=== PATIENT | male | born 1955 | race Hispanic/Latino ===

== ENCOUNTER 2017-06-03 21:32 | Inpatient (IN) | payer MEDICARE, MEDICAID ==
--- NOTE | 2017-06-03 21:44 | ED PDOC ---
Arrival/HPI - General Chief Complaint: Shortness Of Breath Time Seen by Provider: 06/03/17 21:34 Historian: Patient - History of Present Illness Narrative History of Present Illness (Text): 06/03/17 21:43 Curtis Gaitan is a 62 year old male, whose past medical history includes diabetes, CAD, CHF, depression, bilateral AKA, and peripheral vascular disease, who presents to the Emergency department sent from [facility] for shortness of breath tonight. Patient denies any chest pain, abdominal pain, nausea, vomiting, or any other complaints. Symptom Onset: Gradual Symptom Course: Unchanged Activities at Onset: Rest, Light Context: Home Past Medical History - Provider Review Nursing Documentation Reviewed: Yes - Infectious Disease Hx of Infectious Diseases: None - Cardiac Hx Congestive Heart Failure: Yes - Pulmonary Hx Pneumonia: Yes Hx Tuberculosis: No - Neurological HX Cerebrovascular Accident: No Hx Seizures: No - HEENT Hx HEENT Disorder: No - Renal Hx Renal Disorder: No - Endocrine/Metabolic Hx Diabetes Mellitus Type 1: Yes - Hematological/Oncological Hx Cancer: No - Integumentary Hx Dermatological Disorder: No - Musculoskeletal/Rheumatological Other/Comment: Rheumatoid arthritis - Gastrointestinal Hx Gastroesophageal Reflux: Yes - Genitourinary/Gynecological Hx Prostate Problems: Yes - Psychiatric Hx Depression: Yes Hx Substance Use: No - Surgical History Other/Comment: Bilateral AKA - Anesthesia Hx Anesthesia: No Hx Anesthesia Reactions: No Hx Malignant Hyperthermia: No Family/Social History - Physician Review Nursing Documentation Reviewed: Yes Family/Social History: Unknown Family HX Smoking Status: Smoker Currrent Status Unknown Hx Alcohol Use: No Hx Substance Use: No Allergies/Home Meds Allergies/Adverse Reactions: Allergies No Known Allergies Allergy (Verified 10/17/16 19:27) Review of Systems - Physician Review All systems were reviewed & negative as marked: Yes - Review of Systems Respiratory: SOB Cardiovascular: Normal. absent: Chest Pain Gastrointestinal: Normal. absent: Abdominal Pain, Diarrhea, Nausea, Vomiting Genitourinary Male: Normal Musculoskeletal: Normal. absent: Back Pain, Neck Pain Neurological: Normal. absent: Headache, Dizziness Physical Exam Vital Signs Reviewed: Yes Vital Signs Temp Pulse Resp BP Pulse Ox 06/04/17 00:25 100 F H 106 H 14 125/68 98 06/04/17 00:20 100 F H 106 H 17 108/67 06/03/17 23:30 105 H 06/03/17 23:20 113 H 14 128/57 L 94 L 06/03/17 23:11 102.2 F H 06/03/17 22:15 102.2 F H 107 H 32 H 106/63 87 L Temperature: Febrile Blood Pressure: Normal Pulse: Regular Respiratory Rate: Normal Appearance: Positive for: Non-Toxic Pain Distress: None Mental Status: Positive for: other (Drowsy but arousable) - Systems Exam Head: Present: Atraumatic, Normocephalic Pupils: Present: PERRL Extroacular Muscles: Present: EOMI Conjunctiva: Present: Normal Mouth: Present: Moist Mucous Membranes Neck: Present: Normal Range of Motion Respiratory/Chest: Present: Good Air Exchange, Rhonchi. No: Respiratory Distress, Accessory Muscle Use Cardiovascular: Present: Regular Rate and Rhythm, Normal S1, S2. No: Murmurs Abdomen: Present: Normal Bowel Sounds. No: Tenderness, Distention, Peritoneal Signs Back: Present: Normal Inspection Upper Extremity: Present: Normal Inspection. No: Cyanosis, Edema Lower Extremity: Present: Normal Inspection (Bilateral AKA). No: Edema Neurological: Present: GCS=15, CN II-XII Intact, Speech Normal Skin: Present: Warm, Dry, Normal Color. No: Rashes Psychiatric: Present: Other (Drowst but arousable) Medical Decision Making ED Course and Treatment: 06/03/17 21:44 Impression: 62 year old male complaining of shortness of breath. Differential Diagnosis included but are not limited to: pneumonia vs. sepsis vs. congestive heart failure vs. ACS Plan: -- EKG -- Chest X-ray -- Labs, BNP, troponin, VBG, blood cultures -- UA, urine cultures -- IV fluids -- Duoneb -- Reassess and disposition Prior Visits: Notes and results from previous visits were reviewed. Progress Notes: Reviewed EKG, accelerated junctional rhythm at [address] bpm[address] Non-specific ST/T changes. Unchanged from EKG on 10/28/2016. 06/03/17 22:15 Reviewed radiology, Chest X-ray shows: The cardiomediastinal silhouette is enlarged, unchanged. An AICD is identified projecting over the left anterior chest wall with a single lead projecting into the atrium and ventricle. Increased markings are identified within the superior segment of the right lower lobe, suggesting consolidation. The remainder of the lungs are otherwise clear. No subdiaphragmatic free air or pneumothorax. The trachea is midline. IMPRESSION: Consolidation within the superior segment of the right lower lobe, as detailed above. Persistent cardiomegaly. 06/03/17 22:39 Pt febrile, lactate:2.8. Code Sepsis called. 06/03/17 23:10 Troponin:2.[address] Lockwood, who is aware and agrees to evaluate pt for ICU admission. 06/03/17 23:[address] Ramirez, covering for Dr. Quevedo, who is aware and agrees with plan. Requests Dr. Gill, Dr. Watkins, and Dr. Pittman on consult. 06/03/17 23:[address] Lockwood, present in Emergency department to evaluate pt. States pt can be admitted to ICU. Pt will be admitted to the ICU for pneumonia, sepsis, and NSTEMI. - Critical Care Critical Care Minutes: 30 minutes - Lab Interpretations Lab Results: 06/03/17 22:00 06/03/17 22:00 Lab Results 06/03/17 22:22: pCO2 33 L, pO2 48.0 L, HCO3 21.4, ABG pH 7.42, ABG Total CO2 22.4, ABG O2 Saturation 89.2 L, ABG Base Excess -2.5 L, ABG Potassium 3.7, Sodium 147.0, Chloride 91.0 L, Glucose 197 H, Lactate 2.1, FiO2 100.0, Inspiratory BiPAP 12, Arterial Blood Potassium 3.7 06/03/17 22:00: Sodium 133, Chloride 96, Potassium 3.7, Carbon Dioxide 22, Anion Gap 19, BUN 45 H, Creatinine 1.8 H, Est GFR ( Amer) 46, Est GFR ( Non-Af Amer) 38, Random Glucose 190 H, Calcium 8.7, Phosphorus 3.4, Magnesium 1.9, Total Bilirubin 1.7 H, AST 39, ALT 27, Alkaline Phosphatase 68, Troponin I 2.20 H* D, NT-Pro-B Natriuret Pep 5480 H, Total Protein 7.0, Albumin 3.8, Globulin 3.2, Albumin/Globulin Ratio 1.2 06/03/17 22:00: pO2 38, VBG pH 7.38, VBG pCO2 43.0, VBG HCO3 25.4, VBG Total CO2 26.7, VBG O2 Sat (Calc) 76.5 H, VBG Base Excess 0.1, VBG Potassium 3.6, Sodium 133.0, Chloride 98.0, Glucose 203 H, Lactate 2.8 H, FiO2 21.0, Venous Blood Potassium 3.6 06/03/17 22:00: PT 18.3 H, INR 1.69 H, APTT 35.7 H 06/03/17 22:00: WBC 4.5, RBC 3.96, Hgb 11.3 L, Hct 32.8 L, MCV 82.8, MCH 28.5, MCHC 34.5, RDW 15.9 H, Plt Count 229, MPV 9.1, Neutrophils % (Manual) 57, Band Neutrophils % 28 H*, Lymphocytes % (Manual) 5 L, Monocytes % (Manual) 6, Metamyelocytes % 1, Myelocytes % 3, Platelet Evaluation Normal I have reviewed the lab results: Yes - RAD Interpretation Radiology Orders: 06/03/17 21:45 CHEST PORTABLE [RAD] Stat Associate Genetics Professor: Radiologist - EKG Interpretation Interpreted by ED Physician: Yes Type: 12 lead EKG - Medication Orders Current Medication Orders: Albuterol/Ipratropium (Duoneb 3 Mg/0.5 Mg (3 Ml) Ud) 3 ml [facility] [id number] [facility] Aspirin (Aspirin Supp) 300 mg RC DAILY [facility] Atorvastatin Calcium (Lipitor) 80 mg PO DIN [facility] Sodium Chloride (Sodium Chloride 0.9%) 1,000 mls @ 150 mls/hr IV .Q6H40M [facility] Last Admin: 06/03/17 22:19 Dose: 150 mls/hr Heparin Sodium/Dextrose (Heparin 25,000 Units/250ml In D5w) 25,000 units in 250 mls @ 11.975 mls/hr IV .[id number] U[facility]IEL; 12 UNITS/KG/HR PRN Reason: Protocol Vancomycin HCl (Vancomycin 500mg In Ns) 500 mg in 100 mls @ 200 mls/hr IVPB Q12 U[facility] PRN Reason: Protocol Piperacillin Sod/Tazobactam Sod (Zosyn 2.25 Gm In 0.9% 100 Ml) 2.25 gm in 100 mls @ 100 mls/hr IVPB Q6 [facility] PRN Reason: Protocol Stop: 06/04/17 12:59 Ondansetron HCl (Zofran Inj) 4 mg IVP Q6H PRN PRN Reason: Nausea/Vomiting Pantoprazole Sodium (Protonix Inj) 40 mg IVP DAILY U[facility] Discontinued Medications Acetaminophen (Tylenol 650 Mg Supp) 650 mg RC STAT STA Stop: 06/03/17 22:36 Last Admin: 06/03/17 23:11 Dose: 650 mg Albuterol/Ipratropium (Duoneb 3 Mg/0.5 Mg (3 Ml) Ud) 3 ml IH ONCE STA Stop: 06/03/17 21:48 Last Admin: 06/03/17 22:19 Dose: 3 ml Aspirin (Aspirin Supp) 300 mg RC STAT STA Stop: 06/04/17 00:17 Aspirin (Aspirin Chewable) 81 mg PO DAILY U[facility] Heparin Sodium (Porcine) (Heparin) 7,000 units 70 units/kg (7000 units) IV ONCE ONE PRN Reason: Protocol Stop: 06/04/17 00:00 Levofloxacin/Dextrose (Levaquin 750mg) 750 mg in 150 mls @ 100 mls/hr IVPB STAT STA Stop: 06/04/17 00:11 Cefepime HCl (Maxipime 2gm) 2 gm in 100 mls @ 100 mls/hr IVPB STAT STA PRN Reason: Protocol Stop: 06/03/17 23:41 Last Admin: 06/03/17 23:11 Dose: 100 mls/hr Sodium Chloride (Sodium Chloride 0.9%) 500 mls @ 500 mls/hr IV .Q1H STA Stop: 06/03/17 23:46 Last Admin: 06/03/17 23:11 Dose: 500 mls/hr - Scribe Statement The provider has reviewed the documentation as recorded by the Mary Canela Provider Attestation: All medical record entries made by the Mary were at my direction and personally dictated by me. I have reviewed the chart and agree that the record accurately reflects my personal performance of the history, physical exam, medical decision making, and the department course for this patient. I have also personally directed, reviewed, and agree with the discharge instructions and disposition. Disposition/Present on Arrival - Present on Arrival Any Indicators Present on Arrival: No History of DVT/PE: No History of Uncontrolled Diabetes: No Urinary Catheter: No History of Decub. Ulcer: No History Surgical Site Infection Following: None - Disposition Have Diagnosis and Disposition been Completed?: Yes Diagnosis: Sepsis, Pneumonia, NSTEMI (non-ST elevated myocardial infarction) Disposition: HOSPITALIZED Disposition Time: 23:31 Patient Plan: Admission Patient Problems: Current Active Problems Problem Status Onset NSTEMI (non-ST elevated myocardial infarction) Acute Pneumonia Acute Sepsis Acute Condition: GUARDED
[2017-06-03] MEDS ORDERED: Albuterol-Ipratrop 3 mg / 0.5 (3 ml) UD IH STA (21:47)
[2017-06-03] MEDS: Sodium Chloride 0.9% 1,000 ML IV SCH (22:19)
[2017-06-03 22:26] LABS: ARTERIAL BLOOD GAS HCO3 21.4 mmol/L (21-28); ARTERIAL BLOOD GAS O2 SAT 89.2 % (95-98); ARTERIAL BLOOD GAS PCO2 33 mm/Hg (35-45); ARTERIAL BLOOD GAS PH 7.42 (7.35-7.45); ARTERIAL BLOOD GAS TCO2 22.4 mmol.L (22-28)
--- NOTE | 2017-06-03 22:28 | RAD ---
EXAM: XR Chest, 1 View CLINICAL HISTORY: 62 years old, male; Signs and symptoms; Shortness of breath; Additional info: Sepsis patient TECHNIQUE: Frontal view of the chest. COMPARISON: CR - CHEST PORTABLE 10/31/2016 4:58:34 AM FINDINGS: The cardiomediastinal silhouette is enlarged, unchanged. An AICD is identified projecting over the left anterior chest wall with a single lead projecting into the atrium and ventricle. Increased markings are identified within the superior segment of the right lower lobe, suggesting consolidation. The remainder of the lungs are otherwise clear. No subdiaphragmatic free air or pneumothorax. The trachea is midline. IMPRESSION: Consolidation within the superior segment of the right lower lobe, as detailed above. Persistent cardiomegaly.
[2017-06-03 22:32] LABS: HEMOGLOBIN 11.3 gm/dL (14.0-18.0); MEAN CELL VOLUME 82.8 fL (80.0-105.0); MEAN CORPUSCULAR HEMOGLOBIN 28.5 pg (25.0-35.0); MEAN CORPUSCULAR HGB CONC 34.5 g/dl (31.0-37.0); MEAN PLATELET VOLUME 9.1 fl (7.0-11.0); PLATELET COUNT 229 10^3/uL (120.0-450.0); RBC 3.96 10^6/uL (3.5-6.1); RED CELL DISTRIBUTION WIDTH 15.9 % (11.5-14.5); WHITE BLOOD COUNT 4.5 10^3/ul (4.5-11.0)
[2017-06-03 22:34] LABS: VENOUS BLOOD GAS BASE EXCESS 0.1 mmol/L (0.0-2.0); VENOUS BLOOD GAS PO2 38 mm/Hg (30-55); VENOUS BLOOD PH 7.38 (7.32-7.43)
[2017-06-03 22:41] LABS: INR 1.69 (0.93-1.08); PARTIAL THROMBOPLASTIN TIME 35.7 Seconds (23.7-30.8); PROTHROMBIN TIME 18.3 Seconds (9.9-11.8)
[2017-06-03] MEDS ORDERED: Cefepime IV 2 gm in NS 2 GM/100 ML BAG IVPB STA (22:42)
[2017-06-03] MEDS ORDERED: levoFLOXacin 750 mg in D5W 750 MG/150 ML BAG IVPB STA (22:42)
[2017-06-03 22:45] LABS: ALB/GLOB RATIO 1.2 (1.1-1.8); ALBUMIN 3.8 g/dL (3.0-4.8); CALCIUM 8.7 mg/dL (8.4-10.5); MAGNESIUM 1.9 mg/dL (1.7-2.2)
[2017-06-03] MEDS ORDERED: Sodium Chloride 0.9% 500 ML IV STA (22:47)
[2017-06-03 23:03] LABS: TROPONIN I 2.2 ng/mL
[2017-06-03 23:20] LABS: NEUTROPHIL 57 % (50.0-70.0)
[2017-06-03 23:22] LABS: BAND 28 % (0-2); LYMPHOCYTE 5 % (22.0-35.0); METAMYELOCYTE 1 %; MONOCYTE 6 % (1.0-6.0); MYELOCYTE 3 %
[2017-06-03 23:23] LABS: PLATELET ESTIMATE NORMAL (NORMAL)
[2017-06-03] MEDS ORDERED: Heparin 25,000units in D5W 25,000 UNITS/250 ML BAG IV SCH (23:45)
--- NOTE | 2017-06-04 00:29 | CP.PCM.CON ---
<Justin Flores - Last Filed: 06/04/17 00:51> History of Present Illness - History of Present Illness History of Present Illness: CC: SOB and AMS Patient is a 62 year old male with a PMHx of diabetes, CAD, CHF, COPD, depression, peripheral vascular disease who, as per ED chart, was ricardo in from a long term for evaluation of SOB. Patient seen and examined at bedside. He is wearing his BiPAP mask and is mentally altered. He is alert but does not respond to verbal stimuli and does not answer questions appropriately. No friends or family are at bedside. HPI limited to prior records and ED chart. ROS cannot be attained at this time due to patient's AMS. PMhx: diabetes, CAD, CHF, COPD, depression, peripheral vascular disease based on previous records PSHx: bilateral AKA based on previous records Social Hx: cannot be attained at this time due to AMS Family Hx: cannot be attained at this time due to AMS Meds: no list provided from long term Review of Systems - Review of Systems Systems not reviewed;Unavailable: Altered Mental Status Review of Systems: ROS cannot be attained at this time due to AMS. Past Patient History - Infectious Disease Hx of Infectious Diseases: None - Past Social History Smoking Status: Smoker Currrent Status Unknown - CARDIAC Hx Congestive Heart Failure: Yes - PULMONARY Hx Pneumonia: Yes Hx Tuberculosis: No - NEUROLOGICAL HX Cerebrovascular Accident: No Hx Seizures: No - HEENT Hx HEENT Problems: No - RENAL Hx Chronic Kidney Disease: No - ENDOCRINE/METABOLIC Hx Diabetes Mellitus Type 1: Yes - HEMATOLOGICAL/ONCOLOGICAL Hx Cancer: No - INTEGUMENTARY Hx Dermatological Problems: No - MUSCULOSKELETAL/RHEUMATOLOGICAL Other/Comment: Rheumatoid arthritis - GASTROINTESTINAL Hx Gastroesophageal Reflux: Yes - GENITOURINARY/GYNECOLOGICAL Hx Prostate Problems: Yes - PSYCHIATRIC Hx Depression: Yes Hx Substance Use: No - SURGICAL HISTORY Other/Comment: Bilateral AKA - ANESTHESIA Hx Anesthesia: No Hx Anesthesia Reactions: No Hx Malignant Hyperthermia: No Meds Allergies/Adverse Reactions: Allergies Allergy/AdvReac Type Severity Reaction Status Date / Time No Known Allergies Allergy Verified 10/17/16 19:27 - Medications Medications: Current Medications Albuterol/Ipratropium (Duoneb 3 Mg/0.5 Mg (3 Ml) Ud) 3 ml IH [id number] [facility] Aspirin (Aspirin Supp) 300 mg RC DAILY [facility] Atorvastatin Calcium (Lipitor) 80 mg PO DIN [facility] Sodium Chloride (Sodium Chloride 0.9%) 1,000 mls @ 150 mls/hr IV .Q6H40M [facility] Last Admin: 06/03/17 22:19 Dose: 150 mls/hr Heparin Sodium/Dextrose (Heparin 25,000 Units/250ml In D5w) 25,000 units in 250 mls @ 11.975 mls/hr IV .[id number] UZIEL; 12 UNITS/KG/HR PRN Reason: Protocol Vancomycin HCl (Vancomycin 500mg In Ns) 500 mg in 100 mls @ 200 mls/hr IVPB Q12 [facility] PRN Reason: Protocol Piperacillin Sod/Tazobactam Sod (Zosyn 2.25 Gm In 0.9% 100 Ml) 2.25 gm in 100 mls @ 100 mls/hr IVPB Q6 [facility] PRN Reason: Protocol Stop: 06/04/17 12:59 Ondansetron HCl (Zofran Inj) 4 mg IVP Q6H PRN PRN Reason: Nausea/Vomiting Pantoprazole Sodium (Protonix Inj) 40 mg IVP DAILY [facility] Physical Exam - Constitutional Appears: No Acute Distress, Confused - Head Exam Head Exam: NORMAL INSPECTION - Eye Exam Eye Exam: Normal appearance, PERRL - ENT Exam ENT Exam: Mucous Membranes Moist - Neck Exam Neck exam: Positive for: Normal Inspection - Respiratory Exam Additional comments: right upper lobe crackles diminished breath sounds bilateral lower lobes - Cardiovascular Exam Cardiovascular Exam: Tachycardia, +S1, +S2 - GI/Abdominal Exam GI & Abdominal Exam: Soft. absent: Rebound, Rigid, Tenderness - Extremities Exam Additional comments: bilateral AKA - Neurological Exam Neurological exam: Altered Additional comments: patient is awake but altered. he does not respond to verbal stimuli, does not answer questions appropriately, and does not move extremities past midline - Skin Additional comments: left shoulder mole Results - Vital Signs Recent Vital Signs: Last Vital Signs Temp 100 F H 06/04/17 00:20 Pulse 106 H 06/04/17 00:20 Resp 17 06/04/17 00:20 BP 108/67 06/04/17 00:20 Pulse Ox 94 L 06/03/17 23:20 - Labs Result Diagrams: 06/03/17 22:00 06/03/17 22:00 Assessment & Plan - Assessment and Plan (Free Text) Assessment: Patient is a 62 year old male with a PMHx of diabetes, CAD, CHF, COPD, depression, peripheral vascular disease who presents to the ED for evaluation and treatment of SOB. 1. Pneumonia; Hypoxemic Respiratory Distress; Hx of COPD - CXR reviewed- shows new consolidation of the upper portion of the right lower lobe - vancomycin - zosyn - CXR in AM - ABG in AM - procalcitonin - BiPAP - duonebs - supplemental oxygen - pulmonology consult 2. Sepsis, details- source pneumonia, rule out UTI - no IVF at this time due to exacerbation of CHF - blood culture - urine culture - UA - Lactate - vancomycin - zosyn - procalcitonin - infectious disease consult 3. Positive Troponins; details- ACS vs demand ischemia - trend troponins - trend EKGs - start heparin drip empirically as this patient has ACS pending CT of head shows no acute intracranial bleed - aspirin - statin - no Beta bg at this time as patient is septic, keep patient normotensive - Lipid panel 4. Acute CHF Exacerbation - strict I and O - daily weights - head of bed greater than 30 degrees - ECHO - Cardiology consult 5. ONEAL - likely due to intravascular depletion, pre-renal in nature - monitor closely via CMP 6. Coagulopathy - unclear if patient is on anticoagulation at home - monitor via PT/INR - ammonia level as patient is altered 7. Diabetes - A1C - Accu checks ACHS - Insulin sliding scale 8. Anemia - Iron, TIBC, ferritin, B12, Folate - monitor closely via CBC 9. Ppx - protonix - heparin Patient seen, evaluated, and discussed with attending, Dr. Lockwood. <Mandie FINNEY,Cristino - Last Filed: 06/04/17 06:40> Meds - Medications Medications: Current Medications Albuterol/Ipratropium (Duoneb 3 Mg/0.5 Mg (3 Ml) Ud) 3 ml IH [id number] [facility] Last Admin: 06/04/17 03:56 Dose: 3 ml Aspirin (Aspirin Supp) 300 mg RC DAILY [facility] Atorvastatin Calcium (Lipitor) 80 mg PO DIN [facility] Sodium Chloride (Sodium Chloride 0.9%) 1,000 mls @ 150 mls/hr IV .Q6H40M [facility] Last Admin: 06/04/17 01:40 Dose: 150 mls/hr Heparin Sodium/Dextrose (Heparin 25,000 Units/250ml In D5w) 25,000 units in 250 mls @ 11.975 mls/hr IV .[id number] U[facility]IEL; 12 UNITS/KG/HR PRN Reason: Protocol Last Admin: 06/04/17 01:41 Dose: 12 units/kg/hr, 11.975 mls/hr Vancomycin HCl (Vancomycin 500mg In Ns) 500 mg in 100 mls @ 200 mls/hr IVPB Q12 [facility] PRN Reason: Protocol Last Admin: 06/04/17 02:41 Dose: 200 mls/hr Piperacillin Sod/Tazobactam Sod (Zosyn 2.25 Gm In 0.9% 100 Ml) 2.25 gm in 100 mls @ 100 mls/hr IVPB Q6 [facility] PRN Reason: Protocol Stop: 06/04/17 12:59 Last Admin: 06/04/17 05:59 Dose: 100 mls/hr Ondansetron HCl (Zofran Inj) 4 mg IVP Q6H PRN PRN Reason: Nausea/Vomiting Pantoprazole Sodium (Protonix Inj) 40 mg IVP DAILY [facility] Results - Vital Signs Recent Vital Signs: Last Vital Signs Temp 100.2 F H 06/04/17 01:25 Pulse 98 H 06/04/17 05:00 Resp 30 H 06/04/17 05:00 BP 138/69 06/04/17 05:00 Pulse Ox 95 06/04/17 05:00 - Labs Result Diagrams: 06/03/17 22:00 06/03/17 22:00 Labs: Laboratory Results - last 24 hr 06/04/17 06/04/17 01:40 05:20 pCO2 35 pO2 86 H 73.0 L HCO3 20.2 L ABG pH 7.37 ABG Total CO2 21.3 L ABG O2 Saturation 97.9 ABG O2 Content 13.3 L ABG Base Excess -4.5 L ABG Hemoglobin 9.9 L ABG Carboxyhemoglobin 1.7 H POC ABG HHb (Measured) 2.0 ABG Methemoglobin 1.0 ABG O2 Capacity 13.6 L VBG pH 7.30 L VBG pCO2 49.0 VBG HCO3 24.1 VBG Total CO2 25.6 VBG O2 Sat (Calc) 97.9 H VBG Base Excess -2.6 L VBG Potassium 3.5 L Hgb O2 Saturation 95.3 Sodium 132.0 Chloride 101.0 Glucose 227 H Lactate 2.0 FiO2 21.0 100.0 Venous Blood Potassium 3.5 L Attending/Attestation - Attestation I have personally seen and examined this patient.: Yes I have fully participated in the care of the patient.: Yes I have reviewed all pertinent clinical information: Yes Notes (Text): -I agree with the above H&P completed by the resident physician with the following additions and/or changes: The patient is a 62 year old long term resident with a history of IDDM, HTN, CAD, CHF, COPD, PVD and bilateral AKA, who is being admitted to the ICU with sepsis due to RUL pneumonia, hypoxic respiratory distress (likely due to PNA and acute CHF), elevated troponin (demand ischemia vs NSTEMI), ONEAL (likely due to intravascular depletion) and AMS (presumably due to sepsis). Fortunately, his BP has remained within normal range since arrival. He will be placed on Bipap therapy overnight. Also, empiric IV Vanco/Zosyn. In addition, given the patient's extensive history of cardiovascular disease, empiric therapeutic Heparin drip will be started for treatment of possible NSTEMI (at least until he 's evaluated by cardiology later this morning)(the patient has no contraindications to anticoagulation). ID, pulmonary and cardiology consults have all been placed. a 2D-echo has been ordered as well as serial trop's/EKG, procalcitonin level, repeat ABG and a UA. CT-head done in the ED was negative for acute bleed.
--- NOTE | 2017-06-04 00:55 | CT ---
EXAM: CT Head Without Intravenous Contrast CLINICAL HISTORY: 62 years old, male; Screening exam; Additional info: Rule out bleed TECHNIQUE: Axial computed tomography images of the head/brain without intravenous contrast. This CT exam was performed using one or more of the following dose reduction techniques: automated exposure control, adjustment of the mA and/or kV according to patient size, and/or use of iterative reconstruction technique. COMPARISON: CT - HEAD W/O CONTRAST 10/28/2016 11:54:23 AM FINDINGS: Brain: No acute intracranial hemorrhage. Age-appropriate periventricular white matter disease. No edema. Ventricles: Age-appropriate ventriculomegaly. Bones: No acute displaced fracture. A heterogeneous appearance of bone marrow is detected, similar to previous examination. Sinuses: Partial opacification of the right maxillary sinus is identified. Mucoperiosteal thickening within the bilateral ethmoid sinuses is also noted. Mastoid air cells: Unremarkable as visualized. No mastoid effusion. IMPRESSION: No acute intracranial hemorrhage, or suspicious mass effect. Inflammatory sinus disease.
[2017-06-04] MEDS: Albuterol-Ipratrop 3 mg / 0.5 (3 ml) UD IH SCH ×7 (01:24→23:51)
[2017-06-04] MEDS: Sodium Chloride 0.9% 1,000 ML IV SCH (01:40)
[2017-06-04 02:10] LABS: VENOUS BLOOD GAS BASE EXCESS -2.6 mmol/L (0.0-2.0); VENOUS BLOOD GAS PO2 86 mm/Hg (30-55)
[2017-06-04] MEDS: Vancomycin 500mg in NS 500 MG/100 ML BAG IVPB SCH ×2 (02:41→09:32)
[2017-06-04 04:24] VITALS: BMI 27.3
--- NOTE | 2017-06-04 04:40 | PCM.SEPTIC ---
<Justin Flores - Last Filed: 06/04/17 04:41> Sepsis Progress Note - Reassessment Type Date of Evaluation: 06/04/17 Time of Evaluation: 04:30 Reassessment Type: Non-invasive reassessment - Non Invasive Reassessment Were the most recent vital sign reviewed: Yes Vital Sign (Latest): Temp Pulse Resp BP Pulse Ox 100.2 F H 98 H 27 H 132/61 100 06/04/17 01:25 06/04/17 03:00 06/04/17 03:00 06/04/17 03:00 06/04/17 03:00 Cardiovascular: Yes: Other Respiratory: Yes: Other (on bipap) Capillary Refill: Normal (Less than 2 sec) (upper extremities as patient has bilateral aka) Skin: Warm <Cristino Lockwood MD - Last Filed: 06/04/17 06:41> Sepsis Progress Note - Non Invasive Reassessment Vital Sign (Latest): Temp Pulse Resp BP Pulse Ox 100.2 F H 98 H 30 H 138/69 95 06/04/17 01:25 06/04/17 05:00 06/04/17 05:00 06/04/17 05:00 06/04/17 05:00 Attending/Attestation - Attestation I have personally seen and examined this patient.: Yes I have fully participated in the care of the patient.: Yes I have reviewed all pertinent clinical information, including history, physical exam and plan: Yes Notes (Text): 06/04/17 06:41 -I agree with the above sepsis note completed by the resident physician.
[2017-06-04 05:34] LABS: ARTERIAL BLOOD GAS HCO3 20.2 mmol/L (21-28); ARTERIAL BLOOD GAS HEMOGLOBIN 9.9 g/dL (11.7-17.4); ARTERIAL BLOOD GAS O2 CAPACITY 13.6 mL/dl (16-24); ARTERIAL BLOOD GAS O2 CONTENT 13.3 ML/dl (15-23); ARTERIAL BLOOD GAS O2 SAT 97.9 % (95-98); ARTERIAL BLOOD GAS PCO2 35 mm/Hg (35-45); ARTERIAL BLOOD GAS PH 7.37 (7.35-7.45); ARTERIAL BLOOD GAS TCO2 21.3 mmol.L (22-28)
[2017-06-04] MEDS: Piperacillin/Tazobact 2.25gm 2.25 GM/100 ML BAG IVPB SCH ×2 (05:59→12:55)
[2017-06-04 07:05] LABS: HEMOGLOBIN 9.6 gm/dL (14.0-18.0); MEAN CELL VOLUME 82.9 fL (80.0-105.0); MEAN CORPUSCULAR HEMOGLOBIN 27.7 pg (25.0-35.0); MEAN CORPUSCULAR HGB CONC 33.4 g/dl (31.0-37.0); MEAN PLATELET VOLUME 9.3 fl (7.0-11.0); PLATELET COUNT 193 10^3/uL (120.0-450.0); RBC 3.46 10^6/uL (3.5-6.1); WHITE BLOOD COUNT 5.9 10^3/ul (4.5-11.0)
[2017-06-04 07:25] LABS: ALBUMIN 3.6 g/dL (3.0-4.8); ALT/SGPT 39 U/L (7-56); AST/SGOT 56 U/L (15-59); BLOOD UREA NITROGEN 44 mg/dL (7-21); CALCIUM 8.1 mg/dL (8.4-10.5); GFR AFRICAN-AMERICAN > 60; GFR NON-AFRICAN AMERICAN 51; HDL CHOLESTEROL 20 mg/dL (29-60); MAGNESIUM 1.9 mg/dL (1.7-2.2)
[2017-06-04 07:36] LABS: LDL CHOLESTEROL 52 mg/dL (0-129)
[2017-06-04 07:59] LABS: % IRON SATURATION 4 % (20-55); IRON 13 ug/dL (45-180); TOTAL IRON BINDING CAPACITY 314 ug/dL (261-462)
[2017-06-04 08:01] LABS: TROPONIN I 2.26 ng/mL
[2017-06-04 08:56] LABS: LYMPHOCYTE 2 % (22.0-35.0); NEUTROPHIL 78 % (50.0-70.0)
[2017-06-04 08:57] LABS: BAND 16 % (0-2); METAMYELOCYTE 1 %; MONOCYTE 3 % (1.0-6.0); PLATELET ESTIMATE NORMAL (NORMAL)
[2017-06-04 10:00] LABS: CK MB% 0.4 % (2.5-3.0)
--- NOTE | 2017-06-04 10:54 | RAD ---
HISTORY: evaluate PNA and Congestion COMPARISON: 06/03/2017 FINDINGS: LUNGS: Patchy infiltrate in the right upper lobe and right lower lobe suspicious for pneumonia. Mild vascular congestion PLEURA: No significant pleural effusion identified, no pneumothorax apparent. CARDIOVASCULAR: Normal. OSSEOUS STRUCTURES: No significant abnormalities. VISUALIZED UPPER ABDOMEN: Normal. OTHER FINDINGS: None. IMPRESSION: Increasing infiltrate in the right upper lobe. No change in right lower lobe infiltrate.
[2017-06-04] MEDS ORDERED: Propofol 10 mg/ml Inj (20 ML) IVP ONE ×3 (11:05→12:21)
--- NOTE | 2017-06-04 11:05 | CARD ---
APPROVED REPORT EKG Measurement Heart [id number] <Conclusion> Sinus rhythm with first egree AV Block Low voltage QRS Nonspecific T wave abnormality Prolonged QT Abnormal ECG
--- NOTE | 2017-06-04 11:10 | CARD ---
APPROVED REPORT EKG Measurement Heart [id number] <Conclusion> Sinus rhythm with first egree AV Block Low voltage QRS Nonspecific ST and T wave abnormality Abnormal ECG
[2017-06-04] MEDS ORDERED: Propofol 10 mg/ml Inj (20 ML) ONE (11:11)
[2017-06-04] MEDS: Dexmedetomidine HCl 4mcg/ml 400 MCG/100 ML BOTTLE IV PRN ×3 (11:30→22:15)
--- NOTE | 2017-06-04 12:13 | RAD ---
HISTORY: s/p intubation, OG tube COMPARISON: Earlier same day FINDINGS: LUNGS: Increasing infiltrate in the left upper lobe PLEURA: No significant pleural effusion identified, no pneumothorax apparent. CARDIOVASCULAR: Normal. OSSEOUS STRUCTURES: No significant abnormalities. VISUALIZED UPPER ABDOMEN: Normal. OTHER FINDINGS: The nasogastric tube is in satisfactory position. Endotracheal tube in satisfactory position IMPRESSION: Endotracheal and nasogastric tubes in satisfactory position
[2017-06-04] MEDS: DOBUTamine 500mg/250ml D5W 500 MG/250 ML BAG IV PRN (12:27)
[2017-06-04] MEDS: Insulin Reg-HIGH-Coverage SC SCH ×3 (12:55→21:50)
[2017-06-04 13:08] LABS: ARTERIAL BLOOD GAS HCO3 21.5 mmol/L (21-28); ARTERIAL BLOOD GAS HEMOGLOBIN 9.2 g/dL (11.7-17.4); ARTERIAL BLOOD GAS O2 CAPACITY 12.6 mL/dl (16-24); ARTERIAL BLOOD GAS O2 CONTENT 11.6 ML/dl (15-23); ARTERIAL BLOOD GAS O2 SAT 91.8 % (95-98); ARTERIAL BLOOD GAS PCO2 38 mm/Hg (35-45); ARTERIAL BLOOD GAS PH 7.36 (7.35-7.45); ARTERIAL BLOOD GAS TCO2 22.7 mmol.L (22-28)
[2017-06-04 13:25] LABS: FOLATE 16.7 ng/mL
[2017-06-04] MEDS: Meropenem 1g/NS 100mL IVPB 1 GM/100 ML PIGGYBACK IVPB SCH (14:08)
[2017-06-04 14:13] LABS: ARTERIAL BLOOD GAS HCO3 23.5 mmol/L (21-28); ARTERIAL BLOOD GAS O2 CAPACITY 15.1 mL/dl (16-24); ARTERIAL BLOOD GAS O2 CONTENT 14.8 ML/dl (15-23); ARTERIAL BLOOD GAS O2 SAT 98.3 % (95-98); ARTERIAL BLOOD GAS PCO2 37 mm/Hg (35-45); ARTERIAL BLOOD GAS PH 7.41 (7.35-7.45); ARTERIAL BLOOD GAS TCO2 24.6 mmol.L (22-28)
--- NOTE | 2017-06-04 14:20 | CON ---
DATE: 06/04/2017 REASON FOR CONSULTATION: Pneumonia. REFERRING PHYSICIAN: Adria Quevedo DO HISTORY OF PRESENT ILLNESS: History is obtained via extensive discussion with the ICU nurse. I have also reviewed the chart at length. The patient is not an adequate historian at the present time. The patient is a chronically ill 62-year-old male, with past medical history significant for diabetes mellitus, coronary artery disease, congestive heart failure, peripheral vascular disease, status post bilateral above the knee amputations, who [facility] for progressive shortness of breath. The night nurse also notes a minimal cough with no sputum production. There is no history of chest pain, coughing up of blood, or chest pain - made worse with deep respirations. The patient did present with high fevers to the emergency room. No history of chills or infectious exposure. No history of night sweats, weight loss, or appetite change prior to the above events. No history of syncope or diaphoresis. No history of recent travel or trauma. ALLERGIES: NO KNOWN ALLERGIES. HOME MEDICATIONS: Include Norvasc, MiraLax, Protonix, heparin, Colace, and Tylenol. FAMILY HISTORY: No inheritable diseases. SOCIAL HISTORY: Positive for tobacco and negative for alcohol. REVIEW OF SYSTEMS: No history of nausea, vomiting, or diarrhea. No acute urinary symptoms. No new musculoskeletal complaints. Rest of the review of systems is noncontributory. PHYSICAL EXAMINATION: GENERAL: The patient is lethargic, but arousable. He is moderately short of breath, but in no acute distress. He is currently on BiPAP. VITAL SIGNS: Temperature is 100.2, pulse is 98, respirations are approximately 28, and blood pressure is 138/69. Oxygen saturation on BiPAP with 100% oxygen - 95%. HEENT: Normocephalic and atraumatic. NECK: No JVD. CARDIOVASCULAR: Systolic ejection murmur at the lower left sternal border. Questionable S3 gallop. LUNGS: Crackles at both bases. minimal bilateral rhonchi. No wheezing. GASTROINTESTINAL: Abdomen is soft, nontender, and nondistended. Bowel sounds are positive. EXTREMITIES: The patient is status post bilateral [id number] amputations. SKIN: No acute rash. NEUROLOGIC: Limited at the present time. PERTINENT LABORATORY DATA: Two chest x-rays have been done and reviewed. The first chest x-ray-- done yesterday-- shows a small infiltrate at the right base. There is another film done this morning. No official results are on the chart. In my opinion, this x-ray again shows the right lower lobe infiltrate. However, there appears to be mild increase in pulmonary vascular congestive changes in addition. Complete metabolic profile: BUN of 45, creatinine of 1.8, glucose of 190, and bilirubin 1.7. Troponin is 2.20 and B-type natriuretic peptide 5480. Rest of the metabolic profile is within normal limits. Arterial blood gas was done on BiPAP with 100% oxygen. Results are: pH of 7.37, pCO2 of 35, and pO2 of 73. INR is 1.69. CBC: White count of 4.5, hemoglobin was 11.3, hematocrit of 32.8, and platelets of 229. IMPRESSION: 1. Right lower lobe pneumonia. 2. Sepsis syndrome. 3. Acute myocardial infarction. 4. Possible congestive heart failure. 5. Renal insufficiency. 6. Severe peripheral vascular disease. PLAN: Again, I did discuss the case with the ICU nurse at length. I have also reviewed the chart at length. The patient presents to [facility] - transferred from the [facility] - with progressive shortness of breath. As above, the night nurse also notes a minimal cough. There are no other pulmonary symptoms reported. I did review both of the chest x-rays - as above. The chest x-rays both showed a right lower lobe infiltrate consistent with pneumonia. However, on the second chest x-ray, there appears to be an increase in the pulmonary vascular congestive changes. Pancultures have been ordered and be analyzed when feasible. The patient has been started on antibiotic therapy. Infectious Disease evaluation with Dr. Watkins has been ordered. I did review the arterial blood gas. There is a significant alveolar - arterial gradient noted. I have also reviewed the complete metabolic profile. A significant rise in the troponin, as well as the B-type natriuretic peptide are noted. Cardiology consultation with Dr. Gill has been ordered. The patient is critically ill at this point in time. His overall prognosis is very guarded. I will discuss above with the entire ICU team in the next few moments. I will also discuss the above with Dr. Quevedo later this morning. Thank you very much for this pulmonary consultation. Tom Pittman MD JOSE
[2017-06-04 14:22] LABS: CK-MB 4.4 ng/mL (0.0-3.6)
[2017-06-04 14:30] LABS: TROPONIN I 2.5 ng/mL
[2017-06-04] MEDS ORDERED: Acetaminophen 650mg/20.3ml solution UD PO PRN (14:38)
--- NOTE | 2017-06-04 14:58 | CP.PCM.PN ---
<MAGGIE PAT - Last Filed: 06/04/17 15:01> Subjective - Date & Time of Evaluation Date of Evaluation: 06/04/17 Time of Evaluation: 12:30 - Subjective Subjective: Maggie Pat, PGY1, ICU Progress Note: Pt seen and examined at bedside. Pt admitted overnight for hypoxemic respiratory failure 2/2 likely HAP, CHF exacerbation, also found to have NSTEMI. This AM, pt on bipap 12/6 R20, [id number], ABG shows pO2 73, pt tachypneic , O2 saturation dropping and tachycardic HR 122, intubated patient. Pt doing well on volume control, ROS limited. Objective - Vital Signs/Intake and Output Vital Signs (last 24 hours): Temp Pulse Resp BP Pulse Ox 101.7 F H 110 H 28 H 136/75 98 06/04/17 14:15 06/04/17 14:15 06/04/17 13:36 06/04/17 14:15 06/04/17 14:15 Intake and Output: 06/04/17 06/04/17 06:59 18:59 Intake Total 1110 57.4 Balance 1110 57.4 - Medications Medications: Current Medications Acetaminophen (Tylenol 650mg/20.3ml Solution Ud) 650 mg PO Q6H PRN PRN Reason: Temperature Albuterol/Ipratropium (Duoneb 3 Mg/0.5 Mg (3 Ml) Ud) 3 ml IH [id number] [facility] Last Admin: 06/04/17 11:03 Dose: 3 ml Aspirin (Aspirin Supp) 300 mg RC DAILY [facility] Last Admin: 06/04/17 09:33 Dose: 300 mg Atorvastatin Calcium (Lipitor) 80 mg PO DIN [facility] Clopidogrel Bisulfate (Plavix) 75 mg PO DAILY [facility] Heparin Sodium/Dextrose (Heparin 25,000 Units/250ml In D5w) 25,000 units in 250 mls @ 11.975 mls/hr IV .[id number] [facility]; 12 UNITS/KG/HR PRN Reason: Protocol Last Admin: 06/04/17 01:41 Dose: 12 units/kg/hr, 11.975 mls/hr Dobutamine HCl/Dextrose (Dobutamine/Dextrose 5% 500mg/250ml) 500 mg in 250 mls @ 13.336 mls/hr IV .[id number] PRN; Protocol; 5 MCG/KG/MIN PRN Reason: TITRATE PER PROTOCOL Last Admin: 06/04/17 12:27 Dose: 13.336 mls/hr Dexmedetomidine HCl (Precedex 4 Mcg/Ml (100 Ml)) 400 mcg in 100 mls @ 4.445 mls /hr IV .[id number] PRN; Protocol; 0.2 MCG/KG/HR PRN Reason: Sedation Last Titration: 06/04/17 13:16 Dose: 1 mcg/kg/hr, 22.226 mls/hr Doxycycline Hyclate 100 mg/ (Sodium Chloride) 100 mls @ 100 mls/hr IVPB Q12 [facility] PRN Reason: Protocol Stop: 06/13/17 13:39 Last Admin: 06/04/17 14:08 Dose: 100 mls/hr Meropenem 1g/NS 100mL IVPB (Meropenem 1g/Ns 100ml Ivpb) 1 gm in 100 mls @ 100 mls/hr IVPB Q12 [facility] PRN Reason: Protocol Stop: 08/09/17 13:40 Last Admin: 06/04/17 14:08 Dose: 100 mls/hr Insulin Human Regular (Humulin R High) 0 units SC ACHS [facility] PRN Reason: Protocol Last Admin: 06/04/17 12:55 Dose: 4 units Ondansetron HCl (Zofran Inj) 4 mg IVP Q6H PRN PRN Reason: Nausea/Vomiting Pantoprazole Sodium (Protonix Inj) 40 mg IVP DAILY [facility] Last Admin: 06/04/17 09:33 Dose: 40 mg - Labs Labs: 06/04/17 05:40 06/04/17 06:40 PT 18.3 Seconds (9.9-11.8) H 06/03/17 22:00 INR 1.69 (0.93-1.08) H 06/03/17 22:00 APTT 54.0 Seconds (23.7-30.8) H 06/04/17 08:20 - Constitutional Appears: No Acute Distress - Head Exam Head Exam: ATRAUMATIC, NORMOCEPHALIC - Eye Exam Eye Exam: PERRL - ENT Exam ENT Exam: Mucous Membranes Moist - Respiratory Exam Respiratory Exam: Decreased Breath Sounds - Cardiovascular Exam Cardiovascular Exam: Tachycardia, +S1, +S2 Additional comments: pVCs - GI/Abdominal Exam GI & Abdominal Exam: Soft, Normal Bowel Sounds. absent: Distended, Tenderness - Extremities Exam Additional comments: Bilateral BKA - Neurological Exam Neurological Exam: Awake - Skin Skin Exam: Dry, Warm Assessment and Plan - Assessment and Plan (Free Text) Assessment: 62M with PMH CHF, CAD, COPD, admitted to ICU for acute hypoxemic respiratory failure 2/2 likely HAP pneumonia, CHF exacerbation, also found to have elevated troponins and ONEAL. Plan: Neuro : AMS 2/2 likely sepsis 2/2 likely HAP and CHF exacerbation. Pt intubated. Sedated on precedex @ 1. Cont to monitor. CV: BP 80-110s/40-60s, Hx of CAD and CHF, On Dobutamine to increase CO. Trops elevated 2.2->2.26->2.50, Pt given ASA, Plavix, Statin. On heparin drip. Cardio (Dr. Gill) on board; scheduled for cardiac cath tomorrow. F/u Echo. Maintain MAP>65. Cont to monitor. Pulm: Intubated on Volume control, PEEP 6, RR 22, TV 400, 100$ FiO2. Maintain sat>90%. Continue with HOB elevation> 35 degrees, aspiration precautions. Continue with protected lung ventilation strategies with TV of 6 ml/kg of IBW, plateau pressure less than 35, head of bed elevation above 35 degrees, bronchodilators, keep oxygenation above 90%, pulm toileting Recent ABG shows improved hypoxemia, and acidosis. will cont to monitor. CXR shows RLL consolidation. f/u chest CT. GI: NPO. Continue with Protonix. will obtain abd/pelvis CT to r/o any infection/ pathology. Renal /fluids/Electrolytes: ONEAL. BUN/Cr 44/1.4. Baseline Cr 0.6. hypokalemic 3.5, replaced. UO 4oo ml since this AM, s/p 80mg Lasix and 500c NS bolus in ED. maintain euvolemia, monitor UO. Continue to monitor. ID: T 100.2, no leukocytosis. Continue with Doxy and Merrem for HAP coverage. F/u ID recs. Bandemia 20 on admission, lactate 2.8->2.1 today. Endo: BS 194-200's. Continue with ISS. Maintain euglycemia. Heme: Hgb 9.6. Plts 193. Stable. Cont to monitor. DVT ppx - hep drip GI ppx - Protonix discussed and seen with attending, Dr Uribe, and team. Maggie Pat, PGY1 <Rony FINNEY,Sylvain H - Last Filed: 06/04/17 16:46> Objective - Vital Signs/Intake and Output Vital Signs (last 24 hours): Temp Pulse Resp BP Pulse Ox 101.5 F H 106 H 24 133/73 96 06/04/17 15:45 06/04/17 15:45 06/04/17 15:15 06/04/17 15:45 06/04/17 15:45 Intake and Output: 06/04/17 06/04/17 06:59 18:59 Intake Total 1110 57.4 Balance 1110 57.4 - Medications Medications: Current Medications Acetaminophen (Tylenol 650mg/20.3ml Solution Ud) 650 mg PO Q6H PRN PRN Reason: Temperature Last Admin: 06/04/17 15:15 Dose: 650 mg Albuterol/Ipratropium (Duoneb 3 Mg/0.5 Mg (3 Ml) Ud) 3 ml IH [id number] [facility] Last Admin: 06/04/17 15:28 Dose: 3 ml Aspirin (Aspirin Supp) 300 mg RC DAILY [facility] Last Admin: 06/04/17 09:33 Dose: 300 mg Atorvastatin Calcium (Lipitor) 80 mg PO DIN [facility] Clopidogrel Bisulfate (Plavix) 75 mg PO DAILY [facility] Heparin Sodium/Dextrose (Heparin 25,000 Units/250ml In D5w) 25,000 units in 250 mls @ 11.975 mls/hr IV .[id number] [facility]; 12 UNITS/KG/HR PRN Reason: Protocol Last Admin: 06/04/17 01:41 Dose: 12 units/kg/hr, 11.975 mls/hr Dobutamine HCl/Dextrose (Dobutamine/Dextrose 5% 500mg/250ml) 500 mg in 250 mls @ 13.336 mls/hr IV .[id number] PRN; Protocol; 5 MCG/KG/MIN PRN Reason: TITRATE PER PROTOCOL Last Admin: 06/04/17 12:27 Dose: 13.336 mls/hr Dexmedetomidine HCl (Precedex 4 Mcg/Ml (100 Ml)) 400 mcg in 100 mls @ 4.445 mls /hr IV .[id number] PRN; Protocol; 0.2 MCG/KG/HR PRN Reason: Sedation Last Titration: 06/04/17 13:16 Dose: 1 mcg/kg/hr, 22.226 mls/hr Doxycycline Hyclate 100 mg/ (Sodium Chloride) 100 mls @ 100 mls/hr IVPB Q12 [facility] PRN Reason: Protocol Stop: 06/13/17 13:39 Last Admin: 06/04/17 14:08 Dose: 100 mls/hr Meropenem 1g/NS 100mL IVPB (Meropenem 1g/Ns 100ml Ivpb) 1 gm in 100 mls @ 100 mls/hr IVPB Q12 [facility] PRN Reason: Protocol Stop: 08/09/17 13:40 Last Admin: 06/04/17 14:08 Dose: 100 mls/hr Insulin Human Regular (Humulin R High) 0 units SC ACHS [facility] PRN Reason: Protocol Last Admin: 06/04/17 12:55 Dose: 4 units Ondansetron HCl (Zofran Inj) 4 mg IVP Q6H PRN PRN Reason: Nausea/Vomiting Pantoprazole Sodium (Protonix Inj) 40 mg IVP DAILY [facility] Last Admin: 06/04/17 09:33 Dose: 40 mg - Labs Labs: 06/04/17 05:40 06/04/17 06:40 PT 18.3 Seconds (9.9-11.8) H 06/03/17 22:00 INR 1.69 (0.93-1.08) H 06/03/17 22:00 APTT 54.0 Seconds (23.7-30.8) H 06/04/17 08:20 Attending/Attestation - Attestation I have personally seen and examined this patient.: Yes I have fully participated in the care of the patient.: Yes I have reviewed all pertinent clinical information, including history, physical exam and plan: Yes Notes (Text): 06/04/17 16:42 62 y/o M w/ Hypoxemic respiratory failure Increased PVC, elevated Troponins in the setting of Low EF and . Risk Risk NSTEMI, cardiology following planning to cardiac cath in a.m Continue w/ Heparin drip, asprin, plavix, statin. AC/VC on 100% PEEP 6 to keep pao2> 60. PH> 7.3 lasix 80mg given w/ 800 cc urine output. ECHO done LLL atelectasis post intubation . CT abd/ pelvis CT chest done . Pending read. Poor prognosis cc time 72 min
--- NOTE | 2017-06-04 15:24 | HP ---
HISTORY OF PRESENT ILLNESS: I know Curtis very well from custodial for few years. He is a 62-year old white male, who came to emergency room, being sent from the nursing room from shortness of breath, not feeling well, no chest pain at the time, no abdominal pain, nausea, vomiting, or any other complaints. PAST MEDICAL HISTORY: He has a past medical history of diabetics, coronary artery disease, CHF, depression, bilateral AKA, peripheral vascular disease, congestive heart failure, pneumonia in the past, diabetes, rheumatoid arthritis, GERD, BPH, depression, peripheral vascular disease leading to bilateral AKA, hypertension, diabetes in her family. SOCIAL HISTORY: He is a smoker, still smokes daily. No alcohol, no substance abuse. ALLERGIES: NO KNOWN DRUG ALLERGIES. MEDICATION: He takes Colace, Miralax, Norvasc, Protonix and Tylenol at the nursing room. REVIEW OF SYSTEM: He is now in the intensive care unit. He is on BIPAP, he is talking to me, he is breathing and talking to me though BIPAP. Fairly comfortable. Sating at 96%. He is fluid overloaded and there is a possibility of intubation hoping not to. No changes in vision or hearing. No chest pain, no shortness of breath, no abdominal pain. PHYSICAL EXAMINATION VITAL SIGNS: His temperature of 100; pulse 106 respiratory rate 32, one time it is down to 14; 128/57 blood pressure; 87% O2 saturation up to 98%. HEENT: Head is atraumatic and normocephalic. Throat is dry. NECK: Supple. Extraocular muscles are intact. HEART: Regular rate. Normal S1 and S2. LUNGS: Decreased breath sounds bilaterally. No rhonchi or rales. No wheezes. Poor inspiration. ABDOMEN: Soft and nontender. Positive bowel sounds, morbidly obese. EXTREMITIES: Bilateral AKA. At this time, it is little bit swollen, diuresed, given Lasix 80 mg. NEUROLOGIC: GCS is 15. Cranial nerves II through XII grossly intact. SKIN: Warm and dry. LYMPHATICS: Tyroid is midline. No appreciated palpable lymphadenopathy. LABORATORY DATA: He had some blood test. He has 134 sodium and potassium 3.5, we will replace potassium. BUN is 44, creatinine 1.4, GFR is 51, sugar is 234. Should be on insulin coverage. Iron is low at 13. Ammonia is 23, total creatine kinase Troponin is 2.26 elevated. Total protein 7. White count is 5.9, hemoglobin 9.6, hematocrit is 28.7, platelets 193. He had a chest x-ray and a head CT, which showed no intracranial hemorrhage or suspicious masses. Chest x-ray showed consolidation, which appeared segmental right lower lobe and persistent cardiomegaly. He will have consults with pulmonary and cardio and infections disease. He will be on IV antibiotics. I will watch him very closely. He might need to go for catheterization once we get pulmonary filtration underway and we will watch him in the intensive care unit. He is here for multiple issues of pneumonia, NSTEMI, CHF, shortness of breath with bilateral AKA and diabetes history. Adria Quevedo DO MTDVinh
--- NOTE | 2017-06-04 15:31 | CT ---
PROCEDURE: CT Chest, Abdomen and Pelvis without intravenous contrast HISTORY: wbc COMPARISON: 10/28/2016 TECHNIQUE: Radiation dose: Total exam DLP = 1936 mGy-cm. This CT exam was performed using one or more of the following dose reduction techniques: Automated exposure control, adjustment of the mA and/or kV according to patient size, and/or use of iterative reconstruction technique. FINDINGS: CT CHEST WITHOUT CONTRAST: LUNGS: Bilateral lower lobe consolidation is seen with air bronchograms suspicious for pneumonia. Infiltrates are also seen in the upper lobes posteriorly. There is a small effusion on the left. . MEDIASTINUM: Unremarkable. Normal caliber aorta and pulmonary arterial trunk. Normal size heart. LYMPH NODES: Unremarkable. PLEURA: Unremarkable. No pneumothorax. No pleural fluid. BONES: Unremarkable. OTHER FINDINGS: None. CT ABDOMEN AND PELVIS: LIVER: Unremarkable. No gross lesion or ductal dilatation. GALLBLADDER AND BILE DUCTS: Small stones in the gallbladder PANCREAS: Unremarkable. No gross lesion or ductal dilatation. SPLEEN: Unremarkable. ADRENALS: Unremarkable. No mass. KIDNEYS AND URETERS: Unremarkable. No hydronephrosis. No solid mass. There is some chronic perinephric stranding VASCULATURE: Unremarkable. No aortic aneurysm. BOWEL: Unremarkable. No obstruction. No gross mural thickening. The nasogastric tube is present. APPENDIX: Normal appendix. PERITONEUM: Unremarkable. No free fluid. No free air. LYMPH NODES: Unremarkable. No enlarged lymph nodes. BLADDER: A Braun catheter decompresses the bladder. REPRODUCTIVE: Unremarkable. BONES: No acute fracture. OTHER FINDINGS: None. IMPRESSION: Consolidation in both lower lobes and posterior upper lobes consistent with pneumonia. No acute intra-abdominal findings.
[2017-06-04 16:54] LABS: URINE BILIRUBIN NEGATIVE (NEGATIVE); URINE BLOOD MODERATE (NEGATIVE); URINE GLUCOSE (UA) NEGATIVE (NEGATIVE); URINE LEUKOCYTE ESTERASE NEGATIVE Leu/uL (NEGATIVE); URINE NITRATE NEGATIVE (NEGATIVE); URINE PROTEIN 30 mg/dL (<30 mg/dL); URINE UROBILINOGEN 0.2 E.U./dL (<1 E.U./dL)
[2017-06-04 17:05] LABS: URINE APPEARANCE CLEAR (CLEAR)
[2017-06-04 17:08] LABS: URINE AMORPHOUS SEDIMENT TRACE; URINE BACTERIA TRACE (NEG); URINE RBC 15 - 20 /hpf (0-2)
[2017-06-04] MEDS ORDERED: Acetaminophen 160 mg/5 ml UD PO SCH (18:00)
[2017-06-04] MEDS: Acetaminophen 650mg/20.3ml solution UD PO PRN (18:59)
--- NOTE | 2017-06-04 20:49 | CARD ---
APPROVED REPORT EKG Measurement Heart [id number] <Conclusion> Atrial fibrillation with rapid ventricular response with premature ventricular or aberrantly conducted complexes Low voltage QRS Abnormal ECG
[2017-06-04] MEDS: Heparin 25,000units in D5W/250 ML BAG IV SCH (22:04)
[2017-06-04 22:07] LABS: TROPONIN I 2.59 ng/mL
[2017-06-04 22:09] LABS: CK-MB 2.7 ng/mL (0.0-3.6)
--- NOTE | 2017-06-04 22:30 | CON ---
DATE: 06/04/2017 The patient was seen earlier this morning in the ICU on bed 7. CHIEF COMPLAINT: Fever of 102 x1-day duration. HISTORY OF PRESENT ILLNESS: This is a 62-year-old male, [facility] patient with diabetes mellitus, coronary artery disease, hypertension, congestive heart failure, depression, healthcare-associated pneumonia, peripheral vascular disease, history of group B Streptococcus pneumoniae in the past, who had a bilateral above the knee amputation, and who is admitted now with temperature of 102, and was seen in the emergency room. The patient was transferred to the unit and infectious disease consultation requested. The patient is somewhat lethargic. He is responsive, but slow to respond. He denies fever, shortness of breath. No chest pain. There is no abdominal pain. No diarrhea or constipation. No bright red blood per rectum. No melena. PAST MEDICAL HISTORY: Significant for diabetes mellitus, coronary artery disease, hypertension, congestive heart failure, depression, healthcare-associated pneumonia with group B Strep, and peripheral vascular disease. PAST SURGICAL HISTORY: Significant for bilateral above the knee amputation. ALLERGIES: THE PATIENT HAS NO KNOWN ALLERGIES TO ANY ANTIBIOTICS. MEDICATIONS: Include Norvasc, Protonix, and Tylenol. PHYSICAL EXAMINATION: GENERAL: The patient is in bed. VITAL SIGNS: Temperature of 102, blood pressure is 102/60. It was down to 76/40 with respiratory rate of 28, heart rate of 88 and it was up to 112. HEENT: Unremarkable. NECK: Supple. LUNGS: Decreased breath sounds. HEART: Normal S1 and S2. ABDOMEN: Soft, nontender. No organomegaly. No rebound. No guarding. No masses. LABORATORY DATA: Reveals the patient's white count is 4.5, hemoglobin of 11, platelets of 229, there is 28%bandemia, coagulation is noted and chemistries reveal the patient has a BUN of 44, creatinine of 1.4 with lactic acid of 2.0. Hemoglobin A1c is 10. Troponin is 2.26 with a second troponin of 2.20 and the LFTs are normal and renal function; creatinine is 1.8 yesterday. Prior to that, the patient's creatinine October of 2016 was 0.6 and cultures are pending. Chest x-ray shows positive left upper lobe infiltrate. EKG shows nonspecific changes. ASSESSMENT AND PLAN: This is a 62-year-old male [facility] patient with diabetes mellitus, coronary artery disease, hypertension, congestive heart failure, depression, group B Strep, healthcare-associated pneumonia, peripheral vascular disease, admitted now with fever of 102, respiratory rate of 32, heart rate of 106 with hypotension with severe sepsis with 28% bandemia with left upper lobe healthcare-associated pneumonia, possible Gram positive cocci versus Gram-negative karthik pneumonia with acute kidney injury with change of creatinine from 0.6 to 1.8 and rhabdomyolysis in a patient with non-ST elevation myocardial infarction. We will treat the patient with doxycycline and meropenem; ACS protocol for treatment of non-ST elevation myocardial infarction. We will order a procalcitonin, urine for Legionella antigen, blood cultures, urine cultures, and sputum cultures, and we will make further recommendations upon availability of initial cultures and EKG does show nonspecific ST changes and a QTc of 457. We will follow closely with you. Live Watkins MD
[2017-06-05] MEDS: Dexmedetomidine HCl 4mcg/ml 400 MCG/100 ML BOTTLE IV PRN ×6 (02:49→23:38)
[2017-06-05] MEDS: Albuterol-Ipratrop 3 mg / 0.5 (3 ml) UD IH SCH ×6 (03:19→23:40)
[2017-06-05] MEDS: Acetaminophen 650mg/20.3ml solution UD PO PRN ×2 (05:34→10:25)
[2017-06-05 05:49] LABS: HEMOGLOBIN 9.8 gm/dL (14.0-18.0); MEAN CELL VOLUME 82.6 fL (80.0-105.0); MEAN CORPUSCULAR HEMOGLOBIN 27.9 pg (25.0-35.0); MEAN CORPUSCULAR HGB CONC 33.8 g/dl (31.0-37.0); PLATELET COUNT 189 10^3/uL (120.0-450.0); RBC 3.51 10^6/uL (3.5-6.1); RED CELL DISTRIBUTION WIDTH 16.1 % (11.5-14.5); WHITE BLOOD COUNT 7.2 10^3/ul (4.5-11.0)
[2017-06-05 05:54] LABS: INR 1.28 (0.93-1.08); PARTIAL THROMBOPLASTIN TIME 48.1 Seconds (23.7-30.8); PROTHROMBIN TIME 13.8 Seconds (9.9-11.8)
[2017-06-05 06:12] LABS: BLOOD UREA NITROGEN 37 mg/dL (7-21); CALCIUM 8.1 mg/dL (8.4-10.5); GFR AFRICAN-AMERICAN > 60; GFR NON-AFRICAN AMERICAN > 60
[2017-06-05 06:20] LABS: ARTERIAL BLOOD GAS HEMOGLOBIN 9.9 g/dL (11.7-17.4); ARTERIAL BLOOD GAS O2 CAPACITY 13.5 mL/dl (16-24); ARTERIAL BLOOD GAS O2 CONTENT 13.2 ML/dl (15-23); ARTERIAL BLOOD GAS O2 SAT 97.6 % (95-98); ARTERIAL BLOOD GAS PCO2 32 mm/Hg (35-45)
[2017-06-05 06:41] LABS: NEUTROPHIL 74 % (50.0-70.0)
[2017-06-05 06:42] LABS: BAND 15 % (0-2); LYMPHOCYTE 5 % (22.0-35.0); MONOCYTE 6 % (1.0-6.0); PLATELET ESTIMATE NORMAL (NORMAL)
--- NOTE | 2017-06-05 07:51 | PN ---
DATE: 06/05/2017(625am--715am) SUBJECTIVE: The patient is currently on the ventilator. He is sedated. PHYSICAL EXAMINATION: VITAL SIGNS: Temperature is 102.7, pulse is 109, respirations 22/22, blood pressure is 122/73. HEENT: Normocephalic and atraumatic. NECK: No JVD. CARDIOVASCULAR: Systolic ejection murmur at the lower left sternal border. Questionable S3 gallop. LUNGS: Decreased breath sounds with crackles at the bases. minimal bilateral rhonchi. No wheezing. EXTREMITIES: The patient is status post bilateral maenc-ilf-kynu amputations. GASTROINTESTINAL: Abdomen is soft, nontender, and nondistended. Bowel sounds are positive. SKIN: No acute rash. NEUROLOGIC: Limited at the present time. PERTINENT LABORATORY DATA: CAT scan of the chest, abdomen and pelvis was done yesterday and reviewed. There are bilateral lower lobe consolidations - with air bronchograms - most consistent with pneumonia. There is also an infiltrate in the right upper lobe posteriorly. Chest x-ray was also done this morning and reviewed. There are no official results on the chart. There are bilateral pulmonary infiltrates noted, with probable underlying mild pulmonary edema. Arterial blood gas was done on assist control 22, Tidal volume 400, FiO2 100%. Results are: pH of 7.50, pCO2 of 32, and pO2 of 66. Peak troponin over the past 24 hours - 2.59. IMPRESSION: 1. Respiratory failure. 2. Multilobar pneumonia. 3. Sepsis syndrome. 4. Acute myocardial infarction. 5. Possible congestive heart failure. 6. Renal insufficiency. 7. Severe peripheral vascular disease. PLAN: I did discuss the case with the ICU nurse at length. Apparently, late morning yesterday, the patient was intubated for progressive respiratory distress. He is currently on the ventilator and sedated. I did review the chest x-ray as above. I have also reviewed the CAT scan of the chest. The chest x-ray and CAT scan both reveal multilobar pneumonia. Again, there is probably some underlying pulmonary edema in addition. I have also reviewed the arterial blood gas. A mixed disturbance is present with a significant increase in the alveolar - arterial gradient. Rise in troponin is also noted over the past 24 hours. I would continue with the cardiology evaluation and treatment as per Dr. Gill. The patient remains critically ill with overall very guarded prognosis. I will discuss the above with the entire ICU team the next few moments. I will also discuss the above with Dr. Portillo later this morning. Tom Pittman MD MTDVinh
[2017-06-05] MEDS: Insulin Reg-HIGH-Coverage SC SCH ×4 (07:53→22:26)
--- NOTE | 2017-06-05 08:30 | CON ---
CARDIOLOGY CONSULTATION DATE OF CONSULTATION: 06/04/2017 HISTORY OF PRESENT ILLNESS: The patient is a 61-year-old male who presents with dyspnea from the [facility]. The patient's past medical history includes history of congestive heart failure, documented cardiomyopathy, CAD, diabetes mellitus, and hypertension. He suffers from peripheral vascular disease and is status post amputations of the lower extremities. The patient's past medical history also includes a history of depression. Currently, the patient is in the ICU on a VentiMask. The patient is lethargic with mild dyspnea. REVIEW OF SYSTEMS: Unobtainable. PHYSICAL EXAMINATION: VITAL SIGNS: Reveal blood pressure of 145/60, the heart rate is 100, sinus tachycardia. NECK: Negative JVD. LUNGS: Decreased breath sounds bilaterally. HEART: Reveals S1, S2. EXTREMITIES: Status post amputations. DIAGNOSTIC STUDIES: EKG shows nonspecific ST-T changes. The troponin is 2.26, glucose 234 with a BUN and creatinine of 44 and 1.4, hemoglobin is 9.6. Preliminary echo reading reveals an ejection fraction of 25%. IMPRESSION: 1. Pulmonary edema. 2. Dilated cardiomyopathy. 3. Diabetes mellitus. 4. History of hypertension. 5. History of depression. 6. Status post amputation in the past. 7. Possible pneumonia. PLAN: Given these findings, Lasix has been ordered. We will begin intravenous dobutamine. The patient's elevated troponin likely represents a NSTEMI. Once the patient's respiratory status is more stabilized as well as his sepsis is controlled, we will consider cardiac catheterization. Ross Gill MD
--- NOTE | 2017-06-05 08:34 | PQF CHF ---
This form is a permanent part of the medical record Dr. Quevedo, Please specify type and severity of CHF present in this patient. Clarification of your documentation is requested to better reflect the severity of illness and intensity of treatment of your patient. Indicators present [] Diagnosis of CHF and/or history of CHF [] BNP > 200 [] Imaging Finding of Pulmonary Edema /Pleural Effusions [] Fluid/Volume Overload [] Pitting edema [] Ejection Fraction < 40% (Indicative of Systolic Heart Failure) [] Ejection Fraction > 40% (Indicative of Diastolic Heart Failure) [] Dyspnea / Orthopenea / Paroxysmal Nocturnal Dyspnea [] Other: Location in the medical record that reflects the above clinical findings: [] Treatment Provided: [] PHYSICIAN'S RESPONSE please see cardiology consult for infor Based on your medical judgment of the clinical indicators outlined above, are you treating this patient for a known or suspected: [] Acute CHF [] Systolic [] Diastolic [] Combined [] Chronic CHF [] Systolic [] Diastolic [] Combined [] Acute on Chronic CHF []Systolic [] Diastolic [] Combined [] CHF due hypertension [] Acute systolic []Chronic systolic [] Acute/ chronic systolic [] Other, please indicate: [] [] If Unable to Determine, please check the box, sign and date. Present On Admission (POA) Indicator: [] Present at the time of admission [] Not present at the time of admission [] Clinically Undetermined In responding to this query, please exercise your independent professional judgment. The fact that a question is asked does not imply that any particular answer is desired or expected. Thank you for your clarification on this documentation. If you have any questions please call:[ ] * Thank you, [ ]Suzanne James [facility] #[id number] policewoman JOSE
--- NOTE | 2017-06-05 08:54 | CP.PCM.PN ---
<MAGGIE PAT - Last Filed: 06/05/17 12:37> Subjective - Date & Time of Evaluation Date of Evaluation: 06/05/17 Time of Evaluation: 08:51 - Subjective Subjective: ICU PGY1 Progress note: Pt seen and examined at bedside. Pt had persistent fevers Tmax 102.7, overnight , despite 2 doses of Tylenol. No other acute events. Pt intubated, sedated on precedex, responds to voice, follows commands. Objective - Vital Signs/Intake and Output Vital Signs (last 24 hours): Temp Pulse Resp BP Pulse Ox 102.7 F H 101 H 31 H 143/80 100 06/05/17 07:39 06/05/17 07:00 06/05/17 07:27 06/05/17 07:00 06/05/17 07:27 Intake and Output: 06/05/17 06/05/17 06:59 18:59 Intake Total 2594 50 Output Total 1800 Balance 794 50 - Medications Medications: Current Medications Acetaminophen (Tylenol 650mg/20.3ml Solution Ud) 650 mg PO Q4H PRN PRN Reason: Temperature Last Admin: 06/05/17 05:34 Dose: 650 mg Albuterol/Ipratropium (Duoneb 3 Mg/0.5 Mg (3 Ml) Ud) 3 ml IH [id number] [facility] Last Admin: 06/05/17 07:17 Dose: 3 ml Aspirin (Aspirin Supp) 300 mg RC DAILY [facility] Last Admin: 06/04/17 09:33 Dose: 300 mg Atorvastatin Calcium (Lipitor) 80 mg PO DIN [facility] Last Admin: 06/04/17 18:42 Dose: 80 mg Clopidogrel Bisulfate (Plavix) 75 mg PO DAILY [facility] Dobutamine HCl/Dextrose (Dobutamine/Dextrose 5% 500mg/250ml) 500 mg in 250 mls @ 13.336 mls/hr IV .[id number] PRN; Protocol; 5 MCG/KG/MIN PRN Reason: TITRATE PER PROTOCOL Last Admin: 06/04/17 12:27 Dose: 13.336 mls/hr Dexmedetomidine HCl (Precedex 4 Mcg/Ml (100 Ml)) 400 mcg in 100 mls @ 4.445 mls /hr IV .[id number] PRN; Protocol; 0.2 MCG/KG/HR PRN Reason: Sedation Last Admin: 06/05/17 02:49 Dose: 1 mcg/kg/hr, 22.226 mls/hr Doxycycline Hyclate 100 mg/ (Sodium Chloride) 100 mls @ 100 mls/hr IVPB Q12 [facility] PRN Reason: Protocol Stop: 06/13/17 13:39 Last Admin: 06/04/17 21:23 Dose: 100 mls/hr Meropenem 1g/NS 100mL IVPB (Meropenem 1g/Ns 100ml Ivpb) 1 gm in 100 mls @ 100 mls/hr IVPB Q12 [facility] PRN Reason: Protocol Stop: 08/09/17 13:40 Last Admin: 06/04/17 14:08 Dose: 100 mls/hr Heparin Sodium/Dextrose (Heparin 25,000 Units/250ml In D5w) 25,000 units in 250 mls @ 10.631 mls/hr IV .[id number] [facility]; 12 UNITS/KG/HR PRN Reason: Protocol Last Titration: 06/05/17 07:31 Dose: 16 units/kg/hr, 14.175 mls/hr Insulin Human Regular (Humulin R High) 0 units SC ACHS [facility] PRN Reason: Protocol Last Admin: 06/05/17 07:53 Dose: 4 units Metoprolol Tartrate (Lopressor) 12.5 mg PO BID [facility] Last Admin: 06/04/17 18:42 Dose: 12.5 mg Ondansetron HCl (Zofran Inj) 4 mg IVP Q6H PRN PRN Reason: Nausea/Vomiting Pantoprazole Sodium (Protonix Inj) 40 mg IVP DAILY [facility] Last Admin: 06/04/17 09:33 Dose: 40 mg - Labs Labs: 06/05/17 05:02 06/05/17 05:02 PT 13.8 Seconds (9.9-11.8) H 06/05/17 05:02 INR 1.28 (0.93-1.08) H 06/05/17 05:02 APTT 48.1 Seconds (23.7-30.8) H 06/05/17 05:02 - Constitutional Appears: No Acute Distress - Head Exam Head Exam: ATRAUMATIC, NORMOCEPHALIC - Eye Exam Eye Exam: PERRL - Respiratory Exam Additional comments: Coarse breath sounds throughout. - Cardiovascular Exam Cardiovascular Exam: Tachycardia, +S1, +S2 - GI/Abdominal Exam GI & Abdominal Exam: Soft, Normal Bowel Sounds. absent: Distended, Tenderness - Neurological Exam Additional comments: intubated, sedated, GCS9t, opens eyes, follows commands. - Skin Skin Exam: Warm Assessment and Plan - Assessment and Plan (Free Text) Assessment: 62M with PMH CHF, CAD, COPD, admitted to ICU for acute hypoxemic respiratory failure 2/2 likely HAP pneumonia, CHF exacerbation, also found to have elevated troponins and ONEAL. Pt febrile, has bandemia, ONEAL improving, on volume control, maxed on 100%FiO2, ABG this AM notable for hypoxemia pO2 66, likley mixed, will repeat. UO 1000 ml overnight. Pt still on dobutamine drip @5, heparin drip, and sedated on precedex. Elevated trops, high risk NSTEMI, cardiac cath cancelled this AM patient febrile. Closely monitor. Plan: Neuro : AMS 2/2 likely sepsis 2/2 likely HAP and CHF exacerbation.\ GCS 9t today, follows commands. Pt intubated. Sedated on precedex @ 1. Cont to monitor. CV: BP 140s/80-90s. Hx of CAD and CHF, On Dobutamine to increase CO. Trops elevated 2.2->2.26->2.50, Pt given ASA, Plavix, Statin. On heparin drip. Cardio (Dr. Gill) on board; cardiac cath cancelled this AM febrile, will f.u once pt condition stable. F/u Echo reading. Maintain MAP>65. Cont to monitor. Pulm: Intubated on Volume control, PEEP 6, RR 18, TV 400, 100% FiO2. Maintain sat>90%. Continue with HOB elevation> 35 degrees, aspiration precautions. Continue with protected lung ventilation strategies with TV of 6 ml/kg of IBW, plateau pressure less than 35, head of bed elevation above 35 degrees, bronchodilators, keep oxygenation above 90%, pulm toileting ABG shows improved hypoxemia, likely mixed, will repeat. cont to monitor. CXR shows RLL consolidation. chest CT shows b/l LLL PNA and posterior RUL PNA. GI: NPO. Continue with Protonix. abd/pelvis CT w/o contrast shows no intrabdominal pathology. May obtain Abd/pelvis CT w contrast tomorrow if no improvement, to r/ o any infection/pathology. Renal /fluids/Electrolytes: ONEAL. improving Cr 1.4->1. Baseline Cr 0.6. hypokalemic 3.5, resolved. UO 1000 ml overnight, s/p 80mg Lasix and 500c NS bolus in ED. maintain euvolemia, monitor UO. Continue to monitor. ID: T 102.7, no leukocytosis. Continue with Doxy and Merrem D2 for HAP coverage. F/ u ID recs. Started Linezolid. Bandemia 20 on admission, 15 today. lactate 2.8->2.1. Received 1 dose of Vanco in ED. Blood cultures NTD, Tracheal asp pending. Endo: Continue with ISS. Maintain euglycemia. Heme: Stable. Cont to monitor. DVT ppx - hep drip GI ppx - Protonix discussed and seen with PGY2 and attending, Dr Uribe. Maggie Pat, PGY1 <Rony FINNEY,[facility] - Last Filed: 06/05/17 15:42> Objective - Vital Signs/Intake and Output Vital Signs (last 24 hours): Temp Pulse Resp BP Pulse Ox 102.0 F H 101 H 31 H 151/90 H 94 L 06/05/17 11:28 06/05/17 12:00 06/05/17 07:27 06/05/17 12:00 06/05/17 12:00 Intake and Output: 06/05/17 06/05/17 06:59 18:59 Intake Total 2594 250 Output Total 1800 Balance 794 250 - Medications Medications: Current Medications Acetaminophen (Tylenol 650mg/20.3ml Solution Ud) 650 mg PO Q4H PRN PRN Reason: Temperature Last Admin: 06/05/17 10:25 Dose: 650 mg Albuterol/Ipratropium (Duoneb 3 Mg/0.5 Mg (3 Ml) Ud) 3 ml IH [id number] [facility] Last Admin: 06/05/17 11:01 Dose: 3 ml Aspirin (Aspirin Supp) 300 mg RC DAILY [facility] Last Admin: 06/05/17 11:06 Dose: 300 mg Atorvastatin Calcium (Lipitor) 80 mg PO DIN [facility] Last Admin: 06/04/17 18:42 Dose: 80 mg Clopidogrel Bisulfate (Plavix) 75 mg PO DAILY [facility] Last Admin: 06/05/17 09:05 Dose: 75 mg Dobutamine HCl/Dextrose (Dobutamine/Dextrose 5% 500mg/250ml) 500 mg in 250 mls @ 13.336 mls/hr IV .[id number] PRN; Protocol; 5 MCG/KG/MIN PRN Reason: TITRATE PER PROTOCOL Last Admin: 06/04/17 12:27 Dose: 13.336 mls/hr Dexmedetomidine HCl (Precedex 4 Mcg/Ml (100 Ml)) 400 mcg in 100 mls @ 4.445 mls /hr IV .[id number] PRN; Protocol; 0.2 MCG/KG/HR PRN Reason: Sedation Last Admin: 06/05/17 14:26 Dose: 1.5 mcg/kg/hr, 33.339 mls/hr Doxycycline Hyclate 100 mg/ (Sodium Chloride) 100 mls @ 100 mls/hr IVPB Q12 [facility] PRN Reason: Protocol Stop: 06/13/17 13:39 Last Admin: 06/05/17 09:32 Dose: 100 mls/hr Meropenem 1g/NS 100mL IVPB (Meropenem 1g/Ns 100ml Ivpb) 1 gm in 100 mls @ 100 mls/hr IVPB Q12 [facility] PRN Reason: Protocol Stop: 08/09/17 13:40 Last Admin: 06/05/17 09:01 Dose: 100 mls/hr Heparin Sodium/Dextrose (Heparin 25,000 Units/250ml In D5w) 25,000 units in 250 mls @ 10.631 mls/hr IV .[id number] [facility]; 12 UNITS/KG/HR PRN Reason: Protocol Last Titration: 06/05/17 07:31 Dose: 16 units/kg/hr, 14.175 mls/hr Acetaminophen (Ofirmev) 1,000 mg in 100 mls @ 400 mls/hr IVPB Q6H PRN PRN Reason: Temperature Stop: 06/07/17 11:23 Last Admin: 06/05/17 14:28 Dose: 400 mls/hr Insulin Human Regular (Humulin R High) 0 units SC ACHS [facility] PRN Reason: Protocol Last Admin: 06/05/17 12:59 Dose: 4 units Metoprolol Tartrate (Lopressor) 12.5 mg PO BID [facility] Last Admin: 06/05/17 09:02 Dose: 12.5 mg Ondansetron HCl (Zofran Inj) 4 mg IVP Q6H PRN PRN Reason: Nausea/Vomiting Pantoprazole Sodium (Protonix Inj) 40 mg IVP DAILY [facility] Last Admin: 06/05/17 09:02 Dose: 40 mg - Labs Labs: 06/05/17 05:02 06/05/17 05:02 PT 13.8 Seconds (9.9-11.8) H 06/05/17 05:02 INR 1.28 (0.93-1.08) H 06/05/17 05:02 APTT 54.6 Seconds (23.7-30.8) H 06/05/17 14:00 Attending/Attestation - Attestation I have personally seen and examined this patient.: Yes I have fully participated in the care of the patient.: Yes I have reviewed all pertinent clinical information, including history, physical exam and plan: Yes Notes (Text): 06/05/17 15:37 62 y/o M w/ Acute Hypoxemic Respiratory Failure Intubated on 100% FIO2 Peep 6. Keep Pa02> 60 ARDS net protocol PH>7.3 Plat< 30 Low TV strategy Continue abx for PNA treatment . Sputum cx pending. On meropenum and added Linezolid. Sedation w/ Precedex and Fentanyl PRn to keep patient RASS -2. NSTEMI on heparin drip , Plan for cardiac cath once afebrile and more stable. ECHO shows low EF and . RISS Tube feeds to start in 24 hrs. DVT p cc time 72
[2017-06-05] MEDS: Meropenem 1g/NS 100mL IVPB 1 GM/100 ML PIGGYBACK IVPB SCH ×2 (09:01→22:24)
[2017-06-05] MEDS ORDERED: Linezolid 600 mg in D5W 300 ml 600 MG/300 ML BAG IVPB SCH (11:30)
--- NOTE | 2017-06-05 12:36 | PN ---
SUBJECTIVE: I keep to see him in the ICU today. He is intubated on the ventilator. Nobody called me to tell me they were intubating him. PHYSICAL EXAMINATION: VITAL SIGNS: Temperature 102.7, pulse 109, respiratory rate 31, blood pressure 142/73, and O2 saturation 100% on mechanical ventilator. GENERAL: He is sedated. HEART: Regular rate, tachycardic. LUNGS: Decreased breath sounds. ABDOMEN: Soft and obese. EXTREMITIES: Bilateral AKA and less swollen than yesterday. He diuresed a little bit. LABORATORY DATA: White count 7.2, hemoglobin 9.8, hematocrit 29, and platelet 189. PTT 48.1 and pH of 7.5. Sodium 135, potassium 3.7, BUN 37, creatinine 1, GFR is greater than 60, sugar is 224, calcium is 8.1, total creatinine to 1110, and troponin is 2.59, so elevated. MEDICATIONS: He is on aspirin, dobutamine, doxycycline IV, DuoNeb, heparin, Humulin, Lipitor, Lopressor, Merrem, Plavix, Precedex, Protonix, Tylenol, and Zofran. He is being seen by Pulmonary, hospitalist and Infectious Disease. He has an healthcare-associated pneumonia, peripheral vascular disease, 102 temperature, hypotension with severe sepsis, right upper lobe pneumonia, acute kidney injury, rhabdomyolysis, NSTEMI, and multiple medications. Cardiology was also called in. We will continue with aggressive treatment and care. Adria Quevedo DO MTDD
[2017-06-05 13:23] LABS: ARTERIAL BLOOD GAS HCO3 21.5 mmol/L (21-28); ARTERIAL BLOOD GAS HEMOGLOBIN 9.4 g/dL (11.7-17.4); ARTERIAL BLOOD GAS O2 CONTENT 12.8 ML/dl (15-23); ARTERIAL BLOOD GAS O2 SAT 98.6 % (95-98); ARTERIAL BLOOD GAS PCO2 31 mm/Hg (35-45); ARTERIAL BLOOD GAS PH 7.45 (7.35-7.45); ARTERIAL BLOOD GAS TCO2 22.5 mmol.L (22-28)
--- NOTE | 2017-06-05 13:36 | RAD ---
HISTORY: desaturations COMPARISON: Comparison made with chest dated 05/28/2017 FINDINGS: LUNGS: In situ ETT, the tip of which lies approximately 4.3 cm above jarrod. NGT is present, the tip of which does not appear to be included on this film however the distal aspect overlies left upper quadrant of the abdomen. There are patchy infiltrate changes seen in the right mid to lower lung field. Suspect minor left basilar atelectasis. Questionable small effusion. PLEURA: No significant pleural effusion identified, no pneumothorax apparent. CARDIOVASCULAR: Heart remains enlarged. No change single pole pacemaker/defibrillator OSSEOUS STRUCTURES: No significant abnormalities. VISUALIZED UPPER ABDOMEN: Normal. OTHER FINDINGS: None. IMPRESSION: ETT and NGT as above. Patchy infiltrate changes seen in the right mid-lower lung field with minor left basilar atelectasis and small left effusion Cardiomegaly.
--- NOTE | 2017-06-05 14:03 | PN ---
DATE: 06/05/2017 SUBJECTIVE: The patient is in bed, was seen early this morning, intubated on a ventilator 129, bed 7 ____ . The patient has a fever of a 102, he is intubated. PHYSICAL EXAMINATION VITAL SIGNS: Temperature of 102.7, blood pressure is 148 over respiratory rate on vent, and heart of 109. HEENT: Unremarkable. NECK: Supple. LUNGS: Decreased breath sounds. HEART: Normal S1 and S2. ABDOMEN: Soft and nontender. LABORATORY DATA: Examination reveals a white count of 7.2, hemoglobin of 9, and platelets are 50,000. Coagulation is noted. Chemistry reveals a BUN of 37 and creatinine of 1.0. Troponin of 2.59. The patient's procalcitonin of 14.78. Urinalysis is noted and the patient's antigen is negative. The blood cultures are negative. Sputum cultures are pending. Review of the orders reveals the patient to be on doxycycline and meropenem. ASSESSMENT AND PLAN: This is a 62-year-old male who is a senior living patient with diabetes mellitus, coronary artery disease, hypertension, congestive heart failure, depression, healthcare-associated pneumonia, peripheral vascular disease, group B streptococcus, pneumonia, who has a bilateral [id number] amputation who is admitted now with severe sepsis with healthcare associated left upper lobe and right lower lobe pneumonia with probable Gram positive versus Gram negative karthik pneumonia with acute kidney injury with respiratory failure, intubated on a ventilator with rhabdomyolysis and [id number] myocardial infarction. On day number 2 meropenem and doxycycline. We will follow closely with you. Live Watkins MD
--- NOTE | 2017-06-05 14:25 | RAD ---
HISTORY: f/u COMPARISON: No prior. FINDINGS: LUNGS: In situ ETT, tip of which lies approximately 4.8 cm above jarrod. NGT is present, the tip of which has not been included on this film though distal aspect does lie well below EG junction. Bibasilar opacities overall could represent atelectasis or developing infiltrates. Suspected small bilateral effusions left larger than right. PLEURA: As above. No pneumothorax apparent. CARDIOVASCULAR: No change single lead pacemaker/ defibrillator. Mild cardiomegaly. OSSEOUS STRUCTURES: No significant abnormalities. VISUALIZED UPPER ABDOMEN: Normal. OTHER FINDINGS: None. IMPRESSION: ETT and NGT as above. Bibasilar opacities could represent atelectasis and or developing infiltrates with suspected small bilateral effusions left larger than right
--- NOTE | 2017-06-05 16:32 | PN ---
DATE: SUBJECTIVE: The patient remains intubated, however, the patient spiked to 103 today. OBJECTIVE: Vital signs: Stable. Blood pressure 145/87, heart rate is 107 and sinus tachycardia. NECK: Negative JVD. LUNGS: Bilateral rhonchi. HEART: S1 and S2. EXTREMITIES: Status post amputations. LABORATORY DATA: The blood cultures revealed no growth after 24 hours. Hemoglobin is 9.8, white count is 7.2. Chemistries, the troponin is 2.5 with a creatinine of 1. IMPRESSION: 1. Respiratory failure. 2. Dilated cardiomyopathy. 3. Pulmonary edema. 4. Non-ST elevated myocardial infarction. 5. Peripheral vascular disease. 6. Diabetes mellitus. 7. Persistent spiking temperatures. PLAN: Given these findings, we will hold off on cardiac catheterization. Given the patient's temperature, we will continue the IV inotropic therapy at this time. ID has been consulted for sepsis. Ross Gill MD
[2017-06-05] MEDS ORDERED: Vancomycin 2 GM in Sodium Chloride 0.9% 500 ML IVPB ONE (21:27)
[2017-06-06] MEDS: DOBUTamine 500mg/250ml D5W 500 MG/250 ML BAG IV PRN ×2 (02:19→21:13)
[2017-06-06] MEDS: Dexmedetomidine HCl 4mcg/ml 400 MCG/100 ML BOTTLE IV PRN ×5 (02:41→21:14)
[2017-06-06] MEDS: Albuterol-Ipratrop 3 mg / 0.5 (3 ml) UD IH SCH ×6 (04:35→23:29)
[2017-06-06 05:23] LABS: BASO # 0.01 K/mm3 (0.0-2.0); BASO % 0.1 % (0.0-3.0); EOS % 0.1 % (1.5-5.0); GRAN # 9.44 (1.4-6.5); GRAN % 91.4 % (50.0-68.0); LYMPH # 0.4 (1.2-3.4); LYMPH % 3.5 % (22.0-35.0); MEAN CELL VOLUME 83.3 fL (80.0-105.0); MEAN CORPUSCULAR HEMOGLOBIN 28.3 pg (25.0-35.0); MEAN PLATELET VOLUME 8.8 fl (7.0-11.0); MONO # 0.5 (0.1-0.6); MONO % 4.9 % (1.0-6.0); PLATELET COUNT 189 10^3/uL (120.0-450.0); RBC 3.89 10^6/uL (3.5-6.1); RED CELL DISTRIBUTION WIDTH 16.2 % (11.5-14.5); WHITE BLOOD COUNT 10.3 10^3/ul (4.5-11.0)
[2017-06-06 05:35] LABS: INR 1.26 (0.93-1.08); PARTIAL THROMBOPLASTIN TIME 59.2 Seconds (23.7-30.8); PROTHROMBIN TIME 13.6 Seconds (9.9-11.8)
[2017-06-06 05:38] LABS: ALB/GLOB RATIO 0.9 (1.1-1.8); ALBUMIN 3.4 g/dL (3.0-4.8); ALT/SGPT 33 U/L (7-56); AST/SGOT 43 U/L (15-59); BLOOD UREA NITROGEN 24 mg/dL (7-21); CALCIUM 8.1 mg/dL (8.4-10.5); GFR AFRICAN-AMERICAN > 60; GFR NON-AFRICAN AMERICAN > 60
[2017-06-06 05:42] LABS: ARTERIAL BLOOD GAS HCO3 22.4 mmol/L (21-28); ARTERIAL BLOOD GAS HEMOGLOBIN 11.5 g/dL (11.7-17.4); ARTERIAL BLOOD GAS O2 CAPACITY 15.8 mL/dl (16-24); ARTERIAL BLOOD GAS O2 CONTENT 15.5 ML/dl (15-23); ARTERIAL BLOOD GAS O2 SAT 98.1 % (95-98); ARTERIAL BLOOD GAS PCO2 37 mm/Hg (35-45); ARTERIAL BLOOD GAS PH 7.39 (7.35-7.45); ARTERIAL BLOOD GAS TCO2 23.5 mmol.L (22-28)
[2017-06-06] MEDS: Heparin 25,000units in D5W/250 ML BAG IV SCH ×2 (06:03→23:20)
[2017-06-06] MEDS: Insulin Reg-HIGH-Coverage SC SCH ×4 (07:45→23:00)
--- NOTE | 2017-06-06 08:23 | CP.PCM.PN ---
<MAGGIE PAT - Last Filed: 06/06/17 12:45> Subjective - Date & Time of Evaluation Date of Evaluation: 06/06/17 Time of Evaluation: 08:18 - Subjective Subjective: ICU PGY1 Progress Note: Pt seen and examined at bedside. Pt remains febrile, [id number], received IV Tylenol and on cooling blanket. Pt intubated, sedated on Precedex drip and Nimbex. Objective - Vital Signs/Intake and Output Vital Signs (last 24 hours): Temp Pulse Resp BP Pulse Ox 102.4 F H 121 H 31 H 151/87 H 94 L 06/06/17 04:00 06/06/17 07:00 06/05/17 07:27 06/06/17 07:00 06/06/17 07:00 Intake and Output: 06/06/17 06/06/17 06:59 18:59 Intake Total 500 Balance 500 - Medications Medications: Current Medications Albuterol/Ipratropium (Duoneb 3 Mg/0.5 Mg (3 Ml) Ud) 3 ml IH [id number] [facility] Last Admin: 06/06/17 04:35 Dose: 3 ml Aspirin (Aspirin Supp) 300 mg RC DAILY [facility] Last Admin: 06/05/17 11:06 Dose: 300 mg Atorvastatin Calcium (Lipitor) 80 mg PO DIN [facility] Last Admin: 06/05/17 17:24 Dose: 80 mg Clopidogrel Bisulfate (Plavix) 75 mg PO DAILY [facility] Last Admin: 06/05/17 09:05 Dose: 75 mg Dobutamine HCl/Dextrose (Dobutamine/Dextrose 5% 500mg/250ml) 500 mg in 250 mls @ 13.336 mls/hr IV .[id number] PRN; Protocol; 5 MCG/KG/MIN PRN Reason: TITRATE PER PROTOCOL Last Admin: 06/06/17 02:19 Dose: 13.336 mls/hr Dexmedetomidine HCl (Precedex 4 Mcg/Ml (100 Ml)) 400 mcg in 100 mls @ 4.445 mls /hr IV .[id number] PRN; Protocol; 0.2 MCG/KG/HR PRN Reason: Sedation Last Admin: 06/06/17 02:41 Dose: 1.5 mcg/kg/hr, 33.339 mls/hr Doxycycline Hyclate 100 mg/ (Sodium Chloride) 100 mls @ 100 mls/hr IVPB Q12 U[facility]IEL PRN Reason: Protocol Stop: 06/13/17 13:39 Last Admin: 06/05/17 22:25 Dose: 100 mls/hr Meropenem 1g/NS 100mL IVPB (Meropenem 1g/Ns 100ml Ivpb) 1 gm in 100 mls @ 100 mls/hr IVPB Q12 U[facility]IEL PRN Reason: Protocol Stop: 08/09/17 13:40 Last Admin: 06/05/17 22:24 Dose: 100 mls/hr Heparin Sodium/Dextrose (Heparin 25,000 Units/250ml In D5w) 25,000 units in 250 mls @ 10.631 mls/hr IV .[id number] UZIEL; 12 UNITS/KG/HR PRN Reason: Protocol Last Admin: 06/06/17 06:03 Dose: 16 units/kg/hr, 14.175 mls/hr Acetaminophen (Ofirmev) 1,000 mg in 100 mls @ 400 mls/hr IVPB Q6H PRN PRN Reason: Temperature Stop: 06/07/17 11:23 Last Admin: 06/06/17 02:21 Dose: 400 mls/hr Insulin Human Regular (Humulin R High) 0 units SC ACHS UZIEL PRN Reason: Protocol Last Admin: 06/05/17 22:26 Dose: Not Given Methylprednisolone (Solu-Medrol) 20 mg IVP Q12 [facility] Metoprolol Tartrate (Lopressor) 12.5 mg PO BID [facility] Last Admin: 06/05/17 17:47 Dose: 12.5 mg Ondansetron HCl (Zofran Inj) 4 mg IVP Q6H PRN PRN Reason: Nausea/Vomiting Pantoprazole Sodium (Protonix Inj) 40 mg IVP DAILY [facility] Last Admin: 06/05/17 09:02 Dose: 40 mg - Labs Labs: 06/06/17 05:00 06/06/17 05:00 PT 13.6 Seconds (9.9-11.8) H 06/06/17 05:00 INR 1.26 (0.93-1.08) H 06/06/17 05:00 APTT 59.2 Seconds (23.7-30.8) H 06/06/17 05:00 - Head Exam Head Exam: ATRAUMATIC, NORMOCEPHALIC - Eye Exam Additional comments: 62M with PMH CHF, CAD, COPD, admitted to ICU for acute hypoxemic respiratory failure 2/2 likely HAP pneumonia, CHF exacerbation, also found to have elevated troponins and ONEAL. Pt remains hypoxemic, progressed towards ARDS. Pt febrile, ONEAL improving, on volume control, weaning down O2 to 70% FiO2, ABG this AM notable for mild hypoxemia pO2 79 on 100%FiO2. UO 800 ml overnight. Pt on dobutamine drip @5, heparin drip, and sedated on precedex, also paralayzed with 1 dose Nimbex. Elevated trops, high risk NSTEMI, cardiac cath cancelled patient febrile. Blood culture (11/10) grew Gr + cocci in clusters, likely contaminant, repeat blood cultures today per ID, currently on Merrem & Doxy D3 and Vanco D2. Closely monitor. Assessment and Plan - Assessment and Plan (Free Text) Assessment: 62M with PMH CHF, CAD, COPD, admitted to ICU for acute hypoxemic respiratory failure, severe sepsis with MODS 2/2 likely CAP vs aspiration PNA, CHF exacerbation, complicated by ONEAL, possible NSTEMI, septic encephalopathy and septic cardiomyopathy. Pt may have progressed towards ARDS. Pt febrile, ONEAL improving, on volume control, weaned down to 60%FiO2. UO 800 ml overnight. Will give Lasix to reduce fluid overload. Pt still on dobutamine drip @5, heparin drip, and sedated on precedex, paralyzed on Nimbex today for improved ventilator synchrony. Blood culture (11/10) grew Gr + cocci in clusters, likely contaminant, will repeat blood cultures today, PCT 14, Influenza and legionella Ag neg, c.w Merrem and Doxy D3 and Vanco D2 per ID. High risk NSTEMI, cardiac cath cancelled patient febrile, will defer to cardiology for rescheduling PCI. Closely monitor. Plan: Neuro: AMS 2/2 severe sepsis 2/2 likely CAP, cannot r/o aspiration PNA. Pt intubated, sedated on Precedex, given Nimbex today for improved patient ventilator synchrony. With improved resp status, may wean down on sedation, consider EEG and repeat CT scan. Cont to monitor. CV: BP 125-143/72-85. Gives Lasix 40 mg x1 today, will f/u further doses to reduce fluid overload. Hx of CAD and CHF, has AICD, dilated CM, On Dobutamine drip to increase CO. Trops elevated 2.2->2.26->2.50, Pt on dual antiplatelets (ASA, Plavix), Statin, BB, heparin drip. Cardio (Dr. Gill) on board; cardiac cath cancelled this AM bc febrile, deferred to cardio for rescheduling. F/u Echo reading. Maintain MAP>65. Cont to monitor. Pulm: Intubated. on Volume control, PEEP 6, RR 25, TV 400, 60% FiO2. Maintain sat>90%. Continue with HOB elevation> 35 degrees, aspiration precautions. Continue with protected lung ventilation strategies with TV of 6 ml/kg of IBW, plateau pressure less than 35, head of bed elevation above 35 degrees, bronchodilators, keep oxygenation above 90%, pulm toileting Acute hypoxemic resp failure 2/2 CAP, started on Nimbex for better ventilator synchrony, C/w D3 Merrem & Doxy and D2 Vanco. Asp PNA cannot be r/o. CXR shows RLL consolidation. chest CT shows b/l LLL PNA and posterior RUL PNA. cont to monitor. GI: Started OGT feeds today, Glucerna @ 15ml/h, will advance as tolerated. Continue with Protonix. Abd/pelvis CT w/o contrast shows no intrabdominal pathology. Renal /fluids/Electrolytes: ONEAL. improving Cr 1.8->1->0.8. Baseline Cr 0.6. UO 800 ml overnight, gave 40mg Lasix this AM, will give an additional dose today. Cont to monitor I/Os. s/p 80mg Lasix and 500c NS bolus in ED. maintain euvolemia, monitor UO. Continue to monitor. ID: T 102.7, no leukocytosis. Continue with Doxy and Merrem D2 and Vanco D2 for CAP coverage per ID. Bandemia 20 on admission, no bandemia today. lactate 2.8->2.1. Received 1 dose of Vanco in ED. Blood cultures / shows gr + cocci in clusters, in aerobic bottle; 2nd bottle shows coag neg staph; Tracheal asp pending. Endo: Continue with ISS. Maintain euglycemia. Heme: Stable. Cont to monitor. DVT ppx - hep drip GI ppx - Protonix discussed and seen with PGY2 and attending, Dr Hernandez. Maggie Pat, [email or web address] <Anant Hernandez - Last Filed: 06/06/17 14:25> Objective - Vital Signs/Intake and Output Vital Signs (last 24 hours): Temp Pulse Resp BP Pulse Ox 102.4 F H 101 H 31 H 133/78 91 L 06/06/17 04:00 06/06/17 09:00 06/05/17 07:27 06/06/17 09:00 06/06/17 09:00 Intake and Output: 06/06/17 06/06/17 06:59 18:59 Intake Total 600 100 Balance 600 100 - Medications Medications: Current Medications Albuterol/Ipratropium (Duoneb 3 Mg/0.5 Mg (3 Ml) Ud) 3 ml IH [id number] [facility] Last Admin: 06/06/17 11:46 Dose: 3 ml Aspirin (Aspirin Supp) 300 mg RC DAILY [facility] Last Admin: 06/06/17 11:26 Dose: 300 mg Atorvastatin Calcium (Lipitor) 80 mg PO DIN [facility] Last Admin: 06/05/17 17:24 Dose: 80 mg Clopidogrel Bisulfate (Plavix) 75 mg PO DAILY [facility] Last Admin: 06/06/17 11:26 Dose: 75 mg Dobutamine HCl/Dextrose (Dobutamine/Dextrose 5% 500mg/250ml) 500 mg in 250 mls @ 13.336 mls/hr IV .[id number] PRN; Protocol; 5 MCG/KG/MIN PRN Reason: TITRATE PER PROTOCOL Last Admin: 06/06/17 02:19 Dose: 13.336 mls/hr Dexmedetomidine HCl (Precedex 4 Mcg/Ml (100 Ml)) 400 mcg in 100 mls @ 4.445 mls /hr IV .[id number] PRN; Protocol; 0.2 MCG/KG/HR PRN Reason: Sedation Last Admin: 06/06/17 13:48 Dose: 1.5 mcg/kg/hr, 33.339 mls/hr Doxycycline Hyclate 100 mg/ (Sodium Chloride) 100 mls @ 100 mls/hr IVPB Q12 UZIEL PRN Reason: Protocol Stop: 06/13/17 13:39 Last Admin: 06/06/17 09:00 Dose: 100 mls/hr Meropenem 1g/NS 100mL IVPB (Meropenem 1g/Ns 100ml Ivpb) 1 gm in 100 mls @ 100 mls/hr IVPB Q12 [facility]EL PRN Reason: Protocol Stop: 08/09/17 13:40 Last Admin: 06/06/17 11:27 Dose: 100 mls/hr Heparin Sodium/Dextrose (Heparin 25,000 Units/250ml In D5w) 25,000 units in 250 mls @ 10.631 mls/hr IV .[id number] UZIEL; 12 UNITS/KG/HR PRN Reason: Protocol Last Admin: 06/06/17 06:03 Dose: 16 units/kg/hr, 14.175 mls/hr Acetaminophen (Ofirmev) 1,000 mg in 100 mls @ 400 mls/hr IVPB Q6H PRN PRN Reason: Temperature Stop: 06/07/17 11:23 Last Admin: 06/06/17 08:13 Dose: 400 mls/hr Vancomycin HCl 1.5 gm/ Sodium (Chloride) 500 mls @ 250 mls/hr IVPB Q12H [facility] Last Admin: 06/06/17 11:46 Dose: 250 mls/hr Insulin Human Regular (Humulin R High) 0 units SC ACHS [facility] PRN Reason: Protocol Last Admin: 06/06/17 11:49 Dose: 7 units Methylprednisolone (Solu-Medrol) 20 mg IVP Q12 [facility] Last Admin: 06/06/17 10:00 Dose: 20 mg Metoprolol Tartrate (Lopressor) 12.5 mg PO BID [facility] Last Admin: 06/06/17 11:26 Dose: 12.5 mg Ondansetron HCl (Zofran Inj) 4 mg IVP Q6H PRN PRN Reason: Nausea/Vomiting Pantoprazole Sodium (Protonix Inj) 40 mg IVP DAILY [facility] Last Admin: 06/06/17 11:27 Dose: 40 mg - Labs Labs: 06/06/17 05:00 06/06/17 05:00 PT 13.6 Seconds (9.9-11.8) H 06/06/17 05:00 INR 1.26 (0.93-1.08) H 06/06/17 05:00 APTT 59.2 Seconds (23.7-30.8) H 06/06/17 05:00 Attending/Attestation - Attestation I have personally seen and examined this patient.: Yes I have fully participated in the care of the patient.: Yes I have reviewed all pertinent clinical information, including history, physical exam and plan: Yes Notes (Text): 06/06/17 14:12 62 yo male with hypoxemic respiratory failure secondary to CAP (formerly would have been known as HCAP as patient is [place] resident) complicated by ONEAL, RF, septic cardiomyopathy. Neuro: on precedex: tolerates well, one dose of Nimbex was given to see if it improves pt/vent synchrony. once off NMB will assess wakefullness/arousability/ mental status/neuro status-->if at that time concerns will have arised will consider EEG and repeating CTH. Prior CTH--no acute intracranial abnormalities Pulm: protective lung vent strategy (Vt 6 cc/pbwkg and Ppl<30), conservative fluid management. small dose steroids for severe CAP, CRP is pending, abx and ID follow up to treat severe CAP. Fi02 weaned down to 60% from 100%-->02sat 94% . Will proceed with conservative 02 management. HOB>35, oral hygiene, DVT/GI prophylaxis. Have low suspicion for PE, but in any case patient is on TAC/ heparin Cardiovascular: h/o dilated cardiomyopathy-->on dobutamine for inotropic support , tolerates well HR 80-110. likely superimposed septic cardiomyopathy, but cant rule out primary cardiac event, patient is on DAPT, bb-ers and statins and TAC/ heparin. cardiology is following patient GI: GI prophylaxis/start enteral feds Endo: keep BG 140-180 Renal: avoid substantially positive fluid balance to minimize risk for ONEAL and mortality in the setting of sepsis. renal function improved. avoid nephrotoxic meds but not in expense of treating underlying disease ID: CAP/severe sepsis with MODS. Bc GPC coags neg-->contamination, but tracheal aspirate GNR&GPC, loading dose of vanco is giving yesterday, today will continue on Vanco 15 mg/kg IV q12. cont doxy and merrem. ID service is following patient as well. Will follow procalcitoinin and CRP ccm time 40 min
--- NOTE | 2017-06-06 08:54 | RAD ---
HISTORY: f/u COMPARISON: Portable chest radiographs 06/04/2017. FINDINGS: LUNGS: No active pulmonary disease. PLEURA: Trace left pleural effusion not excluded. None is seen at right. No pneumothorax. CARDIOVASCULAR: Cardiac size appears stable. No pulmonary vascular derangement. OSSEOUS STRUCTURES: No significant abnormalities. VISUALIZED UPPER ABDOMEN: Normal. OTHER FINDINGS: Endotracheal tube is unchanged in position with pacemaker again noted as well as nasogastric tube. IMPRESSION: No active disease.
[2017-06-06 09:17] LABS: ARTERIAL BLOOD GAS HCO3 23.9 mmol/L (21-28); ARTERIAL BLOOD GAS PCO2 36 mm/Hg (35-45); ARTERIAL BLOOD GAS PH 7.43 (7.35-7.45)
[2017-06-06] MEDS ORDERED: MethylPREDNISolone 40 mg Vial IVP SCH (10:00)
[2017-06-06] MEDS: MethylPREDNISolone 40 mg Vial IVP SCH ×2 (10:00→22:26)
[2017-06-06] MEDS ORDERED: Vancomycin 1 g Inj IVPB SCH (10:30)
[2017-06-06] MEDS: Meropenem 1g/NS 100mL IVPB 1 GM/100 ML PIGGYBACK IVPB SCH ×2 (11:27→21:16)
[2017-06-06] MEDS: Vancomycin 1.5 GM in Sodium Chloride 0.9% 500 ML IVPB SCH ×2 (11:46→22:27)
--- NOTE | 2017-06-06 12:32 | PN ---
DATE: 06/06/2017 SUBJECTIVE: The patient is in bed, remains intubated on a ventilator, continues to have a fever. PHYSICAL EXAMINATION VITAL SIGNS: Temperature is 102.4, on a ventilator, and heart rate of 110. HEENT: ET tube in place. NECK: Supple. LUNGS: Decreased breath sounds. HEART: Normal S1 and S2. ABDOMEN: Soft and nontender. No rebound or guarding. LABORATORY DATA: Reveals the white count of 10,000, hemoglobin of 11, platelets of 189, with 91% granulocytosis. The patient still as of yesterday had 15% bandemia with coagulation is noted. The gases are reviewed. BUN of 24, creatinine of 0.8 with an elevated troponin of 2.59 and an elevated procalcitonin of 14.7 and one blood culture from admission has a coag-negative staph. Repeat blood cultures are pending. The sputum culture has no growth. He has a Gram negative karthik on Gram stain and a Gram positive cocci on Grams stain. No growth at preliminary results. On the MRSA nasal screen, MRSA is not detected. The one bottle of Gram positive cocci is a Coag negative staph. Review of orders this morning, the chest x-ray results are pending. Yesterday's chest x-ray result, patchy infiltrate changes in the right mid lower lobe and a small effusion. The echo result is still pending. Dr. Maggie Gannon's note from this morning is not available at this time. ASSESSMENT AND PLAN: A 62-year-old male from a [facility] with diabetes mellitus, coronary artery disease, hypertension, congestive heart failure, depression, peripheral vascular disease, history of group B streptococcus pneumonia, who is also bilateral above the knee amputation who has an automatic implantable cardioverter defibrillator admitted with severe sepsis with healthcare associated probable Gram positive cocci versus Gram negative karthik pneumonia, with healthcare associated left upper lobe and right lower lobe pneumonia with Gram positive, Coag negative staph, in one blood culture of bacteremia, contamination versus automatic implantable cardioverter defibrillator being responsible for this, currently with respiratory failure intubated on a ventilator with rhabdomyolysis and with a [id number] myocardial infarction. We will start empiric vancomycin. Continue the meropenem, doxycycline. The patient's nasal methicillin-resistant Staphylococcus aureus screen being negative speaks against methicillin-resistant Staphylococcus aureus pneumonia. We will check on the echo findings to rule out endocarditis and check on the repeat blood cultures and repeat procalcitonin; on vancomycin, meropenem, and doxycycline, with the patient's AST is normal, ALT is normal and the alkaline phosphatase is normal. The patient does have a high CK. Myocardial infarction may give fevers; however, temperature of 102 is slightly too high. We will follow closely with you. Live Watkins MD
--- NOTE | 2017-06-06 15:01 | PN ---
DATE: 06/06/2017 SUBJECTIVE: He is on the ventilator, he is intubated. MEDICATIONS: He is on aspirin, dobutamine, doxycycline, DuoNeb, heparin, insulin, Lipitor, Lopressor, Merrem IV, Tylenol, Plavix, Precedex IV, Protonix, Solu-Medrol, vancomycin IV, and Zofran. PHYSICAL EXAMINATION VITAL SIGNS: 102.4 temperature, 121 pulse, 127/86 blood pressure, 94%-98% O2 sat. HEENT: Head is atraumatic and normocephalic. He is on the ventilator, not awake. He is sedated. HEART: Regular rate. LUNGS: Decreased breath sounds, but clear. ABDOMEN: Soft, obese. EXTREMITIES: Bilateral AKA, they are litter puffy. LABORATORY DATA: He has a 10.3 white count, 11 hemoglobin, 32.4 hematocrit with 189 platelets. INR is 1.26. He has a 135 sodium, potassium 3.6, BUN is 24 better, creatinine 1.8 better, GFR 60, sugar is 216, calcium is 8.1, total bilirubin is 1.1, AST is 43, ALT is 33, alkaline phosphatase 77, total protein 7.1. Influenza is negative. Legionella is negative. Microbiology test, coagulates negative, and Gram positive cocci. He is being seen by numerous physicians. He is got Cardiology, Infectious Disease, hospital personnel director. Chest x-ray show no active disease at this time. Infectious disease started him on IV antibiotics. Severe sepsis, right lower lobe pneumonia, Gram positive versus Gram negative karthik pneumonia, acute kidney injury, respiratory failure intubated, rhabdomyolysis, and NSTEMI. Continue with aggressive treatment and care in the intensive care unit. Adria Quevedo DO
--- NOTE | 2017-06-06 16:07 | PN ---
DATE: 06/06/2017 ICU PROGRESS NOTE SUBJECTIVE: Mr. Gaitan is a 62-year-old gentleman who remains intubated in the intensive care unit. He remains febrile and has significant medical abnormalities. He is intubated, sedated and placed on mechanical ventilation. The chart has been reviewed and the case discussed with dialysis officer present. There has been a little change in his overall status since he has been admitted to the intensive care unit. PHYSICAL EXAMINATION: VITAL SIGNS: He remains febrile at 102+, pulse of 120+, respiratory rate of 30+, blood pressure 150/80, oxygen saturation 95%. NECK: Supple, but there is JVD noted. LUNGS: Reveal scattered rales and rhonchi throughout both lung ramachandran. HEART: Regular rhythm, tachycardic with systolic ejection murmur at the lower left sternal border. ABDOMEN: Protuberant. EXTREMITIES: Reveal no clubbing or cyanosis. There is edema noted. NEUROLOGIC: Reveal nonfocal findings. INTAKE AND OUTPUT: Equal with 500/500. CURRENT MEDICATIONS: Include DuoNeb, ASA, Lipitor, Plavix, dobutamine, Precedex, doxycycline, meropenem, heparin, insulin, Solu-Medrol, Lopressor, Zofran, and Protonix. LABORATORY DATA: Today show a white count of 10,300, hemoglobin of 11, hematocrit 32 and platelet count of 189,000. Sodium 135, potassium 3.6, chloride 100, CO2 of 26, BUN 24, creatinine 0.8. Blood sugar 216. PT of 13.6, INR 1.26 and a PTT of 59.2, all elevated. DIAGNOSES: Include the followin. Congestive heart failure. 2. Coronary artery disease. 3. Chronic obstructive pulmonary disease. 4. Hypoxemic respiratory failure. 5. Hospital-acquired pneumonia. 6. Myocardial infarction. 7. Hypoxemia. 8. On ventilator with respiratory failure. 9. Febrile illness. 10. Sepsis. 11. Hypotension, on pressors. 12. Bilateral pneumonia. PLAN: We will discuss with grocery specialist in the ICU as well as house staff. The patient needs close attention to both Neuro, Pulmonary, electrolyte imbalance and fluids, etc., Infectious Diseases, Endocrinology. The prognosis at this point remains guarded. We are not sure of what is needed at this time. We will continue to add and proceed with vigorous pulmonary care and management of mechanical ventilation to sustain adequate ventilation and adequate oxygenation while maintaining normal pH. The patient still needs to get antibiotics and hope that the sepsis syndrome, multilobar pneumonia and respiratory failure improves. The myocardial infarction is being evaluated by Cardiology. Suspect significant congestive heart changes with renal insufficiency. We will discuss these findings with you and continue to evaluate closely. Marco Young MD
--- NOTE | 2017-06-06 17:00 | PN ---
DATE OF SERVICE: 06/06/2017 SUBJECTIVE: The patient remains intubated. There is still a large AA gradient. PHYSICAL EXAMINATION: VITAL SIGNS: Blood pressure is 133/78, heart rate approximately 100. NECK: Negative JVD. LUNGS: Decreased breath sounds bilaterally. HEART: Regular S1 and S2. EXTREMITIES: Without change, status post amputation. LABORATORY DATA: Hemoglobin is 11. Chemistries: BUN and creatinine are unremarkable. Glucose is 216. Cultures reveal one positive blood culture for Staphylococcus epidermidis and the second blood culture is negative. IMPRESSION: 1. Respiratory failure. 2. Dilated cardiomyopathy. 3. Non ST-elevation myocardial infarction. 4. Sepsis. 5. One positive blood culture with Staphylococcus epidermidis, staphylococcus coagulase negative likely due to a contaminate. PLAN: Given these findings, we will continue the patient on his present regimen. No plans for cardiac catheterization until his fever has resolved. Ross Gill MD
[2017-06-06 17:17] LABS: BLOOD UREA NITROGEN 22 mg/dL (7-21); CALCIUM 7.8 mg/dL (8.4-10.5); GFR AFRICAN-AMERICAN > 60; GFR NON-AFRICAN AMERICAN > 60
--- NOTE | 2017-06-06 20:21 | PN ---
DATE: 06/06/2017 SUBJECTIVE: The patient is seen and examined at the bedside. He is sedated with Precedex 1.5 mcg/kg/hour. He is on PRVC with the setting of 400/15/6/70%. On that setting his oxygen saturation 97%, heart rate 130 (the patient is on dobutamine 5 mcg/kg/minute), blood pressure 151/87 and ETc02 on the monitor is 34 and respiratory rate is 28 (the patient is overbreathing vent), and temperature is 101.5. PHYSICAL EXAMINATION: HEENT: Head and neck atraumatic. LUNGS: Decreased breath sounds bilaterally. Few crackles bibasilar. HEART: Regular rate and rhythm. S1 and S2 distant. ABDOMEN: Soft, obese, and nontender; does not appear to be distended above his baseline. SKIN: Moist. MUSCULOSKELETAL: Bilateral above-knee amputation. PSYCHIATRIC: The patient is sedated. NEUROLOGIC: The patient is sedated and was not seen moving all extremities spontaneously. LABORATORY DATA: WBC 10.3; hemoglobin 11, up from 9.8; and platelet count 189. Sodium 135; potassium 3.6; chloride 100; BUN 24; creatinine 0.8, down from 1; and glucose 216. Of note, differential on CBC showed elevated granulocyte. PTT 59.2 (the patient is on heparin drip). ABG showed 7.39/37/79 (on 100% FiO2). MEDICATIONS: Tylenol p.r.n., DuoNeb every 4 hours, aspirin, Lipitor, Nimbex 1 dose, Plavix, Precedex, Dobutrex, doxycycline, heparin drip, regular insulin sliding scale high protocol, meropenem, Solu-Medrol 20 mg IV q. 12 hours, metoprolol, Zofran p.r.n., Protonix. Vancomycin only one dose. ASSESSMENT AND PLAN: This is a 62-year-old gentleman who presented with hypoxemic respiratory failure secondary to community-acquired pneumonia (formerly would have been known as healthcare-associated pneumonia, as the patient is shelter resident) complicated by severe sepsis. The patient was fluid resuscitated with relative hemodynamic stability and resolution of lactic acidosis. The patient has underlying dilated cardiomyopathy and has AICD in the past. He is on dobutamine. Neurologic: The patient is sedated with Precedex. He is comfortable, however, stacking breaths and neuromuscular blockade, rather as the trial will be employed to see if respiratory compliance would improve after optimization of pt/vent synchrony with subsequent decision to be made whether to proceed with Nimbex drip or just leave it at that. CAT scan of the head performed 2 days ago did not reveal any acute intracranial pathology. Pulmonary: The patient has community-acquired pneumonia and hypoxemic respiratory failure requiring up to 100% FiO2. Today, his FiO2 down to 70% with O2 saturation ranging between 94% and 97%. He is on PEEP of 6 and attempts to swap PEEP for FiO2 were unsuccessful. One of the possible explanation may be that increased PEEP would overextend unaffected areas of the lungs thus causing increased VQ mismatch. We will try to work with tapering down Fi02 instead and re-eval. We will proceed with conservative oxygen management. NMB trial. The patient has severe community-acquired pneumonia, requiring intubation, CRP>15-->, I will proceed with small dose of corticosteroids. We will continue with protective lung ventilation strategy and maintain tidal volume at 6 mL per predicted body weight and plateau pressure less than 30 cmH20. We will continue with conservative fluid management as much as hemodynamics allows. He has been treated with antibiotics for CAP and ID Services following him as well. We will continue with head of bed elevated >35 degrees. Once his respiratory status optimized, we will proceed with daily weaning attempts. We will also proceed with daily sedation vacation Cardiovascular: The patient has underlying dilated cardiomyopathy. He has troponin leak, which taken together with his clinical presentation may suggest septic cardiomyopathy vs primary cardiac event. Echocardiogram was done and official report is pending. Meanwhile, the patient is on inotropic support with dobutamine. Whether or not to proceed with cardiac catheterization and timing thereof will be deferred to cardiology service. Meanwhile, the patient is on beta-blockers, aspirin, Plavix, statins, and heparin drip. Gastrointestinal: We will start enteral nutrition. We will continue with GI prophylaxis. Endocrine: We will start small dose of corticosteroids to optimize community-acquired pneumonia. Renal: The patient's acute kidney injury resolved. I will proceed with conservative fluid management. We will try to avoid kidney hyperperfusion. We will maintain slightly negative fluid balance. ID: The patient has community-acquired pneumonia. His blood cultures positive for gram-positive cocci in clusters and his sputum positive for gram-negative rods as well as gram-positive cocci in clusters. Interestingly though the nasal swabs were negative for MRSA, which however, does not rule out community-acquired or shelter acquired MRSA too. I will also touch base with ID service about optimizing his gram-positive coverage. His renal function is normal and he received 1 dose of vancomycin yesterday only. We will continue with DVT/GI prophylaxis. ccm time 40 min Anant Hernandez MD MTDVinh
[2017-06-07] MEDS: Dexmedetomidine HCl 4mcg/ml 400 MCG/100 ML BOTTLE IV PRN ×7 (00:25→18:57)
[2017-06-07] MEDS: Albuterol-Ipratrop 3 mg / 0.5 (3 ml) UD IH SCH ×6 (04:32→23:00)
[2017-06-07 06:19] LABS: BASO # 0.01 K/mm3 (0.0-2.0); BASO % 0.1 % (0.0-3.0); GRAN # 9.86 (1.4-6.5); GRAN % 91.7 % (50.0-68.0); HEMOGLOBIN 10.7 gm/dL (14.0-18.0); LYMPH # 0.5 (1.2-3.4); LYMPH % 4.7 % (22.0-35.0); MEAN CELL VOLUME 82.8 fL (80.0-105.0); MEAN CORPUSCULAR HEMOGLOBIN 28.2 pg (25.0-35.0); MEAN CORPUSCULAR HGB CONC 34.1 g/dl (31.0-37.0); MEAN PLATELET VOLUME 9.3 fl (7.0-11.0); MONO # 0.4 (0.1-0.6); MONO % 3.5 % (1.0-6.0); PLATELET COUNT 220 10^3/uL (120.0-450.0); RBC 3.79 10^6/uL (3.5-6.1); RED CELL DISTRIBUTION WIDTH 16.3 % (11.5-14.5); WHITE BLOOD COUNT 10.8 10^3/ul (4.5-11.0)
[2017-06-07 06:21] LABS: INR 1.21 (0.93-1.08); PARTIAL THROMBOPLASTIN TIME 62.2 Seconds (23.7-30.8); PROTHROMBIN TIME 13.1 Seconds (9.9-11.8)
[2017-06-07 06:27] LABS: BLOOD UREA NITROGEN 23 mg/dL (7-21); CALCIUM 8.2 mg/dL (8.4-10.5); GFR AFRICAN-AMERICAN > 60; GFR NON-AFRICAN AMERICAN > 60
[2017-06-07] MEDS: Insulin Reg-HIGH-Coverage SC SCH (07:29)
[2017-06-07] MEDS: Insulin Regular 100 UNITS in Sodium Chloride 0.9% 99 ML IV PRN (08:38)
--- NOTE | 2017-06-07 09:03 | CP.PCM.PN ---
<Michelle Botello - Last Filed: 06/07/17 12:39> Subjective - Date & Time of Evaluation Date of Evaluation: 06/07/17 Time of Evaluation: 08:59 - Subjective Subjective: PGY-2 ICU Progress note Patient seen and examined at bedside in ICU. No acute distress. Nurse reports Tmax overnight 100.8. Patient is intubated and sedated with precedex. Patient had fever this morning received IV Tylenol. Objective - Vital Signs/Intake and Output Vital Signs (last 24 hours): Temp Pulse Resp BP Pulse Ox 101 F H 110 H 26 H 157/87 H 93 L 06/07/17 08:03 06/07/17 08:03 06/07/17 08:18 06/07/17 08:03 06/07/17 08:18 Intake and Output: 06/07/17 06/07/17 06:59 18:59 Intake Total 2120 Output Total 700 Balance 1420 - Medications Medications: Current Medications Albuterol/Ipratropium (Duoneb 3 Mg/0.5 Mg (3 Ml) Ud) 3 ml IH [id number] [facility] Last Admin: 06/07/17 08:17 Dose: 3 ml Aspirin (Aspirin Supp) 300 mg RC DAILY [facility] Last Admin: 06/06/17 11:26 Dose: 300 mg Atorvastatin Calcium (Lipitor) 80 mg PO DIN [facility] Last Admin: 06/06/17 17:22 Dose: 80 mg Clopidogrel Bisulfate (Plavix) 75 mg PO DAILY [facility] Last Admin: 06/06/17 11:26 Dose: 75 mg Furosemide (Lasix) 40 mg IVP Q12 [facility] Dexmedetomidine HCl (Precedex 4 Mcg/Ml (100 Ml)) 400 mcg in 100 mls @ 4.445 mls /hr IV .[id number] PRN; Protocol; 0.2 MCG/KG/HR PRN Reason: Sedation Last Admin: 06/07/17 06:26 Dose: 1.5 mcg/kg/hr, 33.339 mls/hr Doxycycline Hyclate 100 mg/ (Sodium Chloride) 100 mls @ 100 mls/hr IVPB Q12 U[facility] PRN Reason: Protocol Stop: 06/13/17 13:39 Last Admin: 06/06/17 21:16 Dose: 100 mls/hr Meropenem 1g/NS 100mL IVPB (Meropenem 1g/Ns 100ml Ivpb) 1 gm in 100 mls @ 100 mls/hr IVPB Q12 U[facility]IEL PRN Reason: Protocol Stop: 08/09/17 13:40 Last Admin: 06/06/17 21:16 Dose: 100 mls/hr Heparin Sodium/Dextrose (Heparin 25,000 Units/250ml In D5w) 25,000 units in 250 mls @ 10.631 mls/hr IV .[id number] UZIEL; 12 UNITS/KG/HR PRN Reason: Protocol Last Admin: 06/06/17 23:20 Dose: 16 units/kg/hr, 14.175 mls/hr Acetaminophen (Ofirmev) 1,000 mg in 100 mls @ 400 mls/hr IVPB Q6H PRN PRN Reason: Temperature Stop: 06/07/17 11:23 Last Admin: 06/07/17 07:46 Dose: 400 mls/hr Vancomycin HCl 1.5 gm/ Sodium (Chloride) 500 mls @ 250 mls/hr IVPB Q12H [facility] Last Admin: 06/06/17 22:27 Dose: 250 mls/hr Insulin Human Regular 100 (units/ Sodium Chloride) 100 mls @ 5 mls/hr IV .Q20H PRN; Protocol; 5 UNITS/HR PRN Reason: TITRATE PER MD ORDER Last Admin: 06/07/17 08:38 Dose: 7 units/hr, 7 mls/hr Milrinone Lactate/Dextrose (Primacor 20mg/100ml D5w) 100 mls @ 5.316 mls/hr IV .[id number] PRN; Protocol; 0.2 MCG/KG/MIN PRN Reason: TITRATE PER MD ORDER Methylprednisolone (Solu-Medrol) 20 mg IVP Q12 [facility] Last Admin: 06/06/17 22:26 Dose: 20 mg Metoprolol Tartrate (Lopressor) 12.5 mg PO BID [facility] Last Admin: 06/06/17 17:22 Dose: 12.5 mg Ondansetron HCl (Zofran Inj) 4 mg IVP Q6H PRN PRN Reason: Nausea/Vomiting Pantoprazole Sodium (Protonix Inj) 40 mg IVP DAILY [facility] Last Admin: 06/06/17 11:27 Dose: 40 mg - Labs Labs: 06/07/17 05:00 06/07/17 05:00 PT 13.1 Seconds (9.9-11.8) H 06/07/17 05:00 INR 1.21 (0.93-1.08) H 06/07/17 05:00 APTT 62.2 Seconds (23.7-30.8) H 06/07/17 05:00 - Head Exam Head Exam: ATRAUMATIC, NORMOCEPHALIC - ENT Exam Additional comments: intubated with OG tube - Respiratory Exam Respiratory Exam: Decreased Breath Sounds (bilateral ), Clear to Ausculation Bilateral. absent: Wheezes Additional comments: Intubated on vol control FiO2 40%, peep 6, rate 25, tidal vol 400 - Cardiovascular Exam Cardiovascular Exam: REGULAR RHYTHM, +S1, +S2. absent: Tachycardia, Murmur - GI/Abdominal Exam GI & Abdominal Exam: Soft, Normal Bowel Sounds. absent: Distended, Firm, Tenderness - Extremities Exam Additional comments: bilateral LE amputation - Neurological Exam Additional comments: sedated - Skin Skin Exam: Dry, Intact, Normal Color, Warm Assessment and Plan - Assessment and Plan (Free Text) Assessment: 62M with PMH CHF, CAD, COPD, admitted to ICU for acute hypoxemic respiratory failure 2/2 likely pneumonia, CHF exacerbation, also found to have elevated troponins and ONEAL. Patient is intubated on volume control, weaned down to 40% FiO2, patient continues to be hypoxiemic. Pt on milrinone drip, heparin drip, and sedated on precedex drip. Blood culture (1/2) grew Gr + cocci in clusters, likely contaminat, will repeat blood cultures showed no growth, continue with Merrem, Doxy and Vanco. Elevated trops, high risk NSTEMI, cardiac cath cancelled bc patient was febrile. Plan: Neuro: - Pt intubated, sedated on Precedex - recieved Nimbex yesterday for improved patient ventilator synchrony. - consider EEG and repeat CT scan. Cont to monitor. CV: - BP stable - stopped Dobutamine drip and started milrinone drip. - Gives Lasix 40 mg x1 today, will f/u further doses to reduce fluid overload. - Hx of CAD and CHF, has AICD, dilated CM, - Trops elevated, Pt on dual antiplatelets (ASA, Plavix), Statin, BB, heparin drip. - cont lasix 40 q12 - Cardio, Dr. Gill, following - cardiac cath cancelled due to fever - Echo read pending - Maintain MAP>65. - Cont to monitor. Pulm: - Acute hypoxemic resp failure 2/2 CAP - Intubated. on Volume control, PEEP 6, RR 25, TV 400, 40% FiO2. - repeat cxr showed shows RLL consolidation - chest CT on 06/04 shows b/l LLL PNA and posterior RUL PNA. - decreased Fio2 - Maintain sat>90%. - cont Merrem & Doxy and Vanco - low dose steriod for CAP - if no improvement will consider broncoscopy tomorrow - Continue with protected lung ventilation strategies with TV of 6 ml/kg of IBW , plateau pressure less than 35, head of bed elevation above 35 degrees, bronchodilators, keep oxygenation above 90%, pulm toileting GI: - cont OGT feeds, Glucerna @ 15ml/h - advance as tolerated. - Continue with Protonix. - Abd/pelvis CT w/o contrast on 06/04 shows no intrabdominal pathology. Renal /fluids/Electrolytes: - ONEAL. improved Cr, return to baseline Cr 0.6. - Urine Output 2400 ml past 24 ho, he received Lasix yesterday - cont strink I&O - maintain euvolemia - replete electrolytes as needed ID: - T 100.8 overnight, 101 in AM, received Tylenol, no leukocytosis. - Continue with Doxy, Merrem and Vanco for CAP - Bandemia 20 on admission - lactate improved - Blood cultures 1/2 shows gr + cocci in clusters, in aerobic bottle; 2nd bottle shows coag neg staph; Tracheal asp pending. - ID following Endo: - blood sugar elevated - start insulin drip - blood sugar q1 - Maintain glucose between 140-180 Heme: - Stable - Cont to monitor. DVT ppx - hep drip GI ppx - Protonix <Anant Hernandez - Last Filed: 06/07/17 15:16> Objective - Vital Signs/Intake and Output Vital Signs (last 24 hours): Temp Pulse Resp BP Pulse Ox 100 F H 74 24 98/58 L 92 L 06/07/17 12:25 06/07/17 12:25 06/07/17 12:25 06/07/17 12:25 06/07/17 12:25 Intake and Output: 06/07/17 06/07/17 06:59 18:59 Intake Total 2120 225 Output Total 700 Balance 1420 225 - Medications Medications: Current Medications Albuterol/Ipratropium (Duoneb 3 Mg/0.5 Mg (3 Ml) Ud) 3 ml IH [id number] [facility] Last Admin: 06/07/17 11:58 Dose: 3 ml Aspirin (Aspirin Supp) 300 mg RC DAILY [facility] Last Admin: 06/07/17 09:15 Dose: 300 mg Atorvastatin Calcium (Lipitor) 80 mg PO DIN [facility] Last Admin: 06/06/17 17:22 Dose: 80 mg Clopidogrel Bisulfate (Plavix) 75 mg PO DAILY [facility] Last Admin: 06/07/17 09:14 Dose: 75 mg Furosemide (Lasix) 40 mg IVP Q12 [facility] Last Admin: 06/07/17 09:13 Dose: 40 mg Dexmedetomidine HCl (Precedex 4 Mcg/Ml (100 Ml)) 400 mcg in 100 mls @ 4.445 mls /hr IV .[id number] PRN; Protocol; 0.2 MCG/KG/HR PRN Reason: Sedation Last Admin: 06/07/17 12:48 Dose: 1.5 mcg/kg/hr, 33.339 mls/hr Doxycycline Hyclate 100 mg/ (Sodium Chloride) 100 mls @ 100 mls/hr IVPB Q12 [facility] PRN Reason: Protocol Stop: 06/13/17 13:39 Last Admin: 06/07/17 09:14 Dose: 100 mls/hr Meropenem 1g/NS 100mL IVPB (Meropenem 1g/Ns 100ml Ivpb) 1 gm in 100 mls @ 100 mls/hr IVPB Q12 [facility] PRN Reason: Protocol Stop: 08/09/17 13:40 Last Admin: 06/07/17 09:14 Dose: 100 mls/hr Heparin Sodium/Dextrose (Heparin 25,000 Units/250ml In D5w) 25,000 units in 250 mls @ 10.631 mls/hr IV .[id number] U[facility]IEL; 12 UNITS/KG/HR PRN Reason: Protocol Last Titration: 06/07/17 11:16 Dose: 16 units/kg/hr, 14.175 mls/hr Vancomycin HCl 1.5 gm/ Sodium (Chloride) 500 mls @ 250 mls/hr IVPB Q12H [facility] Last Admin: 06/07/17 09:43 Dose: 250 mls/hr Insulin Human Regular 100 (units/ Sodium Chloride) 100 mls @ 5 mls/hr IV .Q20H PRN; Protocol; 5 UNITS/HR PRN Reason: TITRATE PER MD ORDER Last Titration: 06/07/17 15:09 Dose: 2 units/hr, 2 mls/hr Milrinone Lactate/Dextrose (Primacor 20mg/100ml D5w) 100 mls @ 5.316 mls/hr IV .[id number] PRN; Protocol; 0.2 MCG/KG/MIN PRN Reason: TITRATE PER MD ORDER Last Admin: 06/07/17 09:35 Dose: 0.2 mcg/kg/min, 5.316 mls/hr Methylprednisolone (Solu-Medrol) 20 mg IVP Q12 [facility] Last Admin: 06/07/17 09:13 Dose: 20 mg Metoprolol Tartrate (Lopressor) 12.5 mg PO BID [facility] Last Admin: 06/07/17 09:14 Dose: 12.5 mg Ondansetron HCl (Zofran Inj) 4 mg IVP Q6H PRN PRN Reason: Nausea/Vomiting Pantoprazole Sodium (Protonix Inj) 40 mg IVP DAILY [facility] Last Admin: 06/07/17 09:12 Dose: 40 mg - Labs Labs: 06/07/17 05:00 06/07/17 05:00 PT 13.1 Seconds (9.9-11.8) H 06/07/17 05:00 INR 1.21 (0.93-1.08) H 06/07/17 05:00 APTT 62.2 Seconds (23.7-30.8) H 06/07/17 05:00 Attending/Attestation - Attestation I have personally seen and examined this patient.: Yes I have fully participated in the care of the patient.: Yes I have reviewed all pertinent clinical information, including history, physical exam and plan: Yes Notes (Text): 06/07/17 15:[address] Hernandez's note
[2017-06-07 09:10] LABS: ARTERIAL BLOOD GAS HCO3 25.9 mmol/L (21-28); ARTERIAL BLOOD GAS HEMOGLOBIN 10.8 g/dL (11.7-17.4); ARTERIAL BLOOD GAS O2 CAPACITY 14.7 mL/dl (16-24); ARTERIAL BLOOD GAS O2 CONTENT 14.1 ML/dl (15-23); ARTERIAL BLOOD GAS O2 SAT 96.1 % (95-98); ARTERIAL BLOOD GAS PCO2 34 mm/Hg (35-45); ARTERIAL BLOOD GAS PH 7.49 (7.35-7.45); ARTERIAL BLOOD GAS TCO2 26.9 mmol.L (22-28)
[2017-06-07 09:13] LABS: ARTERIAL BLOOD GAS O2 SAT 93.8 % (95-98); ARTERIAL BLOOD GAS PCO2 36 mm/Hg (35-45); ARTERIAL BLOOD GAS PH 7.45 (7.35-7.45); ARTERIAL BLOOD GAS TCO2 26.1 mmol.L (22-28)
[2017-06-07] MEDS: MethylPREDNISolone 40 mg Vial IVP SCH ×2 (09:13→21:17)
[2017-06-07] MEDS: Meropenem 1g/NS 100mL IVPB 1 GM/100 ML PIGGYBACK IVPB SCH ×2 (09:14→21:18)
[2017-06-07] MEDS: Milrinone 20mg/100ml D5W 100 ML IV PRN ×2 (09:35→23:20)
[2017-06-07] MEDS: Vancomycin 1.5 GM in Sodium Chloride 0.9% 500 ML IVPB SCH ×2 (09:43→21:29)
--- NOTE | 2017-06-07 11:53 | PN ---
DATE: 06/07/2017 SUBJECTIVE: The patient is in bed, in no acute distress, remains intubated on a ventilator, continues to have fevers. PHYSICAL EXAMINATION: VITAL SIGNS: Temperature is 101, blood pressure is 150/80, respiratory rate of 22 and heart rate of 116. HEENT: Unremarkable. NECK: Supple. LUNGS: Decreased breath sounds. HEART: Normal. S1 and S2 LABORATORY DATA: Reveals a white count of 10,800; the patient did have 28% bandemia, it is down to 15%bandemia. BUN of 23, creatinine of 0.7. Urinalysis is noted. Serology is noted. Microbiology reveals two bottles that are positive for coag-negative staph. Repeat blood cultures are no growth, and two days after the initial blood cultures. Review of order reveals the patient to be on doxycycline, vancomycin and meropenem. The patient is also now started on Solu-medrol. ASSESSMENT AND PLAN: This is a 62-year-old longterm male with diabetes mellitus, coronary artery disease, hypertension, congestive heart failure, depression, peripheral vascular disease, history of group B streptococus pneumonia and history of bilateral above the knee amputation, who has an automatic implantable cardioverter defibrillator admitted with severe sepsis with healthcare-associated possible Gram positive cocci and positive Gram negative karthik pneumonia, with an elevated procalcitonin and two bottles of positive for coag-negative staph, two bottles of blood cultures are positive for coag-negative staph, with automatic implantable cardioverter defibrillator in place, concerned about endocarditis with persistent fevers on vancomycin, meropenem and doxycycline, now on solu-medrol. fever with repeat blood cultures negative. Echo was done on 06/04/2017, no echo results still available. We will follow closely with you. Review of the medications reveal the patient receives the vancomycin in 10 a. m. and ordered vancomycin trough level for tomorrow at 9 a.m., an hour before to 10 a.m. dose and check on the echo report which is still pending. Live Watkins MD
--- NOTE | 2017-06-07 12:52 | CARD ---
APPROVED REPORT EXAM: Two-dimensional and M-mode echocardiogram with Doppler and color Doppler. INDICATION LVFX 2D DIMENSIONS Left Atrium (2D)5.7 (1.6-4.0cm)IVSd1.4 (0.7-1.1cm) LVDd5.9 (3.9-5.9cm)LVOT Diameter2.2 (1.8-2.4cm) PWd1.2 (0.7-1.1cm)LVDs5.2 (2.5-4.0cm) FS (%) 12.0 %LVEF (%)25.3 (>50%) M-Mode DIMENSIONS Aortic Root3.20 (2.2-3.7cm)Aortic Cusp Exc.0.70 (1.5-2.0cm) Aortic Valve AoV Peak Umdtsftr961.0cm/sAoV VTI39.4cmAO Peak GR.20mmHg LVOT Peak Etxblckl60.0cm/sLVOT VTI15.30cmAO Mean GR.11mmHg CALIXTO (VMAX)1.22fu8XED (VTI)1.48cm2 Mitral Valve MV E Urrkqnqb07.8cm/sMV A Iimzwhuv04.5cm/sE/A ratio1.2 TDI E/Lateral E'0.0E/Medial E'0.0 Pulmonary Valve PV Peak Ahkfffmp28.5cm/sPV Peak Grad.2mmHg Tricuspid Valve TR Peak Vtcgmfnk009jn/sRAP [id number] Peak Gr.24mmHg [id number] LEFT VENTRICLE There is borderline concentric left ventricular hypertrophy. The systolic function is severely impaired. RIGHT VENTRICLE The right ventricle is normal size. There is a pacemaker lead in the right ventricle. ATRIA The left atrium is mildly dilated. The right atrium size is normal. AORTIC VALVE The aortic valve is calcified and displays decreased opening. There is mild valvular aortic stenosis. MITRAL VALVE The mitral valve is calcified but opens well. Mitral annular calcification is mild to moderate. TRICUSPID VALVE The tricuspid valve leaflets are thickened , but open well. There is mild tricuspid regurgitation. There is no pulmonary hypertension. PULMONIC VALVE The pulmonic valve is not well visualized. PERICARDIAL EFFUSION There is no pericardial effusion. <Conclusion> Mild LVH Severe LV hypokinesis Dilated LA Calcified /AoV with mild AoV stenosis MAC PPM in RV noted
--- NOTE | 2017-06-07 13:36 | PN ---
DATE: SUBJECTIVE: I saw Curtis in the Intensive Care Unit. He is still on the ventilator. He is down to 40% oxygen, it is little less diuresing well. He is not alert. He is sedated. MEDICATIONS: He is on aspirin, doxycycline IV, DuoNeb, heparin, insulin drip, Lasix, Lipitor, Lopressor, Merrem IV, Tylenol, Plavix, Precedex IV, Primacor IV, Protonix IV, Solo-Medrol IV, vancomycin IV and Zofran IV. PHYSICAL EXAMINATION VITAL SIGNS: 101 temperature, 110 pulse, 157/87 blood pressure, 22 respiratory rate and 100% O2 saturation on mechanical ventilator. HEENT: Head atraumatic, normocephalic. HEART: Regular rate. LUNGS: Decreased breath sounds. ABDOMEN: Soft, obese. EXTREMITIES: Bilateral AKA. LABORATORY DATA: He has a 10.8 white count, 10.7 hemoglobin, 31.4 hematocrit with 220 platelets. He has 136 sodium, potassium 4.3, BUN is 23, creatinine 0.7, GFR is greater than 60, sugar is 294 and calcium is 8.2. IMPRESSION: He has been seen by Pulmonary, Cardiology, Infectious Disease and side panel hanger. He has multiple issues from respiratory failure to sepsis to non-ST elevation myocardial infarction to renal insufficiency to diabetes. He will continue with aggressive treatment and care. Check his labs tomorrow. Hopefully, off the ventilator soon. Adria Quevedo DO MTDD
--- NOTE | 2017-06-07 13:40 | PN ---
DATE: 06/07/2017 SUBJECTIVE: The patient seen and examined at bedside. He is sedated with Precedex 1.5 mcg/kg/hour. He is on dobutamine drip and heparin drip. He is on VC 400/25/6/40%; on that setting, his oxygen saturation varies between 93% and 95%. PHYSICAL EXAMINATION: VITAL SIGNS: His blood pressure 157/87, his heart rate 112. ENT: HEAD AND NECK: Atraumatic. LUNGS: Decreased breath sounds bilaterally. Few crackles bibasilar. HEART: Regular rate and rhythm. S1 and S2 distant. ABDOMEN: Soft, nontender and nondistended. Off note, the patient tolerates enteral nutrition well and current rate is 25 mL/hour. MUSCULOSKELETAL: Status post AKA bilaterally. SKIN: Moist. PSYCHIATRIC: The patient is sedated. NEUROLOGIC: The patient moves his lower extremity stumps spontaneously. LABORATORY DATA: WBC 10.8, hemoglobin 10.7, and platelet count 220. Sodium 136, potassium 4.3, chloride 99, carbon dioxide 27, BUN 23, creatinine 0.7, glucose 310, (insulin drip started). ABG today is pending. PTT is 62.2. Influenza and Legionella serology is negative. Blood culture from 06/05/2017 (2 days ago) is negative. Tracheal aspirate no growth, despite Gram negative rods and Gram positive cocci on Gram stain. MEDICATIONS: New medications since today morning were Lasix 40 mg IV q. 12 hours and insulin drip (sliding scale insulin, high protocol was discontinued, Tylenol IV on p.r.n. basis, DuoNeb every 4 hours, aspirin, Lipitor 80 mg p.o., Plavix, Precedex, dobutamine, doxycycline, Lasix 40 mg IV q. 12 hours, heparin drip, insulin drip, meropenem, Solu-Medrol 20 mg IV q. 12 hours, metoprolol, Zofran p.r.n., Protonix, vancomycin 1.5 g IV q. 12 hours. Chest x-ray bilateral infiltrates appears to be slightly worse than yesterday. ASSESSMENT AND PLAN: This is 62-year-old gentleman which what appears to be community acquired pneumonia complicated by hypoxemic respiratory failure and severe sepsis. After initial fluid resuscitation and ventilatory support, the patient became hemodynamically relatively stable (mild tachycardia most likely due to dobutamine ionotropic support) and FiO2 tapered down from 100% to 40% supplementation. NEUROLOGIC: The patient did not require neuromuscular blockade on continues basis yesterday. He is sedated with Precedex 1.5 mcg/kg/hour, which appears sufficient to provide adequate patient ventilator synchrony. PULMONARY: The patient is on 6 mL per predicted body weight per kilogram tidal volume. We will continue with protective lung vent strategy, conservative fluid and oxygen management. FiO2 tapered down nicely from 60% to 40%. ABG is pending. We will continue to treat underlying community acquired pneumonia with doxycycline, meropenem, and vancomycin. ID service is following again this well. We will continue with oral hygiene, DVT and GI prophylaxis. Head of bed elevated to >35 degrees. CARDIOVASCULAR: The patient has dilated cardiomyopathy with superimposed septic cardiomyopathy versus primary cardiac event. The patient is on dual antiplatelet therapy, beta-blockers, statins and therapeutic anticoagulation. He is on dobutamine for ionotropic support. I will switch from dobutamine to milrinone for better afterload reduction, avoiding PVCs and nonsutained Vtachs. Echocardiogram official report is pending. We will proceed with conservative fluid management and the patient was started on Lasix 40 mg IV q. 12 hours. His potassium today is normal. Cardiology service following patient up as well. GI: The patient tolerates enteral nutrition well, currently on 25 mL/hour of enteral feeds. We will continue with GI prophylaxis. ID: The patient has community acquired pneumonia and he is on broad-spectrum antibiotics. Recent blood culture is negative. I am a little bit concerned about slight worsening of radiographic picture. Nevertheless, clinically, the patient doing somewhat better (FiO2 down to 40% from 60%.) Worsening of radiographic picture may be attributed to the fact that it may lag behind clinical improvement. However, we will keep close eye on it. If signs of deterioration appear, we will proceed bronchoscopy with BAL. ID services is following patient as well. ENDOCRINE: The patient's blood glucose is elevated despite high protocol of sliding scale, we will proceed with insulin drip. We will proceed Accu-Chek every one hour. We will avoid hyperglycemia. We will maintain blood glucose within 140 to 108 range. ccm time 40 min Anant Hernandez MD JOSE
--- NOTE | 2017-06-07 14:32 | PN ---
PULMONARY PROGRESS NOTE, INTENSIVE CARE UNIT DATE: 06/07/2017 SUBJECTIVE: The patient remains unchanged in the intensive care unit. He remains on mechanical ventilation intubated. There is no significant changes noted. Long discussion with a primary nurse at this time. Low-grade fever develop last evening. The patient remains sedated. No additional changes noted. PHYSICAL EXAMINATION: VITAL SIGNS: Remains same with a temperature of 101 degrees, pulse of 100 plus, respiratory rate of 26, blood pressure of 160/90, and O2 saturation of 92% on supplemental oxygen. INTAKE AND OUTPUT: Intake 2120 and out put 700, and positive balance of 1420. HEENT: Examination shows head remain atraumatic and normocephalic. NECK: Supple. No jugular venous distention. NG tube in place. CHEST: Reveal decreased breath sounds throughout. No adventitious sounds. No wheezing noted at this time. No rales or rhonchi as well. Remains intubated. CARDIOVASCULAR: Regular rhythm, S1 and S2, with no murmur, gallop, or rub. ABDOMEN: Soft. Bowel sounds normoactive without mass, guarding or rebound. No organomegaly. EXTREMITIES: Reveal no clubbing, cyanosis, or edema. NEUROLOGIC: Reveal nonfocal findings. SKIN: No rashes CURRENT MEDICATIONS: Include DuoNeb, aspirin, Lipitor, Plavix, Lasix, Precedex, doxycycline, meropenem, heparin, acetaminophen, vancomycin, insulin, milrinone, methylprednisolone, metoprolol and Zofran. LABORATORY STUDIES: Today show white count of 10,000, hemoglobin of 10, hematocrit of 31 and platelet count of 220. Sodium is 136, potassium is 4.3, chloride is 99, CO2 is 27, BUN is 23, creatinine is 0.7, and platelet count of 294,000. PT of 13, INR of 1.21 and a PTT of 62.2. CLINICAL IMPRESSION: At this time, remains unchanged. 1. Congestive heart failure. 2. Coronary artery disease. 3. Chronic obstructive pulmonary disease. 4. Hypoxemia. 5. Respiratory failure. 6. Sepsis syndrome. 7. Acute myocardial infarction. 8. Respiratory failure on mechanical ventilation. PLAN: Continue vigorous support on the respirator, attempt to remove sedation when the patient is adequately ventilating on his own and is not combative. Continue cardiovascular medications as previously described. They will follow up with patient accounts manager Dr. Ross Gill. Cardiac catheter is canceled due to fever, this would help us to understand more of what is going on. Prognosis remains guarded. Continue his inhaled bronchodilators, corticosteroids with tiotropium. We will follow closely with you and decide on the need for further intervention based on clinical response. Thank you for the opportunity to help to care for this very ill patient. Marco Young MD MTDD
--- NOTE | 2017-06-07 14:38 | PN ---
CARDIOLOGY FOLLOWUP DATE: 06/07/2017 SUBJECTIVE: The patient remains on ventilator. PHYSICAL EXAMINATION: VITAL SIGNS: Temperature is 100 today and blood pressure is 98/58. NECK: Negative JVD. LUNGS: Decreased breath sounds. HEART: Reveals S1 and S2. EXTREMITIES: Without change. LABORATORY DATA: Hemoglobin is 10.7. Chemistries; glucose is 294. ASSESSMENT: 1. Persistent fever. 2. Izz-NI-jgjnhfb elevation myocardial infarction. 3. Peripheral vascular disease. 4. Respiratory failure. 5. Dialectic cardiomyopathy. PLAN: Give these findings, we will continue in fact the patient on present medications. The patient is currently on IV antibiotics. Ross Gill MD
--- NOTE | 2017-06-07 14:40 | RAD ---
HISTORY: f/u COMPARISON: Prior chest radiograph 06/06/2017. FINDINGS: LUNGS: Interval patchy densities in the mid to inferior left lung zone as is mildly present the right as well. Clinically correlate. No definite pleural effusion or pneumothorax bilaterally. Endotracheal tube again seen in position as well as the nasogastric tube. Pacemaker/ implanted defibrillator again identified. PLEURA: No significant pleural effusion identified, no pneumothorax apparent. CARDIOVASCULAR: Normal. OSSEOUS STRUCTURES: No significant abnormalities. VISUALIZED UPPER ABDOMEN: Normal. OTHER FINDINGS: None. IMPRESSION: Interval infiltrates are suggested the mid to inferior left lung zone and potentially the right midlung zone. No definite no definite pleural effusion or pneumothorax. Continued clinical correlation and radiographic follow-up are advised.
[2017-06-08] MEDS: Dexmedetomidine HCl 4mcg/ml 400 MCG/100 ML BOTTLE IV PRN ×2 (03:50→09:44)
[2017-06-08] MEDS: Albuterol-Ipratrop 3 mg / 0.5 (3 ml) UD IH SCH ×6 (04:04→23:49)
[2017-06-08 05:25] LABS: ARTERIAL BLOOD GAS HCO3 25.5 mmol/L (21-28); ARTERIAL BLOOD GAS O2 SAT 92.1 % (95-98); ARTERIAL BLOOD GAS PCO2 32 mm/Hg (35-45); ARTERIAL BLOOD GAS PH 7.51 (7.35-7.45); ARTERIAL BLOOD GAS TCO2 26.5 mmol.L (22-28)
[2017-06-08 06:29] LABS: BASO # 0.02 K/mm3 (0.0-2.0); BASO % 0.2 % (0.0-3.0); GRAN % 87.1 % (50.0-68.0); LYMPH # 0.8 (1.2-3.4); LYMPH % 7.3 % (22.0-35.0); MEAN CELL VOLUME 82.6 fL (80.0-105.0); MEAN CORPUSCULAR HEMOGLOBIN 27.5 pg (25.0-35.0); MEAN CORPUSCULAR HGB CONC 33.3 g/dl (31.0-37.0); MONO # 0.6 (0.1-0.6); MONO % 5.4 % (1.0-6.0); PLATELET COUNT 242 10^3/uL (120.0-450.0); RBC 2.87 10^6/uL (3.5-6.1); RED CELL DISTRIBUTION WIDTH 16.4 % (11.5-14.5)
[2017-06-08 06:42] LABS: BLOOD UREA NITROGEN 33 mg/dL (7-21); CALCIUM 8.1 mg/dL (8.4-10.5); GFR AFRICAN-AMERICAN > 60; GFR NON-AFRICAN AMERICAN > 60
[2017-06-08 06:47] LABS: INR 1.35 (0.93-1.08); PROTHROMBIN TIME 14.6 Seconds (9.9-11.8)
[2017-06-08 07:01] LABS: HEMOGLOBIN 7.9 gm/dL (14.0-18.0)
[2017-06-08] MEDS: Heparin 25,000units in D5W/250 ML BAG IV SCH (07:44)
--- NOTE | 2017-06-08 07:58 | PN ---
DATE 06/08/17(610AM--700AM) PULMONARY NOTE SUBJECTIVE: The patient remains on the ventilator. He is currently sedated. PHYSICAL EXAMINATION VITAL SIGNS: Temperature 98.6, pulse 89, respirations 25/25, blood pressure 123/69. HEENT: Normocephalic, atraumatic. NECK: No JVD. CARDIOVASCULAR: Systolic ejection murmur at the lower left sternal border. Questionable S3 gallop. LUNGS: Decreased breath sounds at the bases with crackles. Less rhonchi. No wheezing. EXTREMITIES: The patient is status post bilateral above the knee amputations. GASTROINTESTINAL: Abdomen is soft, nontender, nondistended. Bowel sounds are positive. SKIN: No acute rash. NEUROLOGIC: Limited at the present time. CURRENT LABORATORY DATA: Chest x-ray was done and reviewed, there remains bilateral pulmonary infiltrates. Arterial blood gas was done on assist control 25, tidal volume 400, FiO2 of 40%. Results are: pH 7.51, pCO2 of 32, pO2 of 50. IMPRESSION: 1. Respiratory failure. 2. Multilobar pneumonia. 3. Sepsis syndrome. 4. Acute myocardial infarction. 5. Possible congestive heart failure. 6. Renal insufficiency. 7. Severe peripheral vascular disease. PLAN: I did discuss the case with the ICU nurse at length. The patient remains on the ventilator and is currently sedated. I did review the chest x-ray as above. The chest x-ray remains with bilateral pulmonary infiltrates. I have also reviewed the arterial blood gas. An increased alveolar arterial gradient is noted. Since the arterial blood gas was obtained, the FiO2 has been increased to 60%. We will get a repeat arterial blood gas later this morning. I would continue with the antibiotic coverage as per infectious disease. Input by Dr. Watkins as noted. Temperatures are slowly resolving. I would continue with the cardiology evaluation as per Dr. Gill. His input is noted. The patient remains critically ill with overall very guarded prognosis. I will discuss the above with the entire ICU team the next few moments. I did discuss the above with Dr. Quevedo earlier this morning. Tom Pittman MD [facility] # [id number] MTDD
[2017-06-08] MEDS: MethylPREDNISolone 40 mg Vial IVP SCH ×2 (09:07→21:39)
[2017-06-08] MEDS: Meropenem 1g/NS 100mL IVPB 1 GM/100 ML PIGGYBACK IVPB SCH ×2 (09:12→21:38)
--- NOTE | 2017-06-08 09:30 | PN ---
DATE: 06/08/2017 SUBJECTIVE: I saw Curtis in the Intensive Care Unit. He is still on the ventilator. He was as low as 40%, now he is up to 60% with a bad blood gas. He needs extra oxygen. He is sedated. He has got feeding tube. PHYSICAL EXAMINATION: VITAL SIGNS: Temperature 99.6, blood pressure 134/84, pulse 90, FiO2 he is at 40%, now he is at 60%, and O2 saturation at 96%. HEENT: He is atraumatic and normocephalic. He is getting tube feedings through his mouth. HEART: Regular rate. LUNGS: Decreased breath sounds, but clear. ABDOMEN: Soft. EXTREMITIES: Bilateral AKA, but is less swollen. LABORATORY DATA: He has white count 11, hemoglobin 7.9, hematocrit 22.7, and platelets 242. I will transfuse him. This morning he dropped from 11.3 down to a 7.9. PTT is 76. Sodium 134, potassium 4.4, BUN 36, creatinine 0.8, blood sugar 150, and calcium 8.1. MEDICATIONS: He is currently on aspirin, doxycycline IV, DuoNeb, heparin IV, insulin coverage, Lasix IV, Lipitor, Lopressor, Merrem IV, Plavix, Precedex IV, milrinone IV, Protonix IV, Solu-Medrol IV, vancomycin IV, and Zofran IV. ASSESSMENT AND PLAN: He is being seen by multiple doctors, Cardiology, Pulmonary, Infectious Disease, and building certifier. He was anemic on top of everything else that is going on with him. He has respiratory failure, sepsis, pneumonia, non-ST elevation myocardial infarction, renal insufficiency, diabetes, and anemia. I will be treating him with aggressive treatment and care and I will try and transfuse him this morning 2 units. Adria Quevedo DO
[2017-06-08] MEDS: Vancomycin 1.5 GM in Sodium Chloride 0.9% 500 ML IVPB SCH (09:43)
[2017-06-08 10:00] LABS: HEMOGLOBIN 8.5 gm/dL (14.0-18.0)
--- NOTE | 2017-06-08 10:25 | RAD ---
HISTORY: f/u COMPARISON: 06/07/2017 FINDINGS: LUNGS: Endotracheal and nasogastric tube in satisfactory position. Slight improvement in bilateral infiltrates PLEURA: No significant pleural effusion identified, no pneumothorax apparent. CARDIOVASCULAR: Mild cardiomegaly OSSEOUS STRUCTURES: No significant abnormalities. VISUALIZED UPPER ABDOMEN: Normal. OTHER FINDINGS: None. IMPRESSION: Endotracheal and nasogastric tube in satisfactory position. Slight improvement in bilateral infiltrates
[2017-06-08] MEDS: Insulin Regular 100 UNITS in Sodium Chloride 0.9% 99 ML IV PRN (12:32)
--- NOTE | 2017-06-08 13:08 | CP.PCM.PN ---
<Maryjane Lawrence - Last Filed: 06/08/17 14:06> Subjective - Date & Time of Evaluation Date of Evaluation: 06/08/17 Time of Evaluation: 10:20 - Subjective Subjective: PGY-[address] Rai Pt had a fever of T100.5 this am and around noon. computer operations supervisor during sedation vacation, pt can blink eyes and shake head and communicate and was reported with mild agitation at times. Objective - Vital Signs/Intake and Output Vital Signs (last 24 hours): Temp Pulse Resp BP Pulse Ox 100.5 F H 107 H 24 128/84 100 06/08/17 12:00 06/08/17 12:00 06/07/17 18:03 06/08/17 12:00 06/08/17 12:00 Intake and Output: 06/08/17 06/08/17 06:59 18:59 Intake Total 1914.0 481 Output Total 950 Balance 964.0 481 - Medications Medications: Current Medications Albuterol/Ipratropium (Duoneb 3 Mg/0.5 Mg (3 Ml) Ud) 3 ml IH [id number] [facility] Last Admin: 06/08/17 11:55 Dose: 3 ml Aspirin (Aspirin Supp) 300 mg RC DAILY [facility] Last Admin: 06/08/17 09:13 Dose: 300 mg Atorvastatin Calcium (Lipitor) 80 mg PO DIN [facility] Last Admin: 06/07/17 17:59 Dose: 80 mg Clopidogrel Bisulfate (Plavix) 75 mg PO DAILY [facility] Last Admin: 06/08/17 09:06 Dose: 75 mg Furosemide (Lasix) 40 mg IVP Q12 [facility] Last Admin: 06/08/17 09:11 Dose: 40 mg Furosemide (Lasix) 40 mg IVP DAILY [facility] Last Admin: 06/08/17 09:46 Dose: Not Given Dexmedetomidine HCl (Precedex 4 Mcg/Ml (100 Ml)) 400 mcg in 100 mls @ 4.445 mls /hr IV .[id number] PRN; Protocol; 0.2 MCG/KG/HR PRN Reason: Sedation Last Titration: 06/08/17 10:45 Dose: 0 mcg/kg/hr, 0 mls/hr Doxycycline Hyclate 100 mg/ (Sodium Chloride) 100 mls @ 100 mls/hr IVPB Q12 ALAYNA PRN Reason: Protocol Stop: 06/13/17 13:39 Last Admin: 06/08/17 09:12 Dose: 100 mls/hr Meropenem 1g/NS 100mL IVPB (Meropenem 1g/Ns 100ml Ivpb) 1 gm in 100 mls @ 100 mls/hr IVPB Q12 ALAYNA PRN Reason: Protocol Stop: 08/09/17 13:40 Last Admin: 06/08/17 09:12 Dose: 100 mls/hr Heparin Sodium/Dextrose (Heparin 25,000 Units/250ml In D5w) 25,000 units in 250 mls @ 10.631 mls/hr IV .[id number] ALAYNA; 12 UNITS/KG/HR PRN Reason: Protocol Last Admin: 06/08/17 07:44 Dose: 16 units/kg/hr, 14.175 mls/hr Vancomycin HCl 1.5 gm/ Sodium (Chloride) 500 mls @ 250 mls/hr IVPB Q12H [facility] Last Admin: 06/08/17 09:43 Dose: Not Given Insulin Human Regular 100 (units/ Sodium Chloride) 100 mls @ 5 mls/hr IV .Q20H PRN; Protocol; 5 UNITS/HR PRN Reason: TITRATE PER MD ORDER Last Admin: 06/08/17 12:32 Dose: 3 units/hr, 3 mls/hr Milrinone Lactate/Dextrose (Primacor 20mg/100ml D5w) 100 mls @ 5.316 mls/hr IV .[id number] PRN; Protocol; 0.2 MCG/KG/MIN PRN Reason: TITRATE PER MD ORDER Last Titration: 06/08/17 07:30 Dose: 0.2 mcg/kg/min, 5.316 mls/hr Methylprednisolone (Solu-Medrol) 20 mg IVP Q12 [facility] Last Admin: 06/08/17 09:07 Dose: 20 mg Metoprolol Tartrate (Lopressor) 12.5 mg PO BID [facility] Last Admin: 06/08/17 09:05 Dose: 12.5 mg Ondansetron HCl (Zofran Inj) 4 mg IVP Q6H PRN PRN Reason: Nausea/Vomiting Pantoprazole Sodium (Protonix Inj) 40 mg IVP DAILY [facility] Last Admin: 06/08/17 09:11 Dose: 40 mg - Labs Labs: 06/08/17 09:50 06/08/17 05:20 PT 14.6 Seconds (9.9-11.8) H 06/08/17 05:20 INR 1.35 (0.93-1.08) H 06/08/17 05:20 APTT 76.0 Seconds (23.7-30.8) H* 06/08/17 05:20 - Constitutional Appears: Other (intubated) - Head Exam Head Exam: ATRAUMATIC, NORMAL INSPECTION, NORMOCEPHALIC - Eye Exam Eye Exam: PERRL. absent: Scleral icterus - ENT Exam ENT Exam: Mucous Membranes Moist - Neck Exam Additional comments: supple - Respiratory Exam Respiratory Exam: Decreased Breath Sounds (b/l basilar), Rales, Rhonchi - Cardiovascular Exam Cardiovascular Exam: REGULAR RHYTHM, +S1, +S2 - GI/Abdominal Exam GI & Abdominal Exam: Soft. absent: Distended, Guarding, Rigid - Extremities Exam Extremities Exam: Pedal Edema Additional comments: 1+ b/l, rivera intact, light adrian urine, clear, no blood, not cloudy - Neurological Exam Additional comments: intubated - Skin Skin Exam: Dry, Warm Assessment and Plan - Assessment and Plan (Free Text) Plan: 62 M from senior living with DM, CAD/CHF with permanent pacemaker, Hx group B strep PNA, PAD s/p AKA b/l, comes in for severe sepsis with MODS due to multilobar HCAP vs Coagulase Negative staphalococcus bacteremia. Pt has acute hypoxemia respiratory failure requiring intubation on VC, septic encephalopathy , ONEAL, NSTEMI, CHF s/p dobutamine, now 0.2 milrinone gtt. Persistent hypoxemia despite on vent may be suggestive of ARDS. HCAP is due to possible Gram + cocci vs Positive Gram - PNA from aspiration. Sputum culture grew yeast with light colony count likely colonization. He has persistent fever on vanco, meropenem and doxycycline, with repeated blood culture negative x 48 days, suggestive of endocarditis. Severe Sepsis - Elevated procal 14 --> 2.76 - Continue Doxycycline 100mg q12 (day 5), Meropenem 1g q12 (day 5), and vanco 1.5 gm @12 (day 4) - Solumedrol 20q12 - Cooling blanket PRN - Tyelnol PRN Multilobar HCAP vs Coagulase Negative staphalococcus bacteremia - Elevated procal; Influenza and legionella Ag neg - Duonem q4 alayna - VC 60%, PEEP 6, RR25, TV 400. VAP bundle - Continue antibiotics Coagulase negative staph bacteremia Possible Infective Endocarditis (Luna 1 major 2 minor) Questionable seeding at permanent pace maker - Echo (06/04/17) PPM in RV; Dilated LA, Severe LV hypokinesis (EF 25), Calfified AoV , moderate Mitral annular calcification, RVSP 34 - repeat Echo next week - Vanco dose ALAYNA at 10 am, 10 pm - Last trough check today 9am (level 47) s/r/d/w Dr. Rai <Liborio Rai S - Last Filed: 06/08/17 14:30> Objective - Vital Signs/Intake and Output Vital Signs (last 24 hours): Temp Pulse Resp BP Pulse Ox 100.5 F H 104 H 24 120/59 L 95 06/08/17 12:00 06/08/17 14:00 06/07/17 18:03 06/08/17 14:00 06/08/17 14:00 Intake and Output: 06/08/17 06/08/17 06:59 18:59 Intake Total 1914.0 481 Output Total 950 Balance 964.0 481 - Medications Medications: Current Medications Albuterol/Ipratropium (Duoneb 3 Mg/0.5 Mg (3 Ml) Ud) 3 ml IH [id number] [facility] Last Admin: 06/08/17 11:55 Dose: 3 ml Aspirin (Aspirin Supp) 300 mg RC DAILY [facility] Last Admin: 06/08/17 09:13 Dose: 300 mg Atorvastatin Calcium (Lipitor) 80 mg PO DIN [facility] Last Admin: 06/07/17 17:59 Dose: 80 mg Clopidogrel Bisulfate (Plavix) 75 mg PO DAILY [facility] Last Admin: 06/08/17 09:06 Dose: 75 mg Furosemide (Lasix) 40 mg IVP Q12 [facility] Last Admin: 06/08/17 09:11 Dose: 40 mg Furosemide (Lasix) 40 mg IVP DAILY [facility] Last Admin: 06/08/17 09:46 Dose: Not Given Dexmedetomidine HCl (Precedex 4 Mcg/Ml (100 Ml)) 400 mcg in 100 mls @ 4.445 mls /hr IV .[id number] PRN; Protocol; 0.2 MCG/KG/HR PRN Reason: Sedation Last Titration: 06/08/17 10:45 Dose: 0 mcg/kg/hr, 0 mls/hr Doxycycline Hyclate 100 mg/ (Sodium Chloride) 100 mls @ 100 mls/hr IVPB Q12 ALAYNA PRN Reason: Protocol Stop: 06/13/17 13:39 Last Admin: 06/08/17 09:12 Dose: 100 mls/hr Meropenem 1g/NS 100mL IVPB (Meropenem 1g/Ns 100ml Ivpb) 1 gm in 100 mls @ 100 mls/hr IVPB Q12 ALAYNA PRN Reason: Protocol Stop: 08/09/17 13:40 Last Admin: 06/08/17 09:12 Dose: 100 mls/hr Heparin Sodium/Dextrose (Heparin 25,000 Units/250ml In D5w) 25,000 units in 250 mls @ 10.631 mls/hr IV .[id number] ALAYNA; 12 UNITS/KG/HR PRN Reason: Protocol Last Admin: 06/08/17 07:44 Dose: 16 units/kg/hr, 14.175 mls/hr Vancomycin HCl 1.5 gm/ Sodium (Chloride) 500 mls @ 250 mls/hr IVPB Q12H [facility] Last Admin: 06/08/17 09:43 Dose: Not Given Insulin Human Regular 100 (units/ Sodium Chloride) 100 mls @ 5 mls/hr IV .Q20H PRN; Protocol; 5 UNITS/HR PRN Reason: TITRATE PER MD ORDER Last Admin: 06/08/17 12:32 Dose: 3 units/hr, 3 mls/hr Milrinone Lactate/Dextrose (Primacor 20mg/100ml D5w) 100 mls @ 5.316 mls/hr IV .[id number] PRN; Protocol; 0.2 MCG/KG/MIN PRN Reason: TITRATE PER MD ORDER Last Titration: 06/08/17 07:30 Dose: 0.2 mcg/kg/min, 5.316 mls/hr Methylprednisolone (Solu-Medrol) 20 mg IVP Q12 [facility] Last Admin: 06/08/17 09:07 Dose: 20 mg Metoprolol Tartrate (Lopressor) 12.5 mg PO BID [facility] Last Admin: 06/08/17 09:05 Dose: 12.5 mg Ondansetron HCl (Zofran Inj) 4 mg IVP Q6H PRN PRN Reason: Nausea/Vomiting Pantoprazole Sodium (Protonix Inj) 40 mg IVP DAILY [facility] Last Admin: 06/08/17 09:11 Dose: 40 mg - Labs Labs: 06/08/17 09:50 06/08/17 05:20 PT 14.6 Seconds (9.9-11.8) H 06/08/17 05:20 INR 1.35 (0.93-1.08) H 06/08/17 05:20 APTT 76.0 Seconds (23.7-30.8) H* 06/08/17 05:20 Assessment and Plan - Assessment and Plan (Free Text) Plan: Attending attestation: Patient seen, examined and discussed with medical technologist prn. I agree with the above findings. The patient has severe sepsis with ventilator-dependent respiratory failure and acute renal failure due to multilobar healthcare- associated pneumonia. Also has methicillin-resistant coagulase negative staph bacteremia, concerned about pacemaker infection. The 2D echo done on June 04 does not show vegetations on the pacemaker or on the leads, but should be repeat in the next 3-5 days to see if vegetations develop. Patient continues to have fever and we will continue to trend the fever curve. Patient continues to be in critical condition.
--- NOTE | 2017-06-08 17:16 | CP.PCM.PN ---
<GISSELLE LOMELI - Last Filed: 06/08/17 17:12> Subjective - Date & Time of Evaluation Date of Evaluation: 06/08/17 Time of Evaluation: 07:30 - Subjective Subjective: Gisselle Lomeli DO PGY1 - ICU Progress Note Patient seen and examined at bedside. No events reported overnight. Patient remains intubated, sedated, but arousable. Objective - Vital Signs/Intake and Output Vital Signs (last 24 hours): Temp Pulse Resp BP Pulse Ox 99.9 F H 101 H 18 120/82 78 L 06/08/17 16:00 06/08/17 16:01 06/08/17 16:01 06/08/17 16:01 06/08/17 16:01 Intake and Output: 06/08/17 06/08/17 06:59 18:59 Intake Total 1914.0 495.5 Output Total 950 Balance 964.0 495.5 - Medications Medications: Current Medications Albuterol/Ipratropium (Duoneb 3 Mg/0.5 Mg (3 Ml) Ud) 3 ml IH [id number] [facility] Last Admin: 06/08/17 16:53 Dose: 3 ml Aspirin (Aspirin Supp) 300 mg RC DAILY [facility] Last Admin: 06/08/17 09:13 Dose: 300 mg Atorvastatin Calcium (Lipitor) 80 mg PO DIN [facility] Last Admin: 06/07/17 17:59 Dose: 80 mg Clopidogrel Bisulfate (Plavix) 75 mg PO DAILY [facility] Last Admin: 06/08/17 09:06 Dose: 75 mg Furosemide (Lasix) 40 mg IVP Q12 [facility] Last Admin: 06/08/17 09:11 Dose: 40 mg Furosemide (Lasix) 40 mg IVP DAILY [facility] Last Admin: 06/08/17 09:46 Dose: Not Given Dexmedetomidine HCl (Precedex 4 Mcg/Ml (100 Ml)) 400 mcg in 100 mls @ 4.445 mls /hr IV .[id number] PRN; Protocol; 0.2 MCG/KG/HR PRN Reason: Sedation Last Titration: 06/08/17 10:45 Dose: 0 mcg/kg/hr, 0 mls/hr Doxycycline Hyclate 100 mg/ (Sodium Chloride) 100 mls @ 100 mls/hr IVPB Q12 [facility] PRN Reason: Protocol Stop: 06/13/17 13:39 Last Admin: 06/08/17 09:12 Dose: 100 mls/hr Meropenem 1g/NS 100mL IVPB (Meropenem 1g/Ns 100ml Ivpb) 1 gm in 100 mls @ 100 mls/hr IVPB Q12 [facility] PRN Reason: Protocol Stop: 08/09/17 13:40 Last Admin: 06/08/17 09:12 Dose: 100 mls/hr Heparin Sodium/Dextrose (Heparin 25,000 Units/250ml In D5w) 25,000 units in 250 mls @ 10.631 mls/hr IV .[id number] UZIEL; 12 UNITS/KG/HR PRN Reason: Protocol Last Admin: 06/08/17 07:44 Dose: 16 units/kg/hr, 14.175 mls/hr Vancomycin HCl 1.5 gm/ Sodium (Chloride) 500 mls @ 250 mls/hr IVPB Q12H [facility] Last Admin: 06/08/17 09:43 Dose: Not Given Insulin Human Regular 100 (units/ Sodium Chloride) 100 mls @ 5 mls/hr IV .Q20H PRN; Protocol; 5 UNITS/HR PRN Reason: TITRATE PER MD ORDER Last Titration: 06/08/17 15:30 Dose: 2 units/hr, 2 mls/hr Milrinone Lactate/Dextrose (Primacor 20mg/100ml D5w) 100 mls @ 5.316 mls/hr IV .[id number] PRN; Protocol; 0.2 MCG/KG/MIN PRN Reason: TITRATE PER MD ORDER Last Titration: 06/08/17 07:30 Dose: 0.2 mcg/kg/min, 5.316 mls/hr Methylprednisolone (Solu-Medrol) 20 mg IVP Q12 [facility] Last Admin: 06/08/17 09:07 Dose: 20 mg Metoprolol Tartrate (Lopressor) 12.5 mg PO BID [facility] Last Admin: 06/08/17 09:05 Dose: 12.5 mg Ondansetron HCl (Zofran Inj) 4 mg IVP Q6H PRN PRN Reason: Nausea/Vomiting Pantoprazole Sodium (Protonix Inj) 40 mg IVP DAILY [facility] Last Admin: 06/08/17 09:11 Dose: 40 mg - Labs Labs: 06/08/17 09:50 06/08/17 05:20 PT 14.6 Seconds (9.9-11.8) H 06/08/17 05:20 INR 1.35 (0.93-1.08) H 06/08/17 05:20 APTT 76.0 Seconds (23.7-30.8) H* 06/08/17 05:20 - Constitutional Appears: Non-toxic, Other (sedated) - Head Exam Head Exam: ATRAUMATIC, NORMOCEPHALIC - Eye Exam Eye Exam: Normal appearance - ENT Exam ENT Exam: Mucous Membranes Moist - Neck Exam Neck Exam: Normal Inspection - Respiratory Exam Respiratory Exam: Clear to Ausculation Bilateral Additional comments: Decreased breath sounds Intubated on vent 60/400/05/03 - Cardiovascular Exam Cardiovascular Exam: REGULAR RHYTHM, +S1, +S2 - GI/Abdominal Exam GI & Abdominal Exam: Soft. absent: Firm, Guarding, Rigid - Extremities Exam Additional comments: b/l AKA - Neurological Exam Additional comments: Sedated, but arousable Assessment and Plan - Assessment and Plan (Free Text) Assessment: 62M with PMH CHF, CAD, COPD, admitted to ICU for acute hypoxemic respiratory failure 2/2 likely pneumonia, CHF exacerbation, also found to have elevated troponins and ONEAL. Patient is intubated on volume control, weaned down to 40% FiO2, patient continues to be hypoxiemic. Pt on milrinone drip, heparin drip, and sedated on precedex drip. Plan: Neuro: - Pt intubated, precedex held to evaluate mental status prior to extubation - Cont to monitor. CV: - BP stable - Cont milrinone drip - Continue Lasix 40 mg Q12 - Hx of CAD and CHF, has AICD, dilated CM, - Trops elevated, Pt on dual antiplatelets (ASA, Plavix), Statin, BB, heparin drip. - Continue heparin GTT - Cardio, Dr. Gill, following - Echo read pending - Maintain MAP>65. - Cont to monitor. Pulm: - Acute hypoxemic resp failure 2/2 CAP - Intubated. on Volume control, PEEP 6, RR 25, TV 400, 60% FiO2. Precedex held, patient became awake and alert, and was extubated. - repeat cxr shows slight improvement in bilateral infiltrates - chest CT on 06/04 shows b/l LLL PNA and posterior RUL PNA. - Maintain sat>90%. - cont Merrem & Doxy and Vanco - low dose steriod for CAP - High flow O2 - Continue with protected lung ventilation strategies with head of bed elevation above 35 degrees, bronchodilators, keep oxygenation above 90%, pulm toileting GI: - OGT removed - advance as tolerated. - Continue with Protonix. - Abd/pelvis CT w/o contrast on 06/04 shows no intrabdominal pathology. Renal /fluids/Electrolytes: - ONEAL. improved Cr, remains at baseline Cr 0.8 - Urine Output 1700 ml past 24 ho, receiving lasix - cont strict I&O - maintain euvolemia - replete electrolytes as needed ID: - Continues to have T 100.0-100.5, has PRN tylenol, no leukocytosis. - Continue with Doxy, Merrem and Vanco for CAP - Bandemia 20 on admission - Lactate improved - Procalcitonin 2.76 - Blood cultures 1/2 shows gr + cocci in clusters, in aerobic bottle; 2nd bottle shows coag neg staph; Tracheal asp shows yeast. - ID following - Continue to monitor Endo: - blood sugar elevated - Continue insulin drip - blood sugar q1 - Maintain glucose between 140-180 Heme: - Stable - Cont to monitor. DVT ppx - hep drip GI ppx - Protonix <Rony FINNEY,Sylvain H - Last Filed: 06/08/17 18:16> Objective - Vital Signs/Intake and Output Vital Signs (last 24 hours): Temp Pulse Resp BP Pulse Ox 99.9 F H 101 H 18 120/82 78 L 06/08/17 16:00 06/08/17 16:01 06/08/17 16:01 06/08/17 16:01 06/08/17 16:01 Intake and Output: 06/08/17 06/08/17 06:59 18:59 Intake Total 1914.0 545.5 Output Total 950 Balance 964.0 545.5 - Medications Medications: Current Medications Albuterol/Ipratropium (Duoneb 3 Mg/0.5 Mg (3 Ml) Ud) 3 ml IH [id number] [facility] Last Admin: 06/08/17 16:53 Dose: 3 ml Aspirin (Aspirin Supp) 300 mg RC DAILY [facility] Last Admin: 06/08/17 09:13 Dose: 300 mg Atorvastatin Calcium (Lipitor) 80 mg PO DIN [facility] Last Admin: 06/07/17 17:59 Dose: 80 mg Clopidogrel Bisulfate (Plavix) 75 mg PO DAILY [facility] Last Admin: 06/08/17 09:06 Dose: 75 mg Furosemide (Lasix) 40 mg IVP Q12 [facility] Last Admin: 06/08/17 09:11 Dose: 40 mg Furosemide (Lasix) 40 mg IVP DAILY [facility] Last Admin: 06/08/17 09:46 Dose: Not Given Dexmedetomidine HCl (Precedex 4 Mcg/Ml (100 Ml)) 400 mcg in 100 mls @ 4.445 mls /hr IV .[id number] PRN; Protocol; 0.2 MCG/KG/HR PRN Reason: Sedation Last Titration: 06/08/17 10:45 Dose: 0 mcg/kg/hr, 0 mls/hr Doxycycline Hyclate 100 mg/ (Sodium Chloride) 100 mls @ 100 mls/hr IVPB Q12 [facility] PRN Reason: Protocol Stop: 06/13/17 13:39 Last Admin: 06/08/17 09:12 Dose: 100 mls/hr Meropenem 1g/NS 100mL IVPB (Meropenem 1g/Ns 100ml Ivpb) 1 gm in 100 mls @ 100 mls/hr IVPB Q12 [facility] PRN Reason: Protocol Stop: 08/09/17 13:40 Last Admin: 06/08/17 09:12 Dose: 100 mls/hr Heparin Sodium/Dextrose (Heparin 25,000 Units/250ml In D5w) 25,000 units in 250 mls @ 10.631 mls/hr IV .[id number] UZIEL; 12 UNITS/KG/HR PRN Reason: Protocol Last Admin: 06/08/17 07:44 Dose: 16 units/kg/hr, 14.175 mls/hr Vancomycin HCl 1.5 gm/ Sodium (Chloride) 500 mls @ 250 mls/hr IVPB Q12H [facility] Last Admin: 06/08/17 09:43 Dose: Not Given Insulin Human Regular 100 (units/ Sodium Chloride) 100 mls @ 5 mls/hr IV .Q20H PRN; Protocol; 5 UNITS/HR PRN Reason: TITRATE PER MD ORDER Last Titration: 06/08/17 15:30 Dose: 2 units/hr, 2 mls/hr Milrinone Lactate/Dextrose (Primacor 20mg/100ml D5w) 100 mls @ 5.316 mls/hr IV .[id number] PRN; Protocol; 0.2 MCG/KG/MIN PRN Reason: TITRATE PER MD ORDER Last Admin: 06/08/17 17:27 Dose: 0.2 mcg/kg/min, 5.316 mls/hr Methylprednisolone (Solu-Medrol) 20 mg IVP Q12 [facility] Last Admin: 06/08/17 09:07 Dose: 20 mg Metoprolol Tartrate (Lopressor) 12.5 mg PO BID [facility] Last Admin: 06/08/17 09:05 Dose: 12.5 mg Ondansetron HCl (Zofran Inj) 4 mg IVP Q6H PRN PRN Reason: Nausea/Vomiting Pantoprazole Sodium (Protonix Inj) 40 mg IVP DAILY [facility] Last Admin: 06/08/17 09:11 Dose: 40 mg - Labs Labs: 06/08/17 09:50 06/08/17 05:20 PT 14.6 Seconds (9.9-11.8) H 06/08/17 05:20 INR 1.35 (0.93-1.08) H 06/08/17 05:20 APTT 76.0 Seconds (23.7-30.8) H* 06/08/17 05:20 Attending/Attestation - Attestation I have personally seen and examined this patient.: Yes I have fully participated in the care of the patient.: Yes I have reviewed all pertinent clinical information, including history, physical exam and plan: Yes Notes (Text): 06/08/17 18:09 62 y/o M w/ Hypoxemic respiratory failure Extubated to [facility] to keep 02 sat> 90% On ABX for Gram + bactermia . Continues to have low grade fevers. May need repeat CT abd/ pelvis or Repeat ECHO or JOE. Repeat CX negative thus far. CXR shows Increased R infiltrates. Chest PT, Nebs . ONEAL resolved. Urine output improved, continued diuresis w/ Lasix to keep Net negative balance. Pa02> 60. NSTEMI on heparin drip. Cardiology to decide on Cardiac cath.Asprin, plavix, statin and sprin. dvt P ppi cc time 65 min
[2017-06-08] MEDS: Milrinone 20mg/100ml D5W 100 ML IV PRN (17:27)
[2017-06-08 21:29] LABS: ALBUMIN 3.6 g/dL (3.0-4.8); ALT/SGPT 34 U/L (7-56); AST/SGOT 57 U/L (15-59); BLOOD UREA NITROGEN 32 mg/dL (7-21); CALCIUM 8.5 mg/dL (8.4-10.5); GFR AFRICAN-AMERICAN > 60; GFR NON-AFRICAN AMERICAN > 60
[2017-06-09] MEDS: Heparin 25,000units in D5W/250 ML BAG IV SCH ×2 (03:00→18:34)
[2017-06-09] MEDS: Albuterol-Ipratrop 3 mg / 0.5 (3 ml) UD IH SCH ×3 (04:08→11:04)
[2017-06-09 06:05] LABS: ARTERIAL BLOOD GAS HCO3 24.2 mmol/L (21-28); ARTERIAL BLOOD GAS O2 SAT 96.5 % (95-98); ARTERIAL BLOOD GAS PCO2 31 mm/Hg (35-45); ARTERIAL BLOOD GAS TCO2 25.2 mmol.L (22-28)
[2017-06-09 06:36] LABS: HEMOGLOBIN 10.5 gm/dL (14.0-18.0); MEAN CORPUSCULAR HEMOGLOBIN 28.2 pg (25.0-35.0); MEAN CORPUSCULAR HGB CONC 34.8 g/dl (31.0-37.0); MEAN PLATELET VOLUME 9.5 fl (7.0-11.0); PLATELET COUNT 306 10^3/uL (120.0-450.0); RBC 3.73 10^6/uL (3.5-6.1); RED CELL DISTRIBUTION WIDTH 16.2 % (11.5-14.5); WHITE BLOOD COUNT 16.1 10^3/ul (4.5-11.0)
[2017-06-09 06:48] LABS: INR 1.42 (0.93-1.08); PARTIAL THROMBOPLASTIN TIME 66.9 Seconds (23.7-30.8); PROTHROMBIN TIME 15.3 Seconds (9.9-11.8)
[2017-06-09 07:43] LABS: BAND 2 % (0-2); LYMPHOCYTE 8 % (22.0-35.0); MONOCYTE 4 % (1.0-6.0); NEUTROPHIL 86 % (50.0-70.0)
[2017-06-09 07:45] LABS: HYPOCHROMIA SLIGHT; PLATELET CLUMPS PRESENT; PLATELET ESTIMATE NORMAL (NORMAL)
--- NOTE | 2017-06-09 07:56 | CP.PCM.PN ---
<Maryjane Lawrence - Last Filed: 06/09/17 13:07> Subjective - Date & Time of Evaluation Date of Evaluation: 06/09/17 Time of Evaluation: 07:55 - Subjective Subjective: PGY-[address] Rai Pt Extubated to high flow CXR shows Increased R infiltrates. temp up to 100.6 overnight, 100.8 this am Skip 10pm dose of vanco. Vanc trough is 18.5 only at 10:30pm last night Objective - Vital Signs/Intake and Output Vital Signs (last 24 hours): Temp Pulse Resp BP Pulse Ox 100.8 F H 124 H 20 134/83 95 06/09/17 07:30 06/09/17 07:30 06/09/17 07:42 06/09/17 07:16 06/09/17 07:30 Intake and Output: 06/09/17 06/09/17 06:59 18:59 Intake Total 1142 Output Total 3500 Balance -2358 - Medications Medications: Current Medications Acetaminophen (Tylenol 120mg Supp) 120 mg RC Q6 PRN PRN Reason: Fever >100.4 F Albuterol/Ipratropium (Duoneb 3 Mg/0.5 Mg (3 Ml) Ud) 3 ml IH [id number] [facility] Last Admin: 06/09/17 07:39 Dose: 3 ml Aspirin (Aspirin Supp) 300 mg RC DAILY [facility] Last Admin: 06/08/17 09:13 Dose: 300 mg Atorvastatin Calcium (Lipitor) 80 mg PO DIN [facility] Last Admin: 06/08/17 18:15 Dose: 80 mg Clopidogrel Bisulfate (Plavix) 75 mg PO DAILY [facility] Last Admin: 06/08/17 09:06 Dose: 75 mg Furosemide (Lasix) 40 mg IVP Q12 [facility] Last Admin: 06/08/17 21:39 Dose: 40 mg Doxycycline Hyclate 100 mg/ (Sodium Chloride) 100 mls @ 100 mls/hr IVPB Q12 [facility] PRN Reason: Protocol Stop: 06/13/17 13:39 Last Admin: 06/08/17 21:40 Dose: 100 mls/hr Meropenem 1g/NS 100mL IVPB (Meropenem 1g/Ns 100ml Ivpb) 1 gm in 100 mls @ 100 mls/hr IVPB Q12 [facility] PRN Reason: Protocol Stop: 08/09/17 13:40 Last Admin: 06/08/17 21:38 Dose: 100 mls/hr Heparin Sodium/Dextrose (Heparin 25,000 Units/250ml In D5w) 25,000 units in 250 mls @ 10.631 mls/hr IV .[id number] [facility]; 12 UNITS/KG/HR PRN Reason: Protocol Last Admin: 06/09/17 03:00 Dose: 16 units/kg/hr, 14.175 mls/hr Vancomycin HCl 1.5 gm/ Sodium (Chloride) 500 mls @ 250 mls/hr IVPB Q12H [facility] Last Admin: 06/08/17 09:43 Dose: Not Given Milrinone Lactate/Dextrose (Primacor 20mg/100ml D5w) 100 mls @ 5.316 mls/hr IV .[id number] PRN; Protocol; 0.2 MCG/KG/MIN PRN Reason: TITRATE PER MD ORDER Last Admin: 06/08/17 17:27 Dose: 0.2 mcg/kg/min, 5.316 mls/hr Insulin Human Lispro (Humalog Med) 0 units SC ACHS [facility] PRN Reason: Protocol Methylprednisolone (Solu-Medrol) 20 mg IVP Q12 [facility] Last Admin: 06/08/17 21:39 Dose: 20 mg Ondansetron HCl (Zofran Inj) 4 mg IVP Q6H PRN PRN Reason: Nausea/Vomiting Pantoprazole Sodium (Protonix Inj) 40 mg IVP DAILY [facility] Last Admin: 06/08/17 09:11 Dose: 40 mg - Labs Labs: 06/09/17 05:30 06/08/17 20:35 PT 15.3 Seconds (9.9-11.8) H 06/09/17 05:30 INR 1.42 (0.93-1.08) H 06/09/17 05:30 APTT 66.9 Seconds (23.7-30.8) H 06/09/17 05:30 - Constitutional Appears: No Acute Distress, Chronically Ill - Head Exam Head Exam: ATRAUMATIC, NORMAL INSPECTION, NORMOCEPHALIC - Eye Exam Eye Exam: EOMI, Normal appearance, PERRL. absent: Scleral icterus - ENT Exam ENT Exam: Mucous Membranes Moist - Neck Exam Additional comments: supple - Respiratory Exam Respiratory Exam: Decreased Breath Sounds, Rales, Rhonchi. absent: Wheezes - Cardiovascular Exam Cardiovascular Exam: REGULAR RHYTHM, +S1, +S2 - GI/Abdominal Exam GI & Abdominal Exam: Soft. absent: Guarding, Rigid, Tenderness - Extremities Exam Additional comments: aka b/l. optiform posterior thighs - Neurological Exam Neurological Exam: Alert, Awake, CN II-XII Intact - Psychiatric Exam Psychiatric exam: Normal Affect, Normal Mood - Skin Skin Exam: Dry, Warm Assessment and Plan - Assessment and Plan (Free Text) Plan: Bossman Gaitan, 62 M (129-7), [facility] [place] [facility] with DM, CAD/CHF with permanent pacemaker, Hx group B strep PNA, PAD s/p AKA b/l, comes in for severe sepsis with MODS due to multilobar HCAP vs Coagulase Negative staphalococcus bacteremia. Pt had acute hypoxemia respiratory failure s/p intubation on VC ( now on high flow), septic encephalopathy, ONEAL, NSTEMI, CHF s/p dobutamine, now 0.2 milrinone gtt. Persistent hypoxemia despite on vent may be suggestive of ARDS. HCAP is due to possible Gram + cocci vs Positive Gram - PNA from aspiration. Sputum culture grew yeast with light colony count likely colonization. He has persistent fever on vanco, meropenem and doxycycline, with repeated blood culture negative x 72 days, suggestive of endocarditis. Vanco dosing - will observ creatinine, trend up to 0.9 - decrese vanco dose to 1g q12, starting tonight 10pm - will get trough 30 mins before 4th dose Severe Sepsis - Elevated procal 14 --> 2.76 - Continue Doxycycline 100mg q12 (day 5), Meropenem 1g q12 (day 5), and vanco @ 12 (day 4) - Solumedrol 20q12 - Cooling blanket PRN - Tyelnol PRN Multilobar HCAP vs Coagulase Negative staphalococcus bacteremia Hypoxemia - Elevated procal; Influenza and legionella Ag neg - Duoneb q4 alayna - High flow. chest pt - Continue antibiotics - CXR shows Increased R infiltrates Coagulase negative staph bacteremia Possible Infective Endocarditis (Luna 1 major 2 minor) Questionable seeding at permanent pace maker - Echo (06/04/17) PPM in RV; Dilated LA, Severe LV hypokinesis (EF 25), Calfified AoV , moderate Mitral annular calcification, RVSP 34 - repeat Echo next week - Vanco dose ALAYNA at 10 am, 10 pm - Trough check yesterday 9am (level 47); Skipped 10 pm dose, trough 30 mins later was 18.5 s/r/d/w Dr. Rai <CeceliaIsacd Luis Alberto S - Last Filed: 06/09/17 13:26> Objective - Vital Signs/Intake and Output Vital Signs (last 24 hours): Temp Pulse Resp BP Pulse Ox 99.9 F H 110 H 25 H 132/82 91 L 06/09/17 10:49 06/09/17 12:00 06/09/17 12:00 06/09/17 12:00 06/09/17 12:00 Intake and Output: 06/09/17 06/09/17 06:59 18:59 Intake Total 1142 Output Total 3500 Balance -2358 - Medications Medications: Current Medications Acetaminophen (Tylenol 650 Mg Supp) 650 mg RC Q6 PRN PRN Reason: Fever >100.4 F Aspirin (Aspirin Supp) 300 mg RC DAILY [facility] Last Admin: 06/09/17 09:37 Dose: 300 mg Atorvastatin Calcium (Lipitor) 80 mg PO DIN [facility] Last Admin: 06/08/17 18:15 Dose: 80 mg Clopidogrel Bisulfate (Plavix) 75 mg PO DAILY [facility] Last Admin: 06/08/17 09:06 Dose: 75 mg Furosemide (Lasix) 40 mg IVP Q12 [facility] Last Admin: 06/09/17 09:38 Dose: 40 mg Doxycycline Hyclate 100 mg/ (Sodium Chloride) 100 mls @ 100 mls/hr IVPB Q12 [facility] PRN Reason: Protocol Stop: 06/13/17 13:39 Last Admin: 06/09/17 09:39 Dose: 100 mls/hr Meropenem 1g/NS 100mL IVPB (Meropenem 1g/Ns 100ml Ivpb) 1 gm in 100 mls @ 100 mls/hr IVPB Q12 [facility] PRN Reason: Protocol Stop: 08/09/17 13:40 Last Admin: 06/09/17 09:38 Dose: 100 mls/hr Heparin Sodium/Dextrose (Heparin 25,000 Units/250ml In D5w) 25,000 units in 250 mls @ 10.631 mls/hr IV .[id number] [facility]; 12 UNITS/KG/HR PRN Reason: Protocol Last Admin: 06/09/17 03:00 Dose: 16 units/kg/hr, 14.175 mls/hr Milrinone Lactate/Dextrose (Primacor 20mg/100ml D5w) 100 mls @ 5.316 mls/hr IV .[id number] PRN; Protocol; 0.2 MCG/KG/MIN PRN Reason: TITRATE PER MD ORDER Last Admin: 06/08/17 17:27 Dose: 0.2 mcg/kg/min, 5.316 mls/hr Vancomycin HCl (Vancomycin 1gm) 1 gm in 250 mls @ 167 mls/hr IVPB Q12H [facility] PRN Reason: Protocol Insulin Human Lispro (Humalog Med) 0 units SC ACHS [facility] PRN Reason: Protocol Last Admin: 06/09/17 11:53 Dose: Not Given Levalbuterol HCl (Xopenex) 0.63 mg IH [id number] PRN PRN Reason: Shortness of Breath Methylprednisolone (Solu-Medrol) 20 mg IVP Q12 [facility] Last Admin: 06/09/17 09:37 Dose: 20 mg Metoprolol Tartrate (Lopressor) 5 mg IVP Q6H [facility] Last Admin: 06/09/17 08:26 Dose: 5 mg Ondansetron HCl (Zofran Inj) 4 mg IVP Q6H PRN PRN Reason: Nausea/Vomiting Pantoprazole Sodium (Protonix Inj) 40 mg IVP DAILY [facility] Last Admin: 06/09/17 09:37 Dose: 40 mg - Labs Labs: 06/09/17 05:30 06/09/17 05:30 PT 15.3 Seconds (9.9-11.8) H 06/09/17 05:30 INR 1.42 (0.93-1.08) H 06/09/17 05:30 APTT 66.9 Seconds (23.7-30.8) H 06/09/17 05:30 Assessment and Plan - Assessment and Plan (Free Text) Plan: Infectious Diseases Attending attestation Patient seen and examined, discussed with biomedical service engineer. I agree with the above findings. In addition, we will continue the patient on Merrem, Doxycycline and Vancomycin for sepsis due to multilobar HCAP as well as methicillin-resistant coagulase negative staph bacteremia in a patient with a pacemaker. Initial 2D echo was negative for vegetations - recommend repeat of the echocardiogram in the next 2-3 days. Repeat blood cx are negative. Vanco trough remains elevated but has dropped to 18.5 last night - will resums IV Vancomycin at 1gm q12 (dose decreased), will continue to monitor renal function and check Vanco trough before the 4th dose (with this new dosing). Patient is now extubated although the patient continues to have low grade fever.
[2017-06-09 07:59] LABS: ALBUMIN 3.5 g/dL (3.0-4.8); ALT/SGPT 39 U/L (7-56); AST/SGOT 55 U/L (15-59); BLOOD UREA NITROGEN 30 mg/dL (7-21); CALCIUM 8.4 mg/dL (8.4-10.5); GFR AFRICAN-AMERICAN > 60; GFR NON-AFRICAN AMERICAN > 60
[2017-06-09] MEDS: Metoprolol 1 mg/ml Inj IVP SCH ×3 (08:26→20:04)
--- NOTE | 2017-06-09 08:27 | PN ---
DATE: 06/09/2017(630AM-720AM) SUBJECTIVE: The patient is now extubated. He is breathing easily this morning and is not short of breath. PHYSICAL EXAMINATION VITAL SIGNS: Temperature 100.6, pulse on the monitor is 108, respiratory rate 19, blood pressure 145/85. Oxygen saturation on high flow delivery is 95%. HEENT: Normocephalic, atraumatic. NECK: No JVD. CARDIOVASCULAR: Systolic ejection murmur at the lower left sternal border. Questionable S3 gallop. LUNGS: Decreased breath sounds at the bases with crackles. Less rhonchi. No wheezing. EXTREMITIES: The patient is status post bilateral above the knee amputation. GASTROINTESTINAL: Abdomen is soft, nontender, nondistended. Bowel sounds are positive. SKIN: No acute rash. NEUROLOGIC: Limited at the present time. PERTINENT LABORATORY DATA: Chest x-ray was done this morning and reviewed. The chest x-ray has improved--with decreased pulmonary infiltrates. Arterial blood gas was also done on high flow delivery. Results are; pH of 7.50, pCO2 of 31, pO2 of 64. IMPRESSION: 1. Respiratory failure. 2. Multilobar pneumonia. 3. Sepsis syndrome. 4. Acute myocardial infarction. 5. Possible congestive heart failure. 6. Renal insufficiency. 7. Severe peripheral vascular disease. PLAN: The patient is now extubated and off the ventilator. He is breathing easily this morning. I did discuss the case with the night nurse at length. The patient had a pretty good night overall. I did review the chest x-ray as above. The chest x-ray has improved with decreased pulmonary infiltrates. I have also reviewed the arterial blood gas. The arterial blood gas remains with a significant Alveolar-arterial gradient. On physical exam, there is less bronchospasm noted. I will continue with the current nebulizer treatments for now. I will also add aspiration precautions. Cardiology evaluation is ongoing. Input by Dr. Gill is noted. The patient remains on Lasix/afterload reduction. The patient is also on a milrinone drip. The patient remains on antibiotic therapy - as per infectious disease. Low grade temperature have persisted. Repeat a.m. labs are pending. Clinical status of the patient is much improved from last week. However, the future status/prognosis for this patient remains very guarded. All are aware. I will discuss the above with the entire ICU team in the next few moments. I will also discuss the above with the attending physician (Dr. Mazariegos) this morning. Tom Pittman MD [id number]
--- NOTE | 2017-06-09 08:47 | RAD ---
HISTORY: follow up COMPARISON: Portable chest 06/08/2017. FINDINGS: LUNGS: Patchy infiltrate at the inferior left lung zone is further slightly diminished in the interval with notable change in infiltrate at the right base. PLEURA: No pleural effusion bilaterally. No pneumothorax. CARDIOVASCULAR: Cardiac silhouette appears stable pacemaker/ defibrillator again evident. No interval pulmonary vascular derangement. OSSEOUS STRUCTURES: No significant abnormalities. VISUALIZED UPPER ABDOMEN: Normal. OTHER FINDINGS: Prior endotracheal and nasogastric tubes have been removed. IMPRESSION: Stable limited right basilar atelectasis or infiltrate with diminished left basilar atelectasis or infiltrate. Yes
--- NOTE | 2017-06-09 09:06 | PN ---
DATE: 06/09/2017 SUBJECTIVE: The patient is sitting at the bedside. He is extubated. He is on high-flow oxygen with FiO2 of 70% to 90% (infiltrating) and oxygen saturation infiltrating between 93% and 98%. PHYSICAL EXAMINATION VITAL SIGNS: Heart rate 125 (the patient has received TO/FILIBERTO treatment). Blood pressure 134/83. Oxygen saturation 93% at the moment. Respiratory rate 18. HEENT: Head and neck; atraumatic. LUNGS: Some crackles, right more than left. HEART: Regular rate and rhythm. S1 and S2 distant. ABDOMEN: Soft, nontender, nondistended. MUSCULOSKELETAL: Status post the patient has AKA bilaterally. SKIN: Color is moist. PSYCH: The patient is alert, awake, and oriented x3, comfortable. LABORATORY DATA: 7.04/08/64. Lactic acid 1.6. His ABG on 90% FiO2. WBC is 16.1 up from 11, hemoglobin 10.5, platelet count 306. Sodium 134, potassium 3.7, chloride 96, carbon dioxide 25, BUN 32, creatinine 0.8, glucose 199. MEDICATIONS: Tylenol p.r.n., DuoNeb every 4 hours, aspirin, Lipitor, Plavix, doxycycline, Lasix 40 mg IV q. 12 h, heparin drip, regular insulin sliding scale medium protocol, meropenem, Solu-Medrol 20 mg IV q. 12 h, Lopressor 12.5 mg p.o. b.i.d. switched to 5 mg IV q. 6 h, milrinone, Protonix, Zofran, vancomycin. Chest x-ray showed bilateral lobar infiltrates, right more than left. Procalcitonin went down to 2.76 from 5.12 and prior to that 14.78. ASSESSMENT AND PLAN: This is a 62-year-old gentleman, who initially presented with community-acquired pneumonia and severe sepsis, complicated by multiorgan system failure including septic cardiomyopathy, acute kidney injury, septic encephalopathy. He was extubated yesterday and maintained gas exchange even though required increased high flow. oxygen supplementation. He has underlying severe systolic congestive heart failure and currently receiving ionotropic support with milrinone. He has troponin leak and possibility of primary cardiac event as opposed to the septic cardiomyopathy could not be ruled out. Thus, the patient is on dual antiplatelet therapy, therapeutic anticoagulation with heparin, statins, and beta-blockers. The patient is alert, awake, and oriented, comfortable. He has a good cough reflex. We will proceed with out of bed to chair physical therapy, incentive spirometry, chest PT, speech and swallow evaluation, nasotracheal suction. We will taper down FiO2 as tolerated. We will continue with conservative fluid and oxygen management. I will continue small dose of steroids as an adjunctive treatment for community-acquired pneumonia besides antibiotics. The patient is currently on doxycycline, vancomycin and meropenem. tracheal aspirate did not grow any bacteria. Blood culture drawn on 06/05 is negative so far. The patient's blood glucose better controlled today and he is on medium protocol sliding scale insulin. If he passed swallow evaluation, we will consider oral nutrition with aspiration precautions. We will control his heart rate better with beta-blockers IV. Renal-oneil, he is making good urine and his renal function is stable. We will continue with GI prophylaxis. We will continue with head of the bed elevated to 35 degrees. We will continue with oral hygiene. ccm time 40 min Anant Hernandez MD JOSE
[2017-06-09] MEDS: MethylPREDNISolone 40 mg Vial IVP SCH ×2 (09:37→21:55)
[2017-06-09] MEDS: Meropenem 1g/NS 100mL IVPB 1 GM/100 ML PIGGYBACK IVPB SCH ×2 (09:38→21:44)
--- NOTE | 2017-06-09 10:55 | CP.PCM.PN ---
<DYLONGISSELLE - Last Filed: 06/09/17 11:35> Subjective - Date & Time of Evaluation Date of Evaluation: 06/09/17 Time of Evaluation: 06:45 - Subjective Subjective: Gisselle Lomeli DO PGY1 - ICU Progress Note Patient seen and evaluated at bedside. Patient is more awake and alert. Denies any CP, SOB, wheeze, abdominal pain. Patient is still confused, knows his name, and that he is in a hospital, but does not know which one, and does not know the year or month. Objective - Vital Signs/Intake and Output Vital Signs (last 24 hours): Temp Pulse Resp BP Pulse Ox 100.6 F H 107 H 20 148/76 92 L 06/09/17 08:00 06/09/17 10:00 06/09/17 10:00 06/09/17 10:00 06/09/17 10:00 Intake and Output: 06/09/17 06/09/17 06:59 18:59 Intake Total 1142 Output Total 3500 Balance -2358 - Medications Medications: Current Medications Acetaminophen (Tylenol 650 Mg Supp) 650 mg RC Q6 PRN PRN Reason: Fever >100.4 F Albuterol/Ipratropium (Duoneb 3 Mg/0.5 Mg (3 Ml) Ud) 3 ml IH [id number] [facility] Last Admin: 06/09/17 07:39 Dose: 3 ml Aspirin (Aspirin Supp) 300 mg RC DAILY [facility] Last Admin: 06/09/17 09:37 Dose: 300 mg Atorvastatin Calcium (Lipitor) 80 mg PO DIN [facility] Last Admin: 06/08/17 18:15 Dose: 80 mg Clopidogrel Bisulfate (Plavix) 75 mg PO DAILY [facility] Last Admin: 06/08/17 09:06 Dose: 75 mg Furosemide (Lasix) 40 mg IVP Q12 [facility] Last Admin: 06/09/17 09:38 Dose: 40 mg Doxycycline Hyclate 100 mg/ (Sodium Chloride) 100 mls @ 100 mls/hr IVPB Q12 [facility] PRN Reason: Protocol Stop: 06/13/17 13:39 Last Admin: 06/09/17 09:39 Dose: 100 mls/hr Meropenem 1g/NS 100mL IVPB (Meropenem 1g/Ns 100ml Ivpb) 1 gm in 100 mls @ 100 mls/hr IVPB Q12 [facility] PRN Reason: Protocol Stop: 08/09/17 13:40 Last Admin: 06/09/17 09:38 Dose: 100 mls/hr Heparin Sodium/Dextrose (Heparin 25,000 Units/250ml In D5w) 25,000 units in 250 mls @ 10.631 mls/hr IV .[id number] [facility]; 12 UNITS/KG/HR PRN Reason: Protocol Last Admin: 06/09/17 03:00 Dose: 16 units/kg/hr, 14.175 mls/hr Vancomycin HCl 1.5 gm/ Sodium (Chloride) 500 mls @ 250 mls/hr IVPB Q12H [facility] Last Admin: 06/08/17 09:43 Dose: Not Given Milrinone Lactate/Dextrose (Primacor 20mg/100ml D5w) 100 mls @ 5.316 mls/hr IV .[id number] PRN; Protocol; 0.2 MCG/KG/MIN PRN Reason: TITRATE PER MD ORDER Last Admin: 06/08/17 17:27 Dose: 0.2 mcg/kg/min, 5.316 mls/hr Insulin Human Lispro (Humalog Med) 0 units SC ACHS [facility] PRN Reason: Protocol Methylprednisolone (Solu-Medrol) 20 mg IVP Q12 [facility] Last Admin: 06/09/17 09:37 Dose: 20 mg Metoprolol Tartrate (Lopressor) 5 mg IVP Q6H [facility] Last Admin: 06/09/17 08:26 Dose: 5 mg Ondansetron HCl (Zofran Inj) 4 mg IVP Q6H PRN PRN Reason: Nausea/Vomiting Pantoprazole Sodium (Protonix Inj) 40 mg IVP DAILY [facility] Last Admin: 06/09/17 09:37 Dose: 40 mg - Labs Labs: 06/09/17 05:30 06/09/17 05:30 PT 15.3 Seconds (9.9-11.8) H 06/09/17 05:30 INR 1.42 (0.93-1.08) H 06/09/17 05:30 APTT 66.9 Seconds (23.7-30.8) H 06/09/17 05:30 - Constitutional Appears: Confused, Chronically Ill - Head Exam Head Exam: ATRAUMATIC, NORMOCEPHALIC - Eye Exam Eye Exam: EOMI, Normal appearance - ENT Exam ENT Exam: Mucous Membranes Moist Additional comments: Edentulous - Respiratory Exam Additional comments: Diffuse inspiratory wheeze - Cardiovascular Exam Cardiovascular Exam: +S1, +S2 Additional comments: Irregular rhythm, normal rate. - GI/Abdominal Exam GI & Abdominal Exam: Soft. absent: Firm, Guarding, Rigid, Tenderness - Exam Additional comments: Braun in place - Extremities Exam Additional comments: b/l AKA - Neurological Exam Neurological Exam: Alert, Awake Additional comments: Oriented x1 - Psychiatric Exam Psychiatric exam: Flat Affect - Skin Skin Exam: Dry, Intact Additional comments: Multiple bandages, including one over stage one sacral pressure injury Assessment and Plan - Assessment and Plan (Free Text) Assessment: 62M with PMH CHF, CAD, COPD, admitted to ICU for acute hypoxemic respiratory failure 2/2 pneumonia, CHF exacerbation, also found to have elevated troponins and ONEAL. Patient is on HFNC, requiring 80% FiO2. Pt on milrinone drip, heparin drip. Plan: Neuro: - Extubated and off precedex. - Pt awake and alert, oriented x1. Much more alert and responsive than yesterday. - Cont to monitor. CV: - BP stable. Tachycardic and many PVCs overnight, will change duonebs to xopenex. Cont to monitor - Cont milrinone drip - Continue Lasix 40 mg Q12 - Hx of CAD and CHF, has AICD, dilated CM, - Trops elevated, Pt on dual antiplatelets (ASA, Plavix), Statin, BB, heparin drip. - Continue heparin GTT - Cardio, Dr. Gill, following - Echo read, AICD in place. LVEF 25.3%. Mild LVH, severe LV hypokinesis. Dilated LA. Calcified AoV w/mild AV stenosis. - Consider repeat echo to evaluate for seeding of AICD leads, will discuss with cardio. - Maintain MAP>65. Pulm: - Acute hypoxemic resp failure 2/2 CAP - Extubated yesterday, on HFNC 80%, maintaining O2 sat - Repeat cxr shows slight improvement in bilateral infiltrates - Consider repeat chest CT prior to any invasive investigation, to rule out abcess, pleural effusion, empyema - Maintain sat>90%. - Cont Merrem & Doxy and Vanco per ID - low dose steriod for CAP - d/c duonebs and start levalbuterol 0.63 Q6H because of frequent PVCs - Continue with protected lung ventilation strategies with head of bed elevation above 35 degrees, bronchodilators, keep oxygenation above 90%, pulm toileting GI: - NPO pending swallow eval - Continue with Protonix. - Abd/pelvis CT w/o contrast on 06/04 shows no intrabdominal pathology. Renal /fluids/Electrolytes: - ONEAL, but now improved. Cr increasing slowly, 0.8 yesterday, 0.9 today. Will consider changing vancomycin to Zyvox if Cr continues to increase - Urine Output 3500 ml past 24 ho, receiving lasix, -1800 balance - Cont strict I&O - Maintain euvolemia - Replete electrolytes as needed ID: - Continues to have T 99.9-100.6, leukocytosis to 16.1 today, up from 11 yesterday, has PRN tylenol for fever. - Continue with Doxy, Merrem and Vanco for CAP - Lactate improved - Procalcitonin 2.76 on 06/07 - Blood cultures from 06/03 show coag neg staph; Tracheal asp shows yeast, repeat BC no growth after 3 days - Continuing to investigate for other sources of infection - ID following - Continue to monitor Endo: - Blood sugar elevated - Start sliding scale insulin - Accucheck q4 - Maintain glucose between 140-180 Heme: - Stable - Cont to monitor. DVT ppx - hep drip GI ppx - Protonix Patient seen and reviewed with senior resident and attending <Anant Hernandez - Last Filed: 06/09/17 17:12> Objective - Vital Signs/Intake and Output Vital Signs (last 24 hours): Temp Pulse Resp BP Pulse Ox 99.9 F H 116 H 24 150/90 91 L 06/09/17 10:49 06/09/17 13:58 06/09/17 16:14 06/09/17 13:58 06/09/17 12:00 Intake and Output: 06/09/17 06/09/17 06:59 18:59 Intake Total 1142 Output Total 3500 Balance -2358 - Medications Medications: Current Medications Acetaminophen (Tylenol 650 Mg Supp) 650 mg RC Q6 PRN PRN Reason: Fever >100.4 F Aspirin (Aspirin Supp) 300 mg RC DAILY [facility] Last Admin: 06/09/17 09:37 Dose: 300 mg Atorvastatin Calcium (Lipitor) 80 mg PO DIN [facility] Last Admin: 06/08/17 18:15 Dose: 80 mg Clopidogrel Bisulfate (Plavix) 75 mg PO DAILY [facility] Last Admin: 06/08/17 09:06 Dose: 75 mg Furosemide (Lasix) 40 mg IVP Q12 [facility] Last Admin: 06/09/17 09:38 Dose: 40 mg Doxycycline Hyclate 100 mg/ (Sodium Chloride) 100 mls @ 100 mls/hr IVPB Q12 [facility] PRN Reason: Protocol Stop: 06/13/17 13:39 Last Admin: 06/09/17 09:39 Dose: 100 mls/hr Meropenem 1g/NS 100mL IVPB (Meropenem 1g/Ns 100ml Ivpb) 1 gm in 100 mls @ 100 mls/hr IVPB Q12 [facility] PRN Reason: Protocol Stop: 08/09/17 13:40 Last Admin: 06/09/17 09:38 Dose: 100 mls/hr Heparin Sodium/Dextrose (Heparin 25,000 Units/250ml In D5w) 25,000 units in 250 mls @ 10.631 mls/hr IV .[id number] [facility]; 12 UNITS/KG/HR PRN Reason: Protocol Last Admin: 06/09/17 03:00 Dose: 16 units/kg/hr, 14.175 mls/hr Milrinone Lactate/Dextrose (Primacor 20mg/100ml D5w) 100 mls @ 5.316 mls/hr IV .[id number] PRN; Protocol; 0.2 MCG/KG/MIN PRN Reason: TITRATE PER MD ORDER Last Admin: 06/08/17 17:27 Dose: 0.2 mcg/kg/min, 5.316 mls/hr Vancomycin HCl (Vancomycin 1gm) 1 gm in 250 mls @ 167 mls/hr IVPB Q12H [facility] PRN Reason: Protocol Insulin Human Lispro (Humalog Med) 0 units SC ACHS [facility] PRN Reason: Protocol Last Admin: 06/09/17 11:53 Dose: Not Given Levalbuterol HCl (Xopenex) 0.63 mg IH [id number] [facility] Methylprednisolone (Solu-Medrol) 20 mg IVP Q12 [facility] Last Admin: 06/09/17 09:37 Dose: 20 mg Metoprolol Tartrate (Lopressor) 5 mg IVP Q6H [facility] Last Admin: 06/09/17 13:58 Dose: 5 mg Ondansetron HCl (Zofran Inj) 4 mg IVP Q6H [facility]N PRN Reason: Nausea/Vomiting Pantoprazole Sodium (Protonix Inj) 40 mg IVP DAILY [facility] Last Admin: 06/09/17 09:37 Dose: 40 mg - Labs Labs: 06/09/17 05:30 06/09/17 05:30 PT 15.3 Seconds (9.9-11.8) H 06/09/17 05:30 INR 1.42 (0.93-1.08) H 06/09/17 05:30 APTT 66.9 Seconds (23.7-30.8) H 06/09/17 05:30 Attending/Attestation - Attestation I have personally seen and examined this patient.: Yes I have fully participated in the care of the patient.: Yes I have reviewed all pertinent clinical information, including history, physical exam and plan: Yes Notes (Text): 06/09/17 17:[address] Hernandez note
[2017-06-09] MEDS: Insulin Lispro (humaLOG) MEDIUM Coverage SC SCH ×3 (11:53→21:56)
[2017-06-09] MEDS ORDERED: Levalbuterol 0.63 MG/3 ML Inhal Soln UD IH PRN (13:16)
--- NOTE | 2017-06-09 14:05 | PN ---
DATE: 06/09/2017 SUBJECTIVE: The patient is extubated. He appears relatively comfortable. Able to answer questions. PHYSICAL EXAMINATION VITAL SIGNS: Blood pressure and heart rate are noted. NECK: Negative JVD. LUNGS: Decreased breath sounds bilaterally. HEART: Reveals S1 and S2. EXTREMITIES: Without change. LABORATORY DATA: Noted. IMPRESSION: 1. Status post respiratory failure. 2. Pneumonia. 3. Key-[id number] myocardial infarction. 3. Coronary artery disease. 4. Peripheral vascular disease. 6. Status post amputation of lower extremities. PLAN: Give these findings, I had discussion with , the precision assembler. We will hold off on any invasive cardiac procedures for now. I am still awaiting his respiratory status. We will need to watch and continue antibiotic for sepsis. Ross Gill MD
--- NOTE | 2017-06-09 14:07 | PN ---
SUBJECTIVE: I saw him resting comfortably in intensive care unit. He is extubated. He is on high-flow nasal oxygen. He is doing much better. He is talking with me, he tells me he is hungry. MEDICATIONS: He is on aspirin, doxycycline, albuterol, heparin, insulin, Lasix, Lipitor, Lopressor, Merrem IV, Plavix, Primacor IV, Protonix, Solo-Medrol IV, Tylenol, vancomycin IV and Zofran. PHYSICAL EXAMINATION VITAL SIGNS: 100.8 temperature, 127 pulse, 137/64 blood pressure, 20 respiratory rate, 95% O2 saturation on high-flow nasal cannula. HEENT: Head atraumatic, normocephalic. Throat is dry. HEART: Regular rate. LUNGS: Decreased breath sounds but clear. ABDOMEN: Soft, obese. EXTREMITIES: Bilateral AKA, not swollen anymore. LABORATORY DATA: He is having lab work. It shows 16.1 white count , he is on steroids, 10.5 hemoglobin, 30.2 hematocrit with 306 platelets. 66.9 is the last PTT. Has 135 sodium, potassium 3.6, BUN 30, creatinine 0.9, GFR is greater than 60, sugar is 195, calcium is 8.4, total bili is 1.2, AST is 65, ALT is 39, and alk phos is 86, total protein 7. He was extubated which is good. He is being seen by infectious disease, pulmonary, forest fire equipment operator, emergency response technician. Still having 99+ plus temps, but it is better than the 100s he has been having. He was septic. He was in respiratory failure with intubation, acute kidney injury, NSTEMI, CHF. We will continue with aggressive treatment and care in the intensive care unit. Adria Quevedo DO
[2017-06-09] MEDS: Levalbuterol 0.63 MG/3 ML Inhal Soln UD IH SCH (19:38)
[2017-06-09] MEDS: Milrinone 20mg/100ml D5W 100 ML IV PRN (21:46)
[2017-06-09] MEDS: Vancomycin 1gm in NS 250ml 1 GM/250 ML BAG IVPB SCH (21:56)
[2017-06-10] MEDS: Levalbuterol 0.63 MG/3 ML Inhal Soln UD IH SCH ×4 (01:38→19:57)
[2017-06-10 02:30] LABS: ARTERIAL BLOOD GAS HCO3 23.6 mmol/L (21-28); ARTERIAL BLOOD GAS HEMOGLOBIN 10.9 g/dL (11.7-17.4); ARTERIAL BLOOD GAS O2 CONTENT 14.4 ML/dl (15-23); ARTERIAL BLOOD GAS O2 SAT 96.2 % (95-98); ARTERIAL BLOOD GAS PCO2 31 mm/Hg (35-45); ARTERIAL BLOOD GAS PH 7.49 (7.35-7.45); ARTERIAL BLOOD GAS TCO2 24.6 mmol.L (22-28)
[2017-06-10] MEDS: Metoprolol 1 mg/ml Inj IVP SCH ×4 (02:48→20:00)
[2017-06-10 07:09] LABS: BASO # 0.02 K/mm3 (0.0-2.0); BASO % 0.2 % (0.0-3.0); GRAN # 9.96 (1.4-6.5); GRAN % 88.4 % (50.0-68.0); LYMPH # 0.7 (1.2-3.4); LYMPH % 6.5 % (22.0-35.0); MEAN CELL VOLUME 81.5 fL (80.0-105.0); MEAN CORPUSCULAR HGB CONC 35.6 g/dl (31.0-37.0); MEAN PLATELET VOLUME 9.3 fl (7.0-11.0); MONO # 0.6 (0.1-0.6); MONO % 4.9 % (1.0-6.0); PLATELET COUNT 305 10^3/uL (120.0-450.0); RBC 3.79 10^6/uL (3.5-6.1); RED CELL DISTRIBUTION WIDTH 16.2 % (11.5-14.5); WHITE BLOOD COUNT 11.3 10^3/ul (4.5-11.0)
[2017-06-10 07:12] LABS: INR 1.36 (0.93-1.08); PARTIAL THROMBOPLASTIN TIME 60.6 Seconds (23.7-30.8); PROTHROMBIN TIME 14.7 Seconds (9.9-11.8)
[2017-06-10 07:24] LABS: ALBUMIN 3.7 g/dL (3.0-4.8); ALT/SGPT 38 U/L (7-56); AST/SGOT 46 U/L (15-59); BLOOD UREA NITROGEN 28 mg/dL (7-21); CALCIUM 8.3 mg/dL (8.4-10.5); GFR AFRICAN-AMERICAN > 60; GFR NON-AFRICAN AMERICAN > 60
--- NOTE | 2017-06-10 07:43 | RAD ---
HISTORY: follow up COMPARISON: 06/09/2017 FINDINGS: LUNGS: The patchy infiltrates in the right lung are less dense consistent with partial aeration. Areas of coalescent infiltrates and/or coalescent pulmonary edema are considerations. Interval improved aeration at the left lateral lung base. Residual left retrocardiac patchy infiltrate possible persistence. PLEURA: Probable small left pleural effusion. No pneumothorax apparent. CARDIOVASCULAR: Cardiomegaly. Probable mild pulmonary vascular central congestion -no definite change apparent. AICD device in place as before. OSSEOUS STRUCTURES: Thoraco lumbar spondylosis VISUALIZED UPPER ABDOMEN: Normal. OTHER FINDINGS: None. IMPRESSION: Bilateral patchy infiltrates -more diffuse in the right lung. However since the prior exam, patchy interval improved aeration is suggested. No worsening infiltrates suggested.
[2017-06-10] MEDS: Insulin Lispro (humaLOG) MEDIUM Coverage SC SCH (08:50)
[2017-06-10] MEDS: MethylPREDNISolone 40 mg Vial IVP SCH ×3 (08:55→21:08)
[2017-06-10] MEDS: Meropenem 1g/NS 100mL IVPB 1 GM/100 ML PIGGYBACK IVPB SCH ×3 (08:57→21:09)
--- NOTE | 2017-06-10 09:03 | PN ---
CARDIOLOGY FOLLOWUP NOTE DATE OF FOLLOWUP: 06/10/2017 SUBJECTIVE: The patient's respiratory status is comfortable. He is not dyspneic. PHYSICAL EXAMINATION: VITAL SIGNS: The blood pressure is 149/85, heart rate is atrial fibrillation at 114. Temperature is 99.7. NECK: Negative JVD. LUNGS: Without decreased breath sounds. HEART: Reveal S1 and S2. EXTREMITIES: Without change. LABORATORY DATA: The white count is down to 11.3. Chemistry; glucose is 318. IMPRESSION 1. Sepsis. 2. Status post respiratory failure. 3. Diabetes mellitus. 4. Dilated cardiomyopathy. 5. Anemia. PLAN: Given these findings, we will add beta-blockers and regimen for better heart rate control. Ross Gill MD
--- NOTE | 2017-06-10 09:23 | CP.PCM.PN ---
<Maryjane Lawrence - Last Filed: 06/10/17 12:09> Subjective - Date & Time of Evaluation Date of Evaluation: 06/10/17 Time of Evaluation: 09:16 - Subjective Subjective: PGY-[address] Rai mild fever persists. 99.9 when i saw pt this am. pt was lethargic, on 55% hi flow Objective - Vital Signs/Intake and Output Vital Signs (last 24 hours): Temp Pulse Resp BP Pulse Ox 99.7 F H 114 H 24 149/85 97 06/10/17 07:08 06/10/17 07:08 06/10/17 07:49 06/10/17 07:00 06/10/17 07:08 Intake and Output: 06/10/17 06/10/17 06:59 18:59 Intake Total 100 Balance 100 - Medications Medications: Current Medications Acetaminophen (Tylenol 650 Mg Supp) 650 mg RC Q6 PRN PRN Reason: Fever >100.4 F Aspirin (Aspirin Supp) 300 mg RC DAILY [facility] Last Admin: 06/09/17 09:37 Dose: 300 mg Atorvastatin Calcium (Lipitor) 80 mg PO DIN [facility] Last Admin: 06/09/17 17:31 Dose: Not Given Clopidogrel Bisulfate (Plavix) 75 mg PO DAILY [facility] Last Admin: 06/09/17 09:38 Dose: Not Given Furosemide (Lasix) 40 mg IVP Q12 [facility] Last Admin: 06/09/17 21:55 Dose: 40 mg Doxycycline Hyclate 100 mg/ (Sodium Chloride) 100 mls @ 100 mls/hr IVPB Q12 [facility] PRN Reason: Protocol Stop: 06/13/17 13:39 Last Admin: 06/09/17 21:43 Dose: 100 mls/hr Meropenem 1g/NS 100mL IVPB (Meropenem 1g/Ns 100ml Ivpb) 1 gm in 100 mls @ 100 mls/hr IVPB Q12 [facility] PRN Reason: Protocol Stop: 08/09/17 13:40 Last Admin: 06/09/17 21:44 Dose: 100 mls/hr Heparin Sodium/Dextrose (Heparin 25,000 Units/250ml In D5w) 25,000 units in 250 mls @ 10.631 mls/hr IV .[id number] [facility]; 12 UNITS/KG/HR PRN Reason: Protocol Last Admin: 06/09/17 18:34 Dose: 16 units/kg/hr, 14.175 mls/hr Milrinone Lactate/Dextrose (Primacor 20mg/100ml D5w) 100 mls @ 5.316 mls/hr IV .[id number] PRN; Protocol; 0.2 MCG/KG/MIN PRN Reason: TITRATE PER MD ORDER Last Admin: 06/09/17 21:46 Dose: 0.2 mcg/kg/min, 5.316 mls/hr Vancomycin HCl (Vancomycin 1gm) 1 gm in 250 mls @ 167 mls/hr IVPB Q12H [facility] PRN Reason: Protocol Last Admin: 06/09/17 21:56 Dose: 167 mls/hr Insulin Human Lispro (Humalog Med) 0 units SC ACHS [facility] PRN Reason: Protocol Last Admin: 06/09/17 21:56 Dose: Not Given Levalbuterol HCl (Xopenex) 0.63 mg IH [id number] [facility] Last Admin: 06/10/17 07:47 Dose: 0.63 mg Methylprednisolone (Solu-Medrol) 20 mg IVP Q12 [facility] Last Admin: 06/09/17 21:55 Dose: 20 mg Metoprolol Tartrate (Lopressor) 5 mg IVP Q6H [facility] Last Admin: 06/10/17 02:48 Dose: 5 mg Metoprolol Tartrate (Lopressor) 25 mg PO BID [facility] Ondansetron HCl (Zofran Inj) 4 mg IVP Q6H PRN PRN Reason: Nausea/Vomiting Pantoprazole Sodium (Protonix Inj) 40 mg IVP DAILY [facility] Last Admin: 06/09/17 09:37 Dose: 40 mg - Labs Labs: 06/10/17 06:50 06/10/17 06:50 PT 14.7 Seconds (9.9-11.8) H 06/10/17 06:50 INR 1.36 (0.93-1.08) H 06/10/17 06:50 APTT 60.6 Seconds (23.7-30.8) H 06/10/17 06:50 - Constitutional Appears: Chronically Ill - Head Exam Head Exam: ATRAUMATIC, NORMAL INSPECTION, NORMOCEPHALIC - Eye Exam Eye Exam: EOMI, Normal appearance, PERRL. absent: Scleral icterus Pupil Exam: NORMAL ACCOMODATION - ENT Exam ENT Exam: Mucous Membranes Moist - Neck Exam Additional comments: supple - Respiratory Exam Respiratory Exam: Decreased Breath Sounds, Rales, Rhonchi. absent: Wheezes - Cardiovascular Exam Cardiovascular Exam: REGULAR RHYTHM, +S1, +S2 - GI/Abdominal Exam GI & Abdominal Exam: Soft. absent: Guarding, Rigid, Tenderness - Extremities Exam Additional comments: AKA b/l - Psychiatric Exam Psychiatric exam: Normal Affect, Normal Mood - Skin Skin Exam: Dry, Warm Assessment and Plan - Assessment and Plan (Free Text) Plan: Bossman Gaitan, 62 M (129-7), from halfway with DM, CAD/CHF with permanent pacemaker, Hx group B strep PNA, PAD s/p AKA b/l, comes in for severe sepsis with MODS due to multilobar HCAP and methicillin-resistant Coagulase Negative staphalococcus bacteremia. Pt had acute hypoxemia respiratory failure s/p intubation on VC (now on high flow), septic encephalopathy, ONEAL, NSTEMI, CHF s/ p dobutamine, now 0.2 milrinone gtt. Echo (06/04/17) PPM in RV; Dilated LA, Severe LV hypokinesis (EF 25), Calfified AoV , moderate Mitral annular calcification, RVSP 34, no vegetaton. Repeat blood cx are negative. - HCAP is due to possible Gram + cocci vs Positive Gram - PNA from aspiration. Sputum culture grew yeast with light colony count likely colonization. - Likely Endocarditis due to pt with pacemaker and persistent fever on vanco, meropenem and doxycycline, with repeated blood culture negative x 72 Plan - Continue Doxycycline 100mg q12 (day 6), Meropenem 1g q12 (day 6), and vanco @ 12 (day 5) - Continue creatinine - decrese vanco dose to 1g q12, starting last night 10pm - will get trough 30 mins before 4th dose (tomorrow at 9:30am) - Repeat Echo tomorrow Cultures 06/03 Blood culture - coagulase neg staph x 2 bottles 06/05 Blood culturre - negative 06/04 Yeast - trach/sputum s/r/d/w Dr. Rai <Liborio Rai - Last Filed: 06/10/17 15:13> Objective - Vital Signs/Intake and Output Vital Signs (last 24 hours): Temp Pulse Resp BP Pulse Ox 99.7 F H 114 H 28 H 138/75 95 06/10/17 13:36 06/10/17 14:36 06/10/17 13:00 06/10/17 14:36 06/10/17 13:36 Intake and Output: 06/10/17 06/10/17 06:59 18:59 Intake Total 100 Balance 100 - Medications Medications: Current Medications Acetaminophen (Tylenol 650 Mg Supp) 650 mg RC Q6 PRN PRN Reason: Fever >100.4 F Aspirin (Aspirin Supp) 300 mg RC DAILY [facility] Last Admin: 06/10/17 09:15 Dose: 300 mg Atorvastatin Calcium (Lipitor) 40 mg PO DIN [facility] Clopidogrel Bisulfate (Plavix) 75 mg PO DAILY [facility] Last Admin: 06/10/17 09:42 Dose: Not Given Furosemide (Lasix) 40 mg IVP Q12 [facility] Last Admin: 06/10/17 09:27 Dose: Not Given Doxycycline Hyclate 100 mg/ (Sodium Chloride) 100 mls @ 100 mls/hr IVPB Q12 [facility] PRN Reason: Protocol Stop: 06/13/17 13:39 Last Admin: 06/10/17 11:29 Dose: 100 mls/hr Meropenem 1g/NS 100mL IVPB (Meropenem 1g/Ns 100ml Ivpb) 1 gm in 100 mls @ 100 mls/hr IVPB Q12 [facility] PRN Reason: Protocol Stop: 08/09/17 13:40 Last Admin: 06/10/17 09:41 Dose: Not Given Heparin Sodium/Dextrose (Heparin 25,000 Units/250ml In D5w) 25,000 units in 250 mls @ 10.631 mls/hr IV .[id number] [facility]; 12 UNITS/KG/HR PRN Reason: Protocol Last Admin: 06/09/17 18:34 Dose: 16 units/kg/hr, 14.175 mls/hr Milrinone Lactate/Dextrose (Primacor 20mg/100ml D5w) 100 mls @ 5.316 mls/hr IV .[id number] PRN; Protocol; 0.2 MCG/KG/MIN PRN Reason: TITRATE PER MD ORDER Last Admin: 06/09/17 21:46 Dose: 0.2 mcg/kg/min, 5.316 mls/hr Vancomycin HCl (Vancomycin 1gm) 1 gm in 250 mls @ 167 mls/hr IVPB Q12H [facility] PRN Reason: Protocol Last Admin: 06/10/17 10:02 Dose: 167 mls/hr Insulin Human Regular 100 (units/ Sodium Chloride) 100 mls @ 2 mls/hr IV .Q24H PRN; Protocol; 2 UNITS/HR PRN Reason: TITRATE PER MD ORDER Last Admin: 06/10/17 12:02 Dose: 2 units/hr, 2 mls/hr Levalbuterol HCl (Xopenex) 0.63 mg IH [id number] [facility] Last Admin: 06/10/17 13:10 Dose: 0.63 mg Methylprednisolone (Solu-Medrol) 20 mg IVP Q12 [facility] Last Admin: 06/10/17 09:42 Dose: Not Given Metoprolol Tartrate (Lopressor) 5 mg IVP Q6H [facility] Last Admin: 06/10/17 14:36 Dose: 5 mg Ondansetron HCl (Zofran Inj) 4 mg IVP Q6H PRN PRN Reason: Nausea/Vomiting Pantoprazole Sodium (Protonix Inj) 40 mg IVP DAILY [facility] Last Admin: 06/10/17 09:42 Dose: Not Given - Labs Labs: 06/10/17 06:50 06/10/17 06:50 PT 14.7 Seconds (9.9-11.8) H 06/10/17 06:50 INR 1.36 (0.93-1.08) H 06/10/17 06:50 APTT 60.6 Seconds (23.7-30.8) H 06/10/17 06:50 Assessment and Plan - Assessment and Plan (Free Text) Plan: Infectious Diseases Attending Physician Attestation Patient seen and examined, discussed with medical leader. Sepsis due to multilobar HCAP - continue Vancomycin, Merrem and DOxycycline for 7-10 days. Coagulase negative staph bacteremia - continue Vancomycin and follow up repeat 2D echo to be done this week.
--- NOTE | 2017-06-10 09:31 | PN ---
9:29:58DATE: 06/10/2017 SUBJECTIVE: The patient is seen and examined at bedside. He is comfortable. PHYSICAL EXAMINATION: GENERAL: The patient is on 70% FiO2 via high flow and 50 L per minute. His oxygen saturation on that is 94%. His respiratory rate 25. He is on milrinone drip 0.2 mcg/kg/min. His heart rate is 117, his blood pressure 149/85. VITAL SIGNS: The patient was afebrile overnight. His current temperature is 99.7. HEENT: Head and neck atraumatic. LUNGS: Few crackles bibasilar, however, here the auscultated picture appears to be better today than yesterday. HEART: Irregular rate and rhythm. S1 and S2 distant. ABDOMEN: Soft, nontender, nondistended. Of note, the patient failed swallow study yesterday. NEUROLOGIC: The patient moves his upper extremities and lower extremities spontaneously. SKIN: Moist. PSYCHIATRIC: The patient is awake and oriented x3. LABORATORY DATA: WBC 11.3 down from 16.1, hemoglobin 11, platelet count 305. CMP is pending. The patient made 1500 mL of urine overnight. Chest x-ray appears slightly better; however, still bilateral infiltrate, right more than left. MEDICATIONS: Tylenol p.r.n., aspirin, Lipitor, Plavix, doxycycline, Lasix 40 mg IV q. 12, heparin drip, regular insulin sliding scale medium protocol, Xopenex, meropenem, Soul-Medrol 20 mg IV q. 12, metoprolol 5 mg IV q. 6, Zofran, Protonix, milrinone and vancomycin. ASSESSMENT AND PLAN: This is a 62-year-old gentleman with resolving severe sepsis secondary to community acquired pneumonia with improvement in his end organ function, improvement of respiratory failure, acute kidney injury, encephalopathy. Today is the first day when the patient is afebrile and his leukocytosis is going down. His tracheal aspirate and blood cultures from couple of days ago were negative. He is on broad spectrum antibiotics. He is on vancomycin, meropenem and doxycycline. We were able to taper his FiO2 down to 70% from 90%. We will continue with conservative fluid and oxygen management. The patient is receiving low-dose of corticosteroids as adjunctive therapy to expedite recovery from community acquired pneumonia. I would continue with incentive spirometry, chest PT, out of bed to chair, nasotracheal suction, bronchodilators. The patient has underlying left ventricular systolic dysfunction and had troponin leak during this admission as well signifying probably septic cardiomyopathy versus primary cardiac event. At the present time, the patient is on dual antiplatelet therapy, statins, beta blockers and therapeutic anticoagulation. Cardiology services follow him as well. Coronary angiography will be deferred to cardiology service. The patient failed swallow evaluation, thus we are holding oral feeds at present time. I will have a low threshold to put an NG tube and continue with enteral nutrition with aspiration precaution and we will definitely consider that within 7 days of extubation unless he regained capacity to swallow without risk of significant aspiration. We will keep close eye on blood glucose and aim atrange of 140 to 180 according to NICE-SUGAR trial. The patient has good urine output overnight. His creatinine level, results are pending for today and will be followed up. His creatinine level is also improving Anant Hernandez MD MTDVinh
[2017-06-10] MEDS ORDERED: Insulin Regular 100 UNITS in Sodium Chloride 0.9% 99 ML IV PRN (09:50)
--- NOTE | 2017-06-10 10:01 | PN ---
DATE: 06/10/2017 SUBJECTIVE: I saw him in the Intensive Care Unit. He is still off the ventilator. He is on high-flow nasal oxygen. He is alert and he spoke to me. He is comfortable and no acute pain. No shortness of breath. He is coughing up and is a lot of phlegm in his lungs. PHYSICAL EXAMINATION VITAL SIGNS: His temperature is 99.7, pulse is 114, respiratory rate is 24, and O2 saturation is 97%, on 75% I understand nasal cannula. HEENT: His head is atraumatic and normocephalic. Throat is dry. HEART: Regular rate. LUNGS: Decreased breath sounds bilaterally with thick mucus in both lungs. ABDOMEN: Soft, obese, and nontender. EXTREMITIES: Bilateral AKA, peripheral edema if any. MEDICATIONS: He is currently on aspirin, doxycycline IV, heparin IV, insulin and Lasix IV, Lipitor, Lopressor, Merrem IV, Plavix, Primacor IV, Protonix, Solu-Medrol down to 20 mg IV q. 12 hours, Tylenol, vancomycin IV, Xopenex and Zofran IV. LABORATORY DATA: He has a white count of 11.3 , hemoglobin of 11, and hematocrit of 30.9, with platelets 305. Sodium of 133 and potassium of 3.5, I will give him a little bit of potassium this morning. BUN is 28 and creatinine is 0.7. GFR is greater than is 60. Sugar is 318, I will watch his blood sugars and calcium is 8.3. Total bilirubin is 1.4, AST is 46, ALT is 38, alkaline phosphatase is 82, and total protein is 7.2. ASSESSMENT AND PLAN: He is being seen by multiple doctors, cardiology, the human resources trainer, infectious disease, and pulmonology. He was in acute respiratory failure, sepsis, pneumonia and Rbp-CP-tjipyud elevation myocardial infarction, anemia, and coronary artery disease. Continue with aggressive respiratory treatment and care. IV antibiotics and pulmonary toilet. Checking the labs. Adria Quevedo DO [facility]
[2017-06-10] MEDS: Vancomycin 1gm in NS 250ml 1 GM/250 ML BAG IVPB SCH ×2 (10:02→21:35)
--- NOTE | 2017-06-10 10:29 | PN ---
DATE: 06/10/2017(625am-425am) SUBJECTIVE: This patient is mildly short of breath at the present time of my examination. He is in no acute distress. PHYSICAL EXAMINATION VITAL SIGNS: Temperature 99.7, pulse on the monitor is 108, respiratory rate 22/ 24, blood pressure 149/85. Oxygen saturation on high-flow delivery is 98%. HEENT: Normocephalic, atraumatic. NECK: No JVD. CARDIOVASCULAR: Systolic ejection murmur at the lower left sternal border. Questionable S3 gallop. LUNGS: Decreased breath sounds at the bases with crackles. Minimal/less rhonchi. No wheezing. EXTREMITIES: The patient is status post bilateral [id number] amputations. GASTROINTESTINAL: Abdomen is soft, nontender, nondistended. Bowel sounds are positive. SKIN: No acute rash. NEUROLOGIC: Exam is limited at the present time. PERTINENT LABORATORY DATA: Chest x-ray was done this morning and reviewed. It is similar to yesterday's film. However, the most present film is certainly improved from a few days ago. Arterial blood gas was done on high-flow delivery. Results: pH 7.49, pCO2 of 31, pO2 of 64. IMPRESSION: 1. Respiratory failure. 2. Multilobar pneumonia. 3. Sepsis syndrome. 4. Acute myocardial infarction. 5. Possible congestive heart failure. 6. Renal insufficiency. 7. Severe peripheral vascular disease. PLAN: The patient remains off the ventilator. He is mildly short of breath, but in no acute distress this morning. He remains on a very high FiO2(90%). I did review the chest x-ray as above. The chest x-ray is similar to yesterday's film, but certainly improved compared to the chest x-rays of last week. I have also reviewed the arterial blood gas. A significant alveolar arterial gradient remains. On physical exam, his bronchospasm is less. I will continue the current nebulizer treatments for now. The patient has also been placed on low-dose intravenous steroids as per Dr. Hernandez. I would continue with the antibiotic coverage as per infectious disease. Input by Dr. Rai is noted. The temperatures are slowly resolving. Additional repeat a.m. labs are pending. I would continue the cardiology evaluation as per Dr. Gill. His input is noted. Clinical status of the patient is certainly improved-compared to last week. However, again, the future status/prognosis of this patient remains very guarded. All are aware. I will discuss the above with the entire ICU team in the next few moments. I will also discuss the above with Dr. Quevedo later this morning. Tom Pittman MD MTDD
[2017-06-10] MEDS: Milrinone 20mg/100ml D5W 100 ML IV PRN (17:28)
[2017-06-11] MEDS: Levalbuterol 0.63 MG/3 ML Inhal Soln UD IH SCH ×4 (00:05→20:10)
[2017-06-11] MEDS: Metoprolol 1 mg/ml Inj IVP SCH ×4 (02:32→20:00)
[2017-06-11] MEDS: Heparin 25,000units in D5W/250 ML BAG IV SCH ×2 (02:36→19:10)
[2017-06-11 06:06] LABS: ARTERIAL BLOOD GAS HCO3 23.5 mmol/L (21-28); ARTERIAL BLOOD GAS HEMOGLOBIN 10.9 g/dL (11.7-17.4); ARTERIAL BLOOD GAS O2 CAPACITY 15.1 mL/dl (16-24); ARTERIAL BLOOD GAS O2 CONTENT 14.9 ML/dl (15-23); ARTERIAL BLOOD GAS PCO2 33 mm/Hg (35-45); ARTERIAL BLOOD GAS PH 7.46 (7.35-7.45); ARTERIAL BLOOD GAS TCO2 24.5 mmol.L (22-28)
[2017-06-11 06:38] LABS: BASO # 0.01 K/mm3 (0.0-2.0); BASO % 0.1 % (0.0-3.0); GRAN # 11.04 (1.4-6.5); HEMOGLOBIN 10.7 gm/dL (14.0-18.0); LYMPH # 0.7 (1.2-3.4); LYMPH % 5.3 % (22.0-35.0); MEAN CELL VOLUME 83.4 fL (80.0-105.0); MEAN CORPUSCULAR HEMOGLOBIN 27.7 pg (25.0-35.0); MEAN CORPUSCULAR HGB CONC 33.2 g/dl (31.0-37.0); MEAN PLATELET VOLUME 9.4 fl (7.0-11.0); MONO # 0.6 (0.1-0.6); MONO % 4.6 % (1.0-6.0); PLATELET COUNT 343 10^3/uL (120.0-450.0); RBC 3.86 10^6/uL (3.5-6.1); RED CELL DISTRIBUTION WIDTH 16.2 % (11.5-14.5); WHITE BLOOD COUNT 12.3 10^3/ul (4.5-11.0)
[2017-06-11 06:50] LABS: BLOOD UREA NITROGEN 37 mg/dL (7-21); CALCIUM 8.4 mg/dL (8.4-10.5); GFR AFRICAN-AMERICAN > 60; GFR NON-AFRICAN AMERICAN > 60; INR 1.43 (0.93-1.08); PARTIAL THROMBOPLASTIN TIME 58.1 Seconds (23.7-30.8); PROTHROMBIN TIME 15.4 Seconds (9.9-11.8)
--- NOTE | 2017-06-11 07:25 | CP.PCM.PN ---
<Maryjane Lawrence - Last Filed: 06/11/17 09:24> Subjective - Date & Time of Evaluation Date of Evaluation: 06/11/17 Time of Evaluation: 07:24 - Subjective Subjective: Infectious Disease Persistent fever 99.9 last evening NPO for failed swallow Will do vanco trough 10:30am, vanc to be given at 11a per RN Objective - Vital Signs/Intake and Output Vital Signs (last 24 hours): Temp Pulse Resp BP Pulse Ox 99.1 F 98 H 23 137/77 98 06/11/17 06:09 06/11/17 06:09 06/11/17 06:00 06/11/17 06:00 06/11/17 06:09 Intake and Output: 06/11/17 06/11/17 06:59 18:59 Intake Total 776 Output Total 650 Balance 126 - Medications Medications: Current Medications Acetaminophen (Tylenol 650 Mg Supp) 650 mg RC Q6 PRN PRN Reason: Fever >100.4 F Aspirin (Aspirin Supp) 300 mg RC DAILY [facility] Last Admin: 06/10/17 09:15 Dose: 300 mg Atorvastatin Calcium (Lipitor) 40 mg PO DIN [facility] Last Admin: 06/10/17 17:31 Dose: Not Given Clopidogrel Bisulfate (Plavix) 75 mg PO DAILY [facility] Last Admin: 06/10/17 09:42 Dose: Not Given Furosemide (Lasix) 40 mg IVP Q12 [facility] Last Admin: 06/10/17 21:10 Dose: 40 mg Doxycycline Hyclate 100 mg/ (Sodium Chloride) 100 mls @ 100 mls/hr IVPB Q12 [facility] PRN Reason: Protocol Stop: 06/13/17 13:39 Last Admin: 06/10/17 21:36 Dose: 100 mls/hr Meropenem 1g/NS 100mL IVPB (Meropenem 1g/Ns 100ml Ivpb) 1 gm in 100 mls @ 100 mls/hr IVPB Q12 [facility] PRN Reason: Protocol Stop: 06/16/17 13:40 Last Admin: 06/10/17 21:09 Dose: 100 mls/hr Heparin Sodium/Dextrose (Heparin 25,000 Units/250ml In D5w) 25,000 units in 250 mls @ 10.631 mls/hr IV .[id number] [facility]; 12 UNITS/KG/HR PRN Reason: Protocol Last Admin: 06/11/17 02:36 Dose: 16 units/kg/hr, 14.175 mls/hr Milrinone Lactate/Dextrose (Primacor 20mg/100ml D5w) 100 mls @ 5.316 mls/hr IV .[id number] PRN; Protocol; 0.2 MCG/KG/MIN PRN Reason: TITRATE PER MD ORDER Last Admin: 06/10/17 17:28 Dose: 0.2 mcg/kg/min, 5.316 mls/hr Vancomycin HCl (Vancomycin 1gm) 1 gm in 250 mls @ 167 mls/hr IVPB Q12H [facility] PRN Reason: Protocol Last Admin: 06/10/17 21:35 Dose: 167 mls/hr Insulin Human Regular 100 (units/ Sodium Chloride) 100 mls @ 2 mls/hr IV .Q24H PRN; Protocol; 2 UNITS/HR PRN Reason: TITRATE PER MD ORDER Last Titration: 06/11/17 06:05 Dose: 2 units/hr, 2 mls/hr Levalbuterol HCl (Xopenex) 0.63 mg IH [id number] [facility] Last Admin: 06/11/17 00:05 Dose: 0.63 mg Methylprednisolone (Solu-Medrol) 20 mg IVP Q12 [facility] Last Admin: 06/10/17 21:08 Dose: 20 mg Metoprolol Tartrate (Lopressor) 5 mg IVP Q6H [facility] Last Admin: 06/11/17 02:32 Dose: 5 mg Ondansetron HCl (Zofran Inj) 4 mg IVP Q6H PRN PRN Reason: Nausea/Vomiting Pantoprazole Sodium (Protonix Inj) 40 mg IVP DAILY [facility] Last Admin: 06/10/17 09:42 Dose: Not Given - Labs Labs: 06/11/17 05:40 06/11/17 05:40 PT 15.4 Seconds (9.9-11.8) H 06/11/17 05:40 INR 1.43 (0.93-1.08) H 06/11/17 05:40 APTT 58.1 Seconds (23.7-30.8) H 06/11/17 05:40 - Constitutional Appears: No Acute Distress, Chronically Ill - Head Exam Head Exam: ATRAUMATIC, NORMAL INSPECTION, NORMOCEPHALIC - Eye Exam Eye Exam: EOMI, Normal appearance, PERRL. absent: Scleral icterus - ENT Exam ENT Exam: Mucous Membranes Moist - Neck Exam Additional comments: supple - Respiratory Exam Respiratory Exam: Decreased Breath Sounds, Rales, Rhonchi. absent: Wheezes - Cardiovascular Exam Cardiovascular Exam: REGULAR RHYTHM, +S1, +S2 - GI/Abdominal Exam GI & Abdominal Exam: Soft. 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 Pt had acute hypoxemia respiratory failure s/p intubation on VC (now on high flow), septic encephalopathy, ONEAL, NSTEMI, CHF s/ p dobutamine, now 0.2 milrinone gtt. Echo (06/04/17) PPM in RV; Dilated LA, Severe LV hypokinesis (EF 25), Calfified AoV , moderate Mitral annular calcification, RVSP 34, no vegetaton. Repeat blood cx are negative. - HCAP is due to possible Gram + cocci vs Positive Gram - PNA from aspiration. Sputum culture grew yeast with light colony count likely colonization. - Likely Endocarditis due to pt with pacemaker and persistent fever on vanco, meropenem and doxycycline, with repeated blood culture negative x 5 days Plan - Continue Doxycycline 100mg q12 (day 7), Meropenem 1g q12 (day 7), and vanco @ 12 (day 6) with goal of 7-10 days - Continue trend creatinine - will get trough 30 mins before 4th dose (4th dose to be given at 11am) - Repeat Echo this afternoon Cultures 06/03 Blood culture - coagulase neg staph x 2 bottles 06/05 Blood culturre - negative 06/04 Yeast - trach/sputum Will s/r/d/w Dr. Rai <Liborio Rai - Last Filed: 06/11/17 12:05> Objective - Vital Signs/Intake and Output Vital Signs (last 24 hours): Temp Pulse Resp BP Pulse Ox 99.1 F 108 H 22 124/58 L 98 06/11/17 09:23 06/11/17 08:30 06/11/17 07:32 06/11/17 09:23 06/11/17 06:09 Intake and Output: 06/11/17 06/11/17 06:59 18:59 Intake Total 776 402.1 Output Total 650 Balance 126 402.1 - Medications Medications: Current Medications Acetaminophen (Tylenol 650 Mg Supp) 650 mg RC Q6 PRN PRN Reason: Fever >100.4 F Aspirin (Aspirin Supp) 300 mg RC DAILY [facility] Last Admin: 06/11/17 09:23 Dose: 300 mg Atorvastatin Calcium (Lipitor) 40 mg PO DIN [facility] Last Admin: 06/10/17 17:31 Dose: Not Given Clopidogrel Bisulfate (Plavix) 75 mg PO DAILY [facility] Last Admin: 06/10/17 09:42 Dose: Not Given Furosemide (Lasix) 40 mg IVP Q12 [facility] Last Admin: 06/11/17 09:23 Dose: 40 mg Doxycycline Hyclate 100 mg/ (Sodium Chloride) 100 mls @ 100 mls/hr IVPB Q12 [facility] PRN Reason: Protocol Stop: 06/13/17 13:39 Last Admin: 06/11/17 09:15 Dose: 100 mls/hr Meropenem 1g/NS 100mL IVPB (Meropenem 1g/Ns 100ml Ivpb) 1 gm in 100 mls @ 100 mls/hr IVPB Q12 [facility] PRN Reason: Protocol Stop: 06/16/17 13:40 Last Admin: 06/11/17 09:13 Dose: 100 mls/hr Heparin Sodium/Dextrose (Heparin 25,000 Units/250ml In D5w) 25,000 units in 250 mls @ 10.631 mls/hr IV .[id number] [facility]; 12 UNITS/KG/HR PRN Reason: Protocol Last Titration: 06/11/17 09:04 Dose: 16 units/kg/hr, 14.175 mls/hr Milrinone Lactate/Dextrose (Primacor 20mg/100ml D5w) 100 mls @ 5.316 mls/hr IV .[id number] PRN; Protocol; 0.2 MCG/KG/MIN PRN Reason: TITRATE PER MD ORDER Last Titration: 06/11/17 09:08 Dose: 0.2 mcg/kg/min, 5.316 mls/hr Vancomycin HCl (Vancomycin 1gm) 1 gm in 250 mls @ 167 mls/hr IVPB Q12H [facility] PRN Reason: Protocol Last Admin: 06/11/17 09:15 Dose: 167 mls/hr Levalbuterol HCl (Xopenex) 0.63 mg IH [id number] [facility] Last Admin: 06/11/17 07:24 Dose: 0.63 mg Methylprednisolone (Solu-Medrol) 20 mg IVP Q12 [facility] Last Admin: 06/11/17 09:17 Dose: 20 mg Metoprolol Tartrate (Lopressor) 5 mg IVP Q6H [facility] Last Admin: 06/11/17 08:30 Dose: 5 mg Ondansetron HCl (Zofran Inj) 4 mg IVP Q6H PRN PRN Reason: Nausea/Vomiting Pantoprazole Sodium (Protonix Inj) 40 mg IVP DAILY [facility] Last Admin: 06/11/17 09:17 Dose: 40 mg - Labs Labs: 06/11/17 05:40 06/11/17 05:40 PT 15.4 Seconds (9.9-11.8) H 06/11/17 05:40 INR 1.43 (0.93-1.08) H 06/11/17 05:40 APTT 58.1 Seconds (23.7-30.8) H 06/11/17 05:40 Assessment and Plan - Assessment and Plan (Free Text) Plan: Infectious diseases Attending Physician Attestation Patient seen and examined, discussed with medical support specialist. I agree with above findings, assessment and plan. In addition, we will continue Vanco, Doxy and Merrem for sepsis due to multilobar pneumonia and coagulase negative staph bacteremia. Follow up repeat 2D echo to be done today. Follow up Vanco trough level.
--- NOTE | 2017-06-11 07:43 | CP.PCM.PN ---
<HENRY OSBORNE - Last Filed: 06/11/17 14:22> Subjective - Date & Time of Evaluation Date of Evaluation: 06/11/17 Time of Evaluation: 07:30 - Subjective Subjective: Forestsina Yani DO PGY1 - ICU Progress Note Patient seen and examined at bedside. Nurse reports that overnight, on BIPAP 10/14 70%, patient's O2% sat dropped to 74%, at which point he was given a breathing treatment, suctioned, and FiO2 was increased to 100%, and he has been maintaining his O2% sat ever since. He also remained afebrile overnight. He is off BIPAP this AM, on HFNC 90%, and saturating well. He is somewhat lethargic, but arousable. Denies any pains. ROS limited by mental status. Objective - Vital Signs/Intake and Output Vital Signs (last 24 hours): Temp Pulse Resp BP Pulse Ox 99.1 F 98 H 22 137/77 98 06/11/17 06:09 06/11/17 06:09 06/11/17 07:32 06/11/17 06:00 06/11/17 06:09 Intake and Output: 06/11/17 06/11/17 06:59 18:59 Intake Total 776 Output Total 650 Balance 126 - Medications Medications: Current Medications Acetaminophen (Tylenol 650 Mg Supp) 650 mg RC Q6 PRN PRN Reason: Fever >100.4 F Aspirin (Aspirin Supp) 300 mg RC DAILY [facility] Last Admin: 06/10/17 09:15 Dose: 300 mg Atorvastatin Calcium (Lipitor) 40 mg PO DIN [facility] Last Admin: 06/10/17 17:31 Dose: Not Given Clopidogrel Bisulfate (Plavix) 75 mg PO DAILY [facility] Last Admin: 06/10/17 09:42 Dose: Not Given Furosemide (Lasix) 40 mg IVP Q12 [facility] Last Admin: 06/10/17 21:10 Dose: 40 mg Doxycycline Hyclate 100 mg/ (Sodium Chloride) 100 mls @ 100 mls/hr IVPB Q12 [facility] PRN Reason: Protocol Stop: 06/13/17 13:39 Last Admin: 06/10/17 21:36 Dose: 100 mls/hr Meropenem 1g/NS 100mL IVPB (Meropenem 1g/Ns 100ml Ivpb) 1 gm in 100 mls @ 100 mls/hr IVPB Q12 [facility] PRN Reason: Protocol Stop: 06/16/17 13:40 Last Admin: 06/10/17 21:09 Dose: 100 mls/hr Heparin Sodium/Dextrose (Heparin 25,000 Units/250ml In D5w) 25,000 units in 250 mls @ 10.631 mls/hr IV .[id number] [facility]; 12 UNITS/KG/HR PRN Reason: Protocol Last Admin: 06/11/17 02:36 Dose: 16 units/kg/hr, 14.175 mls/hr Milrinone Lactate/Dextrose (Primacor 20mg/100ml D5w) 100 mls @ 5.316 mls/hr IV .[id number] PRN; Protocol; 0.2 MCG/KG/MIN PRN Reason: TITRATE PER MD ORDER Last Admin: 06/10/17 17:28 Dose: 0.2 mcg/kg/min, 5.316 mls/hr Vancomycin HCl (Vancomycin 1gm) 1 gm in 250 mls @ 167 mls/hr IVPB Q12H [facility] PRN Reason: Protocol Last Admin: 06/10/17 21:35 Dose: 167 mls/hr Insulin Human Regular 100 (units/ Sodium Chloride) 100 mls @ 2 mls/hr IV .Q24H PRN; Protocol; 2 UNITS/HR PRN Reason: TITRATE PER MD ORDER Last Titration: 06/11/17 06:05 Dose: 2 units/hr, 2 mls/hr Levalbuterol HCl (Xopenex) 0.63 mg IH [id number] [facility] Last Admin: 06/11/17 07:24 Dose: 0.63 mg Methylprednisolone (Solu-Medrol) 20 mg IVP Q12 [facility] Last Admin: 06/10/17 21:08 Dose: 20 mg Metoprolol Tartrate (Lopressor) 5 mg IVP Q6H [facility] Last Admin: 06/11/17 02:32 Dose: 5 mg Ondansetron HCl (Zofran Inj) 4 mg IVP Q6H PRN PRN Reason: Nausea/Vomiting Pantoprazole Sodium (Protonix Inj) 40 mg IVP DAILY [facility] Last Admin: 06/10/17 09:42 Dose: Not Given - Labs Labs: 06/11/17 05:40 06/11/17 05:40 PT 15.4 Seconds (9.9-11.8) H 06/11/17 05:40 INR 1.43 (0.93-1.08) H 06/11/17 05:40 APTT 58.1 Seconds (23.7-30.8) H 06/11/17 05:40 - Constitutional Appears: Non-toxic, No Acute Distress, Chronically Ill - Head Exam Head Exam: ATRAUMATIC, NORMOCEPHALIC - Eye Exam Eye Exam: EOMI, Normal appearance - ENT Exam ENT Exam: Mucous Membranes Moist - Respiratory Exam Additional comments: Grossly improved. Coarse breath sounds diffusely. No wheeze or rales. - Cardiovascular Exam Cardiovascular Exam: Irregular Rhythm (multiple PVCs), +S1, +S2 - GI/Abdominal Exam GI & Abdominal Exam: Soft. absent: Firm, Guarding, Rigid, Tenderness - Extremities Exam Additional comments: b/l AKA - Neurological Exam Neuro motor strength exam: Left Upper Extremity: 5, Right Upper Extremity: 5 Additional comments: Lethargic, but arousable. - Psychiatric Exam Psychiatric exam: Flat Affect - Skin Skin Exam: Dry, Intact Assessment and Plan - Assessment and Plan (Free Text) Assessment: 62M with PMH CHF, CAD, COPD, admitted to ICU for acute hypoxemic respiratory failure 2/2 pneumonia, CHF exacerbation, also found to have elevated troponins and ONEAL. Patient is on HFNC, requiring 90% FiO2. Pt on milrinone drip, heparin drip. Plan: Neuro: - Lethargic, arousable. Sensation grossly intact. Facial movements grossly intact. U/E strength symmetric, 5/5 - Cont to monitor. CV: - BP stable. Fewer PVCs overnight, no longer tachycardic. - Cont milrinone drip - Continue Lasix 40 mg Q12 - Hx of CAD and CHF, has AICD, dilated CM - Repeat 2D echo today to r/o endocarditis per ID, and requested bubble test to evaluate for shunt - Trops elevated on admission, Pt on dual antiplatelets (ASA, Plavix), Statin, BB, heparin drip. - Continue heparin GTT - Cardio, Dr. Gill, following - Echo read, AICD in place. LVEF 25.3%. Mild LVH, severe LV hypokinesis. Dilated LA. Calcified AoV w/mild AV stenosis. - Maintain MAP>65. Pulm: - Acute hypoxemic resp failure 2/2 CAP - On HFNC 90% during the day, BIPAP at night, maintaining O2 sat - Repeat cxr shows significant improvement in bilateral infiltrates - Chest CTA today, to r/o PE and discern nature of consolidation/infiltrate/ effusion on CXR - Maintain sat>90%. - Cont Merrem & Doxy and Vanco per ID - low dose steriod for CAP - Continue levalbuterol 0.63 Q6 - Chest PT, incentive spirometry. Switched to percussion bed yesterday to help with chest PT - Continue with protected lung ventilation strategies with head of bed elevation above 35 degrees, bronchodilators, keep oxygenation above 90%, pulm toileting GI: - Failed swallow eval yesterday, remains NPO. Repeat swallow eval today. Will place NG tube for enteral feedings if fails again - Continue with Protonix. - Abd/pelvis CT w/o contrast on 06/04 shows no intrabdominal pathology. Renal /fluids/Electrolytes: - ONEAL, but now improved. Cr stable - Urine Output was not recorded overnight, but reportedly about 400ml. Remains in negative balance. - Cont strict I&O - Maintain euvolemia - Replete electrolytes as needed ID: - Fever improved overnight, Tmax 99.9. Currently afebrile. Mild leukocytosis, increased to 12.3 since yesterday 11.3 - Continue with Doxy, Merrem and Vanco for CAP - Lactate improved - Procalcitonin 2.76 on 06/07 - Blood cultures from 06/03 show coag neg staph; Tracheal asp shows yeast, repeat BC no growth after 3 days - Continuing to investigate for other sources of infection, repeat 2D echo for endocarditis, repeat chest CT - ID following - Continue to monitor Endo: - Blood sugar elevated - Start sliding scale insulin HIGH - Accucheck q6 - Maintain glucose between 140-180 Heme: - Stable - Cont to monitor. DVT ppx - hep drip GI ppx - Protonix Patient seen and reviewed with attending <Rony FINNEY,Sylvain H - Last Filed: 06/11/17 16:04> Objective - Vital Signs/Intake and Output Vital Signs (last 24 hours): Temp Pulse Resp BP Pulse Ox 99.7 F H 106 H 24 143/80 97 06/11/17 15:01 06/11/17 15:01 06/11/17 15:00 06/11/17 15:00 06/11/17 15:01 Intake and Output: 06/11/17 06/11/17 06:59 18:59 Intake Total 776 419.1 Output Total 650 Balance 126 419.1 - Medications Medications: Current Medications Acetaminophen (Tylenol 650 Mg Supp) 650 mg RC Q6 PRN PRN Reason: Fever >100.4 F Aspirin (Aspirin Supp) 300 mg RC DAILY [facility] Last Admin: 06/11/17 09:23 Dose: 300 mg Atorvastatin Calcium (Lipitor) 40 mg PO DIN [facility] Last Admin: 06/10/17 17:31 Dose: Not Given Clopidogrel Bisulfate (Plavix) 75 mg PO DAILY [facility] Last Admin: 06/10/17 09:42 Dose: Not Given Furosemide (Lasix) 40 mg IVP Q12 [facility] Last Admin: 06/11/17 09:23 Dose: 40 mg Doxycycline Hyclate 100 mg/ (Sodium Chloride) 100 mls @ 100 mls/hr IVPB Q12 [facility] PRN Reason: Protocol Stop: 06/13/17 13:39 Last Admin: 06/11/17 09:15 Dose: 100 mls/hr Meropenem 1g/NS 100mL IVPB (Meropenem 1g/Ns 100ml Ivpb) 1 gm in 100 mls @ 100 mls/hr IVPB Q12 [facility] PRN Reason: Protocol Stop: 06/16/17 13:40 Last Admin: 06/11/17 09:13 Dose: 100 mls/hr Heparin Sodium/Dextrose (Heparin 25,000 Units/250ml In D5w) 25,000 units in 250 mls @ 10.631 mls/hr IV .[id number] UZIEL; 12 UNITS/KG/HR PRN Reason: Protocol Last Titration: 06/11/17 09:04 Dose: 16 units/kg/hr, 14.175 mls/hr Milrinone Lactate/Dextrose (Primacor 20mg/100ml D5w) 100 mls @ 5.316 mls/hr IV .[id number] PRN; Protocol; 0.2 MCG/KG/MIN PRN Reason: TITRATE PER MD ORDER Last Admin: 06/11/17 13:42 Dose: 0.2 mcg/kg/min, 5.316 mls/hr Vancomycin HCl (Vancomycin 1gm) 1 gm in 250 mls @ 167 mls/hr IVPB Q12H [facility] PRN Reason: Protocol Last Admin: 06/11/17 09:15 Dose: 167 mls/hr Insulin Human Regular (Humulin R High) 0 units SC ACHS [facility] PRN Reason: Protocol Levalbuterol HCl (Xopenex) 0.63 mg IH [id number] [facility] Last Admin: 06/11/17 13:00 Dose: 0.63 mg Methylprednisolone (Solu-Medrol) 20 mg IVP Q12 [facility] Last Admin: 06/11/17 09:17 Dose: 20 mg Metoprolol Tartrate (Lopressor) 5 mg IVP Q6H [facility] Last Admin: 06/11/17 13:57 Dose: 5 mg Ondansetron HCl (Zofran Inj) 4 mg IVP Q6H PRN PRN Reason: Nausea/Vomiting Pantoprazole Sodium (Protonix Inj) 40 mg IVP DAILY [facility] Last Admin: 06/11/17 09:17 Dose: 40 mg - Labs Labs: 06/11/17 05:40 06/11/17 05:40 PT 15.4 Seconds (9.9-11.8) H 06/11/17 05:40 INR 1.43 (0.93-1.08) H 06/11/17 05:40 APTT 58.1 Seconds (23.7-30.8) H 06/11/17 05:40 Attending/Attestation - Attestation I have personally seen and examined this patient.: Yes I have fully participated in the care of the patient.: Yes I have reviewed all pertinent clinical information, including history, physical exam and plan: Yes Notes (Text): 06/11/17 16:00 62 y/o M with hypoxemic Respiratory failure On HFNC to keep o2 sat 88% and PAo2> 60 Ct chest done today to evaluate hypoxia. No PE but LLL atelectasis , unchanged from admission. R/O malignancy , vs mucous plug etc. Chest PT, Nebs, Incentive spirometer and Out o fbed to chair. On ABX treatment for blood cx positive and continues to have low grade temps. Concern for other source. Repeat blood cx sent, ECHO repeat to r/o valve seeding and PFO presence. DVT P and NSTEMI on heparin drip. ppi DF tube placed, tube feeds to start as tolerated. cc time 65 min
--- NOTE | 2017-06-11 08:01 | PN ---
DATE: 06/11/2017(630am-720am) PULMONARY NOTE SUBJECTIVE: The patient appears comfortable this morning. He is not short of breath at rest. PHYSICAL EXAMINATION: VITAL SIGNS: Temperature is 99.1, pulse on the monitor is 89, respiratory rate 20, blood pressure 137/77. Oxygen saturation on high-flow delivery is 97%. HEENT: Normocephalic, atraumatic. NECK: No JVD. CARDIOVASCULAR: Systolic ejection murmur at the lower left sternal border. Questionable S3 gallop. LUNGS: Decreased breath sounds at the bases with crackles. Much less rhonchi. No wheezing. EXTREMITIES: The patient is status post bilateral [id number] amputations. GASTROINTESTINAL: Abdomen is soft, nontender, nondistended. Bowel sounds are positive. SKIN: No acute rash. NEUROLOGIC: Exam is limited at the present time. PERTINENT LABORATORY DATA: Chest x-ray was done this morning and reviewed. There is further clearing of the pulmonary infiltrates. Arterial blood gas was also done on high-flow delivery with BiPAP. Results are: pH 7.46, pCO2 of 33, pO2 of 90. IMPRESSION: 1. Respiratory failure. 2. Multilobar pneumonia. 3. Sepsis syndrome. 4. Acute myocardial infarction. 5. Possible congestive heart failure. 6. Renal insufficiency. 7. Severe peripheral vascular disease. PLAN: The patient appears comfortable this morning. He is not short of breath at rest. I did discuss the case with the night nurse at length. The night nurse stated that the patient had a very good night. On physical exam, his bronchospasm continues to resolve. I will continue with the current nebulizer treatments and low-dose intravenous steroids for now. I did review the chest x-ray - as above. The x-ray continues to improve with decreased pulmonary infiltrates. I have also reviewed the arterial blood gas. The arterial blood gas has also improved with a decrease in the alveolar-arterial gradient. I would continue with the treatment for acute myocardial infarction and probable congestive heart failure as per Dr. Gill. His input is noted. I would continue with the antibiotic coverage as per Infectious Disease. Temperatures are resolving. Leukocytosis is also resolving. Clinical status of the patient has significantly improved - compared to last week. However, again, the overall status/prognosis of this patient remains very guarded. I will discuss the above with the entire ICU team in the next few moments. I will also discuss the above with the attending physician - Dr. Quevedo. Tom Pittman MD MTDVinh
--- NOTE | 2017-06-11 09:05 | PN ---
SUBJECTIVE: I saw the patient in the Intensive Care Unit. He is still on high flow nasal oxygen. He is alert this morning. He is a little bit weak, bit did acknowledge by nodding his head. He is on aspirin, doxycycline, heparin, insulin, Lasix, Lipitor, Lopressor, Merrem, Primacor, Plavix, Protonix, Solu-Medrol, Tylenol, vancomycin, Xopenex and Zofran. PHYSICAL EXAMINATION VITAL SIGNS: 99.1 temperature, 96 pulse, 22 respiratory rate, 97% O2 sat on 75% FiO2 nasal cannula. HEENT: Head is atraumatic and normocephalic. NECK: Supple. HEART: Regular rate and rhythm. LUNGS: Decreased breath sounds bilaterally, but fairly clear to auscultation, poor inspiration. ABDOMEN: Soft, obese, and nontender. EXTREMITIES: Bilateral AKA, not edematous at this time. He has 12.2 white count, he is on steroid, 10.7 hemoglobin, 32.2 hematocrit with 342 platelets. Last PTT was 68.1. He has 134 sodium, potassium 3.6, BUN 37, creatinine 0.8, GFR is greater than 60, calcium is 8.4, last blood sugar was 177. He is being seen by pulmonary, infectious disease, cardiology, community support associate. He has multiple issues, sepsis, status post heart failure, intubated and extubated, diabetes mellitus cardiomyopathy, anemia. Continue with aggressive treatment and care. We will check his labs tomorrow. Adria Quevedo DO MTDD
[2017-06-11] MEDS: Meropenem 1g/NS 100mL IVPB 1 GM/100 ML PIGGYBACK IVPB SCH ×2 (09:13→22:10)
[2017-06-11] MEDS: Vancomycin 1gm in NS 250ml 1 GM/250 ML BAG IVPB SCH ×2 (09:15→22:12)
[2017-06-11] MEDS: MethylPREDNISolone 40 mg Vial IVP SCH ×2 (09:17→22:12)
--- NOTE | 2017-06-11 09:17 | RAD ---
HISTORY: f/u COMPARISON: 06/10/2017 FINDINGS: LUNGS: There is slight improvement in the right upper lobe pneumonia. PLEURA: No significant pleural effusion identified, no pneumothorax apparent. CARDIOVASCULAR: Mild cardiomegaly. Single lead pacemaker OSSEOUS STRUCTURES: No significant abnormalities. VISUALIZED UPPER ABDOMEN: Normal. OTHER FINDINGS: None. IMPRESSION: Slight improvement in right upper lobe pneumonia
[2017-06-11] MEDS ORDERED: Iodixanol 320 MG/ML 100 ML BOTTLE IV ONE (11:10)
--- NOTE | 2017-06-11 12:29 | CT ---
PROCEDURE: CT Chest with contrast (Pulmonary Angiogram) HISTORY: hypoxia COMPARISON: 06/04/2017 TECHNIQUE: Axial computed tomography images were obtained of the chest in the pulmonary arterial phase of enhancement. Coronal and sagittal reformatted images were created and reviewed. Intravenous contrast dose: 100 mL Visipaque 320 Radiation dose: Total exam DLP = 796.24 mGy-cm. This CT exam was performed using one or more of the following dose reduction techniques: Automated exposure control, adjustment of the mA and/or kV according to patient size, and/or use of iterative reconstruction technique. FINDINGS: PULMONARY ARTERIES: Unremarkable. No pulmonary embolism. AORTA: No acute findings. No thoracic aortic aneurysm. LUNGS: There is complete consolidation of the left lower lobe. There is severe narrowing of the lower lobe bronchus. This raises some concern for neoplasm. There is volume loss in the left lower lobe with some bowing of the major fissure. There is extensive patchy opacity in the right lower lobe. This has improved compared to the prior CT examination. There is patchy opacity in the posterior segment of the right upper lobe. Again, this has improved compared to the prior examination. Findings may reflect multi lobar pneumonia. However, the left lower lobe atelectasis is concerning for bronchial occlusion. PLEURAL SPACES: There is a small left pleural effusion. There is no right pleural effusion. There is no pneumothorax. HEART: The heart is mildly enlarged. There is a small pericardial effusion. An AICD is noted. LYMPH NODES: Shotty mediastinal nodes are identified. No significant mediastinal or hilar lymphadenopathy is appreciated. BONES, CHEST WALL: Unremarkable. No fracture or destructive lesion OTHER FINDINGS: Unremarkable. IMPRESSION: No evidence of pulmonary embolism. Complete consolidation of the left lower lobe with volume loss. This raises suspicion of occlusion of the lower lobe bronchus. Infiltrate in the right lower lobe and posterior segment right upper lobe improved compared to prior examination of 06/04/2017. Small left pleural effusion. Small pericardial effusion. AICD.
[2017-06-11 12:37] LABS: URINE BILIRUBIN NEGATIVE (NEGATIVE); URINE BLOOD NEGATIVE (NEGATIVE); URINE GLUCOSE (UA) NEGATIVE (NEGATIVE); URINE LEUKOCYTE ESTERASE NEGATIVE Leu/uL (NEGATIVE); URINE NITRATE NEGATIVE (NEGATIVE); URINE PROTEIN NEGATIVE mg/dL (<30 mg/dL); URINE UROBILINOGEN 0.2 E.U./dL (<1 E.U./dL)
[2017-06-11 12:38] LABS: URINE APPEARANCE CLEAR (CLEAR); URINE COLOR YELLOW (YELLOW)
[2017-06-11] MEDS: Milrinone 20mg/100ml D5W 100 ML IV PRN (13:42)
--- NOTE | 2017-06-11 15:09 | RAD ---
HISTORY: post dobhoff insert COMPARISON: 06/11/2017 at 5:19 a.m. FINDINGS: LUNGS: Opacity seen previously in the mid right lung has almost entirely resolved. There is some residual opacity at the right base common nonspecific. Left basilar opacity has resolved. . PLEURA: No significant pleural effusion identified, no pneumothorax apparent. Please note that the right costophrenic angle is not included on this film. CARDIOVASCULAR: AICD. Double off tube tip in left upper quadrant of abdomen. OSSEOUS STRUCTURES: No significant abnormalities. VISUALIZED UPPER ABDOMEN: Normal. OTHER FINDINGS: None. IMPRESSION: Extensive clearing of right-sided pulmonary opacity. Double off tube extends to left upper quadrant of abdomen. Otherwise no change.
[2017-06-11] MEDS ORDERED: Insulin Reg-MEDIUM-Coverage SC SCH (16:30)
[2017-06-11 17:08] LABS: ARTERIAL BLOOD GAS HCO3 32.7 mmol/L (21-28); ARTERIAL BLOOD GAS O2 SAT 87.2 % (95-98); ARTERIAL BLOOD GAS PCO2 46 mm/Hg (35-45); ARTERIAL BLOOD GAS PH 7.46 (7.35-7.45); ARTERIAL BLOOD GAS TCO2 34.1 mmol.L (22-28)
[2017-06-11] MEDS: Insulin Reg-HIGH-Coverage SC SCH ×2 (17:16→22:06)
[2017-06-11 17:32] LABS: ARTERIAL BLOOD GAS HCO3 30.5 mmol/L (21-28); ARTERIAL BLOOD GAS HEMOGLOBIN 9.9 g/dL (11.7-17.4); ARTERIAL BLOOD GAS O2 CAPACITY 13.6 mL/dl (16-24); ARTERIAL BLOOD GAS O2 CONTENT 12.3 ML/dl (15-23); ARTERIAL BLOOD GAS O2 SAT 90.5 % (95-98); ARTERIAL BLOOD GAS PCO2 47 mm/Hg (35-45); ARTERIAL BLOOD GAS PH 7.42 (7.35-7.45); ARTERIAL BLOOD GAS TCO2 31.9 mmol.L (22-28)
[2017-06-12 01:20] LABS: ARTERIAL BLOOD GAS HCO3 27.8 mmol/L (21-28); ARTERIAL BLOOD GAS HEMOGLOBIN 9.4 g/dL (11.7-17.4); ARTERIAL BLOOD GAS O2 CONTENT 12.1 ML/dl (15-23); ARTERIAL BLOOD GAS O2 SAT 93.1 % (95-98); ARTERIAL BLOOD GAS PCO2 46 mm/Hg (35-45); ARTERIAL BLOOD GAS PH 7.39 (7.35-7.45); ARTERIAL BLOOD GAS TCO2 29.2 mmol.L (22-28)
[2017-06-12] MEDS: Levalbuterol 0.63 MG/3 ML Inhal Soln UD IH SCH ×4 (01:30→19:32)
[2017-06-12] MEDS: Metoprolol 1 mg/ml Inj IVP SCH (02:00)
[2017-06-12 06:52] LABS: HEMOGLOBIN 10.2 gm/dL (14.0-18.0); MEAN CELL VOLUME 84.2 fL (80.0-105.0); MEAN CORPUSCULAR HEMOGLOBIN 27.7 pg (25.0-35.0); MEAN CORPUSCULAR HGB CONC 32.9 g/dl (31.0-37.0); MEAN PLATELET VOLUME 9.5 fl (7.0-11.0); RBC 3.68 10^6/uL (3.5-6.1); WHITE BLOOD COUNT 9.6 10^3/ul (4.5-11.0)
[2017-06-12 06:58] LABS: INR 1.49 (0.93-1.08); PROTHROMBIN TIME 16.1 Seconds (9.9-11.8)
[2017-06-12 07:20] LABS: PARTIAL THROMBOPLASTIN TIME 72.7 Seconds (23.7-30.8)
--- NOTE | 2017-06-12 07:25 | CP.PCM.PN ---
<Maryjane Lawrence - Last Filed: 06/12/17 10:39> Subjective - Date & Time of Evaluation Date of Evaluation: 06/12/17 Time of Evaluation: 07:21 - Subjective Subjective: PGY-[address] Rai Hypoxemia slightly improves, PaO2 still low Still have mild fever 99.3 Currently on bipap 10/14 90% Objective - Vital Signs/Intake and Output Vital Signs (last 24 hours): Temp Pulse Resp BP Pulse Ox 99 F 106 H 27 H 131/62 97 06/12/17 04:00 06/12/17 06:00 06/12/17 06:00 06/12/17 06:00 06/12/17 06:00 Intake and Output: 06/12/17 06/12/17 06:59 18:59 Intake Total 13.5 Balance 13.5 - Medications Medications: Current Medications Acetaminophen (Tylenol 650 Mg Supp) 650 mg RC Q6 PRN PRN Reason: Fever >100.4 F Aspirin (Aspirin Supp) 300 mg RC DAILY [facility] Last Admin: 06/11/17 09:23 Dose: 300 mg Atorvastatin Calcium (Lipitor) 40 mg PO DIN [facility] Last Admin: 06/11/17 18:14 Dose: Not Given Clopidogrel Bisulfate (Plavix) 75 mg PO DAILY [facility] Last Admin: 06/11/17 18:14 Dose: Not Given Furosemide (Lasix) 40 mg IVP Q12 [facility] Last Admin: 06/11/17 22:07 Dose: 40 mg Doxycycline Hyclate 100 mg/ (Sodium Chloride) 100 mls @ 100 mls/hr IVPB Q12 UZIEL PRN Reason: Protocol Stop: 06/13/17 13:39 Last Admin: 06/11/17 22:13 Dose: 100 mls/hr Meropenem 1g/NS 100mL IVPB (Meropenem 1g/Ns 100ml Ivpb) 1 gm in 100 mls @ 100 mls/hr IVPB Q12 UZIEL PRN Reason: Protocol Stop: 06/16/17 13:40 Last Admin: 06/11/17 22:10 Dose: 100 mls/hr Heparin Sodium/Dextrose (Heparin 25,000 Units/250ml In D5w) 25,000 units in 250 mls @ 10.631 mls/hr IV .[id number] UZIEL; 12 UNITS/KG/HR PRN Reason: Protocol Last Admin: 06/11/17 19:10 Dose: 16 units/kg/hr, 14.175 mls/hr Milrinone Lactate/Dextrose (Primacor 20mg/100ml D5w) 100 mls @ 5.316 mls/hr IV .[id number] PRN; Protocol; 0.2 MCG/KG/MIN PRN Reason: TITRATE PER MD ORDER Last Admin: 06/11/17 13:42 Dose: 0.2 mcg/kg/min, 5.316 mls/hr Vancomycin HCl (Vancomycin 1gm) 1 gm in 250 mls @ 167 mls/hr IVPB Q12H UZIEL PRN Reason: Protocol Last Admin: 06/11/17 22:12 Dose: 167 mls/hr Insulin Human Regular (Humulin R High) 0 units SC ACHS UZIEL PRN Reason: Protocol Last Admin: 06/11/17 22:06 Dose: Not Given Levalbuterol HCl (Xopenex) 0.63 mg IH [id number] [facility] Last Admin: 06/12/17 01:30 Dose: 0.63 mg Methylprednisolone (Solu-Medrol) 20 mg IVP Q12 UZIEL Last Admin: 06/11/17 22:12 Dose: 20 mg Metoprolol Tartrate (Lopressor) 5 mg IVP Q6H [facility] Last Admin: 06/12/17 02:00 Dose: Not Given Ondansetron HCl (Zofran Inj) 4 mg IVP Q6H PRN PRN Reason: Nausea/Vomiting Pantoprazole Sodium (Protonix Inj) 40 mg IVP DAILY [facility] Last Admin: 06/11/17 09:17 Dose: 40 mg - Labs Labs: 06/12/17 05:35 06/11/17 05:40 PT 16.1 Seconds (9.9-11.8) H 06/12/17 05:35 INR 1.49 (0.93-1.08) H 06/12/17 05:35 APTT 72.7 Seconds (23.7-30.8) H* 06/12/17 05:35 Assessment and Plan - Assessment and Plan (Free Text) Plan: Bossman Gaitan, 62 M (129-7), from shelter with DM, CAD/CHF with permanent pacemaker, Hx group B strep PNA, PAD s/p AKA b/l, comes in for severe sepsis with MODS due to multilobar HCAP and methicillin-resistant Coagulase Negative staphalococcus bacteremia. Pt had acute hypoxemia respiratory failure s/p intubation on VC (now on high flow), septic encephalopathy, ONEAL, NSTEMI, CHF s/ p dobutamine, now 0.2 milrinone gtt. Echo (06/04/17) PPM in RV; Dilated LA, Severe LV hypokinesis (EF 25), Calfified AoV , moderate Mitral annular calcification, RVSP 34, no vegetaton. Repeat blood cx are negative. - HCAP is due to possible Gram + cocci vs Positive Gram - PNA from aspiration. Sputum culture grew yeast with light colony count likely colonization. 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 Rai <Liborio Rai - Last Filed: 06/12/17 13:35> Objective - Vital Signs/Intake and Output Vital Signs (last 24 hours): Temp Pulse Resp BP Pulse Ox 99 F 107 H 27 H 131/62 97 06/12/17 04:00 06/12/17 13:30 06/12/17 06:00 06/12/17 06:00 06/12/17 06:00 Intake and Output: 06/12/17 06/12/17 06:59 18:59 Intake Total 13.5 Balance 13.5 - Medications Medications: Current Medications Acetaminophen (Tylenol 650 Mg Supp) 650 mg RC Q6 PRN PRN Reason: Fever >100.4 F Acetylcysteine (Acetylcysteine 20%) 4 ml IH [id number] [facility] Last Admin: 06/12/17 13:14 Dose: 4 ml Aspirin (Aspirin Supp) 300 mg RC DAILY [facility] Last Admin: 06/12/17 10:04 Dose: 300 mg Atorvastatin Calcium (Lipitor) 40 mg PO DIN [facility] Last Admin: 06/11/17 18:14 Dose: Not Given Clopidogrel Bisulfate (Plavix) 75 mg PO DAILY [facility] Last Admin: 06/12/17 10:16 Dose: 75 mg Doxycycline Hyclate 100 mg/ (Sodium Chloride) 100 mls @ 100 mls/hr IVPB Q12 [facility] PRN Reason: Protocol Stop: 06/13/17 13:39 Last Admin: 06/12/17 10:13 Dose: 100 mls/hr Meropenem 1g/NS 100mL IVPB (Meropenem 1g/Ns 100ml Ivpb) 1 gm in 100 mls @ 100 mls/hr IVPB Q12 [facility] PRN Reason: Protocol Stop: 06/16/17 13:40 Last Admin: 06/12/17 10:06 Dose: 100 mls/hr Heparin Sodium/Dextrose (Heparin 25,000 Units/250ml In D5w) 25,000 units in 250 mls @ 10.631 mls/hr IV .[id number] UZIEL; 12 UNITS/KG/HR PRN Reason: Protocol Last Admin: 06/11/17 19:10 Dose: 16 units/kg/hr, 14.175 mls/hr Milrinone Lactate/Dextrose (Primacor 20mg/100ml D5w) 100 mls @ 5.316 mls/hr IV .[id number] PRN; Protocol; 0.2 MCG/KG/MIN PRN Reason: TITRATE PER MD ORDER Last Admin: 06/11/17 13:42 Dose: 0.2 mcg/kg/min, 5.316 mls/hr Vancomycin HCl (Vancomycin 1gm) 1 gm in 250 mls @ 167 mls/hr IVPB Q12H [facility] PRN Reason: Protocol Last Admin: 06/12/17 10:12 Dose: 167 mls/hr Insulin Human Regular (Humulin R High) 0 units SC ACHS [facility] PRN Reason: Protocol Last Admin: 06/12/17 10:04 Dose: 2 units Levalbuterol HCl (Xopenex) 0.63 mg IH [id number] [facility] Last Admin: 06/12/17 13:15 Dose: 0.63 mg Methylprednisolone (Solu-Medrol) 20 mg IVP Q12 [facility] Last Admin: 06/12/17 10:09 Dose: 20 mg Ondansetron HCl (Zofran Inj) 4 mg IVP Q6H PRN PRN Reason: Nausea/Vomiting Pantoprazole Sodium (Protonix Inj) 40 mg IVP DAILY [facility] Last Admin: 06/12/17 10:09 Dose: 40 mg - Labs Labs: 06/12/17 05:35 06/12/17 05:35 PT 16.1 Seconds (9.9-11.8) H 06/12/17 05:35 INR 1.49 (0.93-1.08) H 06/12/17 05:35 APTT 72.7 Seconds (23.7-30.8) H* 06/12/17 05:35 Assessment and Plan - Assessment and Plan (Free Text) Plan: Infectious Diseases Attending Physician Attestation Patient seen and examined, discussed with director of medical staff services. I have reviewed the pertinent clinical information for this patient. I agree with the above findings. In addition, we will continue the patient on Vancomycin, Merrem amd DOxycycline for sepsis due to multilobar HCAP. Patient continues to have respiratory failure and repeat CT chest shows some collapse of the lung on the left. Discussed with ICU team - they are looking for family because the patient' s prognosis is poor. We are also treating Coagulase negative staph bacteremia.
[2017-06-12 07:30] LABS: ALB/GLOB RATIO 1.2 (1.1-1.8); ALBUMIN 3.5 g/dL (3.0-4.8); ALT/SGPT 35 U/L (7-56); AST/SGOT 48 U/L (15-59); BLOOD UREA NITROGEN 39 mg/dL (7-21); CALCIUM 8.4 mg/dL (8.4-10.5); GFR AFRICAN-AMERICAN > 60; GFR NON-AFRICAN AMERICAN > 60
--- NOTE | 2017-06-12 07:57 | RAD ---
HISTORY: f/u COMPARISON: 06/11/2017. FINDINGS: The nasogastric tube terminates in the stomach. LUNGS: The right lung is clear. There is worsening moderate left pleural effusion. Also noted is a underlying airspace disease. PLEURA: No significant pleural effusion identified, no pneumothorax apparent. CARDIOVASCULAR: The heart remains enlarged. There is stable position of a left-sided AICD. OSSEOUS STRUCTURES: No significant abnormalities. VISUALIZED UPPER ABDOMEN: Normal. OTHER FINDINGS: None. IMPRESSION: Worsening left pleural effusion and underlying consolidation.
[2017-06-12] MEDS: Acetylcysteine 20% Inhal Soln (4ml) IH SCH ×3 (08:19→19:36)
--- NOTE | 2017-06-12 08:36 | CARD ---
APPROVED REPORT EXAM: Two-dimensional and M-mode echocardiogram with Doppler and color Doppler. Other Information Quality : Fair[employer]hythm : INDICATION RULE OUT ENDOCARDITIS/ PFO 2D DIMENSIONS IVSd1.2 (0.7-1.1cm)LVDd5.8 (3.9-5.9cm) PWd1.2 (0.7-1.1cm)LVDs5.1 (2.5-4.0cm) FS (%) 12.2 %LVEF (%)25.0 (>50%) M-Mode DIMENSIONS Aortic Cusp Exc.0.70 (1.5-2.0cm) Aortic Valve AoV Peak Cipdszhq154.0cm/sAoV VTI36.1cmAO Peak GR.16mmHg LVOT Peak Dziafjaa01.6cm/sLVOT VTI13.10cmAO Mean GR.8mmHg Mitral Valve E/A ratio0.0 TDI E/Lateral E'0.0E/Medial E'0.0 Pulmonary Valve PV Peak Qmwuzsdi33.3cm/sPV Peak Grad.4mmHg Tricuspid Valve TR Peak [id number]/sRAP [id number] Peak Gr.24mmHg [id number] LEFT VENTRICLE The Left Ventricle is borderline dilated. There is normal left ventricular wall thickness. Left ventricle systolic function is moderately to severely impaired. The Ejection Fraction is 25-30%. There is moderate to severe global hypokinesis. RIGHT VENTRICLE The right ventricle is normal size. There is a pacemaker lead in the right ventricle. ATRIA The left atrium is mildly dilated. The right atrium size is normal. The interatrial septum is intact with no evidence for an atrial septal defect. AORTIC VALVE The aortic valve is moderately calcified. MITRAL VALVE The mitral valve is normal in structure. MAC and calcification of subvalvular structures noted. Mitral regurgitation is trace. TRICUSPID VALVE The tricuspid valve is normal in structure. There is trace tricuspid regurgitation. PULMONIC VALVE The pulmonic valve is not well visualized. GREAT VESSELS The aortic root is normal in size. PERICARDIAL EFFUSION There is a small circumferential pericardial effusion. <Conclusion> Limited study done in ICU. The Left Ventricle is borderline dilated. There is normal left ventricular wall thickness. Left ventricle systolic function is moderately to severely impaired. The Ejection Fraction is 25-30%. There is moderate to severe global hypokinesis. The aortic valve is moderately calcified. Aortic sclerosis vs. mild Mitral regurgitation is trace. There is trace tricuspid regurgitation. There is a small circumferential pericardial effusion. The bubble study does not show a right to left shunt. No definite vegetation seen.
--- NOTE | 2017-06-12 09:14 | PN ---
DATE: 06/12/2017(700am--750am) SUBJECTIVE: The patient remains extubated. He is currently on BiPAP. He is mildly short of breath, but in no acute distress. PHYSICAL EXAMINATION VITAL SIGNS: Temperature is 99.0, pulse on the monitor is 108, respiratory rate 22, blood pressure 131/62. Oxygen saturation on BiPAP is 95%. HEENT: Normocephalic, atraumatic. NECK: No JVD. CARDIOVASCULAR: Systolic ejection murmur at the lower left sternal border. Questionable S3 gallop. LUNGS: Decreased breath sounds at the bases with crackles. Less rhonchi. No wheezing. EXTREMITIES: The patient is status post bilateral [id number] amputations. GASTROINTESTINAL: Abdomen is soft, nontender, nondistended. Bowel sounds are positive. SKIN: No acute rash. NEUROLOGIC: Limited at the present time. PERTINENT LABORATORY DATA: Chest x-ray was done this morning and reviewed. Compared to yesterday's film, there is a new opacification at the left base-probably representing atelectasis. CAT scan of the chest was also done yesterday. There is evidence of consolidation, probably secondary to mucous plugging in the basal segments of the left lobe. There are also infiltrates in both the right upper and right lower lobes. Arterial blood gas was done on high-flow delivery. Results are: pH 7.39, pCO2 of 46, pO2 of 56. IMPRESSION: 1. Respiratory failure. 2. Multilobar pneumonia. 3. Sepsis syndrome. 4. Acute myocardial infarction. 5. Possible congestive heart failure. 6. Renal insufficiency. 7. Severe peripheral vascular disease. PLAN: The patient remains off the ventilator. He is currently on BiPAP. He is mildly short of breath but in no acute distress. Oxygen saturation is currently 95% on the BiPAP. I did review both the chest x-ray and the CAT scan of the chest. There is new atelectasis at the left basal segments of the left lower lobe. I did discuss this issue with the medical residents and respiratory therapist at length. We will proceed with chest percussion therapy, suctioning, and add Mucomyst to the nebulizer treatments. Repeat chest x-ray is ordered and will be followed. I have also reviewed the arterial blood gas. A significant alveolar-arterial gradient remains. I would continue with the antibiotic coverage as per infectious disease. The temperatures have now fully resolved. The leukocytosis has also fully resolved. I would continue with the treatment for acute myocardial infarction and congestive heart failure as per cardiology. Input by Dr. Gill is noted. Clinical status of the patient is somewhat improved. However, the patient remains critically ill with very guarded prognosis. All are aware. I will discuss the above with the entire ICU team in the next few moments. I will also discuss the above with the attending physician. Tom Pittman MD MTDD
--- NOTE | 2017-06-12 10:00 | PN ---
SUBJECTIVE: I saw Curtis in the intensive care unit, still on high-flow oxygen, he is on actually a BiPAP, he is alert. He is still not doing great. Shortness of breath, uncomfortable. PHYSICAL EXAMINATION: VITAL SIGNS: Temperature 99, pulse 114, blood pressure 131/62, respiratory rate 22, O2 sat 97% on BiPAP. HEENT: Head is atraumatic and normocephalic. HEART: Regular rate and rhythm. LUNGS: Decreased breath sounds, but clear. ABDOMEN: Soft, obese, nontender, positive bowel sounds. EXTREMITIES: Bilateral AKA, but no swelling. MEDICATIONS: He is on acetylcysteine, aspirin, doxycycline, IV heparin, insulin, Lasix 40 IV b.i.d., Lipitor, Lopressor, Merrem, IV Plavix, Primacor, IV Protonix, Solu-Medrol 20 twice a day, vancomycin IV, Xopenex and Zofran. LABORATORY DATA: He has a 9.6 white count , 10.2 hemoglobin, 31 hematocrit, 328 platelets. Sodium 135, potassium 3.6, BUN 39, creatinine 0.8, GFR is greater than 60, blood sugar is 264, calcium 8.4, total bilirubin is 1.2, AST is 48, ALT is 35, alkaline phosphatase 67, total protein 6.6. PLAN: He is got multiple issues. He is got sepsis pneumonia and STEMI, shortness of breath, bilateral AKA, respiratory failure, diabetes, renal insufficiency. He has been seen by multiple physicians; infectious disease, lever miller, pulmonary, cardiology and he was status post respiratory failure. Hopefully, he will improve. Continue with aggressive treatment and care in the intensive care unit. Adria Quevedo DO MTDD
[2017-06-12] MEDS: Insulin Reg-HIGH-Coverage SC SCH ×4 (10:04→21:36)
[2017-06-12] MEDS: Meropenem 1g/NS 100mL IVPB 1 GM/100 ML PIGGYBACK IVPB SCH ×2 (10:06→21:36)
[2017-06-12] MEDS: MethylPREDNISolone 40 mg Vial IVP SCH ×2 (10:09→21:35)
[2017-06-12] MEDS: Vancomycin 1gm in NS 250ml 1 GM/250 ML BAG IVPB SCH ×2 (10:12→22:39)
--- NOTE | 2017-06-12 12:26 | CP.PCM.CON ---
History of Present Illness - History of Present Illness History of Present Illness: Palliative consult requested by Dr Sylvain Quevedo notified Reason: Goals of care/ advance care planning 62 year old male resident of [facility] who was sent to the ED due to increasing shortness of breath. patient was noted to have a non productive cough upon arrival. EKG showed non specific T wave changes. Troponin 2.26.. EF 25%.Chest x ray showed right lower lobe pneumonia. His respiratory status worsened requiring intubation. He has since been extubated and requires continuous BIPAP . PMHx: COPD, DM,PVD, s/p bilateral AKA, CAD,CHF,dilated cardiomyopathy, depression Social History: Former smoker, no alcohol or drug use. Single, resident of [facility]. Family History: Non contributory Advance Care Planning: The patient arrived with a POLST for full code. The POLST is not signed by a physician or LIP. Review of System: As per HPI, the patient is altered, unable to answer questions at this time Past Patient History - Infectious Disease Hx of Infectious Diseases: None - Past Social History Smoking Status: Unknown If Ever Smoked - CARDIAC Hx Cardiac Disorders: Yes Hx Congestive Heart Failure: Yes Hx Hypertension: Yes - PULMONARY Hx Pneumonia: Yes - NEUROLOGICAL Hx Neurological Disorder: No - HEENT Hx HEENT Problems: No - RENAL Hx Chronic Kidney Disease: No - ENDOCRINE/METABOLIC Hx Diabetes Mellitus Type 2: Yes - HEMATOLOGICAL/ONCOLOGICAL Hx Blood Disorders: No - INTEGUMENTARY Hx Dermatological Problems: Yes (PEELING ON FACE) - MUSCULOSKELETAL/RHEUMATOLOGICAL Hx Arthritis: Yes Hx Falls: Yes - GASTROINTESTINAL Hx Gastroesophageal Reflux: Yes - GENITOURINARY/GYNECOLOGICAL Hx Genitourinary Disorders: No - PSYCHIATRIC Hx Depression: Yes Hx Substance Use: No - SURGICAL HISTORY Hx Amputation: Yes (BILAT. AKA) - ANESTHESIA Hx Anesthesia: No Hx Anesthesia Reactions: No Hx Malignant Hyperthermia: No Meds Allergies/Adverse Reactions: Allergies Allergy/AdvReac Type Severity Reaction Status Date / Time No Known Allergies Allergy Verified 10/17/16 19:27 - Medications Medications: Current Medications Acetaminophen (Tylenol 650 Mg Supp) 650 mg RC Q6 PRN PRN Reason: Fever >100.4 F Acetylcysteine (Acetylcysteine 20%) 4 ml IH [id number] [facility] Last Admin: 06/12/17 08:19 Dose: 4 ml Aspirin (Aspirin Supp) 300 mg RC DAILY [facility] Last Admin: 06/12/17 10:04 Dose: 300 mg Atorvastatin Calcium (Lipitor) 40 mg PO DIN [facility] Last Admin: 06/11/17 18:14 Dose: Not Given Clopidogrel Bisulfate (Plavix) 75 mg PO DAILY [facility] Last Admin: 06/12/17 10:16 Dose: 75 mg Doxycycline Hyclate 100 mg/ (Sodium Chloride) 100 mls @ 100 mls/hr IVPB Q12 [facility] PRN Reason: Protocol Stop: 06/13/17 13:39 Last Admin: 06/12/17 10:13 Dose: 100 mls/hr Meropenem 1g/NS 100mL IVPB (Meropenem 1g/Ns 100ml Ivpb) 1 gm in 100 mls @ 100 mls/hr IVPB Q12 [facility] PRN Reason: Protocol Stop: 06/16/17 13:40 Last Admin: 06/12/17 10:06 Dose: 100 mls/hr Heparin Sodium/Dextrose (Heparin 25,000 Units/250ml In D5w) 25,000 units in 250 mls @ 10.631 mls/hr IV .[id number] [facility]; 12 UNITS/KG/HR PRN Reason: Protocol Last Admin: 06/11/17 19:10 Dose: 16 units/kg/hr, 14.175 mls/hr Milrinone Lactate/Dextrose (Primacor 20mg/100ml D5w) 100 mls @ 5.316 mls/hr IV .[id number] PRN; Protocol; 0.2 MCG/KG/MIN PRN Reason: TITRATE PER MD ORDER Last Admin: 06/11/17 13:42 Dose: 0.2 mcg/kg/min, 5.316 mls/hr Vancomycin HCl (Vancomycin 1gm) 1 gm in 250 mls @ 167 mls/hr IVPB Q12H [facility] PRN Reason: Protocol Last Admin: 06/12/17 10:12 Dose: 167 mls/hr Insulin Human Regular (Humulin R High) 0 units SC ACHS [facility] PRN Reason: Protocol Last Admin: 06/12/17 10:04 Dose: 2 units Levalbuterol HCl (Xopenex) 0.63 mg IH [id number] [facility] Last Admin: 06/12/17 07:37 Dose: 0.63 mg Methylprednisolone (Solu-Medrol) 20 mg IVP Q12 [facility] Last Admin: 06/12/17 10:09 Dose: 20 mg Ondansetron HCl (Zofran Inj) 4 mg IVP Q6H PRN PRN Reason: Nausea/Vomiting Pantoprazole Sodium (Protonix Inj) 40 mg IVP DAILY [facility] Last Admin: 06/12/17 10:09 Dose: 40 mg Physical Exam - Constitutional Appears: Chronically Ill - Head Exam Head Exam: NORMOCEPHALIC - Eye Exam Eye Exam: Normal appearance, PERRL - ENT Exam ENT Exam: Mucous Membranes Moist - Respiratory Exam Respiratory Exam: Decreased Breath Sounds, Rales, Rhonchi - Cardiovascular Exam Cardiovascular Exam: Tachycardia, +S1, +S2, Systolic Murmur - GI/Abdominal Exam GI & Abdominal Exam: Hypoactive Bowel Sounds, Soft - Extremities Exam Additional comments: bilateral AKA - Back Exam Back exam: NORMAL INSPECTION - Neurological Exam Neurological exam: Altered - Skin Skin Exam: Pallor Additional comments: no rashes - Additional Findings Additional findings: Palliative performance scale rating 30 % Results - Vital Signs Recent Vital Signs: Last Vital Signs Temp 99 F 06/12/17 04:00 Pulse 119 H 06/12/17 10:10 Resp 27 H 06/12/17 06:00 BP 131/62 06/12/17 06:00 Pulse Ox 97 06/12/17 06:00 - Labs Result Diagrams: 06/12/17 05:35 06/12/17 05:35 Labs: Laboratory Results - last 24 hr 06/11/17 06/11/17 06/11/17 10:55 12:20 12:57 WBC RBC Hgb Hct MCV MCH MCHC RDW Plt Count MPV PT INR APTT pCO2 pO2 HCO3 ABG pH ABG Total CO2 ABG O2 Saturation ABG O2 Content ABG Base Excess ABG Hemoglobin ABG Carboxyhemoglobin POC ABG HHb (Measured) ABG Methemoglobin ABG O2 Capacity ABG Potassium Hgb O2 Saturation Sodium Chloride Glucose Lactate FiO2 Potassium Carbon Dioxide Anion Gap BUN Creatinine Est GFR ( Amer) Est GFR (Non-Af Amer) POC Glucose (mg/dL) 163 H Random Glucose Calcium Total Bilirubin AST ALT Alkaline Phosphatase Total Protein Albumin Globulin Albumin/Globulin Ratio Procalcitonin 0.42 Arterial Blood Potassium Urine Color Yellow Urine Appearance Clear Urine pH 7.0 Ur Specific [place] 1.010 Urine Protein Negative Urine Glucose (UA) Negative Urine Ketones Negative Urine Blood Negative Urine Nitrate Negative Urine Bilirubin Negative Urine Urobilinogen 0.2 Ur Leukocyte Esterase Negative 06/11/17 06/11/17 06/11/17 13:58 16:31 17:04 WBC RBC Hgb Hct MCV MCH MCHC RDW Plt Count MPV PT INR APTT pCO2 46 H pO2 47.0 L HCO3 32.7 H ABG pH 7.46 H ABG Total CO2 34.1 H ABG O2 Saturation 87.2 L ABG O2 Content ABG Base Excess 7.7 H ABG Hemoglobin ABG Carboxyhemoglobin POC ABG HHb (Measured) ABG Methemoglobin ABG O2 Capacity ABG Potassium 3.4 L Hgb O2 Saturation Sodium 135.0 Chloride 99.0 Glucose 173 H Lactate 1.1 FiO2 100.0 Potassium Carbon Dioxide Anion Gap BUN Creatinine Est GFR ( Amer) Est GFR (Non-Af Amer) POC Glucose (mg/dL) 167 H 192 H Random Glucose Calcium Total Bilirubin AST ALT Alkaline Phosphatase Total Protein Albumin Globulin Albumin/Globulin Ratio Procalcitonin Arterial Blood Potassium 3.4 L Urine Color Urine Appearance Urine pH Ur Specific [place] Urine Protein Urine Glucose (UA) Urine Ketones Urine Blood Urine Nitrate Urine Bilirubin Urine Urobilinogen Ur Leukocyte Esterase 06/11/17 06/11/17 06/12/17 17:25 22:00 01:16 WBC RBC Hgb Hct MCV MCH MCHC RDW Plt Count MPV PT INR APTT pCO2 47 H 46 H pO2 50.0 L 56.0 L HCO3 30.5 H 27.8 ABG pH 7.42 7.39 ABG Total CO2 31.9 H 29.2 H ABG O2 Saturation 90.5 L 93.1 L ABG O2 Content 12.3 L 12.1 L ABG Base Excess 5.3 H 2.4 ABG Hemoglobin 9.9 L 9.4 L ABG Carboxyhemoglobin 1.8 H 1.7 H POC ABG HHb (Measured) 9.2 H 6.8 H ABG Methemoglobin 1.1 0.4 ABG O2 Capacity 13.6 L 13.0 L ABG Potassium Hgb O2 Saturation 87.9 L 91.1 L Sodium Chloride Glucose Lactate FiO2 90.0 90.0 Potassium Carbon Dioxide Anion Gap BUN Creatinine Est GFR ( Amer) Est GFR (Non-Af Amer) POC Glucose (mg/dL) 186 H Random Glucose Calcium Total Bilirubin AST ALT Alkaline Phosphatase Total Protein Albumin Globulin Albumin/Globulin Ratio Procalcitonin Arterial Blood Potassium Urine Color Urine Appearance Urine pH Ur Specific [place] Urine Protein Urine Glucose (UA) Urine Ketones Urine Blood Urine Nitrate Urine Bilirubin Urine Urobilinogen Ur Leukocyte Esterase 06/12/17 06/12/17 06/12/17 05:35 05:35 05:35 WBC 9.6 D RBC 3.68 Hgb 10.2 L Hct 31.0 L MCV 84.2 MCH 27.7 MCHC 32.9 RDW 16.0 H Plt Count 328 MPV 9.5 PT 16.1 H INR 1.49 H APTT 72.7 H* pCO2 pO2 HCO3 ABG pH ABG Total CO2 ABG O2 Saturation ABG O2 Content ABG Base Excess ABG Hemoglobin ABG Carboxyhemoglobin POC ABG HHb (Measured) ABG Methemoglobin ABG O2 Capacity ABG Potassium Hgb O2 Saturation Sodium 135 Chloride 94 L Glucose Lactate FiO2 Potassium 3.6 Carbon Dioxide 30 Anion Gap 15 BUN 39 H Creatinine 0.8 Est GFR ( Amer) > 60 Est GFR (Non-Af Amer) > 60 POC Glucose (mg/dL) Random Glucose 272 H Calcium 8.4 Total Bilirubin 1.2 AST 48 ALT 35 Alkaline Phosphatase 67 Total Protein 6.6 Albumin 3.5 Globulin 3.0 Albumin/Globulin Ratio 1.2 Procalcitonin Arterial Blood Potassium Urine Color Urine Appearance Urine pH Ur Specific [place] Urine Protein Urine Glucose (UA) Urine Ketones Urine Blood Urine Nitrate Urine Bilirubin Urine Urobilinogen Ur Leukocyte Esterase 06/12/17 06/12/17 07:55 11:41 WBC RBC Hgb Hct MCV MCH MCHC RDW Plt Count MPV PT INR APTT pCO2 pO2 HCO3 ABG pH ABG Total CO2 ABG O2 Saturation ABG O2 Content ABG Base Excess ABG Hemoglobin ABG Carboxyhemoglobin POC ABG HHb (Measured) ABG Methemoglobin ABG O2 Capacity ABG Potassium Hgb O2 Saturation Sodium Chloride Glucose Lactate FiO2 Potassium Carbon Dioxide Anion Gap BUN Creatinine Est GFR ( Amer) Est GFR (Non-Af Amer) POC Glucose (mg/dL) 264 H 250 H Random Glucose Calcium Total Bilirubin AST ALT Alkaline Phosphatase Total Protein Albumin Globulin Albumin/Globulin Ratio Procalcitonin Arterial Blood Potassium Urine Color Urine Appearance Urine pH Ur Specific [place] Urine Protein Urine Glucose (UA) Urine Ketones Urine Blood Urine Nitrate Urine Bilirubin Urine Urobilinogen Ur Leukocyte Esterase Assessment & Plan - Assessment and Plan (Free Text) Assessment: 62 year old male with history of COPD, DM, CAD, CHF, nhung. AKA,who was admitted with sepsis, RLL pneumonia acute MD, CHF, renal inefficiency and severe PVD, dilated cardiomyopahty, EF 25%.. The patient is extremely lethargic. Unable to answer simple questions. Continuous BIPAP in use The patient arrived for fpc with incomplete POLST( full code status), it was not signed by a physician or DIRECTOR OF MARKETING. Attempts made to reach patients sister Wendy Lopez. Unable to leave message on her phone. [facility] does not have another contact number for her. I was able to reach patients sister in law Teena Covington. She does not have a contact number for Wendy. I explained that patient was critically ill and that it was necessary to reach next of kin. in states she will come in later today. Plan: Palliative support Advance care planning
--- NOTE | 2017-06-12 14:06 | CP.PCM.PN ---
<Layla Wallace - Last Filed: 06/12/17 14:02> Subjective - Date & Time of Evaluation Date of Evaluation: 06/12/17 Time of Evaluation: 07:00 - Subjective Subjective: ICU Progress Note Pt was seen and examined at bedside. Pt requiring continuous BIPAP after episode of desatting last night, repeat CXR demonstrated worsening Lt lower lobe consildation. Objective - Vital Signs/Intake and Output Vital Signs (last 24 hours): Temp Pulse Resp BP Pulse Ox 99 F 107 H 27 H 131/62 97 06/12/17 04:00 06/12/17 13:30 06/12/17 06:00 06/12/17 06:00 06/12/17 06:00 Intake and Output: 06/12/17 06/12/17 06:59 18:59 Intake Total 13.5 Balance 13.5 - Medications Medications: Current Medications Acetaminophen (Tylenol 650 Mg Supp) 650 mg RC Q6 PRN PRN Reason: Fever >100.4 F Acetylcysteine (Acetylcysteine 20%) 4 ml IH [id number] [facility] Last Admin: 06/12/17 13:14 Dose: 4 ml Aspirin (Aspirin Supp) 300 mg RC DAILY [facility] Last Admin: 06/12/17 10:04 Dose: 300 mg Atorvastatin Calcium (Lipitor) 40 mg PO DIN [facility] Last Admin: 06/11/17 18:14 Dose: Not Given Clopidogrel Bisulfate (Plavix) 75 mg PO DAILY [facility] Last Admin: 06/12/17 10:16 Dose: 75 mg Doxycycline Hyclate 100 mg/ (Sodium Chloride) 100 mls @ 100 mls/hr IVPB Q12 [facility] PRN Reason: Protocol Stop: 06/13/17 13:39 Last Admin: 06/12/17 10:13 Dose: 100 mls/hr Meropenem 1g/NS 100mL IVPB (Meropenem 1g/Ns 100ml Ivpb) 1 gm in 100 mls @ 100 mls/hr IVPB Q12 [facility] PRN Reason: Protocol Stop: 06/16/17 13:40 Last Admin: 06/12/17 10:06 Dose: 100 mls/hr Heparin Sodium/Dextrose (Heparin 25,000 Units/250ml In D5w) 25,000 units in 250 mls @ 10.631 mls/hr IV .[id number] [facility]; 12 UNITS/KG/HR PRN Reason: Protocol Last Admin: 06/11/17 19:10 Dose: 16 units/kg/hr, 14.175 mls/hr Milrinone Lactate/Dextrose (Primacor 20mg/100ml D5w) 100 mls @ 5.316 mls/hr IV .[id number] PRN; Protocol; 0.2 MCG/KG/MIN PRN Reason: TITRATE PER MD ORDER Last Admin: 06/11/17 13:42 Dose: 0.2 mcg/kg/min, 5.316 mls/hr Vancomycin HCl (Vancomycin 1gm) 1 gm in 250 mls @ 167 mls/hr IVPB Q12H [facility] PRN Reason: Protocol Last Admin: 06/12/17 10:12 Dose: 167 mls/hr Insulin Human Regular (Humulin R High) 0 units SC ACHS [facility] PRN Reason: Protocol Last Admin: 06/12/17 10:04 Dose: 2 units Levalbuterol HCl (Xopenex) 0.63 mg IH [id number] [facility] Last Admin: 06/12/17 13:15 Dose: 0.63 mg Methylprednisolone (Solu-Medrol) 20 mg IVP Q12 [facility] Last Admin: 06/12/17 10:09 Dose: 20 mg Ondansetron HCl (Zofran Inj) 4 mg IVP Q6H PRN PRN Reason: Nausea/Vomiting Pantoprazole Sodium (Protonix Inj) 40 mg IVP DAILY [facility] Last Admin: 06/12/17 10:09 Dose: 40 mg - Labs Labs: 06/12/17 05:35 06/12/17 05:35 PT 16.1 Seconds (9.9-11.8) H 06/12/17 05:35 INR 1.49 (0.93-1.08) H 06/12/17 05:35 APTT 72.7 Seconds (23.7-30.8) H* 06/12/17 05:35 - Constitutional Appears: Chronically Ill - Head Exam Head Exam: ATRAUMATIC, NORMAL INSPECTION, NORMOCEPHALIC - Eye Exam Eye Exam: EOMI, Normal appearance, PERRL Pupil Exam: NORMAL ACCOMODATION, PERRL - ENT Exam ENT Exam: Mucous Membranes Moist, Normal Exam - Respiratory Exam Respiratory Exam: Rhonchi, NORMAL BREATHING PATTERN - Cardiovascular Exam Cardiovascular Exam: REGULAR RHYTHM, +S1, +S2. absent: Murmur - GI/Abdominal Exam GI & Abdominal Exam: Soft, Normal Bowel Sounds. absent: Tenderness - Extremities Exam Extremities Exam: Full ROM, Normal Capillary Refill, Normal Inspection. absent : Joint Swelling, Pedal Edema - Neurological Exam Neurological Exam: Alert, Awake, CN II-XII Intact, Oriented x3 - Psychiatric Exam Psychiatric exam: Normal Affect, Normal Mood - Skin Skin Exam: Dry, Intact, Normal Color, Warm Assessment and Plan - Assessment and Plan (Free Text) Assessment: 62M with PMHx CHF, CAD, COPD, admitted to ICU for acute hypoxemic respiratory failure 2/2 pneumonia, CHF exacerbation, also found to have elevated troponins and ONEAL. Patient is BIPAP. Pt on milrinone drip, heparin drip. Palliative care consulted due to state of poor prognosis. Neuro: - Lethargic, arousable. Sensation grossly intact. - Moving extremities spontaneously CVS: - BP stable. Episodes of PVCs - discontinue Lasix 40 mg Q12 - Hx of CAD and CHF, has AICD, dilated CM - Pt on dual antiplatelets (ASA, Plavix), Statin, BB, heparin drip. - Continue heparin GTT - Cardio, Dr. Gill, following - Echo read, AICD in place. LVEF 25.3%. Bubble study showed no R to L shunt. No definitive vegetation Cont milrinone drip - Maintain MAP>65. Pulm: - Acute hypoxemic resp failure 2/2 CAP - desat overnight, now requiring continuous BIPAP - Repeat cxr shows worsening LLB consilidation, continue CPT, start mucomyst - Maintain sat>90%. - Cont Merrem & Doxy and Vanco per ID - low dose steriod for CAP - Continue levalbuterol 0.63 Q6 - Chest PT, incentive spirometry. chest PT - Continue with protected lung ventilation strategies with head of bed elevation above 35 degrees, bronchodilators, keep oxygenation above 90%, pulm toileting GI: - NPO, high aspiration risk. Repeat swallow eval. Consider NG tube for enteral feedings - GI ppx Protonix. Renal /fluids/Electrolytes: - ONEAL, but now improved. Cr stable - Urine Output 1000ml. Remains in negative balance. - strict I&O - Maintain euvolemia - Replete electrolytes as needed ID: - afebrile. no leukocytosis - Continue with Doxy, Merrem and Vanco for CAP - Lactate improved - Procalcitonin downtrended - ID following - Continue to monitor Endo: - Start sliding scale insulin HIGH - Accucheck q6 - Maintain glucose between 140-180 Heme: - Stable - Cont to monitor. DVT ppx - hep drip GI ppx - Protonix Patient seen and reviewed with attending <Rony FINNEY,Sylvain H - Last Filed: 06/12/17 15:45> Objective - Vital Signs/Intake and Output Vital Signs (last 24 hours): Temp Pulse Resp BP Pulse Ox 99 F 107 H 27 H 131/62 97 06/12/17 04:00 06/12/17 13:30 06/12/17 06:00 06/12/17 06:00 06/12/17 06:00 Intake and Output: 06/12/17 06/12/17 06:59 18:59 Intake Total 13.5 Balance 13.5 - Medications Medications: Current Medications Acetaminophen (Tylenol 650 Mg Supp) 650 mg RC Q6 PRN PRN Reason: Fever >100.4 F Acetylcysteine (Acetylcysteine 20%) 4 ml IH [id number] [facility] Last Admin: 06/12/17 13:14 Dose: 4 ml Aspirin (Aspirin Supp) 300 mg RC DAILY [facility] Last Admin: 06/12/17 10:04 Dose: 300 mg Atorvastatin Calcium (Lipitor) 40 mg PO DIN [facility] Last Admin: 06/11/17 18:14 Dose: Not Given Clopidogrel Bisulfate (Plavix) 75 mg PO DAILY [facility] Last Admin: 06/12/17 10:16 Dose: 75 mg Doxycycline Hyclate 100 mg/ (Sodium Chloride) 100 mls @ 100 mls/hr IVPB Q12 [facility] PRN Reason: Protocol Stop: 06/13/17 13:39 Last Admin: 06/12/17 10:13 Dose: 100 mls/hr Meropenem 1g/NS 100mL IVPB (Meropenem 1g/Ns 100ml Ivpb) 1 gm in 100 mls @ 100 mls/hr IVPB Q12 [facility] PRN Reason: Protocol Stop: 06/16/17 13:40 Last Admin: 06/12/17 10:06 Dose: 100 mls/hr Heparin Sodium/Dextrose (Heparin 25,000 Units/250ml In D5w) 25,000 units in 250 mls @ 10.631 mls/hr IV .[id number] [facility]; 12 UNITS/KG/HR PRN Reason: Protocol Last Admin: 06/11/17 19:10 Dose: 16 units/kg/hr, 14.175 mls/hr Milrinone Lactate/Dextrose (Primacor 20mg/100ml D5w) 100 mls @ 5.316 mls/hr IV .[id number] PRN; Protocol; 0.2 MCG/KG/MIN PRN Reason: TITRATE PER MD ORDER Last Admin: 06/11/17 13:42 Dose: 0.2 mcg/kg/min, 5.316 mls/hr Vancomycin HCl (Vancomycin 1gm) 1 gm in 250 mls @ 167 mls/hr IVPB Q12H [facility] PRN Reason: Protocol Last Admin: 06/12/17 10:12 Dose: 167 mls/hr Insulin Human Regular (Humulin R High) 0 units SC ACHS [facility] PRN Reason: Protocol Last Admin: 06/12/17 10:04 Dose: 2 units Levalbuterol HCl (Xopenex) 0.63 mg IH [id number] [facility] Last Admin: 06/12/17 13:15 Dose: 0.63 mg Methylprednisolone (Solu-Medrol) 20 mg IVP Q12 [facility] Last Admin: 06/12/17 10:09 Dose: 20 mg Ondansetron HCl (Zofran Inj) 4 mg IVP Q6H PRN PRN Reason: Nausea/Vomiting Pantoprazole Sodium (Protonix Inj) 40 mg IVP DAILY [facility] Last Admin: 06/12/17 10:09 Dose: 40 mg - Labs Labs: 06/12/17 05:35 06/12/17 05:35 PT 16.1 Seconds (9.9-11.8) H 06/12/17 05:35 INR 1.49 (0.93-1.08) H 06/12/17 05:35 APTT 72.7 Seconds (23.7-30.8) H* 06/12/17 05:35 Attending/Attestation - Attestation I have personally seen and examined this patient.: Yes I have fully participated in the care of the patient.: Yes I have reviewed all pertinent clinical information, including history, physical exam and plan: Yes Notes (Text): 06/12/17 15:43 62 y/o M w/ Hypoxemic resp failure Extensive work up was done to evaluate the hypoxia. Bubble study negative for asd/ PFO CT chest done which shows incomplete LLL collapse. w V/Q mismatch. On ABX w/ low grade fevers, no endocarditis shown on TTE and PM was not evaluated. Pt too critical for any aggresive measures. On BIPAP and HFNC to keep o2 sat > 88%. Multiple consultants with input. CHF w/ Reduced EF and NSTEMI on Heparin drip. Palliative care involved. critically ill. cc time 65 min
[2017-06-13] MEDS: Levalbuterol 0.63 MG/3 ML Inhal Soln UD IH SCH ×4 (01:23→20:00)
[2017-06-13] MEDS: Acetylcysteine 20% Inhal Soln (4ml) IH SCH ×4 (01:23→20:00)
[2017-06-13] MEDS: Milrinone 20mg/100ml D5W 100 ML IV PRN ×2 (03:24→22:56)
[2017-06-13 05:05] LABS: ARTERIAL BLOOD GAS HCO3 30.6 mmol/L (21-28); ARTERIAL BLOOD GAS HEMOGLOBIN 10.3 g/dL (11.7-17.4); ARTERIAL BLOOD GAS O2 CAPACITY 14.6 mL/dl (16-24); ARTERIAL BLOOD GAS O2 CONTENT 14.6 ML/dl (15-23); ARTERIAL BLOOD GAS O2 SAT 99.8 % (95-98); ARTERIAL BLOOD GAS PCO2 43 mm/Hg (35-45); ARTERIAL BLOOD GAS PH 7.46 (7.35-7.45); ARTERIAL BLOOD GAS TCO2 31.9 mmol.L (22-28)
[2017-06-13] MEDS: Acetaminophen 650mg/20.3ml solution UD PO PRN ×3 (05:09→23:08)
[2017-06-13 06:38] LABS: MEAN CELL VOLUME 84.7 fL (80.0-105.0); MEAN CORPUSCULAR HEMOGLOBIN 27.8 pg (25.0-35.0); MEAN CORPUSCULAR HGB CONC 32.8 g/dl (31.0-37.0); MEAN PLATELET VOLUME 9.1 fl (7.0-11.0); RBC 3.6 10^6/uL (3.5-6.1); RED CELL DISTRIBUTION WIDTH 15.9 % (11.5-14.5); WHITE BLOOD COUNT 9.7 10^3/ul (4.5-11.0)
[2017-06-13 06:52] LABS: ALBUMIN 3.5 g/dL (3.0-4.8); ALT/SGPT 24 U/L (7-56); AST/SGOT 42 U/L (15-59); BLOOD UREA NITROGEN 31 mg/dL (7-21); CALCIUM 8.2 mg/dL (8.4-10.5); GFR AFRICAN-AMERICAN > 60; GFR NON-AFRICAN AMERICAN > 60
[2017-06-13] MEDS: Heparin 25,000units in D5W/250 ML BAG IV SCH (07:21)
[2017-06-13] MEDS: Heparin 25,000units in D5W 25,000 UNITS/250 ML BAG IV SCH (08:10)
[2017-06-13] MEDS: Insulin Reg-HIGH-Coverage SC SCH ×4 (08:21→22:42)
[2017-06-13] MEDS: Meropenem 1g/NS 100mL IVPB 1 GM/100 ML PIGGYBACK IVPB SCH ×2 (09:53→22:44)
[2017-06-13] MEDS: MethylPREDNISolone 40 mg Vial IVP SCH ×2 (09:54→22:45)
[2017-06-13] MEDS: Vancomycin 1gm in NS 250ml 1 GM/250 ML BAG IVPB SCH ×2 (11:33→22:48)
--- NOTE | 2017-06-13 11:59 | CP.PCM.PN ---
Subjective - Date & Time of Evaluation Date of Evaluation: 06/13/17 Time of Evaluation: 11:10 - Subjective Subjective: Continues to be on high-flow oxygen, responds to verbal and tactile stimuli but falls back to sleep. Still with low grade fevers. Objective - Vital Signs/Intake and Output Vital Signs (last 24 hours): Temp Pulse Resp BP Pulse Ox 100.4 F H 111 H 73 H 153/68 H 100 06/13/17 06:10 06/13/17 06:00 06/13/17 06:00 06/13/17 06:00 06/13/17 06:10 Intake and Output: 06/13/17 06/13/17 06:59 18:59 Intake Total 793 Output Total 1400 Balance -607 - Medications Medications: Current Medications Acetaminophen (Tylenol 650 Mg Supp) 650 mg RC Q6 PRN PRN Reason: Fever >100.4 F Acetaminophen (Tylenol 650mg/20.3ml Solution Ud) 650 mg PO Q6H PRN PRN Reason: Temperature Last Admin: 06/13/17 05:09 Dose: 650 mg Acetylcysteine (Acetylcysteine 20%) 4 ml IH [id number] [facility] Last Admin: 06/13/17 01:23 Dose: 4 ml Aspirin (Aspirin Supp) 300 mg RC DAILY [facility] Last Admin: 06/12/17 10:04 Dose: 300 mg Atorvastatin Calcium (Lipitor) 40 mg PO DIN [facility] Last Admin: 06/12/17 18:13 Dose: 40 mg Clopidogrel Bisulfate (Plavix) 75 mg PO DAILY [facility] Last Admin: 06/12/17 10:16 Dose: 75 mg Doxycycline Hyclate 100 mg/ (Sodium Chloride) 100 mls @ 100 mls/hr IVPB Q12 [facility] PRN Reason: Protocol Stop: 06/13/17 13:39 Last Admin: 06/12/17 21:52 Dose: 100 mls/hr Meropenem 1g/NS 100mL IVPB (Meropenem 1g/Ns 100ml Ivpb) 1 gm in 100 mls @ 100 mls/hr IVPB Q12 [facility] PRN Reason: Protocol Stop: 06/16/17 13:40 Last Admin: 06/12/17 21:36 Dose: 100 mls/hr Milrinone Lactate/Dextrose (Primacor 20mg/100ml D5w) 100 mls @ 5.316 mls/hr IV .[id number] PRN; Protocol; 0.2 MCG/KG/MIN PRN Reason: TITRATE PER MD ORDER Last Admin: 06/13/17 03:24 Dose: 0.2 mcg/kg/min, 5.316 mls/hr Vancomycin HCl (Vancomycin 1gm) 1 gm in 250 mls @ 167 mls/hr IVPB Q12H [facility] PRN Reason: Protocol Last Admin: 06/12/17 22:39 Dose: 167 mls/hr Heparin Sodium/Dextrose (Heparin 25,000 Units/250ml In D5w) 25,000 units in 250 mls @ 10.44 mls/hr IV .[id number] [facility]; 12 UNITS/KG/HR PRN Reason: Protocol Insulin Human Regular (Humulin R High) 0 units SC ACHS [facility] PRN Reason: Protocol Last Admin: 06/12/17 21:36 Dose: Not Given Levalbuterol HCl (Xopenex) 0.63 mg IH [id number] [facility] Last Admin: 06/13/17 01:23 Dose: 0.63 mg Methylprednisolone (Solu-Medrol) 20 mg IVP Q12 [facility] Last Admin: 06/12/17 21:35 Dose: 20 mg Ondansetron HCl (Zofran Inj) 4 mg IVP Q6H PRN PRN Reason: Nausea/Vomiting Pantoprazole Sodium (Protonix Inj) 40 mg IVP DAILY [facility] Last Admin: 06/12/17 10:09 Dose: 40 mg - Labs Labs: 06/13/17 06:00 06/13/17 06:00 PT 16.1 Seconds (9.9-11.8) H 06/12/17 05:35 INR 1.49 (0.93-1.08) H 06/12/17 05:35 APTT 72.7 Seconds (23.7-30.8) H* 06/12/17 05:35 - Constitutional Appears: Other (lethargic, on high flow oxygen) - Head Exam Head Exam: NORMAL INSPECTION - Neck Exam Neck Exam: absent: Meningismus - Respiratory Exam Respiratory Exam: Decreased Breath Sounds (at the bases) - Cardiovascular Exam Cardiovascular Exam: +S1, +S2 - GI/Abdominal Exam GI & Abdominal Exam: Soft. absent: Tenderness - Extremities Exam Additional comments: bilateral AKA stumps clean Assessment and Plan - Assessment and Plan (Free Text) Plan: Assessment sepsis S/P ventilator-dependent respiratory failure S/P altered mental status with multilobar healthcare-associated pneumonia and methicillin-resistant coagulase negative staph bacteremia; still with persistent low grade fevers R/O new onset sepsis S/P pacemaker placement history of healthcare-associated pneumonia with Grp. B Strep coronary artery disease with chronic CHF HTN history of depression S/P B/L Above the knee amputation Plan repeated blood and sputum cx; will continue Vancomycin, Merrem and Doxycycline and will add Diflucan; will get beta glucan test as well Patient continues to be in critical condition and his prognosis is worsening Discussed with ICU team
[2017-06-13] MEDS ORDERED: Fluconazole IV 200mg/100 ml NS 100 ML IVPB SCH (12:00)
--- NOTE | 2017-06-13 12:20 | CP.PCM.PN ---
<ELIZABETH OSBORNERYANJORDYN - Last Filed: 06/13/17 11:57> Subjective - Date & Time of Evaluation Date of Evaluation: 06/13/17 Time of Evaluation: 07:30 - Subjective Subjective: Gisselle Osborne DO PGY1 - ICU Progress Note Patient seen and examined at bedside. Patient required BIPAP throughout the day yesterday, as well as overnight. Nurse reports fevers to 100.7 overnight. Patient remains lethargic. Is more difficult to arouse than yesterday. Objective - Vital Signs/Intake and Output Vital Signs (last 24 hours): Temp Pulse Resp BP Pulse Ox 99.9 F H 83 20 118/52 L 98 06/13/17 11:19 06/13/17 11:19 06/13/17 11:18 06/13/17 11:00 06/13/17 11:19 Intake and Output: 06/13/17 06/13/17 06:59 18:59 Intake Total 793 Output Total 1400 Balance -607 - Medications Medications: Current Medications Acetaminophen (Tylenol 650 Mg Supp) 650 mg RC Q6 PRN PRN Reason: Fever >100.4 F Acetaminophen (Tylenol 650mg/20.3ml Solution Ud) 650 mg PO Q6H PRN PRN Reason: Temperature Last Admin: 06/13/17 05:09 Dose: 650 mg Acetylcysteine (Acetylcysteine 20%) 4 ml IH [id number] [facility] Last Admin: 06/13/17 07:23 Dose: 4 ml Aspirin (Aspirin Supp) 300 mg RC DAILY [facility] Last Admin: 06/13/17 09:53 Dose: 300 mg Atorvastatin Calcium (Lipitor) 40 mg PO DIN [facility] Last Admin: 06/12/17 18:13 Dose: 40 mg Clopidogrel Bisulfate (Plavix) 75 mg PO DAILY [facility] Last Admin: 06/13/17 09:53 Dose: 75 mg Doxycycline Hyclate 100 mg/ (Sodium Chloride) 100 mls @ 100 mls/hr IVPB Q12 [facility] PRN Reason: Protocol Stop: 06/13/17 13:39 Last Admin: 06/13/17 10:26 Dose: 100 mls/hr Meropenem 1g/NS 100mL IVPB (Meropenem 1g/Ns 100ml Ivpb) 1 gm in 100 mls @ 100 mls/hr IVPB Q12 [facility] PRN Reason: Protocol Stop: 06/16/17 13:40 Last Admin: 06/13/17 09:53 Dose: 100 mls/hr Milrinone Lactate/Dextrose (Primacor 20mg/100ml D5w) 100 mls @ 5.316 mls/hr IV .[id number] PRN; Protocol; 0.2 MCG/KG/MIN PRN Reason: TITRATE PER MD ORDER Last Admin: 06/13/17 03:24 Dose: 0.2 mcg/kg/min, 5.316 mls/hr Vancomycin HCl (Vancomycin 1gm) 1 gm in 250 mls @ 167 mls/hr IVPB Q12H [facility] PRN Reason: Protocol Last Admin: 06/13/17 11:33 Dose: 167 mls/hr Heparin Sodium/Dextrose (Heparin 25,000 Units/250ml In D5w) 25,000 units in 250 mls @ 10.44 mls/hr IV .[id number] [facility]; 12 UNITS/KG/HR PRN Reason: Protocol Last Admin: 06/13/17 08:10 Dose: 12 units/kg/hr, 10.44 mls/hr Insulin Human Regular (Humulin R High) 0 units SC ACHS [facility] PRN Reason: Protocol Last Admin: 06/13/17 11:32 Dose: 7 units Levalbuterol HCl (Xopenex) 0.63 mg IH [id number] [facility] Last Admin: 06/13/17 07:23 Dose: 0.63 mg Methylprednisolone (Solu-Medrol) 20 mg IVP Q12 [facility] Last Admin: 06/13/17 09:54 Dose: 20 mg Ondansetron HCl (Zofran Inj) 4 mg IVP Q6H PRN PRN Reason: Nausea/Vomiting Pantoprazole Sodium (Protonix Inj) 40 mg IVP DAILY [facility] Last Admin: 06/13/17 09:54 Dose: 40 mg - Labs Labs: 06/13/17 06:00 06/13/17 06:00 PT 16.1 Seconds (9.9-11.8) H 06/12/17 05:35 INR 1.49 (0.93-1.08) H 06/12/17 05:35 APTT 72.7 Seconds (23.7-30.8) H* 06/12/17 05:35 - Constitutional Appears: Confused - Eye Exam Eye Exam: EOMI, Normal appearance - ENT Exam ENT Exam: Mucous Membranes Moist Additional comments: On HFNC, dobhoff tube in place - Respiratory Exam Respiratory Exam: Decreased Breath Sounds, Rales, Rhonchi - Cardiovascular Exam Cardiovascular Exam: Irregular Rhythm, +S1, +S2 - GI/Abdominal Exam GI & Abdominal Exam: Soft. absent: Tenderness - Extremities Exam Additional comments: b/l AKA - Neurological Exam Additional comments: Lethargic, responsive only to pain, GCS 10 - Skin Skin Exam: Dry Additional comments: 2cm Stage II pressure injury on sacrum Assessment and Plan - Assessment and Plan (Free Text) Assessment: 62M with PMHx CHF, CAD, COPD, admitted to ICU for acute hypoxemic respiratory failure 2/2 pneumonia, CHF exacerbation, also found to have elevated troponins and ONEAL. Patient is on BIPAP alternating with HFNC. Pt on milrinone drip, heparin drip. Palliative care consulted due to state of poor prognosis, but having difficulty contacting next of kin. Neuro: - Lethargic. Sensation grossly intact. - Moving extremities with painful stimulus - Consider head CT if no improvement in neurological status over the course of the day CVS: - BP stable. Episodes of PVCs - Hx of CAD and CHF, has AICD, dilated CM - Pt on dual antiplatelets (ASA, Plavix), Statin, BB, heparin drip. - NSTEMI on admission, continue heparin GTT - Echo read, AICD in place. LVEF 25.3%. Bubble study showed no R to L shunt. No definitive vegetation - Cont milrinone drip - Maintain MAP>65. - Cardio, Dr. Gill, following Pulm: - Acute hypoxemic resp failure 2/2 CAP. CXR today shows improved aeration and decreased consolidation of LLL, decreased FiO2 requirement to maintain oxygenation, from 90% to now 60% - Required continuous BIPAP yesterday, now saturating well on 60% FiO2 by HFNC - Continue CPT, deep suctioning with nebulizer treatments, mucomyst - Maintain sat>90%. - Cont Merrem. Doxy and Vanco per ID, consider starting fluconazole for emperic treatment of fungal infection - low dose steriod for CAP - Continue levalbuterol 0.63 Q6 - Continue with protected lung ventilation strategies with head of bed elevation above 35 degrees, bronchodilators, keep oxygenation above 90%, pulm toileting - Pulmonology (Dr. Pittman) consulted, all recs appreciated GI: - NPO, high aspiration risk. Consider NG tube for enteral feedings if no improvement in mental status - GI ppx Protonix. Renal /fluids/Electrolytes: - ONEAL, but now improved. Cr stable - Urine Output 1400ml. Remains in negative balance. - strict I&O - Maintain euvolemia - Replete electrolytes as needed ID: - Low grade fever overnight, continues now. no leukocytosis - Continue with Doxy, Merrem and Vanco for CAP - ID following - Continue to monitor Endo: - Continue sliding scale insulin HIGH - Accucheck q6 - Maintain glucose between 140-180 Heme: - Stable - Cont to monitor. DVT ppx - hep drip GI ppx - Protonix Patient seen and reviewed with attending <Rony FINNEY,Sylvain H - Last Filed: 06/13/17 17:12> Objective - Vital Signs/Intake and Output Vital Signs (last 24 hours): Temp Pulse Resp BP Pulse Ox 100.4 F H 106 H 20 143/86 96 06/13/17 16:34 06/13/17 16:34 06/13/17 16:41 06/13/17 15:00 06/13/17 16:34 Intake and Output: 06/13/17 06/13/17 06:59 18:59 Intake Total 793 Output Total 1400 Balance -607 - Medications Medications: Current Medications Acetaminophen (Tylenol 650 Mg Supp) 650 mg RC Q6 PRN PRN Reason: Fever >100.4 F Acetaminophen (Tylenol 650mg/20.3ml Solution Ud) 650 mg PO Q6H PRN PRN Reason: Temperature Last Admin: 06/13/17 15:38 Dose: 650 mg Acetylcysteine (Acetylcysteine 20%) 4 ml IH [id number] [facility] Last Admin: 06/13/17 13:16 Dose: 4 ml Aspirin (Aspirin Supp) 300 mg RC DAILY [facility] Last Admin: 06/13/17 09:53 Dose: 300 mg Atorvastatin Calcium (Lipitor) 40 mg PO DIN [facility] Last Admin: 06/13/17 16:05 Dose: 40 mg Clopidogrel Bisulfate (Plavix) 75 mg PO DAILY [facility] Last Admin: 06/13/17 09:53 Dose: 75 mg Meropenem 1g/NS 100mL IVPB (Meropenem 1g/Ns 100ml Ivpb) 1 gm in 100 mls @ 100 mls/hr IVPB Q12 [facility] PRN Reason: Protocol Stop: 06/16/17 13:40 Last Admin: 06/13/17 09:53 Dose: 100 mls/hr Milrinone Lactate/Dextrose (Primacor 20mg/100ml D5w) 100 mls @ 5.316 mls/hr IV .[id number] PRN; Protocol; 0.2 MCG/KG/MIN PRN Reason: TITRATE PER MD ORDER Last Admin: 06/13/17 03:24 Dose: 0.2 mcg/kg/min, 5.316 mls/hr Vancomycin HCl (Vancomycin 1gm) 1 gm in 250 mls @ 167 mls/hr IVPB Q12H [facility] PRN Reason: Protocol Last Admin: 06/13/17 11:33 Dose: 167 mls/hr Heparin Sodium/Dextrose (Heparin 25,000 Units/250ml In D5w) 25,000 units in 250 mls @ 10.44 mls/hr IV .[id number] [facility]; 12 UNITS/KG/HR PRN Reason: Protocol Last Admin: 06/13/17 08:10 Dose: 12 units/kg/hr, 10.44 mls/hr Fluconazole (Diflucan Iv 200 Mg/100 Ml Ns) 100 mls @ 100 mls/hr IVPB DAILY [facility] PRN Reason: Protocol Last Admin: 06/13/17 13:09 Dose: 100 mls/hr Insulin Human Regular (Humulin R High) 0 units SC ACHS [facility] PRN Reason: Protocol Last Admin: 06/13/17 16:04 Dose: 7 units Levalbuterol HCl (Xopenex) 0.63 mg IH [id number] [facility] Last Admin: 06/13/17 13:16 Dose: 0.63 mg Methylprednisolone (Solu-Medrol) 20 mg IVP Q12 [facility] Last Admin: 06/13/17 09:54 Dose: 20 mg Ondansetron HCl (Zofran Inj) 4 mg IVP Q6H PRN PRN Reason: Nausea/Vomiting Pantoprazole Sodium (Protonix Inj) 40 mg IVP DAILY [facility] Last Admin: 06/13/17 09:54 Dose: 40 mg - Labs Labs: 06/13/17 06:00 06/13/17 06:00 PT 16.1 Seconds (9.9-11.8) H 06/12/17 05:35 INR 1.49 (0.93-1.08) H 06/12/17 05:35 APTT 72.7 Seconds (23.7-30.8) H* 06/12/17 05:35 Attending/Attestation - Attestation I have personally seen and examined this patient.: Yes I have fully participated in the care of the patient.: Yes I have reviewed all pertinent clinical information, including history, physical exam and plan: Yes Notes (Text): 06/13/17 17:09 62 y/o M w/ Hypoxemic respiratory failure On HFNC 60%, improvement on the LLL collapse Continue to be lethargic with poor inspiratory capacity. Low grade fevers continued despite on 3 ABX, likely will start anti fungals. ID following NSTEMI w/ Reduced EF% on Milrinone per cardiology. COuld start Oral feeds if hypoxia improved in the a.m Palliative care team following along. cc time 65 min
--- NOTE | 2017-06-13 13:01 | RAD ---
HISTORY: f/u COMPARISON: 06/12/2017 FINDINGS: LUNGS: Minimal patchy infiltrate at the right lung base. PLEURA: No significant pleural effusion identified, no pneumothorax apparent. CARDIOVASCULAR: Normal. OSSEOUS STRUCTURES: No significant abnormalities. VISUALIZED UPPER ABDOMEN: Nasogastric tube in satisfactory position OTHER FINDINGS: None. IMPRESSION: Improved left lower lobe infiltrate and effusion. Minimal infiltrate at the right lung base. Nasogastric tube in satisfactory position
--- NOTE | 2017-06-13 13:59 | PN ---
DATE: SUBJECTIVE: I saw Curtis in the intensive care unit. He is more alert, more responsive, spoke a few words, feeling better slowly. He is on acetylcysteine, aspirin, Diflucan IV, doxycycline, heparin, insulin, Lipitor, Merrem IV, Plavix, Primacor IV, Protonix, Solu-Medrol IV, Tylenol, vancomycin IV, Xopenex and Zofran. PHYSICAL EXAMINATION: VITAL SIGNS: Are 100 temperature, 93-80 pulse, 100% O2 saturation on high-flow oxygen, 118/66 blood pressure. HEENT: Head is atraumatic and normocephalic. HEART: Regular rate. LUNGS: Decreased breath sounds, but clear. No wheezes or rhonchi. ABDOMEN: Soft, obese. EXTREMITIES: Bilateral AKA. No swelling. LABORATORY DATA: He has a 9.7 white count, 10 hemoglobin, 30.5 hematocrit and 331 platelets. PTT 72.7. He has a 135 sodium with a 4.1 potassium, BUN 31, creatinine 0.6, GFR is greater than 60, sugar is 268 calcium is 8.2. Total bilirubin is 1.2, AST is 42, ALT is 24, alkaline phosphatase 60, total protein 7. ASSESSMENT AND PLAN: He is GI. He has got lots of issues. He is being seen by Infectious Disease, research associate quality control qc, position description manager, cement paver. He is slowly improving actively. He has multiple issues from respiratory failure, status post intubation, sepsis, pneumonia and ST elevation myocardial infarction, diabetes, renal insufficiency, anemia. I will be treating him with aggressive treatment and care and IV antibiotics. Adria Quevedo DO MTDD
--- NOTE | 2017-06-13 17:33 | PN ---
DATE: 06/13/2017(630am--720am) SUBJECTIVE: The patient appears lethargic this morning. He is not sedated (discussed with nurse). He is mildly short of breath, but in no acute distress. PHYSICAL EXAMINATION VITAL SIGNS: Temperature is 100.4, pulse 111, respirations 24, blood pressure 153/68, oxygen saturation on BiPAP is 100%. HEENT: Normocephalic, atraumatic. NECK: No JVD. CARDIOVASCULAR: Systolic ejection murmur at the lower left sternal border. Questionable S3 gallop. LUNGS: Improved breath sounds - left base. Minimal bilateral rhonchi. No wheezing. EXTREMITIES: The patient is status post bilateral above the knee amputations. GASTROINTESTINAL: Abdomen is soft and nontender, nondistended. Bowel sounds are positive. SKIN: No acute rash. NEUROLOGIC: Limited at the present time. PERTINENT LABORATORY DATA: Chest x-ray was done this morning and reviewed. The chest x-ray is much improved-- with resolution of the left basilar atelectasis. Arterial blood gas was also done on high-flow delivery. Results are: P 7.46, PCO2 of 43, PO2 of 188. IMPRESSION: 1. Respiratory failure. 2. Multilobar pneumonia. 3. Sepsis syndrome. 4. Acute myocardial infarction. 5. Possible congestive heart failure. 6. Renal insufficiency. 7. Left basilar atelectasis - improved. PLAN: The patient remains on BiPAP. He is mildly short of breath, but in no acute distress. He is very lethargic this morning. I did discuss the case with the night nurse at length. The night nurse confirms that the patient is not sedated. I did review the chest x-ray as above. The chest x-ray is much improved - with resolution of the left basilar atelectasis (seen on yesterday's film). I have also reviewed the arterial blood gas. The arterial blood gas is also improved with a significant decrease in the alveolar - arterial gradient. On physical exam, there is less bronchospasm noted. I will continue the current nebulizer treatments and low dose intravenous steroids for now. I would continue the antibiotic coverage as per infectious disease. I would continue with the treatment for congestive heart failure and acute myocardial infarction as per Dr. Gill. His input is noted. Input by Sarah Lemus (palliative care) is also noted. Pulmonary status of the patient is improved - compared to the past few days. However, overall, the patient remains critically ill with very guarded prognosis. I will also discuss the above with the entire ICU team in the next few moments. I will also discuss the above with Dr. Quevedo later this morning. Tom Pittman MD MTDD
[2017-06-14] MEDS: Acetylcysteine 20% Inhal Soln (4ml) IH SCH ×4 (02:28→20:15)
[2017-06-14] MEDS: Levalbuterol 0.63 MG/3 ML Inhal Soln UD IH SCH ×4 (02:33→20:15)
[2017-06-14 06:22] LABS: BASO # 0.01 K/mm3 (0.0-2.0); BASO % 0.1 % (0.0-3.0); EOS % 0.1 % (1.5-5.0); GRAN % 93.5 % (50.0-68.0); HEMOGLOBIN 10.3 gm/dL (14.0-18.0); LYMPH # 0.4 (1.2-3.4); LYMPH % 2.7 % (22.0-35.0); MEAN CELL VOLUME 85.7 fL (80.0-105.0); MEAN CORPUSCULAR HEMOGLOBIN 28.3 pg (25.0-35.0); MEAN PLATELET VOLUME 9.4 fl (7.0-11.0); MONO # 0.5 (0.1-0.6); MONO % 3.6 % (1.0-6.0); PLATELET COUNT 281 10^3/uL (120.0-450.0); RBC 3.64 10^6/uL (3.5-6.1); RED CELL DISTRIBUTION WIDTH 16.2 % (11.5-14.5); WHITE BLOOD COUNT 13.5 10^3/ul (4.5-11.0)
[2017-06-14 06:34] LABS: ALBUMIN 3.4 g/dL (3.0-4.8); ALT/SGPT 26 U/L (7-56); AST/SGOT 25 U/L (15-59); BLOOD UREA NITROGEN 29 mg/dL (7-21); CALCIUM 8.2 mg/dL (8.4-10.5); GFR AFRICAN-AMERICAN > 60; GFR NON-AFRICAN AMERICAN > 60
[2017-06-14 06:44] LABS: ARTERIAL BLOOD GAS HEMOGLOBIN 8.3 g/dL (11.7-17.4); ARTERIAL BLOOD GAS O2 CAPACITY 11.4 mL/dl (16-24); ARTERIAL BLOOD GAS O2 CONTENT 10.2 ML/dl (15-23); ARTERIAL BLOOD GAS O2 SAT 89.8 % (95-98); ARTERIAL BLOOD GAS PCO2 38 mm/Hg (35-45); ARTERIAL BLOOD GAS PH 7.46 (7.35-7.45); ARTERIAL BLOOD GAS TCO2 28.2 mmol.L (22-28)
[2017-06-14] MEDS: Insulin Reg-HIGH-Coverage SC SCH ×4 (08:00→22:01)
[2017-06-14] MEDS: Heparin 25,000units in D5W 25,000 UNITS/250 ML BAG IV SCH (08:53)
[2017-06-14] MEDS: Micafungin 100 MG in Sodium Chloride 0.9% 100 ML IV SCH (09:24)
[2017-06-14] MEDS: MethylPREDNISolone 40 mg Vial IVP SCH ×2 (09:25→21:36)
--- NOTE | 2017-06-14 09:59 | CP.PCM.PN ---
Subjective - Date & Time of Evaluation Date of Evaluation: 06/14/17 Time of Evaluation: 09:30 - Subjective Subjective: Patient is now on high flow oxygen (whereas he was on BiPAP yesterday). Still having persistent low grade fevers. Objective - Vital Signs/Intake and Output Vital Signs (last 24 hours): Temp Pulse Resp BP Pulse Ox 98.3 F 79 23 138/89 94 L 06/14/17 05:00 06/14/17 05:50 06/14/17 05:00 06/14/17 05:00 06/14/17 05:00 Intake and Output: 06/13/17 06/14/17 18:59 06:59 Intake Total 408 100 Output Total 600 Balance -192 100 - Medications Medications: Current Medications Acetaminophen (Tylenol 650 Mg Supp) 650 mg RC Q6 PRN PRN Reason: Fever >100.4 F Acetaminophen (Tylenol 650mg/20.3ml Solution Ud) 650 mg PO Q6H PRN PRN Reason: Temperature Last Admin: 06/13/17 23:08 Dose: 650 mg Acetylcysteine (Acetylcysteine 20%) 4 ml IH [id number] [facility] Last Admin: 06/14/17 02:28 Dose: 4 ml Aspirin (Aspirin Supp) 300 mg RC DAILY [facility] Last Admin: 06/13/17 09:53 Dose: 300 mg Atorvastatin Calcium (Lipitor) 40 mg PO DIN [facility] Last Admin: 06/13/17 16:05 Dose: 40 mg Clopidogrel Bisulfate (Plavix) 75 mg PO DAILY [facility] Last Admin: 06/13/17 09:53 Dose: 75 mg Milrinone Lactate/Dextrose (Primacor 20mg/100ml D5w) 100 mls @ 5.316 mls/hr IV .[id number] PRN; Protocol; 0.2 MCG/KG/MIN PRN Reason: TITRATE PER MD ORDER Last Admin: 06/13/17 22:56 Dose: 0.2 mcg/kg/min, 5.316 mls/hr Vancomycin HCl (Vancomycin 1gm) 1 gm in 250 mls @ 167 mls/hr IVPB Q12H [facility] PRN Reason: Protocol Last Admin: 06/13/17 22:48 Dose: 167 mls/hr Heparin Sodium/Dextrose (Heparin 25,000 Units/250ml In D5w) 25,000 units in 250 mls @ 10.44 mls/hr IV .[id number] [facility]; 12 UNITS/KG/HR PRN Reason: Protocol Last Admin: 06/13/17 08:10 Dose: 12 units/kg/hr, 10.44 mls/hr Meropenem 1g/NS 100mL IVPB (Meropenem 1g/Ns 100ml Ivpb) 1 gm in 100 mls @ 100 mls/hr IVPB Q8 [facility] PRN Reason: Protocol Stop: 06/26/17 14:01 Micafungin Sodium 100 mg/ (Sodium Chloride) 100 mls @ 100 mls/hr IV DAILY [facility] PRN Reason: Protocol Stop: 06/21/17 10:01 Insulin Human Regular (Humulin R High) 0 units SC ACHS [facility] PRN Reason: Protocol Last Admin: 06/13/17 22:42 Dose: Not Given Levalbuterol HCl (Xopenex) 0.63 mg IH [id number] [facility] Last Admin: 06/14/17 02:33 Dose: 0.63 mg Methylprednisolone (Solu-Medrol) 20 mg IVP Q12 [facility] Last Admin: 06/13/17 22:45 Dose: 20 mg Ondansetron HCl (Zofran Inj) 4 mg IVP Q6H PRN PRN Reason: Nausea/Vomiting Pantoprazole Sodium (Protonix Inj) 40 mg IVP DAILY [facility] Last Admin: 06/13/17 09:54 Dose: 40 mg - Labs Labs: 06/14/17 06:00 06/14/17 06:00 PT 16.1 Seconds (9.9-11.8) H 06/12/17 05:35 INR 1.49 (0.93-1.08) H 06/12/17 05:35 APTT 72.7 Seconds (23.7-30.8) H* 06/12/17 05:35 - Constitutional Appears: Other (on high flow oxygen) - Head Exam Head Exam: NORMAL INSPECTION - Neck Exam Neck Exam: absent: Meningismus - Respiratory Exam Respiratory Exam: Decreased Breath Sounds - Cardiovascular Exam Cardiovascular Exam: +S1, +S2 - GI/Abdominal Exam GI & Abdominal Exam: Soft. absent: Tenderness - Extremities Exam Additional comments: bilateral AKA stumps clean Assessment and Plan - Assessment and Plan (Free Text) Plan: Assessment sepsis S/P ventilator-dependent respiratory failure S/P altered mental status with multilobar healthcare-associated pneumonia and methicillin-resistant coagulase negative staph bacteremia; still with persistent low grade fevers R/O new onset sepsis S/P pacemaker placement history of healthcare-associated pneumonia with Grp. B Strep coronary artery disease with chronic CHF HTN history of depression S/P B/L Above the knee amputation Plan repeated blood and sputum cx yesterday and will await results; will continue Vancomycin, Merrem and Doxycycline (day 10) and will change Diflucan to Mycamine ; will get beta glucan test as well Patient continues to be in critical condition and his prognosis is worsening Discussed with ICU team
--- NOTE | 2017-06-14 10:04 | PN ---
PULMONARY PROGRESS NOTE DATE: 06/14/2017(620am--710am) SUBJECTIVE: The patient is mildly short of breath at the present time. He is in no acute distress. He is more awake and alert this morning. PHYSICAL EXAMINATION VITAL SIGNS: Temperature is 98.3, pulse is 79, respirations are 20/22, and blood pressure is 138/89. Oxygen saturation on BiPAP is 94%. HEENT: Normocephalic and atraumatic. NECK: No JVD. CARDIOVASCULAR: Systolic ejection murmur to lower left sternal border. Questionable S3 gallop. LUNGS: Decreased breath sounds at the bases with crackles. Minimal rhonchi. No wheezing. EXTREMITIES: The patient is status post bilateral above the knee amputations. GASTROINTESTINAL: Abdomen is soft, nontender, and nondistended. Bowel sounds are positive. SKIN: No acute rash. NEUROLOGIC: Limited at the present time. PERTINENT LABORATORY DATA: Chest x-ray was done this morning and reviewed. There is now a worsening infiltrated noted in the left lung. The left base appears clear. The findings today are more consistent with pneumonia than atelectasis. Arterial blood gas was also done on BiPAP. Results are: PH of 7.46, PaCO2 of 38, and PaO2 of 49. IMPRESSION: 1. Respiratory failure. 2. Multilobar pneumonia. 3. Sepsis syndrome. 4. Acute myocardial infarction. 5. Possible congestive heart failure. 6. Renal insufficiency. 7. Basilar atelectasis. PLAN: The patient remains on BiPAP. He is mildly short of breath, but in no acute distress. He is more awake and alert this morning. I did review the chest x-ray as above. There appears to be a worsening infiltrate noted in the left lung. Again, as described above, the infiltrate appears to be more like pneumonia than atelectasis. I have also reviewed the arterial blood gas. The arterial blood gas is certainly worse, with an increase in the alveolar arterial gradient. I would continue with the antibiotic coverage as per Infectious Disease, and will discuss the chest x-ray findings with them later this morning. I will continue with the current nebulizer treatments and aggressive pulmonary toilet. The patient is also on low-dose Solu-Medrol. I would continue with the treatment for congestive heart failure and acute myocardial infarction as per cardiology. The patient remains on a milrinone drip. The patient remains critically ill with a very guarded overall prognosis. I will discuss the above with the entire ICU team in the next few moments. I will also discuss the above with Dr. Quevedo later this morning. Tom Pittman MD MTDVinh
[2017-06-14] MEDS: Vancomycin 1gm in NS 250ml 1 GM/250 ML BAG IVPB SCH ×2 (11:09→21:37)
--- NOTE | 2017-06-14 13:10 | PN ---
DATE: 06/14/2017 SUBJECTIVE: I saw Curtis in the intensive care unit. He is still on the high-flow nasal cannula. He is alert, but he is very weak. Just talking about possibly intubating him again, I discussed this with Curtis. He still wants to be intubated and he wants to be FULL CODE at this time. He is on acetylcysteine, aspirin, heparin, insulin, Lipitor, Merrem IV, Micafungin IV, Plavix, Primacor IV, Protonix IV, Solu-Medrol IV, Tylenol, vancomycin IV, and Xopenex with Zofran. PHYSICAL EXAMINATION: GENERAL: He is alert. He is nonverbal. VITAL SIGNS: He has vital signs of 98.3 temperature was as high as 101 the other night, I think having infection. He has 81 pulse, 132/80 blood pressure, 25 respiratory rate and 90% O2 saturation on BiPAP. HEENT: His head is atraumatic and normocephalic. HEART: Regular rate. LUNGS: Clear to auscultation with decreased breath sounds. ABDOMEN: Soft and obese. EXTREMITIES: Bilateral AKA. No edema. MEDICATIONS: He is currently on acetylcysteine, aspirin, heparin, insulin, Lipitor, Merrem, Micafungin, Plavix, Primacor, Protonix, Solu-Medrol, Tylenol, vancomycin, Xopenex and Zofran. LABORATORY DATA: He has a 13.5 white count, it is bumping up, not good, 10.3 hemoglobin and 31.2 hematocrit with platelets. PTT is 93.5 high, I have to address that. Sodium is 135, potassium is 4.2, BUN is 29, and creatinine is 0.5. GFR is greater than 60. Sugar is 244 and calcium is 8.2. Total bilirubin is 1.1, AST is 25, ALT is 26, alkaline phosphatase is 56, and total protein is 6.7. Urine is clear. ASSESSMENT AND PLAN: He is being seen by multiple physicians, Infectious Disease, Pulmonary, entrepreneurship program director, and Cardiology. He is having multiple problems, he is having pneumonia, bacteremia with temperatures, coronary artery disease and hypertension. Continue with aggressive treatment and care at this time. Adria Quevedo DO [facility] # [id number] JOSE
--- NOTE | 2017-06-14 13:10 | RAD ---
HISTORY: f/u COMPARISON: 06/13/2017 FINDINGS: LUNGS: There is a new extensive left lung infiltrate PLEURA: No significant pleural effusion identified, no pneumothorax apparent. CARDIOVASCULAR: Normal. OSSEOUS STRUCTURES: No significant abnormalities. VISUALIZED UPPER ABDOMEN: Normal. OTHER FINDINGS: Single lead pacemaker IMPRESSION: New left-sided pneumonia
[2017-06-14] MEDS: Meropenem 1g/NS 100mL IVPB 1 GM/100 ML PIGGYBACK IVPB SCH ×2 (13:35→21:35)
[2017-06-14] MEDS: Milrinone 20mg/100ml D5W 100 ML IV PRN (13:49)
[2017-06-14 19:40] LABS: URINE BILIRUBIN NEGATIVE (NEGATIVE); URINE BLOOD NEGATIVE (NEGATIVE); URINE GLUCOSE (UA) NEGATIVE (NEGATIVE); URINE LEUKOCYTE ESTERASE NEGATIVE Leu/uL (NEGATIVE); URINE NITRATE NEGATIVE (NEGATIVE); URINE PROTEIN TRACE mg/dL (<30 mg/dL)
[2017-06-14 20:04] LABS: URINE APPEARANCE CLEAR (CLEAR); URINE COLOR YELLOW (YELLOW)
[2017-06-14 20:17] LABS: URINE BACTERIA FEW (NEG); URINE EPITHELIAL CELLS 0 - 2 /hpf (0-5); URINE RBC NEGATIVE /hpf (0-2)
[2017-06-15] MEDS: Levalbuterol 0.63 MG/3 ML Inhal Soln UD IH SCH ×4 (02:35→20:35)
[2017-06-15] MEDS: Acetylcysteine 20% Inhal Soln (4ml) IH SCH ×4 (02:35→20:35)
[2017-06-15] MEDS: Milrinone 20mg/100ml D5W 100 ML IV PRN ×2 (02:58→21:27)
[2017-06-15 06:09] LABS: ARTERIAL BLOOD GAS HCO3 27.8 mmol/L (21-28); ARTERIAL BLOOD GAS HEMOGLOBIN 9.7 g/dL (11.7-17.4); ARTERIAL BLOOD GAS O2 CAPACITY 13.4 mL/dl (16-24); ARTERIAL BLOOD GAS O2 CONTENT 13.3 ML/dl (15-23); ARTERIAL BLOOD GAS O2 SAT 99.2 % (95-98); ARTERIAL BLOOD GAS PCO2 40 mm/Hg (35-45); ARTERIAL BLOOD GAS PH 7.45 (7.35-7.45)
--- NOTE | 2017-06-15 06:32 | CP.PCM.PN ---
<Maryjane Lawrence - Last Filed: 06/15/17 06:33> Subjective - Date & Time of Evaluation Date of Evaluation: 06/15/17 Time of Evaluation: 06:21 - Subjective Subjective: PGY-[address] Rai Pt remains to have low grade fever of 99.5 CXR yesterday showed new L PNA (worsening infiltrate) A-a gradient and P/F ratio improves + 500cc fluid balance yesterday Pending AM labs Objective - Vital Signs/Intake and Output Vital Signs (last 24 hours): Temp Pulse Resp BP Pulse Ox 99.3 F 79 24 139/75 99 06/15/17 05:30 06/15/17 05:30 06/15/17 05:00 06/15/17 05:00 06/15/17 05:30 Intake and Output: 06/14/17 06/15/17 18:59 06:59 Intake Total 1169 100 Output Total 700 Balance 469 100 - Medications Medications: Current Medications Acetaminophen (Tylenol 650 Mg Supp) 650 mg RC Q6 PRN PRN Reason: Fever >100.4 F Acetaminophen (Tylenol 650mg/20.3ml Solution Ud) 650 mg PO Q6H PRN PRN Reason: Temperature Last Admin: 06/13/17 23:08 Dose: 650 mg Acetylcysteine (Acetylcysteine 20%) 4 ml IH [id number] [facility] Last Admin: 06/15/17 02:35 Dose: 4 ml Aspirin (Aspirin Supp) 300 mg RC DAILY [facility] Last Admin: 06/14/17 09:26 Dose: 300 mg Atorvastatin Calcium (Lipitor) 40 mg PO DIN [facility] Last Admin: 06/14/17 16:08 Dose: 40 mg Clopidogrel Bisulfate (Plavix) 75 mg PO DAILY [facility] Last Admin: 06/14/17 09:26 Dose: 75 mg Milrinone Lactate/Dextrose (Primacor 20mg/100ml D5w) 100 mls @ 5.316 mls/hr IV .[id number] PRN; Protocol; 0.2 MCG/KG/MIN PRN Reason: TITRATE PER MD ORDER Last Admin: 06/15/17 02:58 Dose: 0.2 mcg/kg/min, 5.316 mls/hr Vancomycin HCl (Vancomycin 1gm) 1 gm in 250 mls @ 167 mls/hr IVPB Q12H [facility] PRN Reason: Protocol Last Admin: 06/14/17 21:37 Dose: 167 mls/hr Heparin Sodium/Dextrose (Heparin 25,000 Units/250ml In D5w) 25,000 units in 250 mls @ 10.44 mls/hr IV .[id number] [facility]; 12 UNITS/KG/HR PRN Reason: Protocol Last Titration: 06/14/17 17:16 Dose: 12 units/kg/hr, 10.44 mls/hr Meropenem 1g/NS 100mL IVPB (Meropenem 1g/Ns 100ml Ivpb) 1 gm in 100 mls @ 100 mls/hr IVPB Q8 [facility] PRN Reason: Protocol Stop: 06/26/17 14:01 Last Admin: 06/14/17 21:35 Dose: 100 mls/hr Micafungin Sodium 100 mg/ (Sodium Chloride) 100 mls @ 100 mls/hr IV DAILY [facility] PRN Reason: Protocol Stop: 06/21/17 10:01 Last Admin: 06/14/17 09:24 Dose: 100 mls/hr Insulin Human Regular (Humulin R High) 0 units SC ACHS [facility] PRN Reason: Protocol Last Admin: 06/14/17 22:01 Dose: Not Given Levalbuterol HCl (Xopenex) 0.63 mg IH [id number] [facility] Last Admin: 06/15/17 02:35 Dose: 0.63 mg Methylprednisolone (Solu-Medrol) 20 mg IVP Q12 [facility] Last Admin: 06/14/17 21:36 Dose: 20 mg Ondansetron HCl (Zofran Inj) 4 mg IVP Q6H PRN PRN Reason: Nausea/Vomiting Pantoprazole Sodium (Protonix Inj) 40 mg IVP DAILY [facility] Last Admin: 06/14/17 09:26 Dose: 40 mg - Labs Labs: 06/14/17 06:00 06/14/17 06:00 PT 16.1 Seconds (9.9-11.8) H 06/12/17 05:35 INR 1.49 (0.93-1.08) H 06/12/17 05:35 APTT 56.7 Seconds (23.7-30.8) H 06/14/17 23:45 Assessment and Plan - Assessment and Plan (Free Text) Plan: Mr/ Kandy, 62 M (129-7), [facility] [place] [facility] with DM, CAD/CHF with permanent pacemaker, Hx group B strep PNA, PAD s/p AKA b/l, comes in for severe sepsis with MODS due to multilobar HCAP and methicillin-resistant Coagulase Negative staphalococcus bacteremia. (06/03) - HCAP is due to possible Gram + cocci vs Positive Gram - PNA from aspiration, now could be yeast. 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 B Strep - Hx CAD, chronic CHF - Hx pacemaker - HTN - Hx depression - S/P B/L Above the knee amputation Plan - Micafungin (day 2) s/p fluconazole x 1 - Continue Doxycycline 100mg q12 (day 11), Meropenem 1g q12 (day 11), and vanco @12 (day 10) with goal of 7-10 days for multilobar pneumonia and coagulase negative staph bacteremia - Continue trend creatinine - repeated blood and sputum cx (06/13/17) and will await results - Pending Fungitell beta-glucan assay test - Patient continues to be in critical condition and his prognosis is worsening Cultures 06/03 Blood culture - coagulase neg staph x 2 bottles 06/05, 06/11, 06/13 Blood culturre - negative 06/04 Yeast - trach/sputum 06/11 Urine culture - negative Imagings CXR (06/14) - New left sided pneumonia CXR (06/12) - Worsening L pleural effusion and underlysing consolidation CTA (06/11) - Complete consolidation of LLL with volume loss. Suspicious of occlusion of lower lobe bronchus RLL infiltrate Posterior RU lobe improve compared 06/04 Small L pleural effusion Small pericardial effusion Echo (06/11) - Bubble study showed no R to L shunt No definitive vegetation Small circumferential pericardial effusion EF 25-30% Moderate to severe flobal hypokinesis Aortic valve is noderately calcified. Aortic sclerosis vs mild . RVSP 34 Echo (06/04) - EF 25%, RVSP 34, dilated LA, Severe LV hypokinesis Will s/r/d/w Dr. Rai <Liborio Rai S - Last Filed: 06/15/17 10:39> Objective - Vital Signs/Intake and Output Vital Signs (last 24 hours): Temp Pulse Resp BP Pulse Ox 99.5 F 76 27 H 135/57 L 95 06/15/17 09:32 06/15/17 10:15 06/15/17 09:00 06/15/17 09:00 06/15/17 09:32 Intake and Output: 06/15/17 06/15/17 06:59 18:59 Intake Total 742 Output Total 500 Balance 242 - Medications Medications: Current Medications Acetaminophen (Tylenol 650 Mg Supp) 650 mg RC Q6 PRN PRN Reason: Fever >100.4 F Acetaminophen (Tylenol 650mg/20.3ml Solution Ud) 650 mg PO Q6H PRN PRN Reason: Temperature Last Admin: 06/13/17 23:08 Dose: 650 mg Acetylcysteine (Acetylcysteine 20%) 4 ml IH [id number] [facility] Last Admin: 06/15/17 09:14 Dose: 4 ml Aspirin (Aspirin Supp) 300 mg RC DAILY [facility] Last Admin: 06/15/17 09:45 Dose: 300 mg Atorvastatin Calcium (Lipitor) 40 mg PO DIN [facility] Last Admin: 06/14/17 16:08 Dose: 40 mg Clopidogrel Bisulfate (Plavix) 75 mg PO DAILY [facility] Last Admin: 06/15/17 09:45 Dose: 75 mg Milrinone Lactate/Dextrose (Primacor 20mg/100ml D5w) 100 mls @ 5.316 mls/hr IV .[id number] PRN; Protocol; 0.2 MCG/KG/MIN PRN Reason: TITRATE PER MD ORDER Last Admin: 06/15/17 02:58 Dose: 0.2 mcg/kg/min, 5.316 mls/hr Vancomycin HCl (Vancomycin 1gm) 1 gm in 250 mls @ 167 mls/hr IVPB Q12H [facility] PRN Reason: Protocol Last Admin: 06/15/17 09:41 Dose: 167 mls/hr Heparin Sodium/Dextrose (Heparin 25,000 Units/250ml In D5w) 25,000 units in 250 mls @ 10.44 mls/hr IV .[id number] [facility]; 12 UNITS/KG/HR PRN Reason: Protocol Last Titration: 06/14/17 17:16 Dose: 12 units/kg/hr, 10.44 mls/hr Meropenem 1g/NS 100mL IVPB (Meropenem 1g/Ns 100ml Ivpb) 1 gm in 100 mls @ 100 mls/hr IVPB Q8 [facility] PRN Reason: Protocol Stop: 06/26/17 14:01 Last Admin: 06/15/17 06:46 Dose: 100 mls/hr Micafungin Sodium 100 mg/ (Sodium Chloride) 100 mls @ 100 mls/hr IV DAILY [facility] PRN Reason: Protocol Stop: 06/21/17 10:01 Last Admin: 06/15/17 09:36 Dose: 100 mls/hr Doxycycline Hyclate 100 mg/ (Sodium Chloride) 100 mls @ 100 mls/hr IVPB Q12 [facility] PRN Reason: Protocol Last Admin: 06/15/17 09:36 Dose: 100 mls/hr Insulin Human Regular (Humulin R High) 0 units SC ACHS [facility] PRN Reason: Protocol Last Admin: 06/15/17 08:08 Dose: 4 units Levalbuterol HCl (Xopenex) 0.63 mg IH [id number] [facility] Last Admin: 06/15/17 09:14 Dose: 0.63 mg Methylprednisolone (Solu-Medrol) 20 mg IVP Q12 [facility] Last Admin: 06/15/17 09:47 Dose: 20 mg Ondansetron HCl (Zofran Inj) 4 mg IVP Q6H PRN PRN Reason: Nausea/Vomiting Pantoprazole Sodium (Protonix Inj) 40 mg IVP DAILY [facility] Last Admin: 06/15/17 09:46 Dose: 40 mg - Labs Labs: 06/15/17 06:10 06/15/17 06:10 PT 16.1 Seconds (9.9-11.8) H 06/12/17 05:35 INR 1.49 (0.93-1.08) H 06/12/17 05:35 APTT 55.3 Seconds (23.7-30.8) H 06/15/17 06:10 Assessment and Plan - Assessment and Plan (Free Text) Plan: Infectious diseases Attending Physician Attestation Patient seen and examined, discussed with medical nurse. I agree with the above findings, assessment and plan Assessment sepsis S/P ventilator-dependent respiratory failure S/P altered mental status with multilobar healthcare-associated pneumonia and methicillin-resistant coagulase negative staph bacteremia; still with persistent low grade fevers with worsening left sided pneumonia and new right sided pneumonia S/P pacemaker placement history of healthcare-associated pneumonia with Grp. B Strep coronary artery disease with chronic CHF HTN history of depression S/P B/L Above the knee amputation Plan repeated blood and sputum cx 2 days ago and will await results; will continue Vancomycin, Merrem and Doxycycline (day 11) and Mycamine day 2; follow up beta glucan test as well Patient continues to be in critical condition and his prognosis is worsening - if patient continues to worsen may consider changing Vancomycin to Zyvox by tomorrow Discussed with ICU team
[2017-06-15] MEDS: Meropenem 1g/NS 100mL IVPB 1 GM/100 ML PIGGYBACK IVPB SCH ×3 (06:46→21:33)
[2017-06-15 07:09] LABS: EOS % 0.1 % (1.5-5.0); GRAN % 90.1 % (50.0-68.0); LYMPH # 0.6 (1.2-3.4); LYMPH % 5.9 % (22.0-35.0); MEAN CELL VOLUME 85.3 fL (80.0-105.0); MEAN CORPUSCULAR HEMOGLOBIN 27.7 pg (25.0-35.0); MEAN CORPUSCULAR HGB CONC 32.5 g/dl (31.0-37.0); MONO # 0.4 (0.1-0.6); MONO % 3.9 % (1.0-6.0); PLATELET COUNT 297 10^3/uL (120.0-450.0); RBC 3.61 10^6/uL (3.5-6.1); RED CELL DISTRIBUTION WIDTH 15.9 % (11.5-14.5); WHITE BLOOD COUNT 10.8 10^3/ul (4.5-11.0)
[2017-06-15 07:10] LABS: ALB/GLOB RATIO 1.1 (1.1-1.8); ALBUMIN 3.4 g/dL (3.0-4.8); ALT/SGPT 23 U/L (7-56); AST/SGOT 30 U/L (15-59); BLOOD UREA NITROGEN 29 mg/dL (7-21); CALCIUM 8.4 mg/dL (8.4-10.5); GFR AFRICAN-AMERICAN > 60; GFR NON-AFRICAN AMERICAN > 60
--- NOTE | 2017-06-15 07:30 | RAD ---
HISTORY: f/u COMPARISON: Portable chest 06/14/2017. FINDINGS: LUNGS: A feeding tube is again identified placed terminating at the left upper quadrant abdomen. Interval infiltrate or atelectasis is identified in the right base within the right pleural effusion likely. No left pleural effusion. Infiltrate the left side is diminished significantly, now identified only in the left base. No pneumothorax. PLEURA: As above. CARDIOVASCULAR: Pacemaker again identified in position. OSSEOUS STRUCTURES: No significant abnormalities. VISUALIZED UPPER ABDOMEN: Normal. OTHER FINDINGS: None. IMPRESSION: Interval area of atelectasis or infiltrate seen at the right base with trace right pleural effusion likely. Left inside infiltrate is diminished significantly. No left pleural effusion. .
[2017-06-15] MEDS: Insulin Reg-HIGH-Coverage SC SCH ×4 (08:08→21:26)
--- NOTE | 2017-06-15 08:09 | PN ---
DATE: 06/15/2017(630am--725am) SUBJECTIVE: The patient is mildly short of breath this morning. He is in no acute distress. PHYSICAL EXAMINATION VITAL SIGNS: Temperature is 99.3, pulse is 79, respirations are 22, and blood pressure is 139/75. Oxygen saturation on BiPAP is 99%. HEENT: Normocephalic and atraumatic. NECK: No JVD. CARDIOVASCULAR: Systolic ejection murmur at the lower left sternal border. Questionable S3 gallop. LUNGS: Decreased breath sounds at the bases with crackles. Less rhonchi. No wheezing. EXTREMITIES: The patient is status post bilateral above the knee amputations. GASTROINTESTINAL: Abdomen is soft, nontender and nondistended. Bowel sounds are positive. SKIN: No acute rash. NEUROLOGIC: Exam is limited at the present time. PERTINENT LABORATORY DATA: Chest x-ray was done this morning and reviewed. The left-sided infiltrate is much improved and decreased in size. However, there is a new infiltrate noted at the right base. Arterial blood gas was done on BiPAP. Results are: PH of 7.45, PaCO2 of 40, and PaO2 of 109. IMPRESSION: 1. Respiratory failure. 2. Multilobar pneumonia. 3. Sepsis syndrome. 4. Acute myocardial infarction. 5. Possible congestive heart failure. 6. Renal insufficiency. 7. Basilar atelectasis. PLAN: The patient remains on BiPAP. He is mildly short of breath, but in no acute distress. I did review the chest x-ray as above. There is definite improvement/decrease in the left-sided infiltrate. However, again, there is a new infiltrate noted at the right base. I will continue with the current nebulizer treatments and aggressive pulmonary toilet for now. I did discuss the case with the respiratory therapist at length yesterday. I would continue with the antibiotic coverage as per infectious disease. Temperatures are resolving. The leukocytosis has resolved. Clinical status of the patient is somewhat improved. However, he remains critically ill with very guarded overall prognosis. I will discuss the above with the entire ICU team the next few moments. I will also discuss the above with Dr. Quevedo later this morning. Tom Pittman MD MTDD
[2017-06-15] MEDS: Micafungin 100 MG in Sodium Chloride 0.9% 100 ML IV SCH (09:36)
[2017-06-15] MEDS: Vancomycin 1gm in NS 250ml 1 GM/250 ML BAG IVPB SCH ×2 (09:41→21:27)
[2017-06-15] MEDS: MethylPREDNISolone 40 mg Vial IVP SCH (09:47)
--- NOTE | 2017-06-15 10:38 | PN ---
DATE: SUBJECTIVE: I saw Curtis in the Intensive Care Unit. He is on high flow oxygen nasally. He is alert. He is looking at me in no acute distress at this moment. PHYSICAL EXAMINATION: VITAL SIGNS: Temperature 99.3, pulse 74, and O2 saturation 99% on high flow. HEENT: His head is atraumatic and normocephalic. HEART: Regular rate. LUNGS: Decreased breath sounds bilaterally, but fairly clear. ABDOMEN: Soft and nontender. Positive bowel sounds. EXTREMITIES: Bilateral AKA. No swelling. LABORATORY DATA: He has a white count of 10.8, hemoglobin 13, current hematocrit 30.8, and platelets 297. PTT is 55.3. He has sodium 137, potassium 4.2, BUN 29, creatinine 0.6, GFR greater than 50, sugars 201, calcium 8.4, total bilirubin 1.1, AST 30, ALT 23, alkaline phosphatase 67, and total protein 6.6. MEDICATIONS: He is on acetylcysteine, aspirin, doxycycline IV, heparin, insulin coverage, Lipitor, Merrem IV, Micafungin IV, Plavix, Primacor IV, Protonix, Solu-Medrol IV, Tylenol, vancomycin IV, and Xopenex with Zofran. PLAN: He is being seen by Pulmonary, Infectious Disease, and document control specialist. He has a respiratory failure, multilobar pneumonia, sepsis, acute myocardial infarction, congestive heart failure, renal insufficiency, and bibasilar atelectasis. Continue with aggressive treatment and care on Curtis Gaitan. We will check his laboratories tomorrow. Adria Quevedo DO MTDVinh
--- NOTE | 2017-06-15 16:27 | CP.PCM.PN ---
<Layla Wallace - Last Filed: 06/15/17 16:24> Subjective - Date & Time of Evaluation Date of Evaluation: 06/15/17 Time of Evaluation: 08:00 - Subjective Subjective: ICU Progress Note Patient seen and examined at bedside. Patient still requiring continuous BIPAP. As per nursing staff, pt desatted overnight requiring the switch from high flow NC to BIPAP. Patient remains lethargic. Objective - Vital Signs/Intake and Output Vital Signs (last 24 hours): Temp Pulse Resp BP Pulse Ox 99.5 F 77 27 H 145/75 96 06/15/17 12:56 06/15/17 13:40 06/15/17 11:00 06/15/17 11:00 06/15/17 11:14 Intake and Output: 06/15/17 06/15/17 06:59 18:59 Intake Total 742 Output Total 500 Balance 242 - Medications Medications: Current Medications Acetaminophen (Tylenol 650mg/20.3ml Solution Ud) 650 mg PO Q6H PRN PRN Reason: Temperature Last Admin: 06/13/17 23:08 Dose: 650 mg Acetylcysteine (Acetylcysteine 20%) 4 ml IH [id number] [facility] Last Admin: 06/15/17 13:37 Dose: 4 ml Aspirin (Aspirin Supp) 300 mg RC DAILY [facility] Last Admin: 06/15/17 09:45 Dose: 300 mg Atorvastatin Calcium (Lipitor) 40 mg PO DIN [facility] Last Admin: 06/14/17 16:08 Dose: 40 mg Clopidogrel Bisulfate (Plavix) 75 mg PO DAILY [facility] Last Admin: 06/15/17 09:45 Dose: 75 mg Milrinone Lactate/Dextrose (Primacor 20mg/100ml D5w) 100 mls @ 5.316 mls/hr IV .[id number] PRN; Protocol; 0.2 MCG/KG/MIN PRN Reason: TITRATE PER MD ORDER Last Admin: 06/15/17 02:58 Dose: 0.2 mcg/kg/min, 5.316 mls/hr Vancomycin HCl (Vancomycin 1gm) 1 gm in 250 mls @ 167 mls/hr IVPB Q12H [facility] PRN Reason: Protocol Last Admin: 06/15/17 09:41 Dose: 167 mls/hr Meropenem 1g/NS 100mL IVPB (Meropenem 1g/Ns 100ml Ivpb) 1 gm in 100 mls @ 100 mls/hr IVPB Q8 [facility] PRN Reason: Protocol Stop: 06/26/17 14:01 Last Admin: 06/15/17 16:13 Dose: 100 mls/hr Micafungin Sodium 100 mg/ (Sodium Chloride) 100 mls @ 100 mls/hr IV DAILY [facility] PRN Reason: Protocol Stop: 06/21/17 10:01 Last Admin: 06/15/17 09:36 Dose: 100 mls/hr Doxycycline Hyclate 100 mg/ (Sodium Chloride) 100 mls @ 100 mls/hr IVPB Q12 [facility] PRN Reason: Protocol Last Admin: 06/15/17 09:36 Dose: 100 mls/hr Insulin Human Regular (Humulin R High) 0 units SC ACHS [facility] PRN Reason: Protocol Last Admin: 06/15/17 12:16 Dose: 2 units Levalbuterol HCl (Xopenex) 0.63 mg IH [id number] [facility] Last Admin: 06/15/17 13:37 Dose: 0.63 mg Ondansetron HCl (Zofran Inj) 4 mg IVP Q6H PRN PRN Reason: Nausea/Vomiting Pantoprazole Sodium (Protonix Inj) 40 mg IVP DAILY [facility] Last Admin: 06/15/17 09:46 Dose: 40 mg - Labs Labs: 06/15/17 06:10 06/15/17 06:10 PT 16.1 Seconds (9.9-11.8) H 06/12/17 05:35 INR 1.49 (0.93-1.08) H 06/12/17 05:35 APTT 55.3 Seconds (23.7-30.8) H 06/15/17 06:10 - Constitutional Appears: No Acute Distress - Head Exam Head Exam: ATRAUMATIC, NORMAL INSPECTION, NORMOCEPHALIC - Eye Exam Eye Exam: EOMI, Normal appearance, PERRL Pupil Exam: NORMAL ACCOMODATION, PERRL - ENT Exam ENT Exam: Mucous Membranes Moist - Neck Exam Additional comments: dobhoff tube in place - Respiratory Exam Respiratory Exam: Rhonchi. absent: Stridor - Cardiovascular Exam Cardiovascular Exam: Irregular Rhythm, +S1, +S2 - GI/Abdominal Exam GI & Abdominal Exam: Soft, Normal Bowel Sounds. absent: Tenderness - Extremities Exam Additional comments: BL AKA - Neurological Exam Neurological Exam: Awake Additional comments: Lethargic, minimally responsive - Skin Skin Exam: Dry, Intact, Normal Color, Warm Additional comments: Sacral stage 2 pressure ulcer CDI Assessment and Plan - Assessment and Plan (Free Text) Assessment: 62M with PMHx CHF, CAD, COPD, admitted to ICU for acute hypoxemic respiratory failure 2/2 pneumonia, CHF exacerbation, also found to have elevated troponins and ONEAL. Patient is requiring BIPAP. Pt on milrinone drip. Palliative care consulted due to state of poor prognosis, CM discussing LTAC placement. Neuro: - Lethargic. Sensation grossly intact. - Moving extremities with painful stimulus CVS: - HD stable. Episodes of PVCs - Pt on dual antiplatelets (ASA, Plavix), Statin, BB - Echo read, AICD in place. LVEF 25.3%. Bubble study showed no R to L shunt. No definitive vegetation - Cont milrinone drip - Maintain MAP>65. - Cardio, Dr. Gill, following, recommended dc heparin drip Pulm: - Acute hypoxemic resp failure 2/2 CAP. CXR Bibasilar atelectasis/infiltrate R> L. - Required continuous BIPAP - Continue CPT, deep suctioning with nebulizer treatments, mucomyst - Maintain sat>90%. - Cont Merrem. Doxy and Vanco per ID, consider starting fluconazole for emperic treatment of fungal infection - Continue with protected lung ventilation strategies with head of bed elevation above 35 degrees, bronchodilators, keep oxygenation above 90%, pulm toileting - Pulmonology (Dr. Pittman) consulted, following GI: - NPO, high aspiration risk. Consider PEG, with discussions of LTAC placement - GI ppx Protonix. Renal /fluids/Electrolytes: - ONEAL, resolved, stable Cr - 1200 ml urine output overnight and remains in negative balance. - strict I&O - Maintain euvolemia - Replete electrolytes as needed ID: - afebrile no leukocytosis - Continue with Doxy, Merrem and Vanco for CAP - ID following, Dr. Rai - Continue to monitor Endo: - Continue sliding scale insulin HIGH - Accucheck q6 - Maintain glucose between 140-180 Heme: - Stable - Cont to monitor. DVT/ GI ppx reviewed Seen reviewed and discussed with attending <Anant Hernandez - Last Filed: 06/16/17 12:46> Objective - Vital Signs/Intake and Output Vital Signs (last 24 hours): Temp Pulse Resp BP Pulse Ox 99.1 F 84 24 173/96 H 96 06/16/17 08:00 06/16/17 10:55 06/16/17 10:00 06/16/17 10:00 06/16/17 10:00 Intake and Output: 06/16/17 06/16/17 06:59 18:59 Intake Total 100 Balance 100 - Medications Medications: Current Medications Acetaminophen (Tylenol 650mg/20.3ml Solution Ud) 650 mg PO Q6H PRN PRN Reason: Temperature Last Admin: 06/13/17 23:08 Dose: 650 mg Acetylcysteine (Acetylcysteine 20%) 4 ml IH [id number] [facility] Last Admin: 06/16/17 07:19 Dose: 4 ml Aspirin (Aspirin Supp) 300 mg RC DAILY [facility] Last Admin: 06/16/17 11:00 Dose: 300 mg Atorvastatin Calcium (Lipitor) 40 mg PO DIN [facility] Last Admin: 06/15/17 18:28 Dose: 40 mg Clopidogrel Bisulfate (Plavix) 75 mg PO DAILY [facility] Last Admin: 06/16/17 11:00 Dose: 75 mg Milrinone Lactate/Dextrose (Primacor 20mg/100ml D5w) 100 mls @ 5.316 mls/hr IV .[id number] PRN; Protocol; 0.2 MCG/KG/MIN PRN Reason: TITRATE PER MD ORDER Last Admin: 06/15/17 21:27 Dose: 0.2 mcg/kg/min, 5.316 mls/hr Meropenem 1g/NS 100mL IVPB (Meropenem 1g/Ns 100ml Ivpb) 1 gm in 100 mls @ 100 mls/hr IVPB Q8 [facility] PRN Reason: Protocol Stop: 06/26/17 14:01 Last Admin: 06/16/17 05:59 Dose: 100 mls/hr Micafungin Sodium 100 mg/ (Sodium Chloride) 100 mls @ 100 mls/hr IV DAILY [facility] PRN Reason: Protocol Stop: 06/21/17 10:01 Last Admin: 06/16/17 10:47 Dose: 100 mls/hr Doxycycline Hyclate 100 mg/ (Sodium Chloride) 100 mls @ 100 mls/hr IVPB Q12 [facility] PRN Reason: Protocol Last Admin: 06/16/17 10:52 Dose: 100 mls/hr Vancomycin HCl 1.25 gm/ Sodium (Chloride) 250 mls @ 167 mls/hr IVPB Q12H [facility] Insulin Human Regular (Humulin R High) 0 units SC ACHS [facility] PRN Reason: Protocol Last Admin: 06/16/17 10:46 Dose: Not Given Levalbuterol HCl (Xopenex) 0.63 mg IH [id number] [facility] Last Admin: 06/16/17 07:19 Dose: 0.63 mg Ondansetron HCl (Zofran Inj) 4 mg IVP Q6H PRN PRN Reason: Nausea/Vomiting Pantoprazole Sodium (Protonix Inj) 40 mg IVP DAILY [facility] Last Admin: 06/16/17 11:00 Dose: 40 mg - Labs Labs: 06/16/17 05:50 06/16/17 05:50 PT 16.1 Seconds (9.9-11.8) H 06/12/17 05:35 INR 1.49 (0.93-1.08) H 06/12/17 05:35 APTT 55.3 Seconds (23.7-30.8) H 06/15/17 06:10 Attending/Attestation - Attestation I have personally seen and examined this patient.: Yes I have fully participated in the care of the patient.: Yes I have reviewed all pertinent clinical information, including history, physical exam and plan: Yes Notes (Text): 06/16/17 12:38 62 yo male recovering from hypoxemic respiratory failure due to CAP. Fi02 down to 60 percent. CXR much improved. Comfortable, mental status at baseline. Still require pulm toilet, BPAP intermittently, IS, chest PT. abx, bronchodilators, taper off steroids. conservative 02 and fluid management. dvt/gi prophylaxis. ccm time 40 min
--- NOTE | 2017-06-15 16:35 | PN ---
DATE: 06/15/2017 SUBJECTIVE: The patient remains is remains on a BiPAP PHYSICAL EXAMINATION: VITAL SIGNS: Blood pressure is 145/75, the patient is afebrile, heart rate is in the 70s, normal sinus rhythm. NECK: Negative JVD. LUNGS: Decreased breath sounds. HEART: Reveals S1 and S2. EXTREMITIES: Without change. LABORATORY His hemoglobin is 10, white count is down to 10.18. Chemistries: Glucose is 201. IMPRESSION: 1. Status post respiratory failure. 2. Dilated cardiomyopathy. 3. Sepsis 4. Coronary artery disease. 5. Peripheral vascular disease. 6. History of a pacemaker placement. PLAN: Given these findings, the patient is continued on IV antibiotics. Ross Gill MD
--- NOTE | 2017-06-15 18:32 | RAD ---
HISTORY: s/p picc line insertion . Portable study 15:45. COMPARISON: June 15, 2017. 06:59. FINDINGS: LUNGS: Improved aeration of the lungs. PLEURA: No significant pleural effusion identified, no pneumothorax apparent. CARDIOVASCULAR: Cardiomegaly. No evidence of acute, significant cardiovascular disease. Position/ configuration of pacemaker Satisfactory. OSSEOUS STRUCTURES: No significant abnormalities. VISUALIZED UPPER ABDOMEN: Normal. OTHER FINDINGS: PICC line in satisfactory position IMPRESSION: Recently placed PICC line in satisfactory position. No pneumothorax.
[2017-06-16] MEDS: Acetylcysteine 20% Inhal Soln (4ml) IH SCH ×3 (02:25→13:11)
[2017-06-16] MEDS: Levalbuterol 0.63 MG/3 ML Inhal Soln UD IH SCH ×3 (02:25→13:11)
[2017-06-16] MEDS: Meropenem 1g/NS 100mL IVPB 1 GM/100 ML PIGGYBACK IVPB SCH (05:59)
--- NOTE | 2017-06-16 06:04 | CP.PCM.PN ---
<Maryjane Lawrence - Last Filed: 06/16/17 10:56> Subjective - Date & Time of Evaluation Date of Evaluation: 06/16/17 Time of Evaluation: 06:02 - Subjective Subjective: PGY-[address] Cecelia Higuera Trough was 11. PICC placement yesterday Persistent Fever 99.1 Still on bipap 12//60%/RR17 Objective - Vital Signs/Intake and Output Vital Signs (last 24 hours): Temp Pulse Resp BP Pulse Ox 99.0 F 82 28 H 150/99 H 100 06/16/17 05:07 06/16/17 05:07 06/16/17 05:00 06/16/17 05:00 06/16/17 05:07 Intake and Output: 06/15/17 06/16/17 18:59 06:59 Intake Total 614 100 Balance 614 100 - Medications Medications: Current Medications Acetaminophen (Tylenol 650mg/20.3ml Solution Ud) 650 mg PO Q6H PRN PRN Reason: Temperature Last Admin: 06/13/17 23:08 Dose: 650 mg Acetylcysteine (Acetylcysteine 20%) 4 ml IH [id number] [facility] Last Admin: 06/16/17 02:25 Dose: 4 ml Aspirin (Aspirin Supp) 300 mg RC DAILY [facility] Last Admin: 06/15/17 09:45 Dose: 300 mg Atorvastatin Calcium (Lipitor) 40 mg PO DIN [facility] Last Admin: 06/15/17 18:28 Dose: 40 mg Clopidogrel Bisulfate (Plavix) 75 mg PO DAILY [facility] Last Admin: 06/15/17 09:45 Dose: 75 mg Milrinone Lactate/Dextrose (Primacor 20mg/100ml D5w) 100 mls @ 5.316 mls/hr IV .[id number] PRN; Protocol; 0.2 MCG/KG/MIN PRN Reason: TITRATE PER MD ORDER Last Admin: 06/15/17 21:27 Dose: 0.2 mcg/kg/min, 5.316 mls/hr Vancomycin HCl (Vancomycin 1gm) 1 gm in 250 mls @ 167 mls/hr IVPB Q12H [facility] PRN Reason: Protocol Last Admin: 06/15/17 21:27 Dose: 167 mls/hr Meropenem 1g/NS 100mL IVPB (Meropenem 1g/Ns 100ml Ivpb) 1 gm in 100 mls @ 100 mls/hr IVPB Q8 [facility] PRN Reason: Protocol Stop: 06/26/17 14:01 Last Admin: 06/16/17 05:59 Dose: 100 mls/hr Micafungin Sodium 100 mg/ (Sodium Chloride) 100 mls @ 100 mls/hr IV DAILY [facility] PRN Reason: Protocol Stop: 06/21/17 10:01 Last Admin: 06/15/17 09:36 Dose: 100 mls/hr Doxycycline Hyclate 100 mg/ (Sodium Chloride) 100 mls @ 100 mls/hr IVPB Q12 [facility] PRN Reason: Protocol Last Admin: 06/15/17 21:32 Dose: 100 mls/hr Insulin Human Regular (Humulin R High) 0 units SC ACHS [facility] PRN Reason: Protocol Last Admin: 06/15/17 21:26 Dose: Not Given Levalbuterol HCl (Xopenex) 0.63 mg IH [id number] [facility] Last Admin: 06/16/17 02:25 Dose: 0.63 mg Ondansetron HCl (Zofran Inj) 4 mg IVP Q6H PRN PRN Reason: Nausea/Vomiting Pantoprazole Sodium (Protonix Inj) 40 mg IVP DAILY [facility] Last Admin: 06/15/17 09:46 Dose: 40 mg - Labs Labs: 06/15/17 06:10 06/15/17 06:10 PT 16.1 Seconds (9.9-11.8) H 06/12/17 05:35 INR 1.49 (0.93-1.08) H 06/12/17 05:35 APTT 55.3 Seconds (23.7-30.8) H 06/15/17 06:10 - Constitutional Appears: Chronically Ill - Head Exam Head Exam: ATRAUMATIC, NORMAL INSPECTION, NORMOCEPHALIC - Eye Exam Eye Exam: EOMI, Normal appearance, PERRL. absent: Scleral icterus Pupil Exam: NORMAL ACCOMODATION - ENT Exam ENT Exam: Mucous Membranes Moist - Neck Exam Additional comments: supple - Respiratory Exam Respiratory Exam: Rhonchi Additional comments: bronchial vesicular sounds all lung ramachandran - Cardiovascular Exam Cardiovascular Exam: REGULAR RHYTHM, +S1, +S2 - GI/Abdominal Exam GI & Abdominal Exam: Soft, Normal Bowel Sounds. absent: Guarding, Rigid, Tenderness - Extremities Exam Additional comments: b/l aka. Edema in arms and hands - Neurological Exam Additional comments: lethargic - Psychiatric Exam Psychiatric exam: Flat Affect - Skin Skin Exam: Dry, Warm Assessment and Plan - Assessment and Plan (Free Text) Plan: Mr. Gaitan, 62 M (129-7), from care home with DM, CAD/CHF with permanent pacemaker, Hx group B strep PNA, PAD s/p AKA b/l, comes in for severe sepsis with MODS due to multilobar HCAP and methicillin-resistant Coagulase Negative staphalococcus bacteremia. (06/03/17) PICC placment (06/15/17) - HCAP is due to possible Gram + cocci vs Positive Gram - PNA from aspiration, now could be yeast. 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 B Strep - Hx CAD, chronic CHF - Hx pacemaker - HTN - Hx depression - S/P B/L Above the knee amputation Plan - Up Vancomycin from 1g to 1.25g BID - Micafungin (day 3) s/p fluconazole x 1 - Continue Doxycycline 100mg q12 (day 12), Meropenem 1g q12 (day 12), and vanco @12 (day 11) with goal of 14 days for multilobar pneumonia and coagulase negative staph bacteremia - Continue trend creatinine - Pending Fungitell beta-glucan assay test, final; culture results - Patient continues to be in critical condition and his prognosis is worsening Cultures 06/13/ Blood culture - negative x 2 days 06/05, 06/11 Blood culture - negative 06/03 Blood culture - coagulase neg staph x 2 bottles 06/13 Sputum - negative 06/04 Sputum/Trach - yeast 06/11 Urine culture - negative Imagings CXR (06/16) - Bibasilar infiltrate R>L CXR (06/14) - New left sided pneumonia CXR (06/12) - Worsening L pleural effusion and underlysing consolidation CTA (06/11) - Complete consolidation of LLL with volume loss. Suspicious of occlusion of lower lobe bronchus RLL infiltrate Posterior RU lobe improve compared 06/04 Small L pleural effusion Small pericardial effusion Echo (06/11) - Bubble study showed no R to L shunt No definitive vegetation Small circumferential pericardial effusion EF 25-30% Moderate to severe flobal hypokinesis Aortic valve is noderately calcified. Aortic sclerosis vs mild . RVSP 34 Echo (06/04) - EF 25%, RVSP 34, dilated LA, Severe LV hypokinesis s/r/d/w Dr. Rai <Liborio Rai S - Last Filed: 06/16/17 15:21> Objective - Vital Signs/Intake and Output Vital Signs (last 24 hours): Temp Pulse Resp BP Pulse Ox 99.1 F 82 24 173/96 H 96 06/16/17 08:00 06/16/17 13:15 06/16/17 10:00 06/16/17 10:00 06/16/17 10:00 Intake and Output: 06/16/17 06/16/17 06:59 18:59 Intake Total 100 Balance 100 - Medications Medications: Current Medications Acetaminophen (Tylenol 650mg/20.3ml Solution Ud) 650 mg PO Q6H PRN PRN Reason: Temperature Last Admin: 06/13/17 23:08 Dose: 650 mg Acetylcysteine (Acetylcysteine 20%) 4 ml IH [id number] [facility] Last Admin: 06/16/17 13:11 Dose: 4 ml Aspirin (Aspirin Supp) 300 mg RC DAILY [facility] Last Admin: 06/16/17 11:00 Dose: 300 mg Atorvastatin Calcium (Lipitor) 40 mg PO DIN [facility] Last Admin: 06/15/17 18:28 Dose: 40 mg Clopidogrel Bisulfate (Plavix) 75 mg PO DAILY [facility] Last Admin: 06/16/17 11:00 Dose: 75 mg Milrinone Lactate/Dextrose (Primacor 20mg/100ml D5w) 100 mls @ 5.316 mls/hr IV .[id number] PRN; Protocol; 0.2 MCG/KG/MIN PRN Reason: TITRATE PER MD ORDER Last Admin: 06/15/17 21:27 Dose: 0.2 mcg/kg/min, 5.316 mls/hr Meropenem 1g/NS 100mL IVPB (Meropenem 1g/Ns 100ml Ivpb) 1 gm in 100 mls @ 100 mls/hr IVPB Q8 [facility] PRN Reason: Protocol Stop: 06/26/17 14:01 Last Admin: 06/16/17 05:59 Dose: 100 mls/hr Micafungin Sodium 100 mg/ (Sodium Chloride) 100 mls @ 100 mls/hr IV DAILY [facility] PRN Reason: Protocol Stop: 06/21/17 10:01 Last Admin: 06/16/17 10:47 Dose: 100 mls/hr Doxycycline Hyclate 100 mg/ (Sodium Chloride) 100 mls @ 100 mls/hr IVPB Q12 [facility] PRN Reason: Protocol Last Admin: 06/16/17 10:52 Dose: 100 mls/hr Vancomycin HCl 1.25 gm/ Sodium (Chloride) 250 mls @ 167 mls/hr IVPB Q12H [facility] Insulin Human Regular (Humulin R High) 0 units SC ACHS [facility] PRN Reason: Protocol Last Admin: 06/16/17 10:46 Dose: Not Given Levalbuterol HCl (Xopenex) 0.63 mg IH [id number] [facility] Last Admin: 06/16/17 13:11 Dose: 0.63 mg Ondansetron HCl (Zofran Inj) 4 mg IVP Q6H PRN PRN Reason: Nausea/Vomiting Pantoprazole Sodium (Protonix Inj) 40 mg IVP DAILY [facility] Last Admin: 06/16/17 11:00 Dose: 40 mg - Labs Labs: 06/16/17 05:50 06/16/17 05:50 PT 16.1 Seconds (9.9-11.8) H 06/12/17 05:35 INR 1.49 (0.93-1.08) H 06/12/17 05:35 APTT 55.3 Seconds (23.7-30.8) H 06/15/17 06:10 Assessment and Plan - Assessment and Plan (Free Text) Plan: Infectious Diseases Attending Physician Attestation Patient seen and examined, discussed with medical sales consultant. I have reviewed the pertinent clinical information for this patient. I agree with the above findings , assessment and plan. In addition, the patient should continued on another week of IV Vancomycin, Merrem and Mycamine. Daily BMP should be done while on antibiotics and Vancomycin should be discontinued if he develops renal failure. We are treating multilobar healthcare-associated pneumonia and methicillin- resistant coagulase negative staph bacteremia with no evidence of endocarditis in this patient with pacemaker.
[2017-06-16 06:28] LABS: ARTERIAL BLOOD GAS HCO3 26.7 mmol/L (21-28); ARTERIAL BLOOD GAS HEMOGLOBIN 9.8 g/dL (11.7-17.4); ARTERIAL BLOOD GAS O2 CAPACITY 13.4 mL/dl (16-24); ARTERIAL BLOOD GAS O2 CONTENT 13.1 ML/dl (15-23); ARTERIAL BLOOD GAS O2 SAT 97.4 % (95-98); ARTERIAL BLOOD GAS PCO2 35 mm/Hg (35-45); ARTERIAL BLOOD GAS PH 7.49 (7.35-7.45); ARTERIAL BLOOD GAS TCO2 27.8 mmol.L (22-28)
[2017-06-16 07:10] LABS: EOS # 0.1 (0.0-0.7); EOS % 0.7 % (1.5-5.0); GRAN # 8.24 (1.4-6.5); GRAN % 86.9 % (50.0-68.0); HEMOGLOBIN 10.3 g/dL (14.0-18.0); LYMPH # 0.7 (1.2-3.4); LYMPH % 7.3 % (22.0-35.0); MEAN CELL VOLUME 85.8 fl (80.0-105.0); MEAN CORPUSCULAR HEMOGLOBIN 27.6 pg (25.0-35.0); MEAN CORPUSCULAR HGB CONC 32.2 g/dl (31.0-37.0); MEAN PLATELET VOLUME 9.3 fl (7.0-11.0); MONO # 0.5 (0.1-0.6); MONO % 5.1 % (1.0-6.0); PLATELET COUNT 273 10^3/uL (120.0-450.0); RBC 3.73 10^6/uL (3.5-6.1); RED CELL DISTRIBUTION WIDTH 16.2 % (11.5-14.5); WHITE BLOOD COUNT 9.5 10^3/ul (4.5-11.0)
--- NOTE | 2017-06-16 07:23 | PN ---
DATE: 06/16/2017 SUBJECTIVE: The patient appears comfortable this morning. He is mildly short of breath, but in no acute distress. PHYSICAL EXAMINATION: VITAL SIGNS: Temperature is 99.1, pulse 79, respiratory rate is 22, blood pressure 157/66. Oxygen saturation on BiPAP is 97%. HEENT: Normocephalic and atraumatic. NECK: No JVD. CARDIOVASCULAR: Systolic ejection murmur at the lower left sternal border. Questionable S3 gallop. LUNGS: Decreased breath sounds at the bases with crackles. Less rhonchi. No wheezing. EXTREMITIES: The patient is status post bilateral above the knee amputations. GASTROINTESTINAL: Abdomen is soft, nontender, nondistended. Bowel sounds are positive. SKIN: No acute rash. NEUROLOGIC: Limited at the present time. PERTINENT LABORATORY DATA: Chest x-ray was done this morning and reviewed. The chest x-ray shows definite improvement with a decrease in the bilateral pulmonary infiltrates. There is also resolution of the basilar atelectasis. Arterial blood gas was ordered for the morning, but it is not in the computer at the present time. IMPRESSION: 1. Respiratory failure. 2. Multilobar pneumonia. 3. Sepsis syndrome. 4. Acute myocardial infarction. 5. Possible congestive heart failure. 6. Renal insufficiency. 7. Basilar atelectasis-resolved. PLAN: The patient remains on the BiPAP. He is mildly short of breath, but in no acute distress. I did review the chest x-ray as above. There is definite improvement in the chest x-ray today-with a decrease in the bilateral pulmonary infiltrates. As above, we are awaiting the morning arterial blood gas to be done. At this point in time, I will continue with the current nebulizer treatments and aggressive pulmonary toilet. I would continue with the antibiotic coverage as per infectious disease. The temperatures have resolved. The leukocytosis has also resolved. I would continue with treatment for acute myocardial infarction and congestive heart failure as per Dr. Gill (cardiology). The patient remains on a milrinone drip. Clinical status of the patient is certainly improved compared to last week. However, again, the overall status/prognosis for this patient remains very guarded at best. I will discuss the above with the entire ICU team in the next few moments. I will also discuss the above with Dr. Quevedo. Tom Pittman MD [facility] # [id number]
[2017-06-16 07:29] LABS: ALB/GLOB RATIO 1.1 (1.1-1.8); ALBUMIN 3.6 g/dL (3.0-4.8); ALT/SGPT 25 U/L (7-56); AST/SGOT 37 U/L (15-59); BLOOD UREA NITROGEN 24 mg/dL (7-21); CALCIUM 8.5 mg/dL (8.4-10.5); GFR AFRICAN-AMERICAN > 60; GFR NON-AFRICAN AMERICAN > 60
--- NOTE | 2017-06-16 08:18 | RAD ---
HISTORY: f/u COMPARISON: 06/15/2017 FINDINGS: LUNGS: Patchy opacity at left lung base. Possible early pneumonia. No other opacity elsewhere. PLEURA: No significant pleural effusion identified, no pneumothorax apparent. CARDIOVASCULAR: AICD. Double of tube with tip above the diaphragm. This should be repositioned or replaced. Normal. OSSEOUS STRUCTURES: No significant abnormalities. VISUALIZED UPPER ABDOMEN: Normal. OTHER FINDINGS: None. IMPRESSION: Top of tube tip above the diaphragm. Please reposition or replaced. Possible early infiltrate at left base. Followup advised.
[2017-06-16] MEDS: Insulin Reg-HIGH-Coverage SC SCH (10:46)
[2017-06-16] MEDS: Micafungin 100 MG in Sodium Chloride 0.9% 100 ML IV SCH (10:47)
[2017-06-16] MEDS ORDERED: Vancomycin 500 mg Inj IVPB SCH (11:00)
--- NOTE | 2017-06-16 13:19 | PN ---
DATE: 06/16/2017 SUBJECTIVE: The patient is in no acute respiratory distress. He is awake, still lethargic. PHYSICAL EXAMINATION: VITAL SIGNS: Blood pressure is 124 systolic, heart rate is in the 80s. NECK: Negative JVD. LUNGS: Without rales. HEART: Reveals S1, S2. EXTREMITIES: Without edema. LABORATORY DATA: His hemoglobin is 10.3. BUN and creatinine unremarkable. IMPRESSION: 1. Status post respiratory failure. 2. Dilated cardiomyopathy. 3. Sepsis. 4. Status post congestive heart failure. 5. Peripheral vascular disease. 6. History of pacemaker placement. Given these findings, we will discontinue his Primacor today. We will need to monitor hemodynamics carefully. Ross Gill MD
--- NOTE | 2017-06-16 14:42 | PN ---
DATE: SUBJECTIVE: I saw him in the Intensive Care Unit. He is alert in respiratory failure on high flow nasal oxygen. He has been septic. He has had pneumonia. He had CHF. He was intubated and extubated. He has had a very comorbidity also has diabetes and renal insufficiency. PHYSICAL EXAMINATION: VITAL SIGNS: Temperature 99.1, pulse 79, blood pressure 157/66, respiratory rate 22, and O2 saturation 97% on room air. HEENT: His head is atraumatic and normocephalic. He does nod his head. His eyes open a little bit. He is on high flow nasal oxygen. HEART: Regular rate. LUNGS: Decreased breath sounds, but clear. ABDOMEN: Soft. EXTREMITIES: No edema. LABORATORY DATA: Today white count of 9.5, hemoglobin 10.3, hematocrit 32, and platelets 273. Sodium 132, potassium 4.1, BUN 24, creatinine 0.5, GFR greater than 60, sugars 112, calcium 8.5, total bilirubin 1.4, AST 37, ALT 25, alkaline phosphatase 59, and total protein 6.8. MEDICATIONS: He is currently on acetylcysteine, aspirin, doxycycline IV, insulin, Lipitor, Merrem IV, Micafungin IV, Plavix, Primacor IV, Protonix, Tylenol, vancomycin IV, Xopenex, and Zofran. 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 He is in deep trouble. He might need to go for a LTAC placement type situation before he goes back to [place] where he is from permanent respiratory failure, multilobar pneumonia, sepsis syndrome, acute myocardial infarction, congestive heart failure, renal insufficiency. We try and get him LTAC, if we can and also we will keep him in the Intensive Care Unit. Adria Quevedo DO [facility]
[2017-06-16 17:27] VITALS: TEMP 98.4
[2017-06-16 20:10] VITALS: BP 123/84; PULSE 81; RESP 33; O2SAT 100
--- NOTE | 2017-06-16 23:20 | CP.PCM.PN ---
<Layla Wallace - Last Filed: 06/16/17 23:36> Subjective - Date & Time of Evaluation Date of Evaluation: 06/16/17 Time of Evaluation: 07:00 - Subjective Subjective: ICU Progress Note Patient seen and examined at bedside. Patient on continuous BIPAP. As per nursing staff, pt has gluteal blister that has been dressed. Pt is awake and alert and in no acute distress. Tube feeds started this AM. Pt for LTAC transfer Objective - Vital Signs/Intake and Output Vital Signs (last 24 hours): Temp Pulse Resp BP Pulse Ox 98.4 F 81 33 H 123/84 100 06/16/17 16:00 06/16/17 19:00 06/16/17 19:00 06/16/17 18:00 06/16/17 19:00 Intake and Output: 06/16/17 06/17/17 18:59 06:59 Intake Total 600 Output Total 700 Balance -100 - Medications Medications: Current Medications Acetaminophen (Tylenol 650mg/20.3ml Solution Ud) 650 mg PO Q6H PRN PRN Reason: Temperature Last Admin: 06/13/17 23:08 Dose: 650 mg Acetylcysteine (Acetylcysteine 20%) 4 ml IH [id number] [facility] Last Admin: 06/16/17 13:11 Dose: 4 ml Aspirin (Aspirin Supp) 300 mg RC DAILY [facility] Last Admin: 06/16/17 11:00 Dose: 300 mg Atorvastatin Calcium (Lipitor) 40 mg PO DIN [facility] Last Admin: 06/15/17 18:28 Dose: 40 mg Clopidogrel Bisulfate (Plavix) 75 mg PO DAILY [facility] Last Admin: 06/16/17 11:00 Dose: 75 mg Milrinone Lactate/Dextrose (Primacor 20mg/100ml D5w) 100 mls @ 5.316 mls/hr IV .[id number] PRN; Protocol; 0.2 MCG/KG/MIN PRN Reason: TITRATE PER MD ORDER Last Admin: 06/15/17 21:27 Dose: 0.2 mcg/kg/min, 5.316 mls/hr Meropenem 1g/NS 100mL IVPB (Meropenem 1g/Ns 100ml Ivpb) 1 gm in 100 mls @ 100 mls/hr IVPB Q8 [facility] PRN Reason: Protocol Stop: 06/26/17 14:01 Last Admin: 06/16/17 05:59 Dose: 100 mls/hr Micafungin Sodium 100 mg/ (Sodium Chloride) 100 mls @ 100 mls/hr IV DAILY [facility] PRN Reason: Protocol Stop: 06/21/17 10:01 Last Admin: 06/16/17 10:47 Dose: 100 mls/hr Doxycycline Hyclate 100 mg/ (Sodium Chloride) 100 mls @ 100 mls/hr IVPB Q12 [facility] PRN Reason: Protocol Last Admin: 06/16/17 10:52 Dose: 100 mls/hr Vancomycin HCl 1.25 gm/ Sodium (Chloride) 250 mls @ 167 mls/hr IVPB Q12H [facility] Insulin Human Regular (Humulin R High) 0 units SC ACHS [facility] PRN Reason: Protocol Last Admin: 06/16/17 10:46 Dose: Not Given Levalbuterol HCl (Xopenex) 0.63 mg IH [id number] [facility] Last Admin: 06/16/17 13:11 Dose: 0.63 mg Ondansetron HCl (Zofran Inj) 4 mg IVP Q6H PRN PRN Reason: Nausea/Vomiting Pantoprazole Sodium (Protonix Inj) 40 mg IVP DAILY [facility] Last Admin: 06/16/17 11:00 Dose: 40 mg - Labs Labs: 06/16/17 05:50 06/16/17 05:50 PT 16.1 Seconds (9.9-11.8) H 06/12/17 05:35 INR 1.49 (0.93-1.08) H 06/12/17 05:35 APTT 55.3 Seconds (23.7-30.8) H 06/15/17 06:10 - Constitutional Appears: No Acute Distress - Head Exam Head Exam: ATRAUMATIC, NORMAL INSPECTION, NORMOCEPHALIC - Eye Exam Eye Exam: EOMI, Normal appearance, PERRL Pupil Exam: NORMAL ACCOMODATION, PERRL - ENT Exam ENT Exam: Mucous Membranes Moist, Normal Exam - Respiratory Exam Respiratory Exam: Decreased Breath Sounds, Clear to Ausculation Bilateral - Cardiovascular Exam Cardiovascular Exam: REGULAR RHYTHM, +S1, +S2. absent: Murmur - GI/Abdominal Exam GI & Abdominal Exam: Soft, Normal Bowel Sounds. absent: Tenderness - Extremities Exam Additional comments: b/l aka - Neurological Exam Neurological Exam: Alert, Awake - Psychiatric Exam Psychiatric exam: Flat Affect - Skin Skin Exam: Dry, Intact, Normal Color, Warm Additional comments: left gluteal blister bandaged Assessment and Plan - Assessment and Plan (Free Text) Assessment: 62M with PMHx CHF, CAD, COPD, admitted to ICU for acute hypoxemic respiratory failure 2/2 pneumonia, CHF exacerbation, also found to have elevated troponins and ONEAL. Patient is requiring BIPAP. Pt on milrinone drip. Palliative care consulted due to state of poor prognosis, CM confirmed LTAC placement and to be transferred today. Neuro: - Lethargic. Sensation grossly intact. - Moving extremities CVS: - HD stable. - Pt on dual antiplatelets (ASA, Plavix), Statin, BB - Echo read, AICD in place. LVEF 25.3%. Bubble study showed no R to L shunt. No definitive vegetation - Cont milrinone drip - Maintain MAP>65. - Cardio, Dr. Gill, following, Pulm: - Acute hypoxemic resp failure 2/2 CAP, improving Fi02 able to be titrated to 60 percent. CXR much improved. - Intermittent BIPAP - Continue CPT, deep suctioning with nebulizer treatments, mucomyst - Maintain sat>90%. - Cont Merrem. Doxy and Vanco per ID, consider starting fluconazole for emperic treatment of fungal infection - Continue with protected lung ventilation strategies with head of bed elevation above 35 degrees, bronchodilators, keep oxygenation above 90%, pulm toileting - Pulmonology (Dr. Pittman) consulted, following GI: - Jevity tube feeds - GI ppx Protonix. Renal /fluids/Electrolytes: - ONEAL, resolved, stable Cr - strict I&O - Maintain euvolemia - Replete electrolytes as needed ID: - afebrile no leukocytosis - Continue with Doxy, Merrem and Vanco for CAP - ID following, Dr. Rai - Continue to monitor Endo: - Continue sliding scale insulin HIGH - Accucheck q6 - Maintain glucose between 140-180 Heme: - Stable - Cont to monitor. DVT/ GI ppx reviewed Seen reviewed and discussed with attending <Anant Hernandez - Last Filed: 06/17/17 11:56> Objective - Vital Signs/Intake and Output Vital Signs (last 24 hours): Temp Pulse Resp BP Pulse Ox 98.4 F 81 33 H 123/84 100 06/16/17 16:00 06/16/17 19:00 06/16/17 19:00 06/16/17 18:00 06/16/17 19:00 Intake and Output: 06/17/17 06/17/17 06:59 18:59 Intake Total 600 Output Total 700 Balance -100 - Labs Labs: 06/16/17 05:50 06/16/17 05:50 PT 16.1 Seconds (9.9-11.8) H 06/12/17 05:35 INR 1.49 (0.93-1.08) H 06/12/17 05:35 APTT 55.3 Seconds (23.7-30.8) H 06/15/17 06:10 Attending/Attestation - Attestation I have personally seen and examined this patient.: Yes I have fully participated in the care of the patient.: Yes I have reviewed all pertinent clinical information, including history, physical exam and plan: Yes Notes (Text): 06/17/17 11:54 62 yo male with resolving hypoxemic respiratory failure. CXR cleared much. Needs to continue with BPAP tapering. Abx, conservative fluid and 02 management , low dose steroids, bronchodilators, chest PT, HOB>35, aspiration precautions, IS, PT, OOB to chair. LTAC ccm time 40 min
== END 2017-06-16 19:00 | DRG 871 ==
LOC: ED 21:32 → ERH 23:22 → CCU 06-04 00:51
PROVIDERS: ADMIT Family Medicine; ATTEND Family Medicine
PROC: 5A09357 Assistance with Respiratory Ventilation, Less than 24 Consecutive Hours, Continuous Positive Airway Pressure (ICD-10-PCS; 2017-06-03)
PROC: 5A1945Z Respiratory Ventilation, 24-96 Consecutive Hours (ICD-10-PCS; principal; 2017-06-04)
PROC: 0BH17EZ Insertion of Endotracheal Airway into Trachea, Via Natural or Artificial Opening (ICD-10-PCS; 2017-06-04)
PROC: 3E03328 Introduction of Oxazolidinones into Peripheral Vein, Percutaneous Approach (ICD-10-PCS; 2017-06-05)
PROC: 5A09557 Assistance with Respiratory Ventilation, Greater than 96 Consecutive Hours, Continuous Positive Airway Pressure (ICD-10-PCS; 2017-06-10)
DX: A41.2 Sepsis due to unspecified staphylococcus (principal); J18.9 Pneumonia, unspecified organism; J96.01 Acute respiratory failure with hypoxia; I21.4 Non-ST elevation (NSTEMI) myocardial infarction; G93.41 Metabolic encephalopathy; I50.21 Acute systolic (congestive) heart failure; N17.9 Acute kidney failure, unspecified; I11.0 Hypertensive heart disease with heart failure; J44.0 Chronic obstructive pulmonary disease with (acute) lower respiratory infection; I42.0 Dilated cardiomyopathy; M62.82 Rhabdomyolysis; J98.11 Atelectasis; R65.20 Severe sepsis without septic shock; Z99.11 Dependence on respirator [ventilator] status; E10.51 Type 1 diabetes mellitus with diabetic peripheral angiopathy without gangrene; K21.9 Gastro-esophageal reflux disease without esophagitis; I25.10 Atherosclerotic heart disease of native coronary artery without angina pectoris; F32.9 Major depressive disorder, single episode, unspecified; M06.9 Rheumatoid arthritis, unspecified; F17.200 Nicotine dependence, unspecified, uncomplicated; D64.9 Anemia, unspecified; Y95 Nosocomial condition; N40.0 Benign prostatic hyperplasia without lower urinary tract symptoms; Z95.810 Presence of automatic (implantable) cardiac defibrillator; Z89.611 Acquired absence of right leg above knee; Z89.612 Acquired absence of left leg above knee